=== PATIENT | male | born 1935 | race Caucasian/White ===

== ENCOUNTER → 2016-05-31 | Outpatient (CLI) | payer BC ==
[~2016-05-31] MED LIST: ALBU18002 INH; ALBUAER19 INH; ASPI81TA28 PO; ATOR-24 PO; CALC625T13 PO; HYT/2 PO; ISOS30TA3 PO; ISOS60TA25 PO; METH-589 PO; METO50TA16 PO; MULT-190 PO; MULT-506 PO; NITR0.4S UT; OMEP1POW2 PO; POLY99.02 OP; PRLSR20 PO; WARF5TAB90 PO
[2016-05-31 18:04] LABS: BLOOD UREA NITROGEN 21 mg/dl (7-18); BUN/CREATININE RATIO 17.5 (10-20); CALCIUM 8.6 mg/dl (8.5-10.1); CARBON DIOXIDE 28 mmol/L (21-32); CHLORIDE 105 mmol/L (98-107); GLUCOSE 88 mg/dl (70-99); POTASSIUM 4.1 mmol/L (3.5-5.1); SODIUM 140 mmol/L (136-145)
[2016-05-31 18:17] LABS: BASO % 0.3 %; BASO ABS # 0.02 K/uL (0-0.2); COMPLETE YES; EOS % 2.1 %; HEMATOCRIT 33.4 % (42-52); IG% 0.4 %; LYMPH % 35.8 %; LYMPH ABS # 2.52 K/uL (1.2-3.4); MEAN CORPUSCULAR HEMOGLOBIN 30.9 pg (25-34); MEAN CORPUSCULAR HGB CONC 33.2 g/dl (32-36); MEAN PLATELET VOLUME 8.9 fL (7.4-10.4); MONO % 9.8 %; NEUT % 51.6 %; PLATELET COUNT 188 K/uL (130-400); RED BLOOD COUNT 3.59 M/uL (4.7-6.1); WHITE BLOOD COUNT 7.03 K/uL (4.8-10.8)
== END | disposition home or self-care (01) ==
LOC: C.LABMFLN 13:45
PROVIDERS: ATTEND Family Medicine
DX: R07.9 Chest pain, unspecified (principal)

== ENCOUNTER → 2016-06-11 | Outpatient (CLI) | payer BC ==
[2016-06-11 17:54] LABS: TOTAL IRON BINDING CAPACITY 327 mcg/dl (250-450)
--- NOTE | 2016-06-17 08:23 | CODING QUERY MEDICAL NECESSITY ---
SUPPORTING DIAGNOSIS NEEDED Dr. Mays, A supporting diagnosis is required for the test/procedure performed on this patient in order for us to be reimbursed by the patient's insurance. Please provide a supporting diagnosis for the following test/procedure listed below next to the test name along with your signature. *If there is no additional diagnosis for this patient that would support the following test/procedure please document that below next to the test/procedure. Test(s)/Procedure(s) that require a supporting diagnosis: * ([id number]) B12 VITAMIN LEVEL DIAGNOSIS: * ([id number]) FOLATE LEVEL DIAGNOSIS: DATE OF SERVICE: 06/11/16 Provider Signature: Date: Thank you Karri Carmona [facility] Information Management Once completed, please kindly fax back to [phone] For questions please call [phone]
== END | disposition home or self-care (01) ==
LOC: C.LABMFLN 11:25
PROVIDERS: ATTEND Family Medicine
DX: D64.9 Anemia, unspecified (principal)

== ENCOUNTER → 2016-06-15 | Outpatient (CLI) | payer BC | END | disposition home or self-care (01) | LOC: C.LABSPEC 18:09 | PROVIDERS: ATTEND Family Medicine | DX: D64.9 Anemia, unspecified (principal) ==

== ENCOUNTER → 2016-06-25 | Outpatient (CLI) | payer BC ==
[~2016-06-25] MED LIST changes: +REGADENOSON 0.4 MG/5 ML SYR ONE
--- NOTE | 2016-06-28 19:13 | MYOCARDIAL PERFUSION SCAN ---
ORDERING PHYSICIAN: Quang Mays M.D. PRIMARY CARE PHYSICIAN: Quang Mays M.D. PROCEDURE 1. Myocardial perfusion study with multiple views/images. 2. Lexiscan pharmacologic stress ECG. INDICATIONS: Chest pain. ELECTROCARDIOGRAM AND VITALS: Baseline ECG showed sinus rhythm with nonspecific interventricular conduction delay and was unremarkable. During pharmacologic stress, no dysrhythmias or ST abnormalities noted. No chest pain reported. Unremarkable blood pressure response. PROCEDURAL DETAILS: For the stress portion of the study, Lexiscan 0.4 mg was intravenously administered over 10-15 seconds followed by saline flush. This was followed by 30.2 mCi of Tc-99m Cardiolite injected at 1125 a.m. on 06/25/2016. 30 minutes following this injection, imaging of the heart was performed in multiple projections. For the rest portion of the study, 10.5 mCi of Tc-99m Cardiolite was injected IV at 0945 a.m. One hour following the injection, imaging of the heart was performed in the same projections. FINDINGS: Rotating raw imaging showed no significant motion artifact. Heart appeared nondilated. There was no significant lung uptake. Myocardial perfusion was reviewed in multiple views and showed no evidence of infarct or ischemia. WALL MOTION: Normal left ventricular size with no regional wall motion abnormalities. Ejection fraction was calculated at 56%. IMPRESSION: 1. Negative pharmacologic myocardial perfusion scan for infarct or myocardial ischemia. 2. Normal left ventricular size and systolic function (EF=56%). 3. No chest pain. 4. No dysrhythmia. 5. Negative Lexiscan ECG. [facility]
== END | disposition home or self-care (01) ==
LOC: C.NUCL 09:02
PROVIDERS: ATTEND Family Medicine
DX: I25.10 Atherosclerotic heart disease of native coronary artery without angina pectoris (principal); I35.0 Nonrheumatic aortic (valve) stenosis; R07.9 Chest pain, unspecified

== ENCOUNTER → 2016-07-05 | Outpatient (CLI) | payer BC ==
[~2016-07-05] MED LIST changes: -REGADENOSON 0.4 MG/5 ML SYR ONE
== END | disposition home or self-care (01) ==
LOC: C.LABMFLN 11:22
PROVIDERS: ATTEND Family Medicine
DX: C61 Malignant neoplasm of prostate (principal)

== ENCOUNTER → 2016-07-15 | Day surgery (SDC) | payer BC ==
[2016-07-15] VITALS (8 sets, daily range): BP systolic 110–137; BP diastolic 53–78; PULSE 60–70; TEMP 36.6; O2SAT 96–98; Ht 172.7 cm; Wt 74.0 kg
[~2016-07-15] VITALS: Ht 172.7 cm; Wt 74.0 kg
[~2016-07-15] MED LIST changes: +ACETAMINOPHEN 325 MG TAB PO PRN; +FENTANYL CITRATE INJ 50 MCG/1 ML 2 ML VIAL ONE; +HEPARIN SOD (PORCINE) 1000 UNIT/ML 10 ML VIAL ONE; +MIDAZOLAM HCL 1 MG/ML 2ML VIAL ONE; +NiCARDipine HCL INJ 2.5 MG/ML 10 ML AMP ONE; +ONDANSETRON INJ 2 MG/ML 2 ML VIAL IV PRN; +SODIUM CHLORIDE 0.9% 1000ML 1,000 ML IV SCH
--- NOTE | 2016-07-15 09:45 | History & Physical Bridge Note ---
H&P Re-Evaluation Bridge Note: I have examined the patient, reviewed the History & Physical and in the interval since the performance of the History & Physical I have noted the following changes of clinical significance: Pt has been experiencing exertional chest discomfort with decreased exercise tolerance. He was unsure about AV replacement but is now considering and willing to undergo diagnostic testing. Therefore, will proceed with cath and JOSE ALBERTO. Otherwise, No changes noted.
--- NOTE | 2016-07-15 09:46 | Procedure Note ---
Pre-Mod Sedation Assessment General Date of Moderate Sedation: Jul 15, 2016. Vital Signs: Vital Signs Past 12 Hours Date Time Temp Pulse Resp B/P Pulse Ox O2 Delivery O2 Flow Rate FiO2 07/15/16 08:56 36.6 60 18 129/57 96 Room Air Review Cardiovascular: regular rate, rhythm, + systolic murmur Abdomen: non tender, soft Lungs: + crackles (chronic) Pre-Sedation Airway Assessment Hx of Sleep Apnea: No Smoking Status: Former Smoker Procedure Planning Contraindications-for Mod Sed: None Yes Notes The planned sedation has been discussed with the patient and consent obtained. I have identified the patient, determined the appropriateness of sedation and have assessed the patient immediately prior to the procedure. All medicine(s) and interventions are by my order.
[2016-07-15 10:09] LABS: BASO % 0.2 %; BASO ABS # 0.02 K/uL (0-0.2); EOS % 1.6 %; HEMATOCRIT 32.2 % (42-52); IG% 0.2 %; LYMPH % 22.9 %; MEAN CELL VOLUME 91.7 fL (80-100); MEAN CORPUSCULAR HEMOGLOBIN 31.6 pg (25-34); MEAN PLATELET VOLUME 8.1 fL (7.4-10.4); MONO % 9.2 %; NEUT % 65.9 %; PLATELET COUNT 143 K/uL (130-400); RED BLOOD COUNT 3.51 M/uL (4.7-6.1); WHITE BLOOD COUNT 8.73 K/uL (4.8-10.8)
[2016-07-15 10:10] LABS: COMPLETE YES; MEAN CORPUSCULAR HGB CONC 34.5 g/dl (32-36)
[2016-07-15 10:12] LABS: INR 1.1 (0.9-1.1); PROTHROMBIN TIME (PATIENT) 11.5 SECONDS (9.0-12.0)
[2016-07-15 10:34] LABS: BUN/CREATININE RATIO 18.1 (10-20); CALCIUM 8.7 mg/dl (8.5-10.1); CREATININE 1.1 mg/dl (0.60-1.40); POTASSIUM 3.9 mmol/L (3.5-5.1)
--- NOTE | 2016-07-15 12:08 | Procedure Note ---
Post-Mod Sedation Assessment General Date of Moderate Sedation Jul 15, 2016. Vital Signs: Vital Signs Past 12 Hours Date Time Temp Pulse Resp B/P Pulse Ox O2 Delivery O2 Flow Rate FiO2 07/15/16 11:55 70 16 126/62 98 Nasal Cannula 4 07/15/16 11:50 70 16 126/55 98 Nasal Cannula 4 07/15/16 11:45 66 16 132/62 96 Nasal Cannula 4 07/15/16 11:40 65 16 137/60 96 Nasal Cannula 4 07/15/16 11:35 63 16 129/57 96 Nasal Cannula 4 07/15/16 08:56 36.6 60 18 129/57 96 Room Air Review - Discharge Criteria Vital Signs Stable: Yes Alert/Oriented/Conversant: Yes Returned to Baseline Mental St: Yes Nausea Absent/Minimal: Yes Pain/Discomfort/Absent/Minimal: Yes Normal/Baseline Respirations: Yes Active Bleeding?: No
--- NOTE | 2016-07-15 12:09 | Cardiology Procedure Brief Nt ---
Preliminary Cardiology Note Procedure Date Jul 15, 2016. Pre-Procedure Diagnosis Aortic Stenosis Post-Procedure Diagnosis same Procedure(s) Performed JOSE ALBERTO Manager Multicultural Ellen Pattern Attendant(s) Cirilo Estimated Blood Loss none Preliminary Findings Significant Aortic stenosis. Mild MR. Recommendations Cath pending. Possible referral for AVR. Specimens none Complication(s) None Disposition test lab technician holding area
--- NOTE | 2016-07-15 12:10 | Procedure Note ---
Pre-Mod Sedation Assessment General Date of Moderate Sedation: Jul 15, 2016. Vital Signs: Vital Signs Past 12 Hours Date Time Temp Pulse Resp B/P Pulse Ox O2 Delivery O2 Flow Rate FiO2 07/15/16 11:55 70 16 126/62 98 Nasal Cannula 4 07/15/16 11:50 70 16 126/55 98 Nasal Cannula 4 07/15/16 11:45 66 16 132/62 96 Nasal Cannula 4 07/15/16 11:40 65 16 137/60 96 Nasal Cannula 4 07/15/16 11:35 63 16 129/57 96 Nasal Cannula 4 07/15/16 08:56 36.6 60 18 129/57 96 Room Air Review Cardiovascular: regular rate, rhythm, + systolic murmur Abdomen: non tender, soft Lungs: + crackles (chronic) Pre-Sedation Airway Assessment Hx of Sleep Apnea: No Smoking Status: Former Smoker Procedure Planning Contraindications-for Mod Sed: None Yes Notes The planned sedation has been discussed with the patient and consent obtained. I have identified the patient, determined the appropriateness of sedation and have assessed the patient immediately prior to the procedure. All medicine(s) and interventions are by my order.
--- NOTE | 2016-07-15 13:01 | TEE ---
*NOTICE TO RECEIVING [employer] This information is strictly Confidential and protected under [place] law. [place] law prohibits you from making any further disclosure of this information unless further disclosure is expressly permitted by the written consent of the person to whom it pertains or is authorized by law. A general authorization for the release of medical or other information is not sufficient for this purpose. Hospital accepts no responsibility if the information is made available to any other person, INCLUDING THE PATIENT. Interpretation Summary * Name: WANG TORRES Study Date: 07/15/2016 11:57 AM BP: 129/57 mmHg * Patient Location: C.CATH HR: 66 * : 1935 (M/d/yyyy) Gender: Male Height: 68 in * Age: 80 yrs Ethnicity: [place] Weight: 163 lb * Ordering Physician: Ryder Hughes * Referring Physician: Shoshana Marcos . PA-C * Performed By: Gabby Kerr RCS * * Reason For Study: AORTIC STENOSIS / MITRAL REGURGITATION * BSA: 1.9 m2 * -- Conclusions -- * JOSE ALBERTO: * 1. Normal left ventricular size with low-normal systolic function. Estimated EF 55%. No regional wall motion abnormalities. Mild concentric left ventricular hypertrophy. Type 1 diastolic dysfunction. * 2. Mild biatrial dilation. * 3. Severe aortic stenosis. * 4. Mild mitral regurgitation. * 5. Normal estimated right ventricular systolic pressure; estimated RVSP 25 mmHg, assuming a right atrial pressure of 3. * 6. Patient tolerated procedure well without known complication. * 7. No prior study available for comparison. Procedure Details * PROBE #3 WAS USED. TIME OUT: 1135 PROBE IN: 1140 PROBE OUT: 1200 * The study was performed in Cardiac Catheterization Lab. * Time out was conducted by the physician, nurse, and dairy lab technician with positive identification of patient and procedure. * Informed consent for Transesophageal Echocardiogram was obtained prior to the procedure. * An intravenous line was placed. A topical anesthetic agent was used for oropharangeal anesthesia. A bite block was inserted. * Fentanyl 25 mcg was administered for procedural sedation. * Midazolam 2 mg administered for sedation. * The posterior oropharynx was anesthetized using a topical anesthetic spray. A bite guard was inserted. * A multifrequency, multiplane transesopheageal echocardiographic endoscope was inserted and manipulated in the standard fashion to achieve multiplane views. * The transesophageal probe was passed without difficulty. * The usual views were obtained; basal, mid-esophageal, transgastric and aortic views. * The patient tolerated the procedure well without evidence of orophangeal or esophageal trauma. * A 2D transesophageal echocardiogram with spectral and color flow Doppler was performed. Left Ventricle * Normal left ventricular size with low-normal systolic function. Estimated EF 55%. No regional wall motion abnormalities. Mild concentric left ventricular hypertrophy. Type 1 diastolic dysfunction. Right Ventricle * The right ventricle is normal in size and function. Atria * The left atrium is mildly dilated. * No thrombus is detected in the left atrial appendage. * The right atrium is mildly dilated. * No visualized PFO or ASD. Mitral Valve * The mitral valve is normal in structure and function. * There is no mitral valve stenosis. * There is mild mitral regurgitation. Tricuspid Valve * The tricuspid valve is not well visualized, but is grossly normal. * There is no tricuspid stenosis. * There is trace tricuspid regurgitation. Aortic Valve * Severe aortic stenosis. * ALBERT 0.66 cm2; dimensionless index 0.2; mean gradient 37 mmHg. Moderate to severe based on velocity and mean gradient but other criteria favor severe aortic stenosis. * There is no significant aortic regurgitation. Pulmonic Valve * The pulmonic valve is not well visualized. * There is no significant pulmonary regurgitation. Great Vessels * The aortic root is normal size. * Severe atherosclerosis within visualized portions of thoracic descending aorta, including atheroma of approximately 0.5 cm. * Ascending aorta of normal dimension * Normal pulmonary venous flow pattern. Pericardium * There is no pericardial effusion. MMode 2D Measurements and Calculations LVIDd 4.8 cm LVIDs 3.4 cm FS 30.4 % EDV(Teich) 108.4 ml ESV(Teich) 45.8 ml EF(Teich) 57.7 % EDV(cubed) 111.7 ml ESV(cubed) 37.6 ml EF(cubed) 66.3 % SV(Teich) 62.6 ml SI(Teich) 33.4 ml/m\S\2 SV(cubed) 74.1 ml SI(cubed) 39.6 ml/m\S\2 Ao root diam 2.9 cm Ao root area 6.7 cm\S\2 asc Aorta Diam 3.0 cm LVOT diam 2.0 cm LVOT area 3.2 cm\S\2 Doppler Measurements and Calculations MV E max stacy 82.8 cm/sec MV A max stacy 94.1 cm/sec MV E/A 0.88 MV dec time 0.16 sec Ao V2 max 387.2 cm/sec Ao max PG 60.0 mmHg Ao max PG (full) 57.5 mmHg Ao V2 mean 290.4 cm/sec Ao mean PG 36.9 mmHg Ao mean PG (full) 35.4 mmHg Ao V2 VTI 106.2 cm ALBERT(I,A) 0.65 cm\S\2 ALBERT(I,D) 0.65 cm\S\2 ALBERT(V,A) 0.65 cm\S\2 ALBERT(V,D) 0.65 cm\S\2 LV V1 max PG 2.5 mmHg LV V1 mean PG 1.5 mmHg LV V1 max 79.3 cm/sec LV V1 mean 56.5 cm/sec LV V1 VTI 22.0 cm MR max stacy 466.2 cm/sec MR max PG 86.9 mmHg SV(Ao) 715.2 ml SI(Ao) 381.7 ml/m\S\2 SV(LVOT) 69.2 ml SI(LVOT) 36.9 ml/m\S\2 TR max stacy 231.9 cm/sec
--- NOTE | 2016-07-15 14:25 | Procedure Note ---
Post-Mod Sedation Assessment General Date of Moderate Sedation Jul 15, 2016. Vital Signs: Vital Signs Past 12 Hours Date Time Temp Pulse Resp B/P Pulse Ox O2 Delivery O2 Flow Rate FiO2 07/15/16 14:00 68 16 110/58 96 Room Air 07/15/16 13:55 64 16 125/51 96 Room Air 07/15/16 13:50 64 16 112/65 96 Room Air 07/15/16 13:45 64 16 119/67 96 Room Air 07/15/16 12:45 66 16 107/55 96 Room Air 07/15/16 12:30 64 16 113/51 96 Room Air 07/15/16 12:15 62 16 112/52 96 Room Air 07/15/16 12:00 70 16 110/53 98 Nasal Cannula 4 07/15/16 12:00 64 16 104/56 96 Room Air 07/15/16 11:55 70 16 126/62 98 Nasal Cannula 4 07/15/16 11:50 70 16 126/55 98 Nasal Cannula 4 07/15/16 11:45 66 16 132/62 96 Nasal Cannula 4 07/15/16 11:40 65 16 137/60 96 Nasal Cannula 4 07/15/16 11:35 63 16 129/57 96 Nasal Cannula 4 07/15/16 08:56 36.6 60 18 129/57 96 Room Air Review - Discharge Criteria Vital Signs Stable: Yes Alert/Oriented/Conversant: Yes Returned to Baseline Mental St: Yes Nausea Absent/Minimal: Yes Pain/Discomfort/Absent/Minimal: Yes Normal/Baseline Respirations: Yes Active Bleeding?: No
--- NOTE | 2016-07-15 14:37 | Cardiac Catheterization ---
Procedure Note Procedure Date Jul 15, 2016. Pre-Procedure Diagnosis Angina, CAD, Valvular Disease AUC Score 7 Post-Procedure Diagnosis Severe CAD Procedure(s) Performed Coronary Angiography Novelty Twister Tender Dr. Hughes Astrochemist(s) Gregg Estimated Blood Loss < 20 ml Medication(s) Fentanyl, Heparin, Nicardipine, Versed, Lidocaine 1% Summary of Findings Coronary angiography: 1. Left main coronary artery: Distal LM CA 60-70%. 2. Left anterior descending: LAD extends to the apex. Heavily calcified proximal LAD. Mid LAD 50%, just distal to D1. Remainder of LAD without significant CAD. D1 mid 100% occlusion. Very small D2. 3. Circumflex: The circumflex is a large caliber vessel proximally and extends distally as a small caliber vessel. Ostial circumflex 98%. Very small OM1, small caliber OM2, and large caliber OM3, without significant CAD. 4. Ramus intermedius: Large caliber. Ostial ramus 98% stenosis. 5. Right coronary artery: The RCA is large and dominant. Calcifications noted within the proximal to mid RCA. Proximal to mid RCA diffusely disease of approximately 60%. Distal RCA 40% followed by 30%. Distal RCA stent with 20% in stent restenosis. PDA and posterior lateral branch without significant CAD. Right to left collaterals noted. Procedural notes: 1. There were no attempt to cross the aortic valve given documented significant aortic stenosis. 2. Procedure performed via the right radial artery without known complication. Impression: 1. Severe multivessel CAD. 2. Significant aortic stenosis (symptomatic) previously documented. Plan: 1. Referral to CT surgery for evaluation of aortic valve replacement and CABG. Hemodynamics Rest Ao: 132/52 Final Ao: 127/55 LV: n/a Recommendations CABG, valve replacement Specimens None Radiation Exposure (mGy) 1146 mGy. Fluoro time 4.5 min. Contrast (mls) 70 ml Procedural Complication(s) None Disposition Medical Front Desk Coordinator Holding/Recovery ACC Data Cardiac Status Clinical evaluation leading to the procedure CAD Presntation: Stable angina Anginal Classification: CCS III Heart Failure: No Cardiogenic Shock w/in 24Hrs: No Cardiac Arrest w/in 24Hrs: No Imaging studies past 6 months: Yes (TTE and JOSE ALBERTO) Stress studies past 6 months: Yes Standard Exercise Stress Test: No Stress Echocardiogram: No Stress Testing w/SPECT MPI: Yes - Negative Cardiac CTA: No Coronary Anatomy Dominant: Right Left Main (% Stenosis): Distal (60%) LAD (% Stenosis): Mid (50%) D1 (% Stenosis): Mid (100%) D2 (% Stenosis): Normal Circumflex (% Stenosis): Ostial (98%) OM1 (% Stenosis): Normal OM2 (% Stenosis): Normal OM3 (% Stenosis): Normal RCA (% Stenosis): Proximal (60% diffuse), Mid (60%), Distal (30% point hope ira RCA. Distal RCA stent 20% in-stent stenosis.) R PDA (% Stenosis): Normal R PL1 (% Stenosis): Normal Ramus (% Stenosis): Ostial (98%) Left Ventricular Angiography EF (%): n/a Diagnostic Physician's Name: Ryder Hughes MD Status: Elective Closure Device Percutaneous Entry Location: Radial Closure Device: Radial Band Recommendations: CABG, valve replacement
--- NOTE | 2016-07-15 14:44 | Discharge Instructions ---
Discharge Instructions Visit Reason for Visit: Aortic stenosis and coronary artery disease. Here for cardiac catheterization. Discharge Discharge Diagnosis / Problem: Severe multivessel coronary artery disease and severe aortic stenosis. Discharge Goals Goal(s): Diagnostic testing Medications Restart Stopped Medication(s): Resume all of your usual medications. Activity Recommendations Activity Limitations: per Instructions/Follow-up section Anesthesia . Post Anesthesia Instructions: If you have had General Anesthesia or IV Sedation: * Do not drive today. * Resume driving when surgeon permits. * Do not make important decisions or sign legal documents today. * Call surgeon for: 1. Temperature elevations greater than 101 degrees F. 2. Uncontrollable pain. 3. Excessive bleeding. 4. Persistent nausea and vomiting. 5. Medication intolerance (nausea, vomiting or rash). * For nausea and vomiting use only clear liquids such as: tea, soda, bouillon until nausea subsides, then gradually increase diet as tolerated. * If you have any concerns or questions, call your surgeon's office. If physician is unavailable and it is an emergency, call 911 or go to the nearest emergency room. . Instructions / Follow-Up Instructions / Follow-Up Follow-up: 1. CT surgery at [facility] will be contacting you to arrange consultation for possible aortic valve replacement and coronary bypass surgery. Please take your images (provided on disc) to your appointment. ACTIVITY RECOMMENDATIONS: Excess manipulation of the wrist should be avoided for the next 24-48 hours. * No lifting over 2 pounds (approximately a 1/2 gallon of milk) with the utilized arm for 24 hours. * No strenuous activity such as bowling or tennis for 3 days. * Keep the site of the procedure covered with a bandage for 24 hours. *You may shower the day after the procedure. Do not take a tub bath or submerge the puncture site in water for the next 3 days. *Do not operate any motorized equipment for 3 days. SPECIAL CARE INSTRUCTIONS: The site may be slightly bruised and sore following your procedure. Should any of the following occur, contact the DrOrin who performed your procedure. 1. Redness/inflammation, swelling, chills, or fever, or colored drainage at procedure site within 3-7 days after your procedure. 2. Coldness, discoloration, ongoing numbness, severe pain, or swelling. Expect mild tingling of hand and tenderness at the puncture site for up to three days. If this persists beyond three days, or other symptoms develop, notify the Dr. who performed your procedure. BLEEDING: If the procedure site on your wrist begins to bleed, do not panic 1. Place 1 or 2 fingers firmly just slightly above the insertion site to stop the bleeding. You may be able to feel your pulse as you hold pressure. 2. Lift your finger after 5 minutes to see if the bleeding has stopped. 3. Once the bleeding has stopped, gently wipe the wrist area clean with a bandage. * If the bleeding from your wrist does not stop after 10 minutes, or if there is a large amount of bleeding or spurting, call 911 ([address] not drive yourself to the hospital). SKIN IRRITATION: * You may experience some redness and/or swelling in the area where radiation was administered. If any skin irritation occurs, please contact your family physician. FOLLOW UP VISIT: Keep any scheduled doctor appointments. ACTIVITY RECOMMENDATIONS: Resume activities as tolerated with no limitations unless specified. __ Nothing to eat or drink until gag reflex returns. __ No HOT or WARM liquids for _8_ hours. __ Avoid "scratchy" foods such as potato chips or pretzels for 24 hours following procedure. SPECIAL CARE: If you experience coughing up or vomiting of blood, contact 911 Diet Recommendations Recommended Home Diet: resume previous diet Procedures Procedures Performed: 1. Cardiac catheterization 2. Transesophageal echocardiogram Pending Studies Studies pending at discharge: yes List of pending studies: 1. Pulmonary function tests 2. Carotid duplex These will be arranged by Dr. Hughes's office and you will be notified of time/date of appointment. Medical Emergencies . Who to Call and When: Medical Emergencies: If at any time you feel your situation is an emergency, please call 911 immediately. Call 911 for chest pain that does not resolve within 5 minutes. . Non-Emergent Contact Non-Emergency issues call your: [facility] . . "Provider Documentation" section prepared by Ryder Smith.
== END | disposition home or self-care (01) ==
LOC: C.CATH 08:22
PROVIDERS: ATTEND Internal Medicine Cardiovascular Disease
DX: I25.119 Atherosclerotic heart disease of native coronary artery with unspecified angina pectoris (principal); I35.0 Nonrheumatic aortic (valve) stenosis; I48.91 Unspecified atrial fibrillation; E78.5 Hyperlipidemia, unspecified; I10 Essential (primary) hypertension; D64.9 Anemia, unspecified; K21.9 Gastro-esophageal reflux disease without esophagitis; C61 Malignant neoplasm of prostate; I65.29 Occlusion and stenosis of unspecified carotid artery; J44.9 Chronic obstructive pulmonary disease, unspecified; C18.9 Malignant neoplasm of colon, unspecified; E05.90 Thyrotoxicosis, unspecified without thyrotoxic crisis or storm; J84.112 Idiopathic pulmonary fibrosis; Z90.49 Acquired absence of other specified parts of digestive tract

== ENCOUNTER → 2016-10-12 | Outpatient (CLI) | payer BC ==
[~2016-10-12] MED LIST changes: -ACETAMINOPHEN 325 MG TAB PO PRN; -CALC625T13 PO; -FENTANYL CITRATE INJ 50 MCG/1 ML 2 ML VIAL ONE; +FERR324T PO; +FERR325T18 PO; -HEPARIN SOD (PORCINE) 1000 UNIT/ML 10 ML VIAL ONE; -ISOS30TA3 PO; +METO100T44 PO; -MIDAZOLAM HCL 1 MG/ML 2ML VIAL ONE; +MIRT30TA2 PO; +MULTCAP7 PO; -NiCARDipine HCL INJ 2.5 MG/ML 10 ML AMP ONE; -ONDANSETRON INJ 2 MG/ML 2 ML VIAL IV PRN; -POLY99.02 OP; +POTA10CA28 PO; -PRLSR20 PO; -SODIUM CHLORIDE 0.9% 1000ML 1,000 ML IV SCH; +TAMS0.4C38 PO; +WARF5TAB7 PO
[2016-10-12 18:02] LABS: BASO % 0.3 %; BASO ABS # 0.03 K/uL (0-0.2); COMPLETE YES; EOS % 1.9 %; HEMATOCRIT 34.6 % (42-52); IG% 1.1 %; LYMPH % 30.2 %; LYMPH ABS # 2.86 K/uL (1.2-3.4); MEAN CELL VOLUME 92.5 fL (80-100); MEAN CORPUSCULAR HEMOGLOBIN 28.9 pg (25-34); MEAN CORPUSCULAR HGB CONC 31.2 g/dl (32-36); MEAN PLATELET VOLUME 8.6 fL (7.4-10.4); MONO % 10.6 %; NEUT % 55.9 %; PLATELET COUNT 262 K/uL (130-400); RED BLOOD COUNT 3.74 M/uL (4.7-6.1); WHITE BLOOD COUNT 9.46 K/uL (4.8-10.8)
[2016-10-12 18:21] LABS: BLOOD UREA NITROGEN 21 mg/dl (7-18); BUN/CREATININE RATIO 20.8 (10-20); CARBON DIOXIDE 33 mmol/L (21-32); CHLORIDE 101 mmol/L (98-107); GLUCOSE 100 mg/dl (70-99); SODIUM 141 mmol/L (136-145)
== END | disposition home or self-care (01) ==
LOC: C.LABMFLN 13:27
PROVIDERS: ATTEND Family Medicine
DX: E05.90 Thyrotoxicosis, unspecified without thyrotoxic crisis or storm (principal); I10 Essential (primary) hypertension; I35.0 Nonrheumatic aortic (valve) stenosis; I48.91 Unspecified atrial fibrillation

== ENCOUNTER → 2016-11-15 | Outpatient (CLI) | payer BC ==
[2016-11-15 18:26] LABS: BASO % 0.4 %; BASO ABS # 0.03 K/uL (0-0.2); COMPLETE YES; EOS % 1.4 %; HEMATOCRIT 33.6 % (42-52); IG% 0.6 %; LYMPH % 32.5 %; LYMPH ABS # 2.63 K/uL (1.2-3.4); MEAN CELL VOLUME 89.8 fL (80-100); MEAN CORPUSCULAR HEMOGLOBIN 28.6 pg (25-34); MEAN CORPUSCULAR HGB CONC 31.8 g/dl (32-36); MEAN PLATELET VOLUME 8.3 fL (7.4-10.4); MONO % 8.8 %; NEUT % 56.3 %; PLATELET COUNT 247 K/uL (130-400); RED BLOOD COUNT 3.74 M/uL (4.7-6.1); WHITE BLOOD COUNT 8.09 K/uL (4.8-10.8)
[2016-11-15 18:41] LABS: TOTAL IRON BINDING CAPACITY 218 mcg/dl (250-450)
== END | disposition home or self-care (01) ==
LOC: C.LABMFLN 13:00
PROVIDERS: ATTEND Family Medicine
DX: I25.10 Atherosclerotic heart disease of native coronary artery without angina pectoris (principal); D64.9 Anemia, unspecified; E87.6 Hypokalemia

== ENCOUNTER → 2016-12-21 | Outpatient (CLI) | payer BC ==
[~2016-12-21] MED LIST changes: -FERR324T PO; -FERR325T18 PO; -METO100T44 PO; -MIRT30TA2 PO; -MULTCAP7 PO; -POTA10CA28 PO; -TAMS0.4C38 PO; -WARF5TAB7 PO
[2016-12-21 18:10] LABS: HEMATOCRIT 34.8 % (42-52); MEAN CELL VOLUME 92.8 fL (80-100); MEAN CORPUSCULAR HEMOGLOBIN 30.7 pg (25-34); MEAN PLATELET VOLUME 8.8 fL (7.4-10.4); PLATELET COUNT 252 K/uL (130-400); RED BLOOD COUNT 3.75 M/uL (4.7-6.1); WHITE BLOOD COUNT 8.89 K/uL (4.8-10.8)
[2016-12-21 18:15] LABS: BLOOD UREA NITROGEN 17 mg/dl (7-18); BUN/CREATININE RATIO 19.8 (10-20); CALCIUM 9.2 mg/dl (8.5-10.1); CARBON DIOXIDE 33 mmol/L (21-32); CHLORIDE 103 mmol/L (98-107); CREATININE 0.87 mg/dl (0.60-1.40); GLUCOSE 97 mg/dl (70-99); SODIUM 140 mmol/L (136-145)
== END | disposition home or self-care (01) ==
LOC: C.LABMFLN 13:52
PROVIDERS: ATTEND Family Medicine
DX: D64.9 Anemia, unspecified (principal); R06.02 Shortness of breath

== ENCOUNTER → 2017-01-07 | Outpatient (CLI) | payer BC ==
[~2017-01-07] MED LIST changes: +FERR324T PO; +FERR325T18 PO; +METO1TAB69 PO; +MIRT30TA2 PO; +MULTCAP7 PO; +POTA10CA28 PO; +TAMS0.4C38 PO; +WARF5TAB7 PO
[2017-01-07 13:30] LABS: ALT/SGPT 17 U/L (12-78); AST/SGOT 19 U/L (15-37); BLOOD UREA NITROGEN 17 mg/dl (7-18); CALCIUM 9.5 mg/dl (8.5-10.1); CARBON DIOXIDE 33 mmol/L (21-32); CHLORIDE 100 mmol/L (98-107); CHOLESTEROL 100 mg/dl (0-200); CREATININE 0.86 mg/dl (0.60-1.40); GLUCOSE 109 mg/dl (70-99); POTASSIUM 4.1 mmol/L (3.5-5.1); SODIUM 136 mmol/L (136-145); TRIGLYCERIDES 75 mg/dl (0-150); VERY LOW DENSITY LIPOPROT CALC 15 mg/dl
[2017-01-07 13:33] LABS: HDL CHOLESTEROL 51 mg/dl; LDL CHOLESTEROL CALCULATED 34 mg/dl
== END | disposition home or self-care (01) ==
LOC: C.LABMFLN 10:56
PROVIDERS: ATTEND Family Medicine
DX: E87.6 Hypokalemia (principal); D64.9 Anemia, unspecified; E78.5 Hyperlipidemia, unspecified; I10 Essential (primary) hypertension; I35.0 Nonrheumatic aortic (valve) stenosis; I48.91 Unspecified atrial fibrillation

== ENCOUNTER → 2017-02-02 | Outpatient (CLI) | payer BC ==
[2017-02-02 17:48] LABS: BASO % 0.4 %; BASO ABS # 0.03 K/uL (0-0.2); COMPLETE YES; EOS % 0.9 %; HEMATOCRIT 35.2 % (42-52); IG% 0.3 %; MEAN CELL VOLUME 95.4 fL (80-100); MEAN CORPUSCULAR HEMOGLOBIN 29.8 pg (25-34); MEAN CORPUSCULAR HGB CONC 31.3 g/dl (32-36); MEAN PLATELET VOLUME 8.8 fL (7.4-10.4); MONO % 10.8 %; NEUT % 60.6 %; PLATELET COUNT 190 K/uL (130-400); RED BLOOD COUNT 3.69 M/uL (4.7-6.1)
[2017-02-02 17:59] LABS: ALB/GLOB RATIO 0.6 (0.9-2); ALT/SGPT 19 U/L (12-78); AMYLASE 57 U/L (25-115); AST/SGOT 26 U/L (15-37); BLOOD UREA NITROGEN 19 mg/dl (7-18); BUN/CREATININE RATIO 21.4 (10-20); CALCIUM 9.2 mg/dl (8.5-10.1); CARBON DIOXIDE 34 mmol/L (21-32); CHLORIDE 102 mmol/L (98-107); CREATININE 0.89 mg/dl (0.60-1.40); GLUCOSE 125 mg/dl (70-99); POTASSIUM 3.9 mmol/L (3.5-5.1); SODIUM 138 mmol/L (136-145)
[2017-02-02 18:08] LABS: ALKALINE PHOSPHATASE 87 U/L (45-117); PROSTATE SPECIFIC ANTIGEN < 0.010 ng/ml (0.000-4.000); TOTAL IRON BINDING CAPACITY 296 mcg/dl (250-450)
--- NOTE | 2017-02-18 06:29 | CODING QUERY MEDICAL NECESSITY ---
CQSUPPORTING DIAGNOSIS NEEDED A supporting diagnosis is required for the test/procedure performed on this patient in order for us to be reimbursed by the patient's insurance. Please provide a supporting diagnosis for the following test/procedure listed below next to the test name along with your signature. *If there is no additional diagnosis for this patient that would support the following test/procedure please document that below next to the test/procedure. Test(s)/Procedure(s) that require a supporting diagnosis: DOS 02/02/17 VITAMIN B12 TEST FOLIC ACID TEST Provider Signature: Date: Thank you Gaviota Caballero [facility] Information Management Once completed, please kindly fax back to [phone] For questions please call [phone]
== END | disposition home or self-care (01) ==
LOC: C.LABMFLN 14:02
PROVIDERS: ATTEND Family Medicine
DX: E05.90 Thyrotoxicosis, unspecified without thyrotoxic crisis or storm (principal); E78.5 Hyperlipidemia, unspecified; R63.0 Anorexia; R63.4 Abnormal weight loss; I50.9 Heart failure, unspecified; I48.91 Unspecified atrial fibrillation; C61 Malignant neoplasm of prostate; I10 Essential (primary) hypertension

== ENCOUNTER → 2017-02-15 | Outpatient (CLI) | payer BC ==
[2017-02-15 14:22] LABS: BLOOD UREA NITROGEN 20 mg/dl (7-18); BUN/CREATININE RATIO 22.7 (10-20); CALCIUM 9.5 mg/dl (8.5-10.1); CARBON DIOXIDE 34 mmol/L (21-32); CHLORIDE 98 mmol/L (98-107); GLUCOSE 121 mg/dl (70-99); POTASSIUM 4.1 mmol/L (3.5-5.1); SODIUM 136 mmol/L (136-145)
== END | disposition home or self-care (01) ==
LOC: C.LABMFLN 10:12
PROVIDERS: ATTEND Internal Medicine Cardiovascular Disease
DX: I25.10 Atherosclerotic heart disease of native coronary artery without angina pectoris (principal); I48.91 Unspecified atrial fibrillation; R06.02 Shortness of breath; I42.9 Cardiomyopathy, unspecified; I50.22 Chronic systolic (congestive) heart failure

== ENCOUNTER → 2017-03-01 | Outpatient (CLI) | payer BC ==
[~2017-03-01] MED LIST changes: -FERR324T PO; -FERR325T18 PO; -METO1TAB69 PO; -MIRT30TA2 PO; -MULTCAP7 PO; -POTA10CA28 PO; -TAMS0.4C38 PO; -WARF5TAB7 PO
[2017-03-01 17:53] LABS: BASO % 0.4 %; BASO ABS # 0.04 K/uL (0-0.2); COMPLETE YES; EOS % 2.4 %; IG% 0.6 %; LYMPH ABS # 2.34 K/uL (1.2-3.4); MEAN CELL VOLUME 94.6 fL (80-100); MEAN CORPUSCULAR HEMOGLOBIN 30.3 pg (25-34); MEAN PLATELET VOLUME 8.8 fL (7.4-10.4); MONO % 14.6 %; PLATELET COUNT 251 K/uL (130-400); RED BLOOD COUNT 3.17 M/uL (4.7-6.1); WHITE BLOOD COUNT 10.19 K/uL (4.8-10.8)
[2017-03-01 18:06] LABS: ALT/SGPT 18 U/L (12-78); AMYLASE 55 U/L (25-115); AST/SGOT 26 U/L (15-37); BLOOD UREA NITROGEN 25 mg/dl (7-18); BUN/CREATININE RATIO 26.5 (10-20); CALCIUM 9.5 mg/dl (8.5-10.1); CARBON DIOXIDE 34 mmol/L (21-32); CHLORIDE 97 mmol/L (98-107); CREATININE 0.95 mg/dl (0.60-1.40); GLUCOSE 100 mg/dl (70-99); POTASSIUM 4.5 mmol/L (3.5-5.1); SODIUM 135 mmol/L (136-145)
[2017-03-01 18:10] LABS: ALKALINE PHOSPHATASE 96 U/L (45-117); PROSTATE SPECIFIC ANTIGEN < 0.010 ng/ml (0.000-4.000); TOTAL IRON BINDING CAPACITY 207 mcg/dl (250-450)
== END | disposition home or self-care (01) ==
LOC: C.LABMFLN 14:52
PROVIDERS: ATTEND Internal Medicine Cardiovascular Disease
DX: I42.9 Cardiomyopathy, unspecified (principal); I48.91 Unspecified atrial fibrillation; Z79.01 Long term (current) use of anticoagulants; R63.4 Abnormal weight loss; R68.81 Early satiety; K92.1 Melena; R10.13 Epigastric pain; R06.00 Dyspnea, unspecified; C61 Malignant neoplasm of prostate

== ENCOUNTER 2017-03-05 13:45 | Inpatient (IN) | payer BC, OTHER ==
[~2017-03-05] VITALS: Ht 170.2 cm; Wt 52.2 kg
[2017-03-05] MEDS ORDERED: SODIUM CHLORIDE 0.9% 500ML 500 ML IV STA (14:05)
[2017-03-05] MEDS ORDERED: FAMOTIDINE 20MG/102 ML D5W IV STA (14:11)
[2017-03-05] MEDS ORDERED: PANTOprazole INJ 40 MG in SYRINGE 0 ML IV ONE (14:15)
[2017-03-05] MEDS ORDERED: OPTIRAY 320 IV PRN (14:15)
--- NOTE | 2017-03-05 14:16 | EMERGENCY ROOM VISIT NOTE ---
History Report prepared by Mary Anneibdean: Teena Huertas Under the Supervision of: Dr. Nagi Pearson D.O. First contact with patient: 13:57 Chief Complaint: WEAKNESS Stated Complaint: NOT EATING, LUMP ON PROSTATE, WEAK, HEART SURG History of Present Illness The patient is a 81 year old male who presents to the Emergency Room with complaints of persistent weakness for the past several months. He is accompanied by his and daughter. His reports he has not had much of an appetite recently. The patient states "I go to take a bite, and says I just can't eat". He has lost a large amount of weight recently and his family states "he is withering away to nothing". His PCP, Dr. Mays in [place], referred the patient here to the ED for further evaluation this past Tuesday, 5 days [employer] , after finding "a lump on his prostate". The patient's reports they chose to come here to the ED today, Tuesday, out of convenience. The patient admits to "gas pains" in his abdomen and recent hematochezia. The patient denies any recent diarrhea or abdominal bloating. He does complain of increased shortness of breath but admits to a history of COPD. He reports he has undergone an endoscopy and colonoscopy in the past, but states it was "years ago". 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 A total of 10 systems reviewed and were otherwise negative. Past Medical & Surgical Medical Problems: (1) Atrial fibrillation with RVR (2) Bilateral pleural effusion (3) COPD (chronic obstructive pulmonary disease) (4) Prostate cancer Social History Smoking Status: Former Smoker Alcohol Use: none Drug Use: none Marital Status: Housing Status: lives with family Occupation Status: retired Current/Historical Medications Scheduled Aspirin (Aspirin Ec), 81 MG PO DAILY Atorvastatin (Lipitor), 40 MG PO HS Methimazole (Methimazole ), 5 MG PO Q2D Metoprolol Succ (Toprol Xl) (Toprol-Xl ), 100 MG PO DAILY Mirtazapine Soltab (Remeron Soltab), 30 MG PO HS Multiple Vitamins W/ Minerals (Eye Vitamins), 1 CAP PO DAILY Multivitamin (Multivitamin), 1 TAB PO DAILY Nitroglycerin (Nitrostat), 0.4 MG UT PRN Omeprazole (Bulk) (Omeprazole), 40 MG PO BID Potassium Chloride (Micro-K Ext Rel), 20 MEQ PO TID Tamsulosin Hcl (Flomax), 0.4 MG PO DAILY Warfarin Sod (Jantoven), 7.5 MG PO 2XWK Warfarin Sodium (Coumadin), 5 MG PO 5XWK Scheduled PRN Albuterol Sulfate (Proair Respiclick), 1-2 PUFF INH Q4H PRN for Cough Miscellaneous Medications Ferrous Gluconate (Ferrous Gluconate), 324 MG PO Allergies Coded Allergies: No Known Allergies (Unverified , 03/05/17) Physical Exam Vital Signs Date Time Temp Pulse Resp B/P (MAP) Pulse Ox O2 Delivery O2 Flow Rate FiO2 03/05/17 17:30 111 23 99 Nasal Cannula 2.0 03/05/17 17:00 103 27 118/76 98 Nasal Cannula 2.0 03/05/17 16:28 103 30 121/70 92 Nasal Cannula 2.0 03/05/17 15:00 114 25 128/77 96 03/05/17 14:05 127 03/05/17 14:02 144 29 119/99 93 03/05/17 13:53 36.7 128 20 118/65 95 Nasal Cannula 2.5 Physical Exam GENERAL: Patient is awake, alert, in no acute distress, patient is resting comfortably and showing no signs of anxiety EYES: The conjunctivae are clear. The pupils are round and reactive. EARS, NOSE, MOUTH AND THROAT: The nose is without any evidence of any deformity. Mucous membranes are moist tongue is midline NECK: The neck is nontender and supple. RESPIRATORY: Lung sounds are diminished throughout. Rales at both bases. No tachypnea or conversational dyspnea. CARDIOVASCULAR: Heart sounds are tachycardic and irregular. No definite murmur to auscultation. RECTAL: Brown stool, heme negative. GASTROINTESTINAL: The abdomen is mildly distended but soft. No guarding or rigidity. MUSCULOSKELETAL/EXTREMITIES: There is no evidence of gross deformity full range of motion is noted in the hips and shoulders SKIN: There is no obvious evidence of any rash. There are no petechiae, pallor or cyanosis noted. NEUROLOGIC: Patient is awake alert and oriented x3 Medical Decision & Procedures ER Provider Diagnostic Interpretation: Radiology results as stated below per my review and radiologist interpretation: SINGLE VIEW CHEST CLINICAL HISTORY: Generalized abdominal pain. FINDINGS: An AP, portable, upright chest radiograph is compared to study dated 06/08/2013 and correlated with chest CT dated 10/16/2015. The patient is status post midline sternotomy. The heart is enlarged and there is atherosclerotic calcification of the thoracic aorta. There is pulmonary vascular congestion. Emphysema and chronic interstitial thickening are similar to previous. There are layering pleural effusions with dense bibasilar airspace consolidation. No pneumothorax is seen. The skeletal structures are osteopenic. The bony thorax is grossly intact. Calcific tendinopathy is noted in the left shoulder. IMPRESSION: 1. Cardiomegaly with mild pulmonary vascular congestion. 2. There are layering pleural effusions with dense bibasilar airspace consolidation. Correlate clinically for evidence of pneumonia/aspiration pneumonitis. Radiographic follow-up to resolution is recommended. 3. Emphysema. Electronically signed by: Quang Resendez M.D. 03/05/2017 2:[address] SCAN OF THE ABDOMEN AND PELVIS WITH IV CONTRAST CLINICAL HISTORY: Upper abdominal pain. Dyspnea. COMPARISON STUDY: Abdominal CT scan dated 10/16/2015 and 09/09/2014. TECHNIQUE: Following the IV administration of 117 cc of Optiray 320, CT scan of the abdomen and pelvis is performed from the lung bases to the proximal femora. Images are reviewed in the axial, sagittal, and coronal planes. IV contrast was administered without complication. A dose lowering technique was utilized adhering to the principles of ALARA. CT DOSE: 381.88 mGy.cm FINDINGS: Lung bases: The patient is status post midline sternotomy and there is evidence of previous aortic valve surgery. The heart is markedly enlarged and there is a small pericardial effusion. The coronary arteries are densely calcified. Advanced emphysema is noted. Facet subpleural scarring are identified. There are moderate right and small left pleural effusions/collection with associated bibasilar consolidation. The pleural effusions appear to be at least partially loculated and there is underlying pleural thickening. The effusion on the right appears complex. A moderate hiatal hernia is identified. Liver: The contrast-enhanced liver is normal in size, contour, and attenuation. Focal fatty infiltration is seen adjacent to falciform ligament. There is no intrahepatic biliary ductal dilatation. The hepatic veins and portal veins are patent. Gallbladder: Unremarkable. Spleen: Normal in size and attenuation. Pancreas: Unremarkable. Adrenal glands: Unremarkable. Kidneys: The contrast enhanced kidneys demonstrate cortical atrophy and are without hydronephrosis. The kidneys enhance symmetrically. Renal cysts end indeterminant renal hypodensities measure up to 3.0 cm are similar appearance to previous. No enhancing cortical mass is clearly seen. Abdominal vasculature: There is advanced atherosclerotic calcification of the abdominal aorta. An aortobiiliac stent graft is in place. The stent graft is widely patent. No significant residual aneurysm sac is seen.. Bowel: There are postoperative changes from partial left colon resection with colocolonic anastomosis. No bowel obstruction is seen. The appendix is not identified and reported surgically absent. Peritoneum: There is no intraperitoneal free air or abdominal ascites. Lymphadenopathy: None. Pelvic viscera: The the prostate gland is mildly enlarged and heterogeneous. Brachytherapy beads are noted. Median lobe hypertrophy is identified. The bladder wall appears mildly thickened and trabeculated suggesting the sequelae of chronic outlet obstruction. Skeletal structures: The skeletal structures are osteopenic. The skeletal structures are heterogeneously osteopenic. There is moderate lumbosacral spondylosis. No lytic or blastic lesions are seen. IMPRESSION: 1. There are no acute infectious or inflammatory findings in the abdomen or pelvis. 2. Cardiomegaly and changes from midline sternotomy. This is new from 10/16/2015. 3. There are moderate right and small left pleural effusions/collections with associated bibasilar consolidation and pleural thickening. These are likely at least partially loculated, and the effusion on the right appears to be minimally complex. If cardiothoracic surgery was recent this may represent postoperative change. Clinical correlation will be essential. 4. Bibasilar consolidation likely represents atelectasis. Correlate clinically for evidence of pneumonia. 5. There are postoperative changes from left colon resection. No bowel obstruction is seen. 6. Additional findings as above. Electronically signed by: Quang Resendez M.D. 03/05/2017 5:03 PM Laboratory Results 03/05/17 14:10 Red Blood Count 3.48, Mean Corpuscular Volume 94.0, Mean Corpuscular Hemoglobin 29.6, Mean Corpuscular Hemoglobin Concent 31.5, Mean Platelet Volume 8.5, Neutrophils (%) (Auto) 66.8, Lymphocytes (%) (Auto) 20.6, Monocytes (%) (Auto) 10.2, Eosinophils (%) (Auto) 1.5, Basophils (%) (Auto) 0.3, Neutrophils # (Auto ) 6.86, Lymphocytes # (Auto) 2.12, Monocytes # (Auto) 1.05, Eosinophils # (Auto ) 0.15, Basophils # (Auto) 0.03 03/05/17 14:10 Test 03/05/17 14:10 White Blood Count 10.27 K/uL (4.8-10.8) Red Blood Count 3.48 M/uL (4.7-6.1) Hemoglobin 10.3 g/dL (14.0-18.0) Hematocrit 32.7 % (42-52) Mean Corpuscular Volume 94.0 fL (80-100) Mean Corpuscular Hemoglobin 29.6 pg (25-34) Mean Corpuscular Hemoglobin Concent 31.5 g/dl (32-36) Platelet Count 244 K/uL (130-400) Mean Platelet Volume 8.5 fL (7.4-10.4) Neutrophils (%) (Auto) 66.8 % Lymphocytes (%) (Auto) 20.6 % Monocytes (%) (Auto) 10.2 % Eosinophils (%) (Auto) 1.5 % Basophils (%) (Auto) 0.3 % Neutrophils # (Auto) 6.86 K/uL (1.4-6.5) Lymphocytes # (Auto) 2.12 K/uL (1.2-3.4) Monocytes # (Auto) 1.05 K/uL (0.11-0.59) Eosinophils # (Auto) 0.15 K/uL (0-0.5) Basophils # (Auto) 0.03 K/uL (0-0.2) RDW Standard Deviation 47.8 fL (36.4-46.3) RDW Coefficient of Variation 13.9 % (11.5-14.5) Immature Granulocyte % (Auto) 0.6 % Immature Granulocyte # (Auto) 0.06 K/uL (0.00-0.02) Absolute Reticulocyte Count 0.03 10^6/uL (0.02-0.10) Percent Reticulocyte Count 0.8 % (0.5-2.0) Prothrombin Time 37.6 SECONDS (9.0-12.0) Prothromb Time International Ratio 3.3 (0.9-1.1) Activated Partial Thromboplast Time 52.7 SECONDS (21.0-31.0) Partial Thromboplastin Ratio 2.0 Anion Gap 4.0 mmol/L (3-11) Est Creatinine Clear Calc Drug Dose 49.7 ml/min Estimated GFR () 92.9 Estimated GFR (Non- 80.2 BUN/Creatinine Ratio 21.8 (10-20) Calcium Level 9.5 mg/dl (8.5-10.1) Magnesium Level 2.0 mg/dl (1.8-2.4) Total Bilirubin 0.3 mg/dl (0.2-1) Direct Bilirubin 0.1 mg/dl (0-0.2) Aspartate Amino Transf (AST/SGOT) 19 U/L (15-37) Alanine Aminotransferase (ALT/SGPT) 18 U/L (12-78) Alkaline Phosphatase 109 U/L (45-117) Total Creatine Kinase 31 U/L (39-308) Creatine Kinase MB 0.6 ng/ml (0.5-3.6) Creatine Kinase MB Ratio 1.9 (0-3.0) Troponin I < 0.015 ng/ml (0-0.045) Total Protein 9.2 gm/dl (6.4-8.2) Albumin 2.6 gm/dl (3.4-5.0) Amylase Level 72 U/L (25-115) Lipase 302 U/L (73-393) Laboratory results per my review. Medications Administered Medications (Trade) Dose Ordered Sig/Jarett Route Start Time Stop Time Status Last Admin Dose Admin Sodium Chloride 500 ml @ 999 mls/hr Q31M STAT IV 03/05/17 14:05 03/05/17 14:35 DC 03/05/17 14:50 999 MLS/HR Famotidine (Pepcid 20mg/100 ml) 20 mg ONE STAT IV 03/05/17 14:11 03/05/17 14:12 DC 03/05/17 14:50 20 MG Pantoprazole Sodium 40 mg/ Syringe 10 ml @ 5 mls/min NOW ONCE IV 03/05/17 14:15 03/05/17 14:16 DC 03/05/17 14:51 5 MLS/MIN ECG Indication: weakness Rate (beats per minute): 130 Rhythm: atrial fibrillation Findings: other (Diffuse T-wave flattening, no PVC's) Comparison ECG Date: Atrial fibrillation is new when compared to EKG from ED Course 1401: The patient was evaluated in room A9B. A complete history and physical examination were performed. 1405: NSS 500 ml @ 999 mls/hr IV, Famotidine 20 mg IV, Pantoprazole Sodium 40 mg /Syringe 10 ml @ 5 mls/min IV. 1722: I reevaluated the patient. He is resting comfortably. I discussed my recommendation he remain in the hospital for further evaluation and management and he and his family verbalized complete understanding and agreement. 1740: I discussed the patients case with Dr. Bird, [facility] Hospitalist. The patient will be further evaluated. Medical Decision Prior records/ancillary studies reviewed and summarized above. Nursing notes reviewed. Additional history obtained from the family. The patient's history was concerning for weakness. Differential diagnosis: Etiologies such as metabolic, infection, hypo/hyperglycemia, electrolyte abnormalities, cardiac sources, intracerebral event, toxicologic, neurologic, as well as others were entertained. The patient is an 81-year-old male who presented to the emergency department with multiple complaints. The patient has been having increasing dyspnea on exertion as well as generalized weakness. He has also had decreased by mouth intake and early satiety. The patient presented to the emergency department today with family members. His primary care physician did some studies over the course of the last week or so but he was told on last Tuesday to go to the emergency department for further evaluation. The patient was found to be in rapid atrial fibrillation. He did not have a physical exam consistent with an acute surgical abdomen but because of his complaints CT abdomen and pelvis was obtained. I discussed the patient's laboratory and radiographic studies with him. He appears to have very significant pleural effusions. I would wonder if this could be the cause of his underlying weakness and shortness of breath. He was placed on oxygen previously. Because the patient's ongoing symptoms I discussed his case with the on-call [facility] hospitalist group. They've agreed to evaluate the patient in the emergency department for further management and disposition. Medication Reconcilliation Current Medication List: was personally reviewed by me Blood Pressure Screening Patient's blood pressure: Normal blood pressure Blood pressure disposition: Did not require urgent referral Consults Time Called: 1735 Consulting Physician: Dr. Bird [facility] Hospitalist Returned Call: 1740 I discussed the patients case with Dr. Bird [facility] Hospitalist. The patient will be further evaluated. Impression Primary Impression: Atrial fibrillation with RVR Additional Impressions: Dyspnea on exertion Pleural effusion Generalized weakness Early satiety Scribe Attestation The scribe's documentation has been prepared under my direction and personally reviewed by me in its entirety. I confirm that the note above accurately reflects all work, treatment, procedures, and medical decision making performed by me. Departure Information Dispostion Being Evaluated By Hospitalist Referrals Quang Mays M.D. (PCP) Patient Instructions My [facility] Health Problem Qualifiers
[2017-03-05 14:24] LABS: BASO % 0.3 %; BASO ABS # 0.03 K/uL (0-0.2); COMPLETE YES; EOS % 1.5 %; HEMATOCRIT 32.7 % (42-52); IG% 0.6 %; LYMPH % 20.6 %; LYMPH ABS # 2.12 K/uL (1.2-3.4); MEAN CORPUSCULAR HEMOGLOBIN 29.6 pg (25-34); MEAN CORPUSCULAR HGB CONC 31.5 g/dl (32-36); MEAN PLATELET VOLUME 8.5 fL (7.4-10.4); MONO % 10.2 %; NEUT % 66.8 %; PLATELET COUNT 244 K/uL (130-400); RED BLOOD COUNT 3.48 M/uL (4.7-6.1); WHITE BLOOD COUNT 10.27 K/uL (4.8-10.8)
[2017-03-05] MEDS ORDERED: MULTCAP7 PO (14:34)
[2017-03-05] MEDS ORDERED: METO100T44 PO (14:36)
[2017-03-05] MEDS ORDERED: FERR325T18 PO (14:36)
[2017-03-05] MEDS ORDERED: POTA10CA28 PO (14:36)
[2017-03-05] MEDS ORDERED: FERR324T PO (14:36)
[2017-03-05 14:37] LABS: ALT/SGPT 18 U/L (12-78); AMYLASE 72 U/L (25-115); AST/SGOT 19 U/L (15-37); BLOOD UREA NITROGEN 19 mg/dl (7-18); BUN/CREATININE RATIO 21.8 (10-20); CALCIUM 9.5 mg/dl (8.5-10.1); CARBON DIOXIDE 37 mmol/L (21-32); CHLORIDE 95 mmol/L (98-107); CREATININE 0.86 mg/dl (0.60-1.40); GLUCOSE 118 mg/dl (70-99); POTASSIUM 4.5 mmol/L (3.5-5.1); SODIUM 136 mmol/L (136-145)
[2017-03-05 14:39] LABS: INR 3.3 (0.9-1.1); PROTHROMBIN TIME (PATIENT) 37.6 SECONDS (9.0-12.0)
[2017-03-05] MEDS ORDERED: MIRT30TA2 PO (14:39)
[2017-03-05] MEDS ORDERED: WARF5TAB7 PO (14:39)
[2017-03-05 14:40] LABS: ALKALINE PHOSPHATASE 109 U/L (45-117); CKMB/CK RATIO 1.9 (0-3.0)
[2017-03-05] MEDS ORDERED: TAMS0.4C38 PO (14:40)
--- NOTE | 2017-03-05 14:47 | DIAGNOSTIC IMAGING REPORT ---
SINGLE VIEW CHEST CLINICAL HISTORY: Generalized abdominal pain. FINDINGS: An AP, portable, upright chest radiograph is compared to study dated 06/08/2013 and correlated with chest CT dated 10/16/2015. The patient is status post midline sternotomy. The heart is enlarged and there is atherosclerotic calcification of the thoracic aorta. There is pulmonary vascular congestion. Emphysema and chronic interstitial thickening are similar to previous. There are layering pleural effusions with dense bibasilar airspace consolidation. No pneumothorax is seen. The skeletal structures are osteopenic. The bony thorax is grossly intact. Calcific tendinopathy is noted in the left shoulder. IMPRESSION: 1. Cardiomegaly with mild pulmonary vascular congestion. 2. There are layering pleural effusions with dense bibasilar airspace consolidation. Correlate clinically for evidence of pneumonia/aspiration pneumonitis. Radiographic follow-up to resolution is recommended. 3. Emphysema. Electronically signed by: Quang Resendez M.D. 03/05/2017 2:46 PM Dictated Date/Time: 03/05/2017 2:45 PM
--- NOTE | 2017-03-05 17:04 | DIAGNOSTIC IMAGING REPORT ---
CT SCAN OF THE ABDOMEN AND PELVIS WITH IV CONTRAST CLINICAL HISTORY: Upper abdominal pain. Dyspnea. COMPARISON STUDY: Abdominal CT scan dated 10/16/2015 and 09/09/2014. TECHNIQUE: Following the IV administration of 117 cc of Optiray 320, CT scan of the abdomen and pelvis is performed from the lung bases to the proximal femora. Images are reviewed in the axial, sagittal, and coronal planes. IV contrast was administered without complication. A dose lowering technique was utilized adhering to the principles of ALARA. CT DOSE: 381.88 mGy.cm FINDINGS: Lung bases: The patient is status post midline sternotomy and there is evidence of previous aortic valve surgery. The heart is markedly enlarged and there is a small pericardial effusion. The coronary arteries are densely calcified. Advanced emphysema is noted. Facet subpleural scarring are identified. There are moderate right and small left pleural effusions/collection with associated bibasilar consolidation. The pleural effusions appear to be at least partially loculated and there is underlying pleural thickening. The effusion on the right appears complex. A moderate hiatal hernia is identified. Liver: The contrast-enhanced liver is normal in size, contour, and attenuation. Focal fatty infiltration is seen adjacent to falciform ligament. There is no intrahepatic biliary ductal dilatation. The hepatic veins and portal veins are patent. Gallbladder: Unremarkable. Spleen: Normal in size and attenuation. Pancreas: Unremarkable. Adrenal glands: Unremarkable. Kidneys: The contrast enhanced kidneys demonstrate cortical atrophy and are without hydronephrosis. The kidneys enhance symmetrically. Renal cysts end indeterminant renal hypodensities measure up to 3.0 cm are similar appearance to previous. No enhancing cortical mass is clearly seen. Abdominal vasculature: There is advanced atherosclerotic calcification of the abdominal aorta. An aortobiiliac stent graft is in place. The stent graft is widely patent. No significant residual aneurysm sac is seen.. Bowel: There are postoperative changes from partial left colon resection with colocolonic anastomosis. No bowel obstruction is seen. The appendix is not identified and reported surgically absent. Peritoneum: There is no intraperitoneal free air or abdominal ascites. Lymphadenopathy: None. Pelvic viscera: The the prostate gland is mildly enlarged and heterogeneous. Brachytherapy beads are noted. Median lobe hypertrophy is identified. The bladder wall appears mildly thickened and trabeculated suggesting the sequelae of chronic outlet obstruction. Skeletal structures: The skeletal structures are osteopenic. The skeletal structures are heterogeneously osteopenic. There is moderate lumbosacral spondylosis. No lytic or blastic lesions are seen. IMPRESSION: 1. There are no acute infectious or inflammatory findings in the abdomen or pelvis. 2. Cardiomegaly and changes from midline sternotomy. This is new from 10/16/2015. 3. There are moderate right and small left pleural effusions/collections with associated bibasilar consolidation and pleural thickening. These are likely at least partially loculated, and the effusion on the right appears to be minimally complex. If cardiothoracic surgery was recent this may represent postoperative change. Clinical correlation will be essential. 4. Bibasilar consolidation likely represents atelectasis. Correlate clinically for evidence of pneumonia. 5. There are postoperative changes from left colon resection. No bowel obstruction is seen. 6. Additional findings as above. Electronically signed by: Quang Resendez M.D. 03/05/2017 5:03 PM Dictated Date/Time: 03/05/2017 4:51 PM
[2017-03-05 18:15] VITALS: O2SAT 92; Ht 170.2 cm; Wt 52.2 kg
[2017-03-05] MEDS ORDERED: ALBUTEROL HFA 8 GM INHALER INH PRN (18:45)
[2017-03-05] MEDS ORDERED: NITROGLYCERIN 0.4 MG SL PER TAB CHARGE UT SCH (18:45)
[2017-03-05] MEDS ORDERED: ONDANSETRON INJ 2 MG/ML 2 ML VIAL IV PRN (18:45)
[2017-03-05] MEDS ORDERED: NITROGLYCERIN 0.4 MG SL PER TAB CHARGE SL PRN (18:45)
--- NOTE | 2017-03-05 18:57 | History and Physical ---
History & Physical Date & Time of Service: Mar 05, 2017 at 18:43 Chief Complaint: Not Eating, Lump On Prostate, Weak, Heart Surg Primary Care Physician: Quang Mays M.D. History of Present Illness Source: patient, family, spouse The patient is a 81-year-old male who presents emergency department with worsening generalized weakness, early satiety, shortness of breath and unintentional weight loss over the past several months. He saw his PCP Dr. Mays in [place] 4 days ago, and was advised to come to the emergency room for assessment, and the patient has presented with his family today. He has been seen by Dr. Hughes from cardiology recently as well, had an echocardiogram done in January which showed ejection fraction of 35-40%, and was also noted to have a possible lump on his prostate by Dr. Mays a few days ago as well. Social History Smoking Status: Former Smoker Alcohol Use: none Drug Use: none Marital Status: Housing status: lives with family Occupational Status: retired Immunizations History of Influenza Vaccine: Yes History of Tetanus Vaccine?: Yes History of Pneumococcal: Yes History of Hepatitis B Vaccine: Unknown Multi-Drug Resistant Organisms History of MDRO: No Allergies Coded Allergies: No Known Allergies (Unverified , 03/05/17) Home Medications Scheduled Aspirin (Aspirin Ec), 81 MG PO DAILY Atorvastatin (Lipitor), 40 MG PO HS Methimazole (Methimazole ), 5 MG PO Q2D Metoprolol Succ (Toprol Xl) (Toprol-Xl ), 100 MG PO DAILY Mirtazapine Soltab (Remeron Soltab), 30 MG PO HS Multiple Vitamins W/ Minerals (Eye Vitamins), 1 CAP PO DAILY Multivitamin (Multivitamin), 1 TAB PO DAILY Nitroglycerin (Nitrostat), 0.4 MG UT PRN Omeprazole (Bulk) (Omeprazole), 40 MG PO BID Potassium Chloride (Micro-K Ext Rel), 20 MEQ PO TID Tamsulosin Hcl (Flomax), 0.4 MG PO DAILY Warfarin Sod (Jantoven), 7.5 MG PO 2XWK Warfarin Sodium (Coumadin), 5 MG PO 5XWK Scheduled PRN Albuterol Sulfate (Proair Respiclick), 1-2 PUFF INH Q4H PRN for Cough Miscellaneous Medications Ferrous Gluconate (Ferrous Gluconate), 324 MG PO Review of Systems The patient denies chest pain, palpitations,cough, lower extremity swelling, vision change, hearing change, sore throat, fevers, chills, sweats, nausea, vomiting, diarrhea or constipation , abdominal pain, pelvic pain, blood in urine or stool, dysuria, urinary frequency or urgency, headache, memory loss, rash, abnormal bruising or bleeding, imbalance, focal weakness, numbness or tingling in arms or legs, generalized arthralgias or myalgias, or night sweats. The review of systems is otherwise negative other than for that already noted above, and at least 10 systems have been reviewed. Physical Exam Vital Signs Date Time Temp Pulse Resp B/P (MAP) Pulse Ox O2 Delivery O2 Flow Rate FiO2 03/05/17 18:15 92 Nasal Cannula 2.0 03/05/17 18:03 107 03/05/17 18:00 103 24 122/69 96 Nasal Cannula 2.0 03/05/17 17:30 111 23 99 Nasal Cannula 2.0 03/05/17 17:00 103 27 118/76 98 Nasal Cannula 2.0 03/05/17 16:28 103 30 121/70 92 Nasal Cannula 2.0 03/05/17 15:00 114 25 128/77 96 03/05/17 14:05 127 03/05/17 14:02 144 29 119/99 93 03/05/17 13:53 36.7 128 20 118/65 95 Nasal Cannula 2.5 The patient is awake, well-developed and adequately nourished, alert and oriented 3, normocephalic and atraumatic, looks mildly cachectic, lying in bed and in mild respiratory distress. HEENT--PERRL, EOMI, mucous membranes and oropharynx dry. Neck--supple, no JVD or bruits, thyroid normal, trachea midline, no adenopathy. Heart--normal S1 and S2, no extra beats, no murmurs, rubs or gallops. Lungs--decreased breath sounds at the bases to half way up bilaterally, mild respiratory distress with accessory muscle use. Abdomen--normal bowel sounds and soft, nontender and nondistended, no hernias or masses, no organomegaly. Extremities--no cyanosis, clubbing or edema. There are good distal pulses b/l. Dermatologic--normal skin turgor, normal color, warm and dry, no abnormal lymph nodes, no rash. Neurologic--cranial nerves II through XII grossly intact. Rheumatologic--normal range of motion, nontender, muscles and joints. Psychiatric--normal affect. Diagnostics Laboratory Results Results Past 24 Hours Test 03/05/17 14:10 Range/Units White Blood Count 10.27 4.8-10.8 K/uL Red Blood Count 3.48 4.7-6.1 M/uL Hemoglobin 10.3 14.0-18.0 g/dL Hematocrit 32.7 42-52 % Mean Corpuscular Volume 94.0 80-100 fL Mean Corpuscular Hemoglobin 29.6 25-34 pg Mean Corpuscular Hemoglobin Concent 31.5 32-36 g/dl Platelet Count 244 130-400 K/uL Mean Platelet Volume 8.5 7.4-10.4 fL Neutrophils (%) (Auto) 66.8 % Lymphocytes (%) (Auto) 20.6 % Monocytes (%) (Auto) 10.2 % Eosinophils (%) (Auto) 1.5 % Basophils (%) (Auto) 0.3 % Neutrophils # (Auto) 6.86 1.4-6.5 K/uL Lymphocytes # (Auto) 2.12 1.2-3.4 K/uL Monocytes # (Auto) 1.05 0.11-0.59 K/uL Eosinophils # (Auto) 0.15 0-0.5 K/uL Basophils # (Auto) 0.03 0-0.2 K/uL RDW Standard Deviation 47.8 36.4-46.3 fL RDW Coefficient of Variation 13.9 11.5-14.5 % Immature Granulocyte % (Auto) 0.6 % Immature Granulocyte # (Auto) 0.06 0.00-0.02 K/uL Absolute Reticulocyte Count 0.03 0.02-0.10 10^6/uL Percent Reticulocyte Count 0.8 0.5-2.0 % Prothrombin Time 37.6 9.0-12.0 SECONDS Prothromb Time International Ratio 3.3 0.9-1.1 Activated Partial Thromboplast Time 52.7 21.0-31.0 SECONDS Partial Thromboplastin Ratio 2.0 Sodium Level 136 136-145 mmol/L Potassium Level 4.5 3.5-5.1 mmol/L Chloride Level 95 98-107 mmol/L Carbon Dioxide Level 37 21-32 mmol/L Anion Gap 4.0 3-11 mmol/L Blood Urea Nitrogen 19 7-18 mg/dl Creatinine 0.86 0.60-1.40 mg/dl Est Creatinine Clear Calc Drug Dose 49.7 ml/min Estimated GFR () 92.9 Estimated GFR (Non- 80.2 BUN/Creatinine Ratio 21.8 10-20 Random Glucose 118 70-99 mg/dl Calcium Level 9.5 8.5-10.1 mg/dl Magnesium Level 2.0 1.8-2.4 mg/dl Total Bilirubin 0.3 0.2-1 mg/dl Direct Bilirubin 0.1 0-0.2 mg/dl Aspartate Amino Transf (AST/SGOT) 19 15-37 U/L Alanine Aminotransferase (ALT/SGPT) 18 12-78 U/L Alkaline Phosphatase 109 45-117 U/L Total Creatine Kinase 31 39-308 U/L Creatine Kinase MB 0.6 0.5-3.6 ng/ml Creatine Kinase MB Ratio 1.9 0-3.0 Troponin I < 0.015 0-0.045 ng/ml Total Protein 9.2 6.4-8.2 gm/dl Albumin 2.6 3.4-5.0 gm/dl Amylase Level 72 25-115 U/L Lipase 302 73-393 U/L Diagnostic Radiology Patient Name: WANG TORRES Unit Number: [id number] Dictated: 03/05/171650 Transcribed: 03/05/171650 EV Printed Date/Time: [~ rep prt dt]/[~ rep prt tm] [~ rep ct labl] - [~ rep ct ivnm] [facility] [place] [address] Dictated: 03/05/171650 Transcribed: 03/05/171650 EV Printed Date/Time: [~ rep prt dt]/[~ rep prt tm] [~ rep ct labl] - [~ rep ct ivnm] [~ rep ct add3]] CT SCAN OF THE ABDOMEN AND PELVIS WITH IV CONTRAST CLINICAL HISTORY: Upper abdominal pain. Dyspnea. COMPARISON STUDY: Abdominal CT scan dated 10/16/2015 and 09/09/2014. TECHNIQUE: Following the IV administration of 117 cc of Optiray 320, CT scan of the abdomen and pelvis is performed from the lung bases to the proximal femora. Images are reviewed in the axial, sagittal, and coronal planes. IV contrast was administered without complication. A dose lowering technique was utilized adhering to the principles of ALARA. CT DOSE: 381.88 mGy.cm FINDINGS: Lung bases: The patient is status post midline sternotomy and there is evidence of previous aortic valve surgery. The heart is markedly enlarged and there is a small pericardial effusion. The coronary arteries are densely calcified. Advanced emphysema is noted. Facet subpleural scarring are identified. There are moderate right and small left pleural effusions/collection with associated bibasilar consolidation. The pleural effusions appear to be at least partially loculated and there is underlying pleural thickening. The effusion on the right appears complex. A moderate hiatal hernia is identified. Liver: The contrast-enhanced liver is normal in size, contour, and attenuation. Focal fatty infiltration is seen adjacent to falciform ligament. There is no intrahepatic biliary ductal dilatation. The hepatic veins and portal veins are patent. Gallbladder: Unremarkable. Spleen: Normal in size and attenuation. Pancreas: Unremarkable. Adrenal glands: Unremarkable. Kidneys: The contrast enhanced kidneys demonstrate cortical atrophy and are without hydronephrosis. The kidneys enhance symmetrically. Renal cysts end indeterminant renal hypodensities measure up to 3.0 cm are similar appearance to previous. No enhancing cortical mass is clearly seen. Abdominal vasculature: There is advanced atherosclerotic calcification of the abdominal aorta. An aortobiiliac stent graft is in place. The stent graft is widely patent. No significant residual aneurysm sac is seen.. Bowel: There are postoperative changes from partial left colon resection with colocolonic anastomosis. No bowel obstruction is seen. The appendix is not identified and reported surgically absent. Peritoneum: There is no intraperitoneal free air or abdominal ascites. Lymphadenopathy: None. Pelvic viscera: The the prostate gland is mildly enlarged and heterogeneous. Brachytherapy beads are noted. Median lobe hypertrophy is identified. The bladder wall appears mildly thickened and trabeculated suggesting the sequelae of chronic outlet obstruction. Skeletal structures: The skeletal structures are osteopenic. The skeletal structures are heterogeneously osteopenic. There is moderate lumbosacral spondylosis. No lytic or blastic lesions are seen. IMPRESSION: 1. There are no acute infectious or inflammatory findings in the abdomen or pelvis. 2. Cardiomegaly and changes from midline sternotomy. This is new from 10/16/2015. 3. There are moderate right and small left pleural effusions/collections with associated bibasilar consolidation and pleural thickening. These are likely at least partially loculated, and the effusion on the right appears to be minimally complex. If cardiothoracic surgery was recent this may represent postoperative change. Clinical correlation will be essential. 4. Bibasilar consolidation likely represents atelectasis. Correlate clinically for evidence of pneumonia. 5. There are postoperative changes from left colon resection. No bowel obstruction is seen. 6. Additional findings as above. Electronically signed by: Quang Resendez M.D. 03/05/2017 5:03 PM Dictated Date/Time: 03/05/2017 4:51 PM The status of this report is Signed. Draft = Not yet reviewed or approved by Radiologist. Signed = Reviewed and approved by Radiologist. <AttendingPhy></AttendingPhy> <FamilyPhy>Quang Mays M.D.</FamilyPhy> < PrimaryPhy>Quang Mays M.D.</PrimaryPhy> <UnitNumber>[id number]</UnitNumber> < VisitNumber>[id number]</VisitNumber> <PatientName>WANG TORRES</PatientName> <DateOfBirth>1935</DateOfBirth> <Location>[facility]</Location> <ServiceDate></ServiceDate> <MNE>ESINDI</MNE> <OrderingPhy>Nagi Pearson D.O.</ OrderingPhy> <OrderingPhyMNE>f rep ord dr dang</OrderingPhyMNE> <DictatingPhyMNE> f rep dict dr dang</DictatingPhyMNE> <CCListMNE>f rep ct laurence</CCListMNE> < AdmittingPhyMNE>f pt admit dr dang</AdmittingPhyMNE> <AttendingPhyMNE>f pt attend dr dang</AttendingPhyMNE> <ConsultingPhyMNE>f pt consult dr dang</ConsultingPhyMNE> <FamilyPhyMNE>f pt fam dr dang</FamilyPhyMNE> <OtherPhyMNE>f pt other dr dang</OtherPhyMNE> < PrimaryPhyMNE>f pt prim care dr dang</PrimaryPhyMNE> <ReferringPhyMNE>f pt referring dr dang</ReferringPhyMNE> Patient Name: WANG TORRES Unit Number: [id number] Dictated: 03/05/171444 Transcribed: 03/05/171444 EV Printed Date/Time: [~ rep prt dt]/[~ rep prt tm] [~ rep ct labl] - [~ rep ct ivnm] [facility] Radiology Department [place] [id number] Dictated: 03/05/171444 Transcribed: 03/05/171444 EV Printed Date/Time: [~ rep prt dt]/[~ rep prt tm] [~ rep ct labl] - [~ rep ct ivnm] [~ rep ct add3]] SINGLE VIEW CHEST CLINICAL HISTORY: Generalized abdominal pain. FINDINGS: An AP, portable, upright chest radiograph is compared to study dated 06/08/2013 and correlated with chest CT dated 10/16/2015. The patient is status post midline sternotomy. The heart is enlarged and there is atherosclerotic calcification of the thoracic aorta. There is pulmonary vascular congestion. Emphysema and chronic interstitial thickening are similar to previous. There are layering pleural effusions with dense bibasilar airspace consolidation. No pneumothorax is seen. The skeletal structures are osteopenic. The bony thorax is grossly intact. Calcific tendinopathy is noted in the left shoulder. IMPRESSION: 1. Cardiomegaly with mild pulmonary vascular congestion. 2. There are layering pleural effusions with dense bibasilar airspace consolidation. Correlate clinically for evidence of pneumonia/aspiration pneumonitis. Radiographic follow-up to resolution is recommended. 3. Emphysema. Electronically signed by: Quang Resendez M.D. 03/05/2017 2:46 PM Dictated Date/Time: 03/05/2017 2:45 PM The status of this report is Signed. Draft = Not yet reviewed or approved by Radiologist. Signed = Reviewed and approved by Radiologist. <AttendingPhy></AttendingPhy> <FamilyPhy>Quang Mays M.D.</FamilyPhy> < PrimaryPhy>Quang Mays M.D.</PrimaryPhy> <UnitNumber>[id number]</UnitNumber> < VisitNumber>[id number]</VisitNumber> <PatientName>WANG TORRES</PatientName> <DateOfBirth>1935</DateOfBirth> <Location>[facility]</Location> <ServiceDate></ServiceDate> <MNE>ESINDI</MNE> <OrderingPhy>Nagi Pearson D.O.</ OrderingPhy> <OrderingPhyMNE>f rep ord dr dang</OrderingPhyMNE> <DictatingPhyMNE> f rep dict dr dang</DictatingPhyMNE> <CCListMNE>f rep ct laurence</CCListMNE> < AdmittingPhyMNE>f pt admit dr dang</AdmittingPhyMNE> <AttendingPhyMNE>f pt attend dr dang</AttendingPhyMNE> <ConsultingPhyMNE>f pt consult dr dang</ConsultingPhyMNE> <FamilyPhyMNE>f pt fam dr dang</FamilyPhyMNE> <OtherPhyMNE>f pt other dr dang</OtherPhyMNE> < PrimaryPhyMNE>f pt prim care dr dang</PrimaryPhyMNE> <ReferringPhyMNE>f pt referring dr dang</ReferringPhyMNE> EKG EKG shows atrial fibrillation with RVR at 130 bpm, nonspecific T-wave changes in lateral leads. Impression Assessment and Plan Atrial fibrillation with RVR/bilateral pleural effusions/ hypoalbuminemia/ systolic heart dysfunction with ejection fraction 35-40%-- The patient will be admitted to telemetry for serial cardiac enzymes, cardiac rhythm monitoring and a 2-D echocardiogram with Dopplers. Albumin 25 g with Lasix 40 mg IV 1 tonight and every morning. Nasal cannula 2 L oxygen titrate to keep pulse ox greater than or equal to 92%. Consult Dr. Hughes, who felt the patient may need to have repeat cardiac catheterization with most recent being done in July 2016. Consult pulmonology regarding large bilateral pleural effusions to see if thoracentesis is a potential option. INR is mildly supratherapeutic at 3.3. Hold warfarin in event of possible procedure. We'll not reverse at this time. Hold aspirin 81 mg by mouth daily for possible procedure. Continue Toprol-XL 100 mg by mouth daily Continue potassium chloride 20 mEq by mouth 3 times a day. Hyperlipidemia--continue Lipitor 40 mg by mouth at bedtime Hyperthyroidism--continue methimazole 5 mg by mouth every 2 days. Prostate cancer--continue tamsulosin 0.4 mg by mouth at bedtime GERD--change omeprazole 40 mg by mouth twice a day to pantoprazole 40 mg by mouth twice a day. Insomnia--continue mirtazapine 30 mg by mouth at bedtime. COPD--albuterol HFA 2 puffs every 4 hours when necessary. Iron deficiency--continue ferrous gluconate 3 and 24 mg by mouth daily Level of Care Telemetry Advanced Directives Existing Advance Directive: No Existing Living Will: No Existing Power of Computer Systems Consultant: No Resuscitation Status FULL RESUSCITATION VTE Prophylaxis VTE Risk Assessment Done? Y/N: Yes Risk Level: Moderate Given or contraindicated: Warfarin (Coumadin) Social Service Consult None Apply
[2017-03-05] MEDS ORDERED: ALBUMIN 25% 50 ML with FUROSEMIDE INJ 40 MG IV SCH ×2 (19:30)
[2017-03-05] MEDS: PANTOprazole SOD 40 MG TAB PO SCH (19:45)
[2017-03-05] MEDS: ATORVASTATIN 40 MG TAB PO SCH (19:45)
[2017-03-05] MEDS: TAMSULOSIN HCL 0.4 MG CAP PO SCH (19:45)
[2017-03-05] MEDS: MIRTAZAPINE TAB 15 MG TAB PO SCH (19:45)
[2017-03-05] MEDS: POTASSIUM CHLORIDE 20 MEQ TABCR PO SCH (19:46)
[2017-03-05 20:00] VITALS: BP 123/79; PULSE 112; TEMP 36.5; O2SAT 96
[2017-03-05 23:19] VITALS: BP 109/70; PULSE 115; TEMP 36.6; O2SAT 96
[2017-03-05] MEDS ORDERED: METOPROLOL TARTRATE 1 MG/ML VIAL ONE (23:58)
[2017-03-06] MEDS ORDERED: NURSING VERBAL MED ORDER ONE
[2017-03-06 00:13] LABS: URINE APPEARANCE CLEAR (CLEAR); URINE BILIRUBIN NEG (NEG); URINE COLOR YELLOW; URINE EPITHELIAL CELL AUTO 0-5 /lpf (0-5); URINE NITRITE NEG (NEG); URINE SPECIFIC GRAVITY 1.024 (1.000-1.030); UROBILINOGEN NEG (NEG)
[2017-03-06] MEDS ORDERED: PANTOprazole INJ 40 MG in SYRINGE 0 ML IV STA (00:20)
[2017-03-06 00:21] LABS: MANUAL MICROSCOPIC REQUIRED? NO; REVIEW REQ? NO
[2017-03-06] MEDS: ACETAMINOPHEN 325 MG TAB PO PRN ×2 (00:32→08:14)
[2017-03-06 03:03] LABS: CKMB/CK RATIO 3.2 (0-3.0)
[2017-03-06 03:17] VITALS: BP 103/67; PULSE 101; TEMP 36.7; O2SAT 97
[2017-03-06 06:27] LABS: BASO % 0.2 %; BASO ABS # 0.02 K/uL (0-0.2); COMPLETE YES; EOS % 2.1 %; HEMATOCRIT 30.2 % (42-52); IG% 0.5 %; LYMPH % 23.3 %; LYMPH ABS # 1.97 K/uL (1.2-3.4); MEAN CELL VOLUME 94.1 fL (80-100); MEAN CORPUSCULAR HEMOGLOBIN 29.9 pg (25-34); MEAN CORPUSCULAR HGB CONC 31.8 g/dl (32-36); MEAN PLATELET VOLUME 8.2 fL (7.4-10.4); MONO % 11.6 %; NEUT % 62.3 %; PLATELET COUNT 226 K/uL (130-400); RED BLOOD COUNT 3.21 M/uL (4.7-6.1); WHITE BLOOD COUNT 8.47 K/uL (4.8-10.8)
[2017-03-06 06:55] LABS: PARTIAL THROMBOPLASTIN RATIO 2.1; PROTHROMBIN TIME (PATIENT) 44.4 SECONDS (9.0-12.0)
[2017-03-06 06:57] LABS: BUN/CREATININE RATIO 17.3 (10-20); CALCIUM 9.5 mg/dl (8.5-10.1); CREATININE 0.86 mg/dl (0.60-1.40); MAGNESIUM 1.9 mg/dl (1.8-2.4); POTASSIUM 4.3 mmol/L (3.5-5.1)
[2017-03-06 07:00] LABS: INR 3.9 (0.9-1.1)
[2017-03-06 07:35] VITALS: BP 120/75; PULSE 109; TEMP 36.4; O2SAT 96
[2017-03-06] MEDS ORDERED: ALBUMIN HUMAN 25% 12.5 GM/50 ML VIAL IV ONE (08:10)
[2017-03-06] MEDS ORDERED: FUROSEMIDE 10 MG/ML 10 ML VIAL ONE (08:10)
[2017-03-06] MEDS: POTASSIUM CHLORIDE 20 MEQ TABCR PO SCH ×3 (08:15→21:13)
[2017-03-06] MEDS: MULTIVITAMIN TAB PO SCH (08:15)
[2017-03-06] MEDS: FERROUS GLUCONATE 324 MG TAB PO SCH (08:15)
[2017-03-06] MEDS: METHIMAZOLE 5 MG TAB PO SCH (08:16)
[2017-03-06] MEDS: PANTOprazole SOD 40 MG TAB PO SCH ×2 (08:16→21:15)
[2017-03-06] MEDS: ALBUMIN 25% 50 ML with FUROSEMIDE INJ 40 MG IV SCH ×2 (08:18)
[2017-03-06] MEDS ORDERED: METOPROLOL SUCC 50MG EXT REL TAB PO SCH (09:00)
[2017-03-06] MEDS ORDERED: ASPIRIN 81 MG ECTAB PO SCH (09:00)
[2017-03-06] MEDS ORDERED: CEROVITE ADV FORMULA TAB PO SCH (09:00)
[2017-03-06] MEDS ORDERED: TAMSULOSIN HCL 0.4 MG CAP PO SCH (09:00)
[2017-03-06 12:05] VITALS: BP 111/68; PULSE 112; TEMP 36.4; O2SAT 95
--- NOTE | 2017-03-06 13:34 | Cardiology Consultation ---
Cardiology Consultation Date of Consultation: Mar 06, 2017. Requesting Physician: Pelon Reason for Consultation: atrial fibrillation History of Present Illness Mr. Olvera is a pleasant 81-year-old gentleman with a complex past medical history as outlined below and includes coronary artery disease and prior severe aortic stenosis status post three-vessel CABG and bioprosthetic AVR normal 6 months ago, recent new moderate LV dysfunction with systolic heart failure and recent persistent atrial fibrillation admitted in the setting progressive weight loss with decreased appetite, persistent shortness of breath and failure to thrive. 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 Hughes. Patient states that he initially felt as if he was recovering post completion of inpatient rehab post his CABG/AVR however since that time feels that he has just continued to decline. Evaluation has included repeat echoes which showed a decline in his LVEF from 55% to 35-40% with no new regional wall motion abnormalities from October to January, CT scan of his chest which showed moderate right greater than left pleural effusions. Laboratory workup other than reduced albumin has been largely unremarkable including LFTs, thyroid studies. ProBNP level not significantly elevated. Has been tried on increased diuretics (Lasix 20 mg increased to 40 daily) without significant benefit. Also over this time patient has lost more than 30 lb which he attributes to decreased appetite and early satiety. Over the last several days his shortness of breath has worsened slightly, now shortness of breath with attempting to urinate despite supplemental oxygen. However, primary reason for presenting to ED yesterday seems to be continued concerns regarding his progressive weight loss, decreased appetite he and inability of his to care for him at home. Patient was recently seen by Dr. Mays 5 days ago and was noted to have a new prostate nodule. Has also had some reports of hematochezia, diarrhea and abdominal discomfort. Patient denies any palpitations, chest pain, presyncope. Denies any real orthopnea. Denies any significant recent lower extremity edema. In the emergency department was found to be in atrial fibrillation with RVR and on telemetry has had heart rates up to the 150s overnight. CT scan of the abdomen largely unremarkable but did note bilateral pleural effusions moderate on the right. Was given 1 dose of Lasix with albumin yesterday (750 out) and another dose of albumin today. Has been continued on his home Toprol XL 100 mg daily. Past Medical/Surgical History Coronary artery disease status post three-vessel CABG, prior stenting to RCA, aortic stenosis status post bioprosthetic AVR, AAA status post emergent endovascular repair, hypertension, COPD, mild restrictive lung disease, prostate cancer, hyperthyroidism, colon cancer status post left hemicolectomy, anemia Per Dr. Garrison's most recent not --- cardiac procedures are as follows: 1. [place]iac [place] [facility] [place] [facility]: mid LAD 50%; Small diag 100%; prox Cx 60%; Ramus 50%; LVGram without wall motion abnormality. Medical management initiated. 2. Echocardiogram 10/20/10: Normal LV size and systolic function without wall motion abnormality. EF 67%. Mild LVH. Mild LA dilation. Mild aortic stenosis; mean pressure 11 mmHg; ALBERT 1.1 cm. 3. Holter 06/07/13: Sinus rhythm. Average heart rate 65 (52-108). Frequent PVCs with 2 couplets. Rare PACs. No arrhythmias. One 2 second pause. 4. Stress echo 06/08/13: Positive at 73% MPHR, suggesting mid to distal LAD ischemia. No chest pain but significant dyspnea reported. Exercised 7 minutes on Vernon protocol. EF 60%. Normal wall motion. Mild to moderate aortic stenosis (mean gradient 14 mmHg). Mild MR. 5. Cardiac cath 06/14/13: LMCA 20-30%. Mid LAD 30%. Mid D1 occluded. Ostial circumflex 80% at bifurcation of OM1. Mid to distal RCA 95% with diffuse 30-40% proximally. Right to left collaterals. Normal pulmonary pressure, PCWP, and cardiac output. Mild to moderate (ALBERT 1.2 cm). 6. RCA PCI 06/14/13: Integrity BMS 2.75 x 18 mm post dilated with 3.25 mm noncompliant balloon. 7. CT chest 06/15/13: Peripheral and basilar parenchymal fibrosis. Moderate mediastinal adenopathy. 8. PFTs 08/20/13: Mild restrictive ventilatory impairment with a decrease in FVC and FEV1. 9. Carotid duplex 10/05/13: No significant stenosis. Moderate plaque within the left carotid bulb. 10. Echo 12/01/2014: Normal LV systolic function. Mild proximal inferior hypokinesis. EF 65%. Mild LVH. Moderate aortic stenosis with a mean gradient of 25 mm of mercury, peak velocity of 3.1 m/sec and LV velocity of 1.1 m/sec. 11. Echo 07/01/2016: Normal LV size with low-normal systolic function. EF 50-55% . Hypokinesis inferolateral wall and inferior basal segments. Type 1 diastolic dysfunction. Moderate left atrial dilation. Severe aortic stenosis. Mild to moderate MR. RVSP 35. 12. Cardiac catheterization 07/15/2016: Distal LM CA 70%. Mid LAD 50%. Heavily calcified proximal LAD. Mid D1 100%. Ostial circumflex 98%. Ostial ramus 98%. Calcifications proximal to mid RCA. Proximal to mid RCA diffuse 60%. Distal RCA 40% and 30%. Distal RCA stent with 20% in stent restenoses. Right to left collaterals. 13. JOSEA LBERTO 07/15/2016: EF 55%. Type 1 diastolic dysfunction. Mild biatrial dilation. Severe aortic stenosis. Mild MR. RVSP 25. 14. PFTs 07/28/2016: Mild obstruction and restriction. 15. CABG and AVR 09/10/2016: SHER to LAD; SVG to ramus; SVG distal circumflex. Aortic valve replacement Alvarez Magna pericardial tissue valve 23 mm. [place] [facility] 16. Echo 10/28/2016: Low normal LV systolic function. EF 55%. Akinetic inferior wall. Septal motion consistent with postoperative state. Mild left atrial dilation. Bioprosthetic aortic valve with appropriate transvalvular gradients. Mild MR. RVSP 30. 17. Echo 01/27/2017: Moderately reduced LV systolic function. EF 35-40%. Akinesis of the base to mid inferior wall, otherwise global hypokinesis. Moderate left atrial dilation. Moderately reduced RV systolic function. Appropriately functioning bioprosthetic aortic valve. Moderate MR. RVSP [address] scan chest 01/25/2017: Bilateral pleural effusions. Pulmonary vascular congestion. Bronchiectasis changes of bilateral lower lobes, right middle lobe, and lingula. Pulmonary fibrotic changes in lingula of left upper lobe. Social History Smoking Status: Former Smoker History of Alcohol Use: No Review of Systems 10 point review of systems was completed and was otherwise negative unless stated in HPI Allergies Coded Allergies: No Known Allergies (Unverified , 03/05/17) Medications Current Inpatient Medications Medications (Trade) Dose Ordered Sig/Jarett Route Start Time Stop Time Status Last Admin Dose Admin Ioversol (Optiray 320) 111 ml UD PRN IV 03/05/17 14:15 03/09/17 14:14 Acetaminophen (Tylenol Tab) 650 mg Q4H PRN PO 03/05/17 18:45 04/04/17 18:44 03/06/17 08:14 650 MG Nitroglycerin (Nitrostat Tab) 0.4 mg UD PRN SL 03/05/17 18:45 04/04/17 18:44 Atorvastatin Calcium (Lipitor Tab) 40 mg HS PO 03/05/17 21:00 04/04/17 20:59 03/05/17 19:45 40 MG Ferrous Gluconate (Ferrous Gluconate Tab) 324 mg DAILY PO 03/06/17 09:00 04/05/17 08:59 03/06/17 08:15 324 MG Methimazole (Methimazole Tab) 5 mg Q2D@0900 PO 03/06/17 09:00 04/05/17 08:59 03/06/17 08:16 5 MG Metoprolol Succinate (Toprol Xl Tab) 100 mg DAILY PO 03/06/17 09:00 04/05/17 08:59 03/06/17 08:19 100 MG Multivitamins (Multivitamin Tab) 1 tab DAILY PO 03/06/17 09:00 04/05/17 08:59 03/06/17 08:15 1 TAB Potassium Chloride (Klor-Con Tab) 20 meq TID PO 03/05/17 21:00 04/04/17 20:59 03/06/17 08:15 20 MEQ Albuterol (Ventolin Hfa Inhaler) 2 puffs Q4H PRN INH 03/05/17 18:45 04/04/17 18:44 Mirtazapine (Remeron Tab) 30 mg HS PO 03/05/17 21:00 04/04/17 20:59 03/05/17 19:45 30 MG Pantoprazole Sodium (Protonix Tab) 40 mg BID PO 03/05/17 21:00 04/04/17 20:59 03/06/17 08:16 40 MG Ondansetron HCl (Zofran Inj) 4 mg Q6H PRN IV 03/05/17 18:45 04/04/17 18:44 03/05/17 21:49 4 MG Furosemide 40 mg/ Albumin Human 54 ml @ 54 mls/hr QAM IV 03/06/17 09:00 03/09/17 08:59 Tamsulosin HCl (Flomax Cap) 0.4 mg HS PO 03/05/17 21:00 04/05/17 08:59 03/05/17 19:45 0.4 MG Physical Exam Vital Signs Past 12 Hours Date Time Temp Pulse Resp B/P (MAP) Pulse Ox O2 Delivery O2 Flow Rate FiO2 03/06/17 12:05 36.4 112 16 111/68 (82) 95 Nasal Cannula 03/06/17 08:00 Nasal Cannula 2.0 03/06/17 07:35 36.4 109 16 120/75 (90) 96 Nasal Cannula 03/06/17 04:00 Nasal Cannula 2.0 03/06/17 03:17 36.7 101 20 103/67 (79) 97 Nasal Cannula 2.0 General: Comfortable, no acute distress, thin, frail Eyes: Sclerae anicteric, extraocular movements intact HENT: Oropharynx clear mucous membranes moist Neck: Supple, no lymphadenopathy, no thyromegaly. Lungs: Decreased breath sounds at right base, no significant crackles Cardiac: Irregularly irregular, tachycardic, distant heart sounds, crisp bioprosthetic closure with 2/6 systolic ejection murmur. JVP approximately 8. No peripheral edema. Extremities well perfused. Vascular: Normal carotid upstrokes, no bruits. 2+ radial, intact DP/PT. No varicosities. Abdomen: Soft, nontender, nondistended positive bowel sounds. No hepatosplenomegaly Skin: No rashes or lesions. Neuro: Cranial nerves 2-12 grossly intact, remainder exam nonfocal Psych: Alert orient x3, normal affect and mood Data Laboratory Results: Last 24 Hours Test 03/05/17 14:10 03/06/17 00:00 03/06/17 02:21 03/06/17 05:55 White Blood Count 10.27 K/uL 8.47 K/uL Red Blood Count 3.48 M/uL 3.21 M/uL Hemoglobin 10.3 g/dL 9.6 g/dL Hematocrit 32.7 % 30.2 % Mean Corpuscular Volume 94.0 fL 94.1 fL Mean Corpuscular Hemoglobin 29.6 pg 29.9 pg Mean Corpuscular Hemoglobin Concent 31.5 g/dl 31.8 g/dl Platelet Count 244 K/uL 226 K/uL Mean Platelet Volume 8.5 fL 8.2 fL Neutrophils (%) (Auto) 66.8 % 62.3 % Lymphocytes (%) (Auto) 20.6 % 23.3 % Monocytes (%) (Auto) 10.2 % 11.6 % Eosinophils (%) (Auto) 1.5 % 2.1 % Basophils (%) (Auto) 0.3 % 0.2 % Neutrophils # (Auto) 6.86 K/uL 5.28 K/uL Lymphocytes # (Auto) 2.12 K/uL 1.97 K/uL Monocytes # (Auto) 1.05 K/uL 0.98 K/uL Eosinophils # (Auto) 0.15 K/uL 0.18 K/uL Basophils # (Auto) 0.03 K/uL 0.02 K/uL RDW Standard Deviation 47.8 fL 47.3 fL RDW Coefficient of Variation 13.9 % 13.8 % Immature Granulocyte % (Auto) 0.6 % 0.5 % Immature Granulocyte # (Auto) 0.06 K/uL 0.04 K/uL Absolute Reticulocyte Count 0.03 10^6/uL Percent Reticulocyte Count 0.8 % Prothrombin Time 37.6 SECONDS 44.4 SECONDS Prothromb Time International Ratio 3.3 3.9 Activated Partial Thromboplast Time 52.7 SECONDS 53.9 SECONDS Partial Thromboplastin Ratio 2.0 2.1 Sodium Level 136 mmol/L 138 mmol/L Potassium Level 4.5 mmol/L 4.3 mmol/L Chloride Level 95 mmol/L 95 mmol/L Carbon Dioxide Level 37 mmol/L 38 mmol/L Anion Gap 4.0 mmol/L 5.0 mmol/L Blood Urea Nitrogen 19 mg/dl 15 mg/dl Creatinine 0.86 mg/dl 0.86 mg/dl Est Creatinine Clear Calc Drug Dose 49.7 ml/min 50.2 ml/min Estimated GFR () 92.9 92.9 Estimated GFR (Non- 80.2 80.2 BUN/Creatinine Ratio 21.8 17.3 Random Glucose 118 mg/dl 97 mg/dl Calcium Level 9.5 mg/dl 9.5 mg/dl Magnesium Level 2.0 mg/dl 1.9 mg/dl Total Bilirubin 0.3 mg/dl Direct Bilirubin 0.1 mg/dl Aspartate Amino Transf (AST/SGOT) 19 U/L Alanine Aminotransferase (ALT/SGPT) 18 U/L Alkaline Phosphatase 109 U/L Total Creatine Kinase 31 U/L 28 U/L Creatine Kinase MB 0.6 ng/ml 0.9 ng/ml Creatine Kinase MB Ratio 1.9 3.2 Troponin I < 0.015 ng/ml < 0.015 ng/ml Total Protein 9.2 gm/dl Albumin 2.6 gm/dl Amylase Level 72 U/L Lipase 302 U/L Urine Color YELLOW Urine Appearance CLEAR Urine pH 5.0 Urine Specific Zamora 1.024 Urine Protein NEG Urine Glucose (UA) NEG Urine Ketones NEG Urine Occult Blood 2+ Urine Nitrite NEG Urine Bilirubin NEG Urine Urobilinogen NEG Urine Leukocyte Esterase NEG Urine WBC (Auto) 0 /hpf Urine RBC (Auto) 10-30 /hpf Urine Hyaline Casts (Auto) 1-5 /lpf Urine Epithelial Cells (Auto) 0-5 /lpf Urine Bacteria (Auto) NEG Test 03/06/17 10:26 Total Creatine Kinase 30 U/L Creatine Kinase MB 0.9 ng/ml Creatine Kinase MB Ratio 3.0 Troponin I < 0.015 ng/ml EKG: Atrial fibrillation with RVR, nonspecific ST changes Telemetry reviewed: Atrial fibrillation primarily in the 100s to 110s, briefly to 140s 150s. Brief run of nonsustained VT Assessment & Plan 1. Progressive dyspnea 2. Atrial fibrillation with RVR, persistent 3. Right greater than left pleural effusions 4. New moderate LV dysfunction 5. Coronary artery disease status post three-vessel CABG, prior RCA stenting 6. History of bioprosthetic aortic valve replacement 7. Progressive weight loss, anorexia, early satiety 8. Anemia Patient's primary reason for admission seems to be is continued issues with decreased appetite, early satiety, unplanned weight loss and failure to thrive at home. Etiology of the symptoms unclear at present. In addition has had difficulty with worsening shortness of breath now for months. Was previously noted to have new LV dysfunction but no real signs of heart failure and on exam today again appears to be well perfused without significant congestion. Notable findings thus far on workup included moderate right-sided pleural effusion and atrial fibrillation with RVR. Atrial fibrillation seems to have been persistent since his cardiac surgery back in August and question whether his new LV dysfunction is secondary to tachyarrhythmia. Pleural effusion notable on CT scan last month and feel may be contributing to patient's shortness of breath, possible hypoventilation with increasing bicarb. Recommend: -- Attempt additional diuresis 40mg IV x1 today. Can discontinue albumin -- Switch to metoprolol tartrate and increase to 100 mg BID -- Will discuss with Dr. Garrison potentially starting amiodarone, ? cardioversion for persistent atrial fibrillation. -- Coumadin being held -- Evaluation for possible thoracentesis of right pleural effusion.
[2017-03-06 15:51] VITALS: BP 104/67; PULSE 101; TEMP 36.8; O2SAT 96
--- NOTE | 2017-03-06 16:08 | Pulmonary Consultation ---
History General Date of Service: Mar 06, 2017. Stated Complaint: A-Fib W Rvr, Bilat Pleural Effusion HPI The patient is a 81 year old male who presents to [facility] with complaints of A-Fib W Rvr, Bilat Pleural Effusion. The patient's primary care provider is Quang Mays M.D.. Mr. Olvera is a 81-year-old male with past medical history of mild COPD, coronary artery disease, paroxysmal atrial fibrillation (on Coumadin), aortic stenosis status post aortic valve replacement and CABG 3 (August 2016), AAA status post leaking emergent endovascular repair at [facility], hyperlipidemia, hypertension, colon cancer status post hemicolectomy, prostate cancer status post brachytherapy, hypothyroidism and GERD Does complain of shortness of breath with little exertion. However in denies shortness of breath at rest. He denies any orthopnea or paroxysmal dyspnea or lower extremity edema. He denies any fevers or chills, cough, chest pain, hemoptysis. He does endorse increased satiety and decreased appetite.He has lost about 40 pounds since April 2016. He does have episodes of tarry black stool sometimes with bright red blood per rectum. He notes that he has history of hemorrhoids. He denies any other genitourinary or GI symptoms. He does admit to occasional lightheadedness and dizziness upon rising. He denies any syncope or falls. His initial vital signs in the ER her temperature 36.7, pulse 128, respiratory rate of 20, blood pressure 118/65 saturating 95% on 2.5 L nasal cannula. Laboratory data showed chemistry significant for a chloride 95, carbon dioxide 37, BUN of 19 creatinine 0.86. CK 31, troponin less than 0.0152, total protein 9.2 and albumin 2.6. White blood cell count of 10, hemoglobin of 10, platelet count 244. PT 37.6, INR 3.3 and PTT 52.7. Repeat coags this morning show INR 3.9, PTT 44 and PTT 53.9. Urine positive for occult blood 2+, urine red blood cells 10-30, negative for leukocyte esterase and nitrates as well as urine bacteria. He was given sodium chloride 500 mL bolus, nitroglycerin 0.4 mg when necessary , Pepcid 20 mg IV, Lasix 40 mg/albumin 1 bag pantoprazole 40 mg. Last transthoracic echo on 01/27/2017 showed a normal LV size with moderately decreased reduced systolic function. Akinesis at the base to mid inferior wall. With global hypokinesis estimated EF is about 35-40%. Some moderate left atrial dilation. Normal right ventricular size with moderately reduced systolic function. Bioprosthetic aortic valve Mild to moderate mitral regurgitation. Normal estimated right ventricular systolic pressure of about 24 [address] He [address] a [address] of the chest done at [facility] on 01/25/2017 which showed bilateral pleural effusions and pulmonary vascular congestion. Bronchiectatic changes in the bilateral lower lobes right middle lobes and lingula of the left upper lobe showed fibrotic changes in the lingula and left upper lobe as well. PFT was done on 07/28/2016 which showed mild obstructive lung defect with an FEV1 FEC ratio of 76% predicted. FEV1 prebronchodilator was 65%, 1.78 L. There is no significant bronchodilator response. There was a mild restrictive lung defect with the TLC of 60%, 4.26 L. He also had a decreased DLCO, approximately 32%. He was prescribed pro-air inhaler but rarely uses. Historian: patient Onset: last week Review of Systems Constitutional: reports: as stated in HPI Eyes: reports: as stated in HPI ENT: reports: as stated in HPI Cardiovascular: reports: as stated in HPI Respiratory: reports: as stated in HPI Gastrointestinal: reports: as stated in HPI Genitourinary - Male: reports: as stated in HPI Musculoskeletal: reports: as stated in HPI Neurologic: reports: as stated in HPI Psychiatric: reports: as stated in HPI Endocrine: as stated in HPI Hematologic / Lymphatic: as stated in HPI Allergic / Immunologic: as stated in HPI All Other Symptoms All Other Systems: Reviewed and Negative Past Medical History Past Medical History: Active Problems 1. Abnormal CXR (R93.8) 2. Anemia (D64.9) 3. Anorexia (R63.0) 4. Anticoagulant long-term use (Z79.01) 5. Aortic stenosis (I35.0) 6. Carcinoma of prostate (C61) 7. Carotid artery stenosis (I65.29) 8. Chest pain (R07.9) 9. Chronic obstructive pulmonary disease (J44.9) 10. Chronic systolic congestive heart failure (I50.22) 11. Colon cancer (C18.9) 12. Congestive heart failure (I50.9) 13. Constipation (K59.00) 14. Diastolic congestive heart failure (I50.30) 15. Edema (R60.9) 16. GERD without esophagitis (K21.9) 17. Hypertension (I10) 18. Hyperthyroidism (E05.90) 19. Hypokalemia (E87.6) 20. 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 Malignant neoplasm of prostate (C61) 22. Need for immunization against influenza (Z23) 23. Nocturia (R35.1) 24. Pulmonary fibrosis (J84.10) 25. S/P aortic valve replacement (Z95.2) 26. S/P CABG x 3 (Z95.1) 27. Screening PSA (prostate specific antigen) (Z12.5) 28. Visual impairment (H54.7) CAD in [place] artery (414.01) (I25.10) Hyperlipidemia (272.4) (E78.5) Hypertension (401.9) (I10) Aortic stenosis (424.1) (I35.0) Atrial fibrillation (427.31) (I48.91) Chest pain (786.50) (R07.9) Aortic stenosis (424.1) (I35.0) CAD in [place] artery (414.01) (I25.10) Hyperlipidemia (272.4) (E78.5) Atrial fibrillation (427.31) (I48.91) Exertional shortness of breath (786.05) (R06.02) Chronic diastolic congestive heart failure (428.32) (I50.32) Cardiomyopathy (425.4) (I42.9) Past Medical History Carcinoma of prostate (C61) History of abdominal aortic aneurysm (Z86.79) History of abnormal weight loss (Z87.898) History of sinus bradycardia (Z86.79) History of Prostate Cancer Past Surgical History: Surgical History History of Appendectomy History of Cardiac Cath Procedure History of Cataract Surgery History of Endovascular Repair Of Abdominal Aorta Aneurysm History of Neurological Surgery Carotid Endarterectomy Family History Family History No family history of premature coronary artery disease or lung disease. Social History Social History Denies tobacco after quitting in 2001. Denies alcohol or drug abuse. He is . He has 2 children. He worked at a [employer] but is retired. Hx Tobacco Use In Past Year?: No (Quit over 10 years ago) Smoking Status: Former Smoker Marital status: Housing status: lives with family Occupational Status: retired Immunizations History of Influenza Vaccine: Yes History of Tetanus Vaccine?: Yes History of Pneumococcal: Yes History of Hepatitis B Vaccine: Unknown History of MDRO History of MDRO: No Allergies Coded Allergies: No Known Allergies (Unverified , 03/05/17) Current Medications Reported Home Medications Medications Dose Route/Sig Max Daily Dose Days Date Category Dose Instructions Flomax (Tamsulosin Hcl) 0.4 Mg Cap 0.4 Mg PO DAILY 03/05/17 Reported Jantoven (Warfarin Sodium) 5 Mg Tab 7.5 Mg PO 2XWK 03/05/17 Reported TUESDAY, TUESDAY @1800 Remeron Soltab (Mirtazapine) 30 Mg Soltab 30 Mg PO HS 03/05/17 Reported Toprol-Xl (Metoprolol Succinate) 100 Mg Tabcr 100 Mg PO DAILY 03/05/17 Reported Micro-K Ext Rel (Potassium Chloride) 10 Meq Capcr 20 Meq PO TID 03/05/17 Reported Ferrous Gluconate 324 Mg Tab 324 Mg PO 03/05/17 Reported Eye Vitamins (Multiple Vitamins W/ Minerals) 1 Cap Cap 1 Cap PO DAILY 03/05/17 Reported Omeprazole (Omeprazole (Bulk)) 1 Pow Pow 40 Mg PO BID 07/15/16 Reported Coumadin (Warfarin Sodium) 5 Mg Tab 5 Mg PO 5XWK 12/27/13 Reported TUESDAY, TUESDAY,TUESDAY,TUESDAY,TUESDAY@1800 Lipitor (Atorvastatin Calcium) 40 Mg Tab 40 Mg PO HS 12/27/13 Reported Nitrostat (Nitroglycerin) 0.4 Mg Sub 0.4 Mg UT PRN 06/12/13 Reported Dissolve 1 tablet under the tongue q 5 min prn chest pain , do not exceed 3 doses in 15 min Aspirin Ec (Aspirin) 81 Mg Tab 81 Mg PO DAILY 06/12/13 Reported Multivitamin (Multivitamins) Tab 1 Tab PO DAILY 06/25/10 Reported Methimazole (Methimazole) 5 Mg Tab 5 Mg PO Q2D 06/25/10 Reported Physical Physical Exam Vital Signs: Date Time Temp Pulse Resp B/P (MAP) Pulse Ox O2 Delivery O2 Flow Rate FiO2 03/06/17 07:35 36.4 109 16 120/75 (90) 96 Nasal Cannula 03/06/17 04:00 Nasal Cannula 2.0 03/06/17 03:17 36.7 101 20 103/67 (79) 97 Nasal Cannula 2.0 03/06/17 00:05 140 109/70 03/06/17 00:00 Nasal Cannula 2.0 03/05/17 23:19 36.6 115 20 109/70 (83) 96 Nasal Cannula 2.0 03/05/17 20:00 36.5 112 22 123/79 (94) 96 Nasal Cannula 2.0 03/05/17 20:00 Nasal Cannula 2.0 03/05/17 18:15 92 Nasal Cannula 2.0 03/05/17 18:03 107 03/05/17 18:00 103 24 122/69 96 Nasal Cannula 2.0 03/05/17 17:30 111 23 99 Nasal Cannula 2.0 03/05/17 17:00 103 27 118/76 98 Nasal Cannula 2.0 03/05/17 16:28 103 30 121/70 92 Nasal Cannula 2.0 03/05/17 15:00 114 25 128/77 96 03/05/17 14:05 127 03/05/17 14:02 144 29 119/99 93 03/05/17 13:53 36.7 128 20 118/65 95 Nasal Cannula 2.5 General Appearance: WD/WN, NO APPARENT DISTRESS Head: NORMOCEPHALIC Eyes: PERRLA, NO DISCHARGE, EOMI, SCLERAE NORMAL, CONJUNCTIVAE NORMAL ENT: NORMAL MOUTH EXAM, NORMAL THROAT EXAM Neck: NORMAL RANGE OF MOTION, NO TENDERNESS, TRACHEA MIDLINE Respiratory: BREATH SOUNDS NORMAL, other (decrease breath signs bilaterally more on the the right than the left) Cardiovasular: NORMAL S1S2, NORMAL PERIPHERAL PULSES, irregular rate Abdomen: NON TENDER, NORMAL BOWEL SOUNDS, NO REBOUND Genitourinary - Male: EXTERNAL GENITALIA NORMAL Back: NORMAL INSPECTION, NO MIDLINE TENDERNESS, NO CVA TENDERNESS Upper Extremities: NO EDEMA, NO DEFORMITY, NORMAL ROM Lower Extremities: NORMAL ROM, other (trace lower extremity edema) Pulses: dorsalis pedis (R), dorsalis pedis (L) (2+) Neuro: ALERT, ORIENTED x 3, NORMAL MOTOR EXAM, NORMAL SENSATION, NORMAL SPEECH , NORMAL MEMORY Psychiatric: NORMAL AFFECT, NO SUICIDAL IDEATION, CONTRACTS FOR SAFETY Diagnostics Labs Results Past 24 Hours Test 03/05/17 14:10 03/06/17 00:00 03/06/17 02:21 03/06/17 05:55 Range/Units White Blood Count 10.27 8.47 4.8-10.8 K/uL Red Blood Count 3.48 3.21 4.7-6.1 M/uL Hemoglobin 10.3 9.6 14.0-18.0 g/dL Hematocrit 32.7 30.2 42-52 % Mean Corpuscular Volume 94.0 94.1 80-100 fL Mean Corpuscular Hemoglobin 29.6 29.9 25-34 pg Mean Corpuscular Hemoglobin Concent 31.5 31.8 32-36 g/dl Platelet Count 244 226 130-400 K/uL Mean Platelet Volume 8.5 8.2 7.4-10.4 fL Neutrophils (%) (Auto) 66.8 62.3 % Lymphocytes (%) (Auto) 20.6 23.3 % Monocytes (%) (Auto) 10.2 11.6 % Eosinophils (%) (Auto) 1.5 2.1 % Basophils (%) (Auto) 0.3 0.2 % Neutrophils # (Auto) 6.86 5.28 1.4-6.5 K/uL Lymphocytes # (Auto) 2.12 1.97 1.2-3.4 K/uL Monocytes # (Auto) 1.05 0.98 0.11-0.59 K/uL Eosinophils # (Auto) 0.15 0.18 0-0.5 K/uL Basophils # (Auto) 0.03 0.02 0-0.2 K/uL RDW Standard Deviation 47.8 47.3 36.4-46.3 fL RDW Coefficient of Variation 13.9 13.8 11.5-14.5 % Immature Granulocyte % (Auto) 0.6 0.5 % Immature Granulocyte # (Auto) 0.06 0.04 0.00-0.02 K/uL Absolute Reticulocyte Count 0.03 0.02-0.10 10^6/uL Percent Reticulocyte Count 0.8 0.5-2.0 % Prothrombin Time 37.6 44.4 9.0-12.0 SECONDS Prothromb Time International Ratio 3.3 3.9 0.9-1.1 Activated Partial Thromboplast Time 52.7 53.9 21.0-31.0 SECONDS Partial Thromboplastin Ratio 2.0 2.1 Sodium Level 136 138 136-145 mmol/L Potassium Level 4.5 4.3 3.5-5.1 mmol/L Chloride Level 95 95 98-107 mmol/L Carbon Dioxide Level 37 38 21-32 mmol/L Anion Gap 4.0 5.0 3-11 mmol/L Blood Urea Nitrogen 19 15 7-18 mg/dl Creatinine 0.86 0.86 0.60-1.40 mg/dl Est Creatinine Clear Calc Drug Dose 49.7 50.2 ml/min Estimated GFR () 92.9 92.9 Estimated GFR (Non- 80.2 80.2 BUN/Creatinine Ratio 21.8 17.3 10-20 Random Glucose 118 97 70-99 mg/dl Calcium Level 9.5 9.5 8.5-10.1 mg/dl Magnesium Level 2.0 1.9 1.8-2.4 mg/dl Total Bilirubin 0.3 0.2-1 mg/dl Direct Bilirubin 0.1 0-0.2 mg/dl Aspartate Amino Transf (AST/SGOT) 19 15-37 U/L Alanine Aminotransferase (ALT/SGPT) 18 12-78 U/L Alkaline Phosphatase 109 45-117 U/L Total Creatine Kinase 31 28 39-308 U/L Creatine Kinase MB 0.6 0.9 0.5-3.6 ng/ml Creatine Kinase MB Ratio 1.9 3.2 0-3.0 Troponin I < 0.015 < 0.015 0-0.045 ng/ml Total Protein 9.2 6.4-8.2 gm/dl Albumin 2.6 3.4-5.0 gm/dl Amylase Level 72 25-115 U/L Lipase 302 73-393 U/L Urine Color YELLOW Urine Appearance CLEAR CLEAR Urine pH 5.0 4.5-7.5 Urine Specific Gans 1.024 1.000-1.030 Urine Protein NEG NEG Urine Glucose (UA) NEG NEG Urine Ketones NEG NEG Urine Occult Blood 2+ NEG Urine Nitrite NEG NEG Urine Bilirubin NEG NEG Urine Urobilinogen NEG NEG Urine Leukocyte Esterase NEG NEG Urine WBC (Auto) 0 0-5 /hpf Urine RBC (Auto) 10-30 0-4 /hpf Urine Hyaline Casts (Auto) 1-5 0-5 /lpf Urine Epithelial Cells (Auto) 0-5 0-5 /lpf Urine Bacteria (Auto) NEG NEG Diagnostic Radiology SINGLE VIEW CHEST 03/05/2017 CLINICAL HISTORY: Generalized abdominal pain. FINDINGS: An AP, portable, upright chest radiograph is compared to study dated 06/08/2013 and correlated with chest CT dated 10/16/2015. The patient is status post midline sternotomy. The heart is enlarged and there is atherosclerotic calcification of the thoracic aorta. There is pulmonary vascular congestion. Emphysema and chronic interstitial thickening are similar to previous. There are layering pleural effusions with dense bibasilar airspace consolidation. No pneumothorax is seen. The skeletal structures are osteopenic. The bony thorax is grossly intact. Calcific tendinopathy is noted in the left shoulder. IMPRESSION: 1. Cardiomegaly with mild pulmonary vascular congestion. 2. There are layering pleural effusions with dense bibasilar airspace consolidation. Correlate clinically for evidence of pneumonia/aspiration pneumonitis. Radiographic follow-up to resolution is recommended. 3. Emphysema. CT SCAN OF THE ABDOMEN AND PELVIS WITH IV CONTRAST 03/05/2017 CLINICAL HISTORY: Upper abdominal pain. Dyspnea. COMPARISON STUDY: Abdominal CT scan dated 10/16/2015 and 09/09/2014. TECHNIQUE: Following the IV administration of 117 cc of Optiray 320, CT scan of the abdomen and pelvis is performed from the lung bases to the proximal femora. Images are reviewed in the axial, sagittal, and coronal planes. IV contrast was administered without complication. A dose lowering technique was utilized adhering to the principles of ALARA. CT DOSE: 381.88 mGy.cm FINDINGS: Lung bases: The patient is status post midline sternotomy and there is evidence of previous aortic valve surgery. The heart is markedly enlarged and there is a small pericardial effusion. The coronary arteries are densely calcified. Advanced emphysema is noted. Facet subpleural scarring are identified. There are moderate right and small left pleural effusions/collection with associated bibasilar consolidation. The pleural effusions appear to be at least partially loculated and there is underlying pleural thickening. The effusion on the right appears complex. A moderate hiatal hernia is identified. Liver: The contrast-enhanced liver is normal in size, contour, and attenuation. Focal fatty infiltration is seen adjacent to falciform ligament. There is no intrahepatic biliary ductal dilatation. The hepatic veins and portal veins are patent. Gallbladder: Unremarkable. Spleen: Normal in size and attenuation. Pancreas: Unremarkable. Adrenal glands: Unremarkable. Kidneys: The contrast enhanced kidneys demonstrate cortical atrophy and are without hydronephrosis. The kidneys enhance symmetrically. Renal cysts end indeterminant renal hypodensities measure up to 3.0 cm are similar appearance to previous. No enhancing cortical mass is clearly seen. Abdominal vasculature: There is advanced atherosclerotic calcification of the abdominal aorta. An aortobiiliac stent graft is in place. The stent graft is widely patent. No significant residual aneurysm sac is seen.. Bowel: There are postoperative changes from partial left colon resection with colocolonic anastomosis. No bowel obstruction is seen. The appendix is not identified and reported surgically absent. Peritoneum: There is no intraperitoneal free air or abdominal ascites. Lymphadenopathy: None. Pelvic viscera: The the prostate gland is mildly enlarged and heterogeneous. Brachytherapy beads are noted. Median lobe hypertrophy is identified. The bladder wall appears mildly thickened and trabeculated suggesting the sequelae of chronic outlet obstruction. Skeletal structures: The skeletal structures are osteopenic. The skeletal structures are heterogeneously osteopenic. There is moderate lumbosacral spondylosis. No lytic or blastic lesions are seen. IMPRESSION: 1. There are no acute infectious or inflammatory findings in the abdomen or pelvis. 2. Cardiomegaly and changes from midline sternotomy. This is new from 10/16/2015. 3. There are moderate right and small left pleural effusions/collections with associated bibasilar consolidation and pleural thickening. These are likely at least partially loculated, and the effusion on the right appears to be minimally complex. If cardiothoracic surgery was recent this may represent postoperative change. Clinical correlation will be essential. 4. Bibasilar consolidation likely represents atelectasis. Correlate clinically for evidence of pneumonia. 5. There are postoperative changes from left colon resection. No bowel obstruction is seen. 6. Additional findings as above. CT SCAN OF THE CHEST WITH IV CONTRAST 10/16/2015 CLINICAL HISTORY: Colon cancer. COMPARISON STUDY: Chest CT scans dated 09/09/2014 and 06/15/2013. TECHNIQUE: Following the IV administration of 93 cc of Optiray 320, CT scan of the thorax was performed from the thoracic inlet to the upper abdomen. Images are reviewed in the axial, sagittal, and coronal planes. IV contrast was administered without complication. CT DOSE: Reported separately under the concurrently performed CT scan of the abdomen and pelvis. FINDINGS: Thyroid: Imaged portions of the thyroid gland are normal in size and attenuation. Thoracic aorta: There is atherosclerotic calcification of the thoracic aorta, which is normal in caliber and demonstrates standard 3-vessel arch anatomy. No aneurysm or dissection is seen. Pulmonary vasculature: The pulmonary trunk is normal in caliber. There are no filling defects identified in the central pulmonary vessels to indicate pulmonary embolus. Note that this examination was not protocoled for evaluation of the pulmonary arteries. Heart: The heart is enlarged and without pericardial effusion. The coronary arteries are densely calcified. Lungs and pleural spaces: There is no airspace consolidation typical for pneumonia or pleural effusion. There are emphysematous changes. Findings interstitial lung disease are similar to previous, with significant subpleural reticulation and intralobular septal thickening. Foci of honeycombing are seen in the upper lobes bilaterally. There is no significant traction bronchiectasis. The trachea and central airways are clear. Mediastinum: There are mildly enlarged mediastinal lymph nodes. Some of these contain coarse calcifications. An AP window node on image #106 measures 1.2 cm in short axis. A high right paratracheal node on image #55 measures 1.3 cm in short axis. Staci: There is hilar lymphadenopathy. Enlarged nodes on the right measure up to 1.2 cm short axis, and enlarged nodes on the left measure up to 1.3 cm in short axis. Axillae: There is no axillary lymphadenopathy. Upper abdomen: There is a moderate hiatal hernia. Hepatic steatosis is noted. The partially imaged kidneys demonstrate cortical atrophy. 2 cysts in the upper pole the right kidney measured 3.0 cm. Skeletal structures: The skeletal structures are heterogeneously osteopenic. No lytic or blastic bony lesions are seen. Degenerative change and hyperkyphosis are seen in the thoracic spine. IMPRESSION: 1. There is no evidence of intrathoracic metastatic disease. 2. Findings of emphysema and chronic interstitial lung disease are similar to previous. 3. Mediastinal and hilar lymphadenopathy are again noted. This is nonspecific and may be related to chronic lung disease. 4. Cardiomegaly. 5. Hepatic steatosis. 6. Moderate hiatal hernia. 7. Additional changes as documented above. EKG EKG from 03/05/2017 Atrial fibrillation with rapid ventricular response at 130 beats per minutes Nonspecific T-wave abnormality Impression Assessment and Plan Mild COPD with interstitial lung disease Systolic CHF Dyspnea Bilateral pleural effusion Anemia Atrial fibrillation Supratherapeutic INR Hypoalbuminemia Patient appears to have had increased dyspnea on exertion since recent AVR and CABG earlier this year. Upon arrival to the ER he was admitted to be in A. fib with RVR however he is currently rate controlled. His dyspnea is most likely a combination of systolic heart failure, obstructive lung disease and restrictive lung disease. Does have an element of hypoalbuminemia which also may be contributing. CT scan shows findings of mild emphysema with bronchiectatic changes, with some interseptal thickening suggestive of fibrosis night presents with increased bilateral pleural effusions greater on the right than the left. He does have elevated CO2 in the setting of diuretic therapy. Likely metabolic alkalosis. Patient does have a history of melena and bright red blood per rectum. Has history of colon cancer status post resection. With recent weight loss and decreased satiety this should be further evaluated . Also noted to have a supratherapeutic INR. Per chart review he was offered a right heart catheterization to evaluate for elevated pulmonary pressures and pulmonary hypertension however declined. At the current time continue with supplemental oxygenation to maintain an SaO2 above 92%. Continue albuterol when necessary At this time continue to hold Coumadin as his INR is supratherapeutic. Will proceed with thoracentesis when INR is within in a therapeutic range. Do not recommend reversing coumadin with FFP or vitamin K, unless it does not decrease, Follow-up cardiology consult for systolic heart failure. He may benefit from diuresis. Recommend GI consult for anemia. Continue with all medical management per primary team. I appreciate the consult.
[2017-03-06 19:57] VITALS: BP 102/59; PULSE 112; TEMP 36.6; O2SAT 93
[2017-03-06 20:00] VITALS: O2SAT 93
[2017-03-06] MEDS: TAMSULOSIN HCL 0.4 MG CAP PO SCH (21:14)
[2017-03-06] MEDS: ATORVASTATIN 40 MG TAB PO SCH (21:15)
[2017-03-06] MEDS: MIRTAZAPINE TAB 15 MG TAB PO SCH (21:16)
[2017-03-06] MEDS ORDERED: METOPROLOL TARTRATE 100 MG TAB PO ONE (22:43)
[2017-03-07] VITALS (8 sets, daily range): BP systolic 95–121; BP diastolic 61–71; PULSE 86–118; TEMP 36.4–36.7; O2SAT 92–98
[2017-03-07] MEDS: ACETAMINOPHEN 325 MG TAB PO PRN (02:11)
[2017-03-07] MEDS ORDERED: ALUMINUM/MAGNESIUM SUSP 30 ML UDC ONE (02:13)
[2017-03-07] MEDS ORDERED: NURSING VERBAL MED ORDER ONE (02:15)
[2017-03-07] MEDS ORDERED: ALUMINUM/MAGNESIUM/SIMETH (MAALOX MAX) 30 ML UDC ONE (02:15)
[2017-03-07] MEDS ORDERED: ALUMINUM/MAGNESIUM/SIMETH (MAALOX MAX) 30 ML UDC PO PRN (03:00)
[2017-03-07 07:09] LABS: BASO % 0.4 %; BASO ABS # 0.03 K/uL (0-0.2); COMPLETE YES; EOS % 1.8 %; HEMATOCRIT 30.2 % (42-52); IG% 0.5 %; LYMPH % 21.8 %; MEAN CELL VOLUME 93.8 fL (80-100); MEAN CORPUSCULAR HEMOGLOBIN 29.8 pg (25-34); MEAN CORPUSCULAR HGB CONC 31.8 g/dl (32-36); MEAN PLATELET VOLUME 8.4 fL (7.4-10.4); MONO % 10.3 %; NEUT % 65.2 %; PLATELET COUNT 233 K/uL (130-400); RED BLOOD COUNT 3.22 M/uL (4.7-6.1); WHITE BLOOD COUNT 8.24 K/uL (4.8-10.8)
[2017-03-07 07:24] LABS: INR 2.4 (0.9-1.1); PARTIAL THROMBOPLASTIN RATIO 1.8; PROTHROMBIN TIME (PATIENT) 26.2 SECONDS (9.0-12.0)
[2017-03-07 07:35] LABS: BUN/CREATININE RATIO 23.3 (10-20); CALCIUM 9.5 mg/dl (8.5-10.1); CREATININE 0.89 mg/dl (0.60-1.40); POTASSIUM 4.8 mmol/L (3.5-5.1)
[2017-03-07] MEDS: ALBUMIN 25% 50 ML with FUROSEMIDE INJ 40 MG IV SCH ×2 (08:35)
[2017-03-07] MEDS: MULTIVITAMIN TAB PO SCH (08:36)
[2017-03-07] MEDS: FERROUS GLUCONATE 324 MG TAB PO SCH (08:36)
[2017-03-07] MEDS: PANTOprazole SOD 40 MG TAB PO SCH ×2 (08:36→21:37)
[2017-03-07] MEDS: POTASSIUM CHLORIDE 20 MEQ TABCR PO SCH ×3 (08:36→21:36)
[2017-03-07] MEDS: METOPROLOL TARTRATE 100 MG TAB PO SCH ×2 (08:36→21:37)
--- NOTE | 2017-03-07 09:39 | CARDIOLOGY PROGRESS NOTE ---
DATE: 03/07/2017 TIME: 09:03 a.m. SUBJECTIVE: Mr. Olvera continues to feel short of breath. He continues to lose weight at home and has lost over 30 pounds in the past several months. He has not had much of an appetite. He denies orthopnea, stating that he actually breathed much better lying down. He has not had any edema, palpitations, angina or syncope. He does have lightheadedness when standing up. His heart rate was elevated when he was admitted. His metoprolol has been changed to metoprolol tartrate 100 mg twice daily and his heart rate has since improved. He has received intermittent doses of IV Lasix with albumin. He did have hematochezia, but has not had an episode for over a week. OBJECTIVE: VITAL SIGNS: Temperature 36.5 degrees, heart rate 88 beats per minute, respiratory rate 18, blood pressure 103/71 mmHg, and oxygen saturation 98% on 2 liters per nasal cannula. I's and O's negative 685 mL. Weight 53.5 kg. GENERAL: No acute distress. He is alert. NECK: No JVD. Mild hepatojugular reflux. CARDIAC EXAM: No ventricular heave. Irregularly irregular, but rate controlled. Normal S1 and S2. 1/6 early peaking systolic ejection murmur best heard at the right upper sternal border. No rubs or gallops. LUNGS: Decreased breath sounds at the right base. Faint crackles at the left base. ABDOMEN: Soft, nontender, and nondistended. Normoactive bowel sounds. EXTREMITIES: No cyanosis or edema. 1+ radial pulses bilaterally. 1+ dorsalis pedis pulses bilaterally. PSYCHIATRIC: Affect appears appropriate. MEDICATIONS: Include atorvastatin 40 mg at bedtime, furosemide 40 mg IV with albumin once this morning, Lasix 40 mg p.o. q.a.m., methimazole 5 mg every 2 days, metoprolol tartrate 100 mg p.o. b.i.d., Protonix 40 mg p.o. b.i.d., and potassium chloride 20 mEq p.o. t.i.d. TELEMETRY: Personally reviewed. Atrial fibrillation. Initially had rapid ventricular response, but after increasing metoprolol, his heart rate trend has improved. ECG: Personally reviewed. Atrial fibrillation. Most recent ECG performed today at 06:24 a.m. demonstrated atrial fibrillation at 89 beats per minute. Abdominal/pelvis CT on 03/05/2017: Report was reviewed. No acute infectious or inflammatory findings in the abdomen and pelvis per radiology. Moderate right and small left pleural effusions with associated bibasilar consolidation and pleural thickening. Likely at least partially loculated and effusion on the right appears to be minimally complex. Bibasilar consolidation likely represents atelectasis per radiology. LABORATORY DATA: White blood cell count 8.24, hemoglobin 9.6, and platelets 233. Sodium 136, potassium 4.8, BUN 21, and creatinine 0.89. Troponin undetectable x3. Albumin 2.6. AST 19 and ALT 18. INR 2.4. ASSESSMENT AND PLAN: 1. Atrial fibrillation with rapid ventricular response: Agree with increased beta vince dose. Would change metoprolol tartrate to metoprolol succinate, however, upon discharge given his reduced LV systolic function. Amiodarone is a consideration; however, if anticoagulation is going to be held due to upcoming thoracentesis, will likely hold off for now until he is adequately anticoagulated without interruption. If his heart rate becomes more elevated, could consider digoxin. Anticoagulation for stroke risk reduction if no contraindications following thoracentesis. 2. Chronic systolic congestive heart failure: His subjective findings have been quite dramatic in the outpatient setting in regards to shortness of breath, but despite this has not had any orthopnea and has had significant weight gain unintentionally without obvious evidence of significant hypervolemia on exam. It is not likely that there is a significant hypervolemic component causing his shortness of breath. Also, his BNP has not been significantly elevated. We have discussed right heart catheterization in an attempt to better understand his filling pressures; however, he has declined and continues to do so. Can continue diuresis. He does not have any further intravenous Lasix ordered. If appropriate, can intermittently dose intravenous diuretic, but monitor renal function closely for signs of azotemia. Daily weights and strict I's and O's. 3. Cardiomyopathy: He has biventricular systolic dysfunction and has declined cardiac catheterization. Recommend metoprolol succinate upon discharge. He did not tolerate lisinopril due to symptomatic hypotension. 4. Coronary artery disease, status post right coronary artery percutaneous coronary intervention and coronary artery bypass grafting x3: No angina. Resume aspirin 81 mg daily given prior PCI. Continue high intensity statin therapy and beta vince therapy as noted above. 5. Bioprosthetic aortic valve: Normal function on most recent echo. 6. Hematochezia: No hematochezia for greater than 1 week. Evaluation recommended especially given his history of colon cancer and unintentional weight loss. 7. Shortness of breath: He does not appear to be significantly hypervolemic on exam, but despite this shortness of breath. Okay with diuresing as above with close attention to labs. Pulmonology has also been consulted and is considering thoracentesis, which may subjectively improve his symptoms. He also has underlying pulmonary fibrosis. 8. Disposition: Cardiology will continue to follow. A call has been placed to Dr. Sams to discuss patient care.
[2017-03-07] MEDS: FUROSEMIDE 40 MG TAB PO SCH (12:57)
--- NOTE | 2017-03-07 14:35 | Hospitalist Progress Note ---
Hospitalist Progress Note Date of Service Mar 07, 2017. (Michelle Merida PA-C) Subjective Pt evaluation today including: conversation w/ patient, physical exam, chart review, lab review, review of studies, review of inpatient medication list Patient seen and evaluated. No acute events overnight. Continues to have SOB but a little less bothersome today. Continues to complain of generalized fatigue and decreased appetite. Has remained in A Flutter on monitor and relatively rate controlled. Constitutional: + weakness (generalized), + problem reported (anorexia), No fever, No chills Respiratory: + shortness of breath Cardiovascular: No chest pain Abdomen: + GI bleeding (intermittent hematochezia - last episodes approx 1 week ago), No pain, No nausea, No vomiting, No diarrhea, No constipation Male : No dysuria Heme: No abnormal bleeding/bruising (Michelle Merida, JTC) Medications Current Inpatient Medications Medications (Trade) Dose Ordered Sig/Jarett Route Start Time Stop Time Status Last Admin Dose Admin Ioversol (Optiray 320) 111 ml UD PRN IV 03/05/17 14:15 03/09/17 14:14 Acetaminophen (Tylenol Tab) 650 mg Q4H PRN PO 03/05/17 18:45 04/04/17 18:44 03/07/17 02:11 650 MG Nitroglycerin (Nitrostat Tab) 0.4 mg UD PRN SL 03/05/17 18:45 04/04/17 18:44 Atorvastatin Calcium (Lipitor Tab) 40 mg HS PO 03/05/17 21:00 04/04/17 20:59 03/06/17 21:15 40 MG Ferrous Gluconate (Ferrous Gluconate Tab) 324 mg DAILY PO 03/06/17 09:00 04/05/17 08:59 03/07/17 08:36 324 MG Methimazole (Methimazole Tab) 5 mg Q2D@0900 PO 03/06/17 09:00 04/05/17 08:59 03/06/17 08:16 5 MG Metoprolol Succinate (Toprol Xl Tab) 100 mg DAILY PO 03/06/17 09:00 04/05/17 08:59 Future Hold 03/06/17 08:19 100 MG Multivitamins (Multivitamin Tab) 1 tab DAILY PO 03/06/17 09:00 04/05/17 08:59 03/07/17 08:36 1 TAB Potassium Chloride (Klor-Con Tab) 20 meq TID PO 03/05/17 21:00 04/04/17 20:59 03/07/17 14:07 20 MEQ Albuterol (Ventolin Hfa Inhaler) 2 puffs Q4H PRN INH 03/05/17 18:45 04/04/17 18:44 Mirtazapine (Remeron Tab) 30 mg HS PO 03/05/17 21:00 04/04/17 20:59 03/06/17 21:16 30 MG Pantoprazole Sodium (Protonix Tab) 40 mg BID PO 03/05/17 21:00 04/04/17 20:59 03/07/17 08:36 40 MG Ondansetron HCl (Zofran Inj) 4 mg Q6H PRN IV 03/05/17 18:45 04/04/17 18:44 03/05/17 21:49 4 MG Tamsulosin HCl (Flomax Cap) 0.4 mg HS PO 03/05/17 21:00 04/05/17 08:59 03/06/17 21:14 0.4 MG Metoprolol Tartrate (Lopressor Tab) 100 mg BID PO 03/07/17 09:00 04/06/17 08:59 03/07/17 08:36 100 MG Al Hydrox/Mg Hydrox/Simethicone (Maalox Max Susp) 15 ml Q4H PRN PO 03/07/17 03:00 04/06/17 02:59 Furosemide (Lasix Tab) 40 mg QAM PO 03/07/17 09:00 04/06/17 08:59 Enteral Nutritional Formula (Boost) 1 can BID PO 03/07/17 21:00 04/06/17 20:59 UNV (Michelle Merida, KENTRELL) Objective Vital Signs Date Time Temp Pulse Resp B/P (MAP) Pulse Ox O2 Delivery O2 Flow Rate FiO2 03/07/17 12:00 Nasal Cannula 2.0 Humidified Oxygen 03/07/17 11:16 36.5 97 18 95/62 (73) 92 2.0 03/07/17 10:10 114 93 03/07/17 08:00 Nasal Cannula 2.0 Humidified Oxygen 03/07/17 07:40 36.5 88 18 103/71 (82) 98 2.0 03/07/17 04:13 36.4 110 20 95/64 (74) 94 Nasal Cannula 2.0 03/07/17 04:00 Nasal Cannula 2.0 Humidified Oxygen 03/07/17 00:24 36.7 118 19 121/71 (88) 93 Nasal Cannula 2.0 03/07/17 00:00 Nasal Cannula 2.0 Humidified Oxygen 03/06/17 20:00 93 Nasal Cannula 2.0 Humidified Oxygen 03/06/17 19:57 36.6 112 18 102/59 (73) 93 Nasal Cannula 2.0 03/06/17 16:00 Nasal Cannula 2.0 03/06/17 15:51 36.8 101 18 104/67 (79) 96 Nasal Cannula 2.0 (Michelle Merida, PA-C) Physical Exam General Appearance: no apparent distress, + thin Eyes: sclerae normal ENT: hearing grossly normal Neck: supple, no JVD, trachea midline Respiratory/Chest: lungs clear, normal breath sounds, no respiratory distress, no accessory muscle use Cardiovascular: regular rate, rhythm, no gallop, no murmur Abdomen: normal bowel sounds, non tender, soft Extremities: no pedal edema, no calf tenderness Neurologic/Psychiatric: alert, oriented x 3 Skin: normal color, warm/dry (Michelle Merida, PA-C) Laboratory Results Last 24 Hours Test 03/07/17 06:46 White Blood Count 8.24 K/uL Red Blood Count 3.22 M/uL Hemoglobin 9.6 g/dL Hematocrit 30.2 % Mean Corpuscular Volume 93.8 fL Mean Corpuscular Hemoglobin 29.8 pg Mean Corpuscular Hemoglobin Concent 31.8 g/dl Platelet Count 233 K/uL Mean Platelet Volume 8.4 fL Neutrophils (%) (Auto) 65.2 % Lymphocytes (%) (Auto) 21.8 % Monocytes (%) (Auto) 10.3 % Eosinophils (%) (Auto) 1.8 % Basophils (%) (Auto) 0.4 % Neutrophils # (Auto) 5.37 K/uL Lymphocytes # (Auto) 1.80 K/uL Monocytes # (Auto) 0.85 K/uL Eosinophils # (Auto) 0.15 K/uL Basophils # (Auto) 0.03 K/uL RDW Standard Deviation 48.0 fL RDW Coefficient of Variation 13.8 % Immature Granulocyte % (Auto) 0.5 % Immature Granulocyte # (Auto) 0.04 K/uL Prothrombin Time 26.2 SECONDS Prothromb Time International Ratio 2.4 Activated Partial Thromboplast Time 46.9 SECONDS Partial Thromboplastin Ratio 1.8 Sodium Level 136 mmol/L Potassium Level 4.8 mmol/L Chloride Level 94 mmol/L Carbon Dioxide Level 38 mmol/L Anion Gap 4.0 mmol/L Blood Urea Nitrogen 21 mg/dl Creatinine 0.89 mg/dl Est Creatinine Clear Calc Drug Dose 47.6 ml/min Estimated GFR () 91.6 Estimated GFR (Non- 79.1 BUN/Creatinine Ratio 23.3 Random Glucose 112 mg/dl Calcium Level 9.5 mg/dl Magnesium Level 2.0 mg/dl (Michelle Merida, PA-C) Assessment and Plan Generalized Weakness/Failure to Thrive: - May be deconditioning for extensive cardiac procedures this year vs Malignancy - Boost BID - will discuss adding Marinol for appetite stimulation Atrial Fibrillation with RVR: - Hold Toprol XL and cover with metoprolol tartrate 100 mg BID - plan to convert to XL on D/C - Warfarin on hold due to supratherapeutic INR - will hold today with anticipated thoracentesis Pleural Effusion: - Pulmonary following - possible thoracentesis COPD: - Ventolin 1 puffs Q4H PRN MARQUISE: - Stool heme - pending - H/O hematochezia and previous colon ca - no concerning findings of imaging suggesting cA -- Consider possible outpatient GI consultation - will await clinical course - Ferrous gluconate 324 mg daily CAD/Cardiomyopathy/S/P AVR and CABG x 3 (August 2016): - Patient does not appear hypervolemic - will continue Lasix 40 mg daily at this time - monitor volume status and kidney function - Echo - EF 35-40% - Hold ASA until thoracentesis and then will resume - Lipitor 40 mg daily - Cardiology following - recommendations appreciated Hyperthyroidism: - Methimazole 5 mg Q2D DVT Prophylaxis: Warfarin Disposition: rehab vs HHS - possible D/C 2-3 days Discharge planning: uncertain (rehab vs HHS) (Michelle Merida, PA-C) i personally examined pt and verified all ortez points w Johnna Mancera PAC feeling weak. saw at the time the pulmonary was discussing thoracentesis vitals noted nad breahting unlabored appearing thin failure to thrive / protein-calorie malnutrition -?related to lung pathology vs post-CT surgery/deconditioning -continue to work up for other causes, but add nutritional support//disucssed risks/benefits will give trial of marinol -have to be mindful for malignancy but without overt malignancy on CXR and CT abd/pelvis more likely this will not be cause anemia/hematochezia - no overt active bleeding. right now no urgent need for intervention. continue to follow otherwise as above (Alvaro Sams D.O.)
--- NOTE | 2017-03-07 16:06 | Pulmonology Progress Note ---
Pulmonary Progress Note Date of Service Mar 07, 2017. Attending Dr. Ferrera Subjective Patient is feeling slightly improved today but states that his breathing continues to be labored. He is SOB with minimal exertion. He does have bilateral pleural effusions on CT of the abdomen which was viewed today. He does also state that his appetite has been poor. Labs reviewed. INR today 2.4 WBC 8.24 Hgb 9.6 Creatinine 0.89. VS Reviewed: HR 88-114 RR 18 SaO2 92-98% on 2 L nasal cannula Meds reviewed: Furoxemid 40 mg QAM Ventolin 2 puffs Q4h PRN Lipitor 40 mg daily Metoprolol 100 mg BID Objective General: Patient is awake, alert, cooperative, and in no acute distress. Thin. Head: Normocephalic, Atraumatic. ENT: PERRLA, No discharge, EOMI, Sclera normal Neck: Normal ROM. Trachea midline. No stridor Respiratory: Decreased BS b/l bases. No respiratory distress. No accessory muscle use. Cardiovascular: AFib Abdomen: Nontender to palpation. Normal bowel sounds hear throughout. No guarding. Abdomen is soft and nontender Back: Severe kyphosis. Extremities: No edema, cyanosis. Normal ROM Neuro: Alert, Oriented x 3. CN II-XII grossly intact. Sensation and motor function grossly intact. Psych: Mood and affect are normal. Assessment & Plan Patient with bilateral pleural effusions R>L Mild COPD with interstitial lung disease Systolic CHF Anemia Paroxysmal Afib Will continue O2 supplementation PRN to maintain SaO2 >92% Continue albuterol PRN INR improved today. Cardio following. Plan for right-sided thoracentesis this afternoon. Patient case were reviewed. Thoracentesis was performed and pH is notably 7.28. Other labs were unable to be right at this time. Patient was started on antibiotics as there is a high risk for possible empyema versus parapneumonic effusion microbiology is currently pending. The etiology of this patient's exudative effusion is unknown at this time. Data Medications: Current Inpatient Medications Medications (Trade) Dose Ordered Sig/Jarett Route Start Time Stop Time Status Last Admin Dose Admin Ioversol (Optiray 320) 111 ml UD PRN IV 03/05/17 14:15 03/09/17 14:14 Acetaminophen (Tylenol Tab) 650 mg Q4H PRN PO 03/05/17 18:45 04/04/17 18:44 03/07/17 02:11 650 MG Nitroglycerin (Nitrostat Tab) 0.4 mg UD PRN SL 03/05/17 18:45 04/04/17 18:44 Atorvastatin Calcium (Lipitor Tab) 40 mg HS PO 03/05/17 21:00 04/04/17 20:59 03/06/17 21:15 40 MG Ferrous Gluconate (Ferrous Gluconate Tab) 324 mg DAILY PO 03/06/17 09:00 04/05/17 08:59 03/07/17 08:36 324 MG Methimazole (Methimazole Tab) 5 mg Q2D@0900 PO 03/06/17 09:00 04/05/17 08:59 03/06/17 08:16 5 MG Metoprolol Succinate (Toprol Xl Tab) 100 mg DAILY PO 03/06/17 09:00 04/05/17 08:59 Future Hold 03/06/17 08:19 100 MG Multivitamins (Multivitamin Tab) 1 tab DAILY PO 03/06/17 09:00 04/05/17 08:59 03/07/17 08:36 1 TAB Potassium Chloride (Klor-Con Tab) 20 meq TID PO 03/05/17 21:00 04/04/17 20:59 03/07/17 14:07 20 MEQ Albuterol (Ventolin Hfa Inhaler) 2 puffs Q4H PRN INH 03/05/17 18:45 04/04/17 18:44 Mirtazapine (Remeron Tab) 30 mg HS PO 03/05/17 21:00 04/04/17 20:59 03/06/17 21:16 30 MG Pantoprazole Sodium (Protonix Tab) 40 mg BID PO 03/05/17 21:00 04/04/17 20:59 03/07/17 08:36 40 MG Ondansetron HCl (Zofran Inj) 4 mg Q6H PRN IV 03/05/17 18:45 04/04/17 18:44 03/05/17 21:49 4 MG Tamsulosin HCl (Flomax Cap) 0.4 mg HS PO 03/05/17 21:00 04/05/17 08:59 03/06/17 21:14 0.4 MG Metoprolol Tartrate (Lopressor Tab) 100 mg BID PO 03/07/17 09:00 04/06/17 08:59 03/07/17 08:36 100 MG Al Hydrox/Mg Hydrox/Simethicone (Maalox Max Susp) 15 ml Q4H PRN PO 03/07/17 03:00 04/06/17 02:59 Furosemide (Lasix Tab) 40 mg QAM PO 03/07/17 09:00 04/06/17 08:59 Enteral Nutritional Formula (Boost) 1 can BID PO 03/07/17 21:00 04/06/17 20:59 I & O: 24-Hour Column 03/08/17 08:00 Intake Total 520 ml Output Total 975 ml Balance -455 ml Vital Signs: Date Time Temp Pulse Resp B/P (MAP) Pulse Ox O2 Delivery O2 Flow Rate FiO2 03/07/17 15:42 36.6 104 18 104/61 (75) 93 Nasal Cannula 2.0 03/07/17 12:00 Nasal Cannula 2.0 Humidified Oxygen 03/07/17 11:16 36.5 97 18 95/62 (73) 92 2.0 03/07/17 10:10 114 93 03/07/17 08:00 Nasal Cannula 2.0 Humidified Oxygen 03/07/17 07:40 36.5 88 18 103/71 (82) 98 2.0 03/07/17 04:13 36.4 110 20 95/64 (74) 94 Nasal Cannula 2.0 03/07/17 04:00 Nasal Cannula 2.0 Humidified Oxygen 03/07/17 00:24 36.7 118 19 121/71 (88) 93 Nasal Cannula 2.0 03/07/17 00:00 Nasal Cannula 2.0 Humidified Oxygen 03/06/17 20:00 93 Nasal Cannula 2.0 Humidified Oxygen 03/06/17 19:57 36.6 112 18 102/59 (73) 93 Nasal Cannula 2.0 Laboratory Results: Last 24 Hours Test 03/07/17 06:46 White Blood Count 8.24 K/uL Red Blood Count 3.22 M/uL Hemoglobin 9.6 g/dL Hematocrit 30.2 % Mean Corpuscular Volume 93.8 fL Mean Corpuscular Hemoglobin 29.8 pg Mean Corpuscular Hemoglobin Concent 31.8 g/dl Platelet Count 233 K/uL Mean Platelet Volume 8.4 fL Neutrophils (%) (Auto) 65.2 % Lymphocytes (%) (Auto) 21.8 % Monocytes (%) (Auto) 10.3 % Eosinophils (%) (Auto) 1.8 % Basophils (%) (Auto) 0.4 % Neutrophils # (Auto) 5.37 K/uL Lymphocytes # (Auto) 1.80 K/uL Monocytes # (Auto) 0.85 K/uL Eosinophils # (Auto) 0.15 K/uL Basophils # (Auto) 0.03 K/uL RDW Standard Deviation 48.0 fL RDW Coefficient of Variation 13.8 % Immature Granulocyte % (Auto) 0.5 % Immature Granulocyte # (Auto) 0.04 K/uL Prothrombin Time 26.2 SECONDS Prothromb Time International Ratio 2.4 Activated Partial Thromboplast Time 46.9 SECONDS Partial Thromboplastin Ratio 1.8 Sodium Level 136 mmol/L Potassium Level 4.8 mmol/L Chloride Level 94 mmol/L Carbon Dioxide Level 38 mmol/L Anion Gap 4.0 mmol/L Blood Urea Nitrogen 21 mg/dl Creatinine 0.89 mg/dl Est Creatinine Clear Calc Drug Dose 47.6 ml/min Estimated GFR () 91.6 Estimated GFR (Non- 79.1 BUN/Creatinine Ratio 23.3 Random Glucose 112 mg/dl Calcium Level 9.5 mg/dl Magnesium Level 2.0 mg/dl
--- NOTE | 2017-03-07 17:32 | Procedure Note ---
Procedure Note Date of Service Mar 07, 2017. Procedure Note Procedures: Right sided Thoracentesis Consent: Obtained via the patient and placed into the chart Pre-Procedural Dx: Right-sided pleural effusion Post-Procedural Dx: Right-sided pleural effusion Analgesia: 8cc of 1% Liquid Lidocaine Procedure: The patient was placed in an upright position and thoracic US was used to select a spot for the procedure. A spot along the posterior axillary line was marked in the 7th intercostal space. The patient was then draped and prepped in a sterile fashion. A modified Seldinger technique was then used for catheter placement. Flowing this approximately 350 cc of dark brown pleural fluid was removed. The patient was then cleaned and placed at a 60 degree angle in the bed were the US was used to evaluate for possible pneumothorax. The US showed good lung sliding and starry night sign. EBL: 0 cc Complications: None Assisted by Dr. Ferrera
[2017-03-07] MEDS ORDERED: VANCOMYCIN CONSULT ACTIVE PRN (17:45)
[2017-03-07] MEDS ORDERED: PIPERACILL/TAZOBAC IV 3.375 GM in DEXTROSE 5% 100ML IV ONE (18:00)
[2017-03-07] MEDS ORDERED: PIPERACILL/TAZOBAC CONSULT ACTIVE PRN (18:00)
[2017-03-07] MEDS ORDERED: VANCOMYCIN INJ 1,250 MG in SODIUM CHLORIDE 0.9% 250ML 250 ML IV ONE (18:00)
[2017-03-07] MEDS ORDERED: PIPERACILL/TAZOBAC IV 3.375 GM in DEXTROSE 5% 100ML 100 ML IV SCH (18:00)
[2017-03-07 18:06] LABS: PLEURAL FLUID APPEARANCE CLOUDY; PLEURAL FLUID COLOR BROWN; PLEURAL FLUID MONONUC RELAT 21.2 %; PLEURAL FLUID POLYNUC 78.8 %; PLEURAL FLUID SOURCE RIGHT LUNG; PLEURAL FLUID WBC (A) 283 /uL
--- NOTE | 2017-03-07 18:41 | DIAGNOSTIC IMAGING REPORT ---
CT OF THE CHEST WITHOUT IV CONTRAST CLINICAL HISTORY: Bilateral pleural effusions. Empyema. COMPARISON STUDY: Chest CT October 16, 2015 and chest radiograph March 05, 2017. CT DOSE: 185.28 mGycm TECHNIQUE: Axial images of the chest were obtained without IV contrast. Images were reviewed in the axial, sagittal, and coronal planes. IV contrast was not administered for this examination. A dose lowering technique was utilized adhering to the principles of ALARA. FINDINGS: Small to moderate right and small left pleural effusions are noted. The right pleural effusion has decreased in size since exam of March 05, 2017. Pleural fluid measures greater than water attenuation. Pleural thickening, greater on the right, is again noted. There is trace right pleural gas located within the pleural fluid. There is no significant pneumothorax. Peripheral and basilar predominant reticulation with suspected honeycombing is consistent with interstitial lung disease and suggests primary fibrosis. There is also emphysema. Right lower lobe airspace opacity favors atelectasis although consolidation could appear similar. Central airways are patent. Esophageal dilatation is noted. No suspicious osseous lesions are present. There is a small to moderate hiatal hernia. Upper abdomen is unremarkable. Mild mediastinal and bilateral hilar lymphadenopathy is noted. This is been shown on prior exams. A right paratracheal lymph node has slightly increased in size since exam of October 16, 2015. This lymphadenopathy is nonspecific. IMPRESSION: 1. Small to moderate right pleural effusion which has decreased in size since exam of March 05, 2017 status post interval thoracentesis. A single locule of gas within the pleural fluid without significant pneumothorax. Pleural thickening could be due to an empyema or represent a chronic pleural effusion. This could be correlated with thoracentesis results. 2. No significant change in a small left pleural effusion. 3. Right lower lobe airspace opacity which favors atelectasis although pneumonia would be difficult to exclude. 4. Mild mediastinal and bilateral hilar lymphadenopathy which remains nonspecific and has been shown on multiple prior studies. 5. No significant change in interstitial lung disease consistent with pulmonary fibrosis. Electronically signed by: Albin Soler M.D. 03/07/2017 6:40 PM Dictated Date/Time: 03/07/2017 6:28 PM
--- NOTE | 2017-03-07 19:11 | Pharmacy Progress Note ---
Pharmacy Abx Initial Consult Date of Service Mar 07, 2017. Pharmacy Dosing Scope Date of Consult: 03/07/17 Consultation requested by: Dr. Ferrera Pharmacy is consulted to initiate vancomycin and Zosyn IV dosing therapy, order appropriate labs and adjust drug dose/frequency. Subjective The patient is a 81 year old male admitted on Mar 05, 2017 at 17:56. Objective Height (Feet): 5 Height (Inches): 7.00 Weight (Kilograms): 53.500 Vital Signs (Past 12Hrs) Vital Signs Past 12 Hours Date Time Temp Pulse Resp B/P (MAP) Pulse Ox O2 Delivery O2 Flow Rate FiO2 03/07/17 15:42 36.6 104 18 104/61 (75) 93 Nasal Cannula 2.0 03/07/17 12:00 Nasal Cannula 2.0 Humidified Oxygen 03/07/17 11:16 36.5 97 18 95/62 (73) 92 2.0 03/07/17 10:10 114 93 03/07/17 08:00 Nasal Cannula 2.0 Humidified Oxygen 03/07/17 07:40 36.5 88 18 103/71 (82) 98 2.0 Lab Results (24Hrs) Laboratory Tests (24 Hours) Test 03/07/17 06:46 White Blood Count 8.24 K/uL (4.8-10.8) Red Blood Count 3.22 M/uL (4.7-6.1) L Hemoglobin 9.6 g/dL (14.0-18.0) L Hematocrit 30.2 % (42-52) L Mean Corpuscular Volume 93.8 fL (80-100) Mean Corpuscular Hemoglobin 29.8 pg (25-34) Mean Corpuscular Hemoglobin Concent 31.8 g/dl (32-36) L Platelet Count 233 K/uL (130-400) Mean Platelet Volume 8.4 fL (7.4-10.4) Neutrophils (%) (Auto) 65.2 % Lymphocytes (%) (Auto) 21.8 % Monocytes (%) (Auto) 10.3 % Eosinophils (%) (Auto) 1.8 % Basophils (%) (Auto) 0.4 % Neutrophils # (Auto) 5.37 K/uL (1.4-6.5) Lymphocytes # (Auto) 1.80 K/uL (1.2-3.4) Monocytes # (Auto) 0.85 K/uL (0.11-0.59) H Eosinophils # (Auto) 0.15 K/uL (0-0.5) Basophils # (Auto) 0.03 K/uL (0-0.2) Micro Results Date/Time Source Procedure Growth Status 03/07/17 17:30 Pleural Fluid (Thoracentesis) Right Acid Fast Stain Pending Received 03/07/17 17:30 Pleural Fluid (Thoracentesis) Right Mycobacterial Culture Pending Received 03/07/17 17:30 Pleural Fluid (Thoracentesis) Right Gram Stain Pending Received 03/07/17 17:30 Pleural Fluid (Thoracentesis) Right Bacterial Culture Pending Received Assessment & Plan Assessment 81 year old male admitted for A fib w/ RVR and b/l pleural effusions, now to be started on vancomycin and Zosyn s/p thoracentesis today. Pertinent PMH includes colon cancer, prostate cancer and COPD. Plan Vancomycin/Zosyn for treatment of pulmonary infection Vancomycin IV * Loading dose: 1250 mg (23.3 mg/kg) * Maintenance dose: 750 mg IV (14 mg/kg) every 18 hours * Goal trough level for pulm source : 15 to 20 mcg/mL * Trough level ordered for 03/09/17 prior to the 3rd dose NOTE: This will be prior to steady state but this patient population (elderly, low body weight), tends to clear vancomycin quickly so need to assess early on Piperacillin/tazobactam * 3.375 g bolus administered over 30 minutes, then 3.375 g IV extended infusion every 8 hours for CrCl greater than 20 mL/min OR every 12 hours for CrCl 20 mL/ min or less and dialysis. Pharmacy will continue to follow and will adjust dose/frequency as necessary. Thank you.
[2017-03-07] MEDS: BOOST VANILLA PO SCH ×2 (21:00)
[2017-03-07] MEDS ORDERED: BOOST VANILLA PO SCH ×2 (21:00)
[2017-03-07] MEDS: TAMSULOSIN HCL 0.4 MG CAP PO SCH (21:35)
[2017-03-07] MEDS: ATORVASTATIN 40 MG TAB PO SCH (21:36)
[2017-03-07] MEDS: MIRTAZAPINE TAB 15 MG TAB PO SCH (21:38)
[2017-03-07] MEDS: DRONABINOL 2.5 MG CAP PO SCH (21:43)
[2017-03-07] MEDS: PIPERACILL/TAZOBAC IV 3.375 GM in DEXTROSE 5% 100ML IV SCH (23:27)
[2017-03-08] VITALS (9 sets, daily range): BP systolic 91–110; BP diastolic 53–71; PULSE 81–109; TEMP 36.4–36.8; O2SAT 93–99
[2017-03-08] MEDS: ACETAMINOPHEN 325 MG TAB PO PRN (01:13)
[2017-03-08 06:50] LABS: INR 1.6 (0.9-1.1); PROTHROMBIN TIME (PATIENT) 17.9 SECONDS (9.0-12.0)
[2017-03-08 07:11] LABS: BUN/CREATININE RATIO 21.1 (10-20); CALCIUM 9.1 mg/dl (8.5-10.1); CREATININE 0.98 mg/dl (0.60-1.40); POTASSIUM 4.4 mmol/L (3.5-5.1)
[2017-03-08] MEDS: FUROSEMIDE 40 MG TAB PO SCH (08:15)
[2017-03-08] MEDS: METHIMAZOLE 5 MG TAB PO SCH (08:15)
[2017-03-08] MEDS: PANTOprazole SOD 40 MG TAB PO SCH ×2 (08:15→21:06)
[2017-03-08] MEDS: ASPIRIN 81 MG ECTAB PO SCH (08:15)
[2017-03-08] MEDS: FERROUS GLUCONATE 324 MG TAB PO SCH (08:16)
[2017-03-08] MEDS: POTASSIUM CHLORIDE 20 MEQ TABCR PO SCH ×3 (08:16→21:06)
[2017-03-08] MEDS: METOPROLOL TARTRATE 100 MG TAB PO SCH ×2 (08:16→21:06)
[2017-03-08] MEDS: MULTIVITAMIN TAB PO SCH (08:17)
[2017-03-08] MEDS: BOOST VANILLA PO SCH ×4 (08:24→21:06)
[2017-03-08] MEDS: PIPERACILL/TAZOBAC IV 3.375 GM in DEXTROSE 5% 100ML IV SCH ×3 (08:24→23:41)
[2017-03-08] MEDS: DRONABINOL 2.5 MG CAP PO SCH ×2 (08:24→21:07)
[2017-03-08] MEDS ORDERED: NURSING VERBAL MED ORDER ONE (10:30)
[2017-03-08] MEDS: VANCOMYCIN INJ 750 MG in SODIUM CHLORIDE 0.9% 250ML 250 ML IV SCH (12:09)
--- NOTE | 2017-03-08 14:23 | Hospitalist Progress Note ---
Hospitalist Progress Note Date of Service Mar 08, 2017. (Michelle Merida PA-C) Subjective Pt evaluation today including: conversation w/ patient, physical exam, chart review, lab review, review of studies, review of inpatient medication list Pain: None PO Intake: Poor Voiding: no voiding problems Patient seen and evaluated. No acute events overnight. Remains in rate controlled A Fib. Reporting some pain at thoracentesis site but minimal. Reporting some improvement in respiratory effort. Continues to be fatigued and poor appetite. Started on Marinol yesterday and will continue to titrate. Constitutional: No fever, No chills Respiratory: + shortness of breath (improved) Cardiovascular: No chest pain, No palpitations Abdomen: + nausea (when forcing himself to eat), No pain, No vomiting, No diarrhea, No constipation Musculoskeletal: No swelling, No calf pain Male : No dysuria Heme: No abnormal bleeding/bruising (Michelle Merida PA-C) Medications Current Inpatient Medications Medications (Trade) Dose Ordered Sig/Jarett Route Start Time Stop Time Status Last Admin Dose Admin Ioversol (Optiray 320) 111 ml UD PRN IV 03/05/17 14:15 03/09/17 14:14 Acetaminophen (Tylenol Tab) 650 mg Q4H PRN PO 03/05/17 18:45 04/04/17 18:44 03/08/17 01:13 650 MG Nitroglycerin (Nitrostat Tab) 0.4 mg UD PRN SL 03/05/17 18:45 04/04/17 18:44 Atorvastatin Calcium (Lipitor Tab) 40 mg HS PO 03/05/17 21:00 04/04/17 20:59 03/07/17 21:36 40 MG Ferrous Gluconate (Ferrous Gluconate Tab) 324 mg DAILY PO 03/06/17 09:00 04/05/17 08:59 03/08/17 08:16 324 MG Methimazole (Methimazole Tab) 5 mg Q2D@0900 PO 03/06/17 09:00 04/05/17 08:59 03/08/17 08:15 5 MG Multivitamins (Multivitamin Tab) 1 tab DAILY PO 03/06/17 09:00 04/05/17 08:59 03/08/17 08:17 1 TAB Potassium Chloride (Klor-Con Tab) 20 meq TID PO 03/05/17 21:00 04/04/17 20:59 03/08/17 13:02 20 MEQ Albuterol (Ventolin Hfa Inhaler) 2 puffs Q4H PRN INH 03/05/17 18:45 04/04/17 18:44 Mirtazapine (Remeron Tab) 30 mg HS PO 03/05/17 21:00 04/04/17 20:59 03/07/17 21:38 30 MG Pantoprazole Sodium (Protonix Tab) 40 mg BID PO 03/05/17 21:00 04/04/17 20:59 03/08/17 08:15 40 MG Ondansetron HCl (Zofran Inj) 4 mg Q6H PRN IV 03/05/17 18:45 04/04/17 18:44 03/05/17 21:49 4 MG Tamsulosin HCl (Flomax Cap) 0.4 mg HS PO 03/05/17 21:00 04/05/17 08:59 03/07/17 21:35 0.4 MG Metoprolol Tartrate (Lopressor Tab) 100 mg BID PO 03/07/17 09:00 04/06/17 08:59 03/08/17 08:16 100 MG Al Hydrox/Mg Hydrox/Simethicone (Maalox Max Susp) 15 ml Q4H PRN PO 03/07/17 03:00 04/06/17 02:59 Furosemide (Lasix Tab) 40 mg QAM PO 03/07/17 09:00 04/06/17 08:59 03/08/17 08:15 40 MG Vancomycin HCl 750 mg/Sodium Chloride 265 ml @ 125 mls/hr Q18H IV 03/08/17 12:00 03/14/17 23:59 03/08/17 12:09 125 MLS/HR Vancomycin HCl (Consult) 1 ea UD PRN N/A 03/07/17 17:45 04/06/17 17:44 Dronabinol (Marinol Cap) 2.5 mg BID PO 03/07/17 21:00 04/06/17 20:59 03/08/17 08:24 2.5 MG Aspirin (Ecotrin Tab) 81 mg QAM PO 03/08/17 09:00 04/07/17 08:59 03/08/17 08:15 81 MG Piperacillin Sod/ Tazobactam Sod (Consult) 1 ea UD PRN N/A 03/07/17 18:00 04/06/17 17:59 Piperacillin Sod/ Tazobactam Sod 3.375 gm/Dextrose 115 ml @ 28.75 mls/ hr Q8H IV 03/08/17 00:00 03/15/17 00:00 03/08/17 08:24 28.75 MLS/HR Enteral Nutritional Formula (Boost) 1 can BID PO 03/08/17 21:00 04/07/17 20:59 (Michelle Merida, MADHU-C) Objective Vital Signs Date Time Temp Pulse Resp B/P (MAP) Pulse Ox O2 Delivery O2 Flow Rate FiO2 03/08/17 12:10 36.6 92 18 103/67 (79) 99 Nasal Cannula 2.0 03/08/17 12:00 Nasal Cannula 3.0 03/08/17 08:08 36.4 105 22 101/66 (78) 99 Nasal Cannula 2.0 03/08/17 08:00 Nasal Cannula 3.0 03/08/17 04:00 Nasal Cannula 03/08/17 03:46 36.8 97 22 99/61 (74) 99 Nasal Cannula 2.0 03/07/17 23:59 Nasal Cannula 03/07/17 23:35 36.6 86 19 106/69 (81) 97 Nasal Cannula 2.0 03/07/17 20:10 36.7 109 18 104/67 (79) 98 Nasal Cannula 2.0 03/07/17 15:42 36.6 104 18 104/61 (75) 93 Nasal Cannula 2.0 (Michelle Merida, PA-C) Physical Exam General Appearance: no apparent distress, + thin Eyes: sclerae normal ENT: hearing grossly normal Neck: supple, no JVD, trachea midline Respiratory/Chest: lungs clear, no respiratory distress, no accessory muscle use, + decreased breath sounds (diminished) Cardiovascular: no gallop, no murmur, + irregularly irregular Abdomen: normal bowel sounds, non tender, soft Extremities: no pedal edema, no calf tenderness Neurologic/Psychiatric: alert, oriented x 3 Skin: normal color, warm/dry (Michelle Merida, PA-C) Laboratory Results Last 24 Hours Test 03/07/17 17:29 03/07/17 17:30 03/08/17 06:19 Pleural Fluid Source RIGHT LUNG Pleural Fluid Color BROWN Pleural Fluid Appearance CLOUDY Pleural Fluid WBC 283 /uL Pleural Fluid RBC 8000 /uL Pleural Fluid pH 7.28 Pleural Fluid Polynuclear WBCs % 78.8 % Pleural Fluid Mononuclear WBCs % 21.2 % Prothrombin Time 17.9 SECONDS Prothromb Time International Ratio 1.6 Sodium Level 138 mmol/L Potassium Level 4.4 mmol/L Chloride Level 96 mmol/L Carbon Dioxide Level 37 mmol/L Anion Gap 5.0 mmol/L Blood Urea Nitrogen 21 mg/dl Creatinine 0.98 mg/dl Est Creatinine Clear Calc Drug Dose 42.5 ml/min Estimated GFR () 82.3 Estimated GFR (Non- 71.0 BUN/Creatinine Ratio 21.1 Random Glucose 109 mg/dl Calcium Level 9.1 mg/dl (Michelle Merida, MADHU-C) Assessment and Plan Generalized Weakness/Failure to Thrive: - May be deconditioning from extensive cardiac procedures this year vs Malignancy - may be from empyema? - Boost BID - will discuss adding Marinol for appetite stimulation - Increase Marinol to 5 mg BID and can continue titrating upwards to 10 mg BID Atrial Fibrillation with RVR: - Hold Toprol XL and cover with metoprolol tartrate 100 mg BID - plan to convert to XL on D/C - Continue to hold warfarin in anticipation of additional intervention needed Pleural Effusion: - Possible empyema - continue Zosyn and Vancomycin - Pulmonary following - performed thoracentesis for 350 cc on 03/07 COPD: - Ventolin 1 puffs Q4H PRN MARQUISE: - Stool heme - pending - H/O hematochezia and previous colon CA - no concerning findings on imaging suggesting CA -- Consider possible outpatient GI consultation - will await clinical course - Ferrous gluconate 324 mg daily CAD/Cardiomyopathy/S/P AVR and CABG x 3 (August 2016): - Patient does not appear hypervolemic - will continue Lasix 40 mg daily at this time - monitor volume status and kidney function - Echo - EF 35-40% - Hold ASA until thoracentesis and then will resume - Lipitor 40 mg daily - Cardiology following - recommendations appreciated Hyperthyroidism: - Methimazole 5 mg Q2D DVT Prophylaxis: Warfarin Disposition: rehab vs HHS - possible D/C 2-3 days with continued IV Abx awaiting thoracentesis results Continued [facility] stay due to: multiple IV medications needed Discharge planning: home with home health (Michelle Merida, PA-C) i personally examined pt and verified all ortez points w A [facility] still no appetite. feeling about the same. getting around in the room OK no sedation/confusion/grogginess vitlas noted nad breathing unlabored no pallor or icterus failure to thrive -likely multifactorial w lung pathology and general postop deconditioning as causative factors protein/calorie malnutrition and poor appetite -tolerating marinol but still no appetite -increase dosing afib -once clear +/- on decortication, then resume coumadin otherwise as above (Alvaro Sams, D.O.)
--- NOTE | 2017-03-08 15:14 | Pulmonology Progress Note ---
Pulmonary Progress Note Date of Service Mar 08, 2017. Attending Dr. Ferrera Subjective I had a conversation with the patient this morning. Patient is feeling slightly better today. Feels that his breathing very slightly improved following thoracentesis yesterday. He continues to have SOB thought especially with exertion. His appetite continue to be poor. This patient was discussed with Dr. Patel as well. Labs reviewed: Creatinine 0.98 BUN 21 Chloride 96 Bicarb 37 WBC 8.24 RBC 3.22 Hgb 9.6 Studies reviewed: Right pleural fluid culture pending. AFB pending. Pleural fluid analysis: pH 7.28 WBC 283 RBC 8000 Protein, LDH not completed due to hemolysis of sample Pleural cholesterol pending Meds reviewed: Vancomycin, Zosyn Marinol started to help appetite Lopressor 100 mg BID Lasix 40 mg daily Ventolin PRN- not utilized Chest CT showed small to moderate right pleural effusion which is mildly decreased in size s/p thoracentesis. Note a small locule of gas, but no pneumothorax. RLL opacity noted as well. These images were viewed by me and reviewed with Dr. Ferrera. Objective Chest CT: IMPRESSION: 1. Small to moderate right pleural effusion which has decreased in size since exam of March 05, 2017 status post interval thoracentesis. A single locule of gas within the pleural fluid without significant pneumothorax. Pleural thickening could be due to an empyema or represent a chronic pleural effusion. This could be correlated with thoracentesis results. 2. No significant change in a small left pleural effusion. 3. Right lower lobe airspace opacity which favors atelectasis although pneumonia would be difficult to exclude. 4. Mild mediastinal and bilateral hilar lymphadenopathy which remains nonspecific and has been shown on multiple prior studies. 5. No significant change in interstitial lung disease consistent with pulmonary fibrosis. PE: General: Patient is awake, alert, cooperative, and in no acute distress. Thin. Head: Normocephalic, Atraumatic. ENT: PERRLA, No discharge, EOMI, Sclera normal Neck: Normal ROM. Trachea midline. No stridor Respiratory: Decreased BS b/l bases. No respiratory distress. No accessory muscle use. Cardiovascular: AFib Abdomen: Nontender to palpation. Normal bowel sounds hear throughout. No guarding. Abdomen is soft and nontender Back: Severe kyphosis. Extremities: No edema, cyanosis. Normal ROM Neuro: Alert, Oriented x 3. CN II-XII grossly intact. Sensation and motor function grossly intact. Psych: Mood and affect are normal. Assessment & Plan Patient with bilateral pleural effusions R>L Mild COPD with interstitial lung disease Systolic CHF Anemia Paroxysmal Afib Will continue O2 supplementation PRN to maintain SaO2 >92% Continue albuterol PRN Cardio following. Continue Vancomycin and Zosyn pending further improvement. Likely will repeat CXR tomorrow. Also consulted Thoracic surgery for possible decortication of the loculated right pleural effusion Patient is seen evaluated and plan agreed upon. Data Medications: Current Inpatient Medications Medications (Trade) Dose Ordered Sig/Jarett Route Start Time Stop Time Status Last Admin Dose Admin Ioversol (Optiray 320) 111 ml UD PRN IV 03/05/17 14:15 03/09/17 14:14 Acetaminophen (Tylenol Tab) 650 mg Q4H PRN PO 03/05/17 18:45 04/04/17 18:44 03/08/17 01:13 650 MG Nitroglycerin (Nitrostat Tab) 0.4 mg UD PRN SL 03/05/17 18:45 04/04/17 18:44 Atorvastatin Calcium (Lipitor Tab) 40 mg HS PO 03/05/17 21:00 04/04/17 20:59 03/07/17 21:36 40 MG Ferrous Gluconate (Ferrous Gluconate Tab) 324 mg DAILY PO 03/06/17 09:00 04/05/17 08:59 03/08/17 08:16 324 MG Methimazole (Methimazole Tab) 5 mg Q2D@0900 PO 03/06/17 09:00 04/05/17 08:59 03/08/17 08:15 5 MG Metoprolol Succinate (Toprol Xl Tab) 100 mg DAILY PO 03/06/17 09:00 04/05/17 08:59 Future Hold 03/06/17 08:19 100 MG Multivitamins (Multivitamin Tab) 1 tab DAILY PO 03/06/17 09:00 04/05/17 08:59 03/08/17 08:17 1 TAB Potassium Chloride (Klor-Con Tab) 20 meq TID PO 03/05/17 21:00 04/04/17 20:59 03/08/17 08:16 20 MEQ Albuterol (Ventolin Hfa Inhaler) 2 puffs Q4H PRN INH 03/05/17 18:45 04/04/17 18:44 Mirtazapine (Remeron Tab) 30 mg HS PO 03/05/17 21:00 04/04/17 20:59 03/07/17 21:38 30 MG Pantoprazole Sodium (Protonix Tab) 40 mg BID PO 03/05/17 21:00 04/04/17 20:59 03/08/17 08:15 40 MG Ondansetron HCl (Zofran Inj) 4 mg Q6H PRN IV 03/05/17 18:45 04/04/17 18:44 03/05/17 21:49 4 MG Tamsulosin HCl (Flomax Cap) 0.4 mg HS PO 03/05/17 21:00 04/05/17 08:59 03/07/17 21:35 0.4 MG Metoprolol Tartrate (Lopressor Tab) 100 mg BID PO 03/07/17 09:00 04/06/17 08:59 03/08/17 08:16 100 MG Al Hydrox/Mg Hydrox/Simethicone (Maalox Max Susp) 15 ml Q4H PRN PO 03/07/17 03:00 04/06/17 02:59 Furosemide (Lasix Tab) 40 mg QAM PO 03/07/17 09:00 04/06/17 08:59 03/08/17 08:15 40 MG Vancomycin HCl 750 mg/Sodium Chloride 265 ml @ 125 mls/hr Q18H IV 03/08/17 12:00 03/14/17 23:59 Vancomycin HCl (Consult) 1 ea UD PRN N/A 03/07/17 17:45 04/06/17 17:44 Dronabinol (Marinol Cap) 2.5 mg BID PO 03/07/17 21:00 04/06/17 20:59 03/08/17 08:24 2.5 MG Aspirin (Ecotrin Tab) 81 mg QAM PO 03/08/17 09:00 04/07/17 08:59 03/08/17 08:15 81 MG Piperacillin Sod/ Tazobactam Sod (Consult) 1 ea UD PRN N/A 03/07/17 18:00 04/06/17 17:59 Piperacillin Sod/ Tazobactam Sod 3.375 gm/Dextrose 115 ml @ 28.75 mls/ hr Q8H IV 03/08/17 00:00 03/15/17 00:00 03/08/17 08:24 28.75 MLS/HR Enteral Nutritional Formula (Boost) 1 can BID PO 03/08/17 21:00 04/07/17 20:59 Vital Signs: Date Time Temp Pulse Resp B/P (MAP) Pulse Ox O2 Delivery O2 Flow Rate FiO2 03/08/17 08:08 36.4 105 22 101/66 (78) 99 Nasal Cannula 2.0 03/08/17 08:00 Nasal Cannula 3.0 03/08/17 04:00 Nasal Cannula 03/08/17 03:46 36.8 97 22 99/61 (74) 99 Nasal Cannula 2.0 03/07/17 23:59 Nasal Cannula 03/07/17 23:35 36.6 86 19 106/69 (81) 97 Nasal Cannula 2.0 03/07/17 20:10 36.7 109 18 104/67 (79) 98 Nasal Cannula 2.0 03/07/17 15:42 36.6 104 18 104/61 (75) 93 Nasal Cannula 2.0 03/07/17 12:00 Nasal Cannula 2.0 Humidified Oxygen 03/07/17 11:16 36.5 97 18 95/62 (73) 92 2.0 Laboratory Results: Last 24 Hours Test 03/07/17 17:29 03/07/17 17:30 03/08/17 06:19 Pleural Fluid Source RIGHT LUNG Pleural Fluid Color BROWN Pleural Fluid Appearance CLOUDY Pleural Fluid WBC 283 /uL Pleural Fluid RBC 8000 /uL Pleural Fluid pH 7.28 Pleural Fluid Polynuclear WBCs % 78.8 % Pleural Fluid Mononuclear WBCs % 21.2 % Prothrombin Time 17.9 SECONDS Prothromb Time International Ratio 1.6 Sodium Level 138 mmol/L Potassium Level 4.4 mmol/L Chloride Level 96 mmol/L Carbon Dioxide Level 37 mmol/L Anion Gap 5.0 mmol/L Blood Urea Nitrogen 21 mg/dl Creatinine 0.98 mg/dl Est Creatinine Clear Calc Drug Dose 42.5 ml/min Estimated GFR () 82.3 Estimated GFR (Non- 71.0 BUN/Creatinine Ratio 21.1 Random Glucose 109 mg/dl Calcium Level 9.1 mg/dl
[2017-03-08] MEDS: ATORVASTATIN 40 MG TAB PO SCH (21:05)
[2017-03-08] MEDS: MIRTAZAPINE TAB 15 MG TAB PO SCH (21:06)
[2017-03-08] MEDS: TAMSULOSIN HCL 0.4 MG CAP PO SCH (21:06)
[2017-03-09] MEDS: ACETAMINOPHEN 325 MG TAB PO PRN (02:25)
[2017-03-09] MEDS ORDERED: VANCOMYCIN TROUGH ONE (05:30)
[2017-03-09] MEDS: VANCOMYCIN INJ 750 MG in SODIUM CHLORIDE 0.9% 250ML 250 ML IV SCH (05:53)
[2017-03-09 06:46] LABS: INR 1.3 (0.9-1.1); PROTHROMBIN TIME (PATIENT) 13.8 SECONDS (9.0-12.0)
--- NOTE | 2017-03-09 07:41 | SURGICAL CONSULTATION ---
DATE OF CONSULTATION: 03/08/2017 REASON FOR CONSULTATION: Complicated right pleural effusion. HISTORY OF PRESENT ILLNESS: Mr. Olvera is a very nice 81-year-old who presented with atrial fibrillation and has bilateral pleural effusions. The patient underwent a coronary artery bypass grafting and aortic valve replacement with a bioprosthetic valve back in August 2016. He states his breathing has "not been the same." He underwent a thoracentesis. He was found to have a moderate hiatal hernia and he has got also mediastinal and hilar lymphadenopathy, really which has not changed. He has obvious chronic lung disease with interstitial changes. On 03/07/2017, he underwent thoracentesis by the pulmonary service. The pH fluid is 7.28. His x-ray did not look much different and he really states that he had minimal improvement of his dyspneic symptoms after drainage of [address] Ferrera asked if I would evaluate this patient for a decortication. It is unclear to us exactly as to the etiology. PAST MEDICAL HISTORY: 1. Coronary artery disease. 2. Aortic stenosis in the past. 3. Moderate LV dysfunction. 4. Atrial fibrillation. 5. Bilateral pleural effusions. 6. Abdominal aortic aneurysm repair in the past. 7. Hypertension. 8. Chronic obstructive pulmonary disease. 9. History of prostate cancer. 10. History of colon cancer. 11. Hyperthyroidism. 12. Anemia. PAST SURGICAL HISTORY: 1. Coronary artery bypass grafting via mediastinotomy with bioprosthetic aortic valve replacement. 2. Urgent endovascular aortic aneurysm repair. 3. Appendectomy. 4. Tonsillectomy. 5. Exploratory laparotomy with small bowel resection for perforation from foreign body (chicken bone). 6. Colon resection for colon cancer. 7. Implantation of radioactive seeds for brachytherapy. 8. History of carotid artery stenosis. 9. Carotid endarterectomy. 10. Gastroesophageal reflux disease. 11. Hiatal hernia. MEDICATIONS: 1. Flomax. 2. Warfarin. 3. Remeron. 4. Toprol. 5. Ferrous gluconate. 6. Omeprazole. 7. Nitrostat sublingually p.r.n. 8. Coumadin. 9. Lipitor. 10. Methimazole. ALLERGIES: No known drug allergies. SOCIAL HISTORY: The patient quit cigarette smoking in 2001. , has 2 children. Worked at [employer] for many years. He lives with his . REVIEW OF SYSTEMS: The patient has not felt well since his surgery. He does have marked dyspnea on exertion which he states has worsened since his surgery. He has no lower extremity edema. He has had no fever or productive cough. He denies hemoptysis. He has not been eating well, has lost 40 pounds in the last year. He occasionally will have tarry stools and bright red blood with a history of hemorrhoids. He is on Flomax, but states that his GI's symptoms have been "stable." He has had no visual or auditory symptoms. He has had no wound breakdown. He has had no neurologic changes such as amaurosis fugax or transient ischemic attack. Apparently he does have some symptoms of gastroesophageal reflux disease and he has a hiatal hernia. PHYSICAL EXAMINATION: GENERAL: This is a very thin male who stands 5 feet 7 inches tall and weighs 116 pounds. He is awake and alert. HEENT: His extraocular movements are intact. Some mild temporal wasting. He is edentulous. His oral mucosa is dry, but he has no oral mucosal lesions. NECK: Very thin. I detect no supraclavicular or cervical lymphadenopathy. I detect no carotid bruits. He has a well-healed anterior cervical neck incision. LUNGS: He has decreased breath sounds but no overt wheezing or rales. HEART: He has a regular rate and rhythm of his heart. He has a well-healed sternotomy incision with no click. ABDOMEN: Flat, soft, nontender. No evidence of ascites. He has good femoral pulses. He does have palpable dorsalis pedis pulses. He has no joint effusions. NEUROLOGIC: He is moving everything. He has no focal deficits. Cranial nerves II-XII are intact. ASSESSMENT: Complicated right pleural effusion, larger than left. PLAN: I had a long talk with Dr. Ferrera as well as the patient. I am going to proceed with a right thoracoscopy with drainage of this with a possible decortication. We will have to make sure that his PT normalizes somewhat. We will also biopsy some of the lymph nodes while we are in there. I plan to do this on 03/10/2017.
[2017-03-09 08:00] VITALS: O2SAT 96
[2017-03-09] MEDS: PIPERACILL/TAZOBAC IV 3.375 GM in DEXTROSE 5% 100ML IV SCH ×2 (08:07→16:35)
[2017-03-09] MEDS: BOOST VANILLA PO SCH ×4 (08:07→21:29)
[2017-03-09] MEDS: PANTOprazole SOD 40 MG TAB PO SCH ×2 (08:08→21:30)
[2017-03-09] MEDS: POTASSIUM CHLORIDE 20 MEQ TABCR PO SCH ×3 (08:09→21:31)
[2017-03-09] MEDS: FERROUS GLUCONATE 324 MG TAB PO SCH (08:09)
[2017-03-09] MEDS: MULTIVITAMIN TAB PO SCH (08:09)
[2017-03-09] MEDS: METOPROLOL TARTRATE 100 MG TAB PO SCH ×2 (08:10→21:29)
[2017-03-09] MEDS: ASPIRIN 81 MG ECTAB PO SCH (08:11)
[2017-03-09] MEDS: FUROSEMIDE 40 MG TAB PO SCH (08:14)
[2017-03-09 08:25] VITALS: BP 124/68; PULSE 95
[2017-03-09 08:32] VITALS: BP 124/68; PULSE 95; TEMP 36.4; O2SAT 93
--- NOTE | 2017-03-09 08:54 | CARDIOLOGY PROGRESS NOTE ---
DATE: 03/09/2017 DATE: 03/09/2017 TIME: 8:22 a.m. SUBJECTIVE: Mr. Olvera says he feels slightly better than he did upon presentation following thoracentesis but still has shortness of breath especially with any exertion. He denies orthopnea and states that his breathing feels better lying down. He denies chest pain, syncope, near syncope, palpitations, or edema. OBJECTIVE: VITAL SIGNS: Temperature 36.8 degrees, heart rate 84 beats per minute, respiration rate 20, blood pressure 91/55 when last charted however current blood pressure is normal with systolic blood pressure near 120 mmHg. Oxygen saturation 96% on 2 liters per nasal cannula. I's and O's positive 116 mL yesterday, weight is 52.6 kg. GENERAL: No acute distress. He is alert. NECK: No appreciable JVD. CARDIAC EXAMINATION: No ventricular heave, irregularly irregular, normal S1, S2. No audible murmurs, rubs or gallops. LUNGS: Decreased breath sounds at the bases with faint crackles, otherwise clear. ABDOMEN: Soft, nontender, nondistended. Normoactive bowel sounds. EXTREMITIES: No cyanosis or edema. PSYCHIATRIC: Affect appears appropriate. MEDICATIONS: Include aspirin 81 mg daily, Lipitor 40 mg at bedtime, furosemide 40 mg p.o. q.a.m., methimazole 5 mg every other day, metoprolol tartrate 100 mg p.o. b.i.d., Remeron 30 mg at bedtime, Protonix 40 mg p.o. b.i.d., Zosyn IV, vancomycin IV, potassium chloride 20 mEq p.o. t.i.d., Flomax 0.[address] scan of the chest performed on 03/07/2017 reported a small to moderate right pleural effusion, decreased in size from 03/05/2017. Single locule of gas within the pleural fluid without significant pneumothorax, status post thoracentesis. Pleural thickening could be due to empyema or represent a chronic pleural effusion. Right lower lobe airspace opacity favors atelectasis, although pneumonia difficult to exclude. Mild mediastinal bilateral hilar lymphadenopathy. LABORATORY DATA: From 03/08/2017 reviewed. Sodium 138, potassium 4.4, BUN 21, creatinine 0.98. INR from 03/09/2017 1.3. Pleural fluid from 03/07/2017 was reported as a brown color with a pH of 7.28. White blood cell count 283, RBC 8,000. Other indices appear to be canceled. Culture negative to date. Pathology pending. Chart reviewed. ASSESSMENT AND PLAN: 1. Atrial fibrillation: Heart rate better controlled on current regimen. If requires further rate control and blood pressure is an issue could always add digoxin. Continue current regimen for now. Anticoagulation is on hold for upcoming procedure planned for tomorrow. 2. Chronic systolic congestive heart failure: He does not appear hypervolemic and this does not suggests heart failure exacerbation as the cause of his symptoms. He has no orthopnea and his BNP has not been significantly elevated as well as exam findings not suggestive of hypervolemia. Continue home dose of Lasix. Monitor I's and O's and daily weights. 3. Cardiomyopathy: He has biventricular systolic dysfunction but has declined cardiac catheterization. Recommend changing metoprolol tartrate to metoprolol succinate upon discharge. He did not tolerate lisinopril due to symptomatic hypotension. 4. Coronary artery disease status post right coronary artery percutaneous coronary intervention and also coronary artery bypass graft x3: No angina. Continue aspirin 81 mg daily due to prior PCI. Continue high intensity statin therapy and beta vince. 5. Bioprosthetic aortic valve: No recent issues. 6. Shortness of breath: He is under the care of pulmonology and has pleural effusion with thoracic surgery planning procedure tomorrow. He is on broad spectrum antibiotics for concern of empyema. Symptoms have not significantly improved but perhaps slightly as per patient. 7. Disposition: Cardiology will continue to follow.
[2017-03-09] MEDS: DRONABINOL 2.5 MG CAP PO SCH ×2 (08:59→21:28)
--- NOTE | 2017-03-09 11:06 | Pulmonology Progress Note ---
Pulmonary Progress Note Date of Service Mar 09, 2017. Attending Dr. Ferrera Subjective Patient is feeling "OK" this morning but continues to have shortness of breath. He was seen by Dr. Patel, and the plan is for pleuroscopy tomorrow to drain loculated pleural effusion with possible decortication. He offers no other complaints. He states that his appetite has improved very slightly. Labs reviewed: Vancomycin trough 13.9 this AM INR 1.3 Meds reviewed: Vancomycin, Zosyn, Marinol, Aspirin, Furosemide [address]: IMPRESSION: 1. Small to moderate right pleural effusion which has decreased in size since exam of March 05, 2017 status post interval thoracentesis. A single locule of gas within the pleural fluid without significant pneumothorax. Pleural thickening could be due to an empyema or represent a chronic pleural effusion. This could be correlated with thoracentesis results. 2. No significant change in a small left pleural effusion. 3. Right lower lobe airspace opacity which favors atelectasis although pneumonia would be difficult to exclude. 4. Mild mediastinal and bilateral hilar lymphadenopathy which remains nonspecific and has been shown on multiple prior studies. 5. No significant change in interstitial lung disease consistent with pulmonary fibrosis. PE: General: Patient is awake, alert, cooperative, and in no acute distress. Thin. Head: Normocephalic, Atraumatic. ENT: PERRLA, No discharge, EOMI, Sclera normal Neck: Normal ROM. Trachea midline. No stridor Respiratory: Decreased BS right base. No adventitious sounds noted. No respiratory distress. No accessory muscle use. Cardiovascular: AFib. Systolic murmur Abdomen: Normal bowel sounds hear throughout. Extremities: No edema, cyanosis. Normal ROM Neuro: Alert, Oriented x 3. CN II-XII grossly intact. Sensation and motor function grossly intact. Psych: Mood and affect are normal. Assessment & Plan Patient with bilateral pleural effusions R>L Mild COPD with interstitial lung disease Systolic CHF Anemia Paroxysmal Afib Will continue O2 supplementation PRN to maintain SaO2 >92% Continue albuterol PRN Continue Vancomycin and Zosyn pending further improvement. CT surgery following for pleural effusion. Pulmonary will sign off. Call with questions. Thank you Patient has been interviewed and examined and I agree with the above case. I have also spoken to the primary team. Currently agree with moving forward with decortication as this patient most likely has either parapneumonic or empyema at this time. As this patient does not need to services monitoring his pleural disease I do also agree that we sign off. Data Medications: Current Inpatient Medications Medications (Trade) Dose Ordered Sig/Jarett Route Start Time Stop Time Status Last Admin Dose Admin Ioversol (Optiray 320) 111 ml UD PRN IV 03/05/17 14:15 03/09/17 14:14 Acetaminophen (Tylenol Tab) 650 mg Q4H PRN PO 03/05/17 18:45 04/04/17 18:44 03/09/17 02:25 650 MG Nitroglycerin (Nitrostat Tab) 0.4 mg UD PRN SL 03/05/17 18:45 04/04/17 18:44 Atorvastatin Calcium (Lipitor Tab) 40 mg HS PO 03/05/17 21:00 04/04/17 20:59 03/08/17 21:05 40 MG Ferrous Gluconate (Ferrous Gluconate Tab) 324 mg DAILY PO 03/06/17 09:00 04/05/17 08:59 03/09/17 08:09 324 MG Methimazole (Methimazole Tab) 5 mg Q2D@0900 PO 03/06/17 09:00 04/05/17 08:59 03/08/17 08:15 5 MG Multivitamins (Multivitamin Tab) 1 tab DAILY PO 03/06/17 09:00 04/05/17 08:59 03/09/17 08:09 1 TAB Potassium Chloride (Klor-Con Tab) 20 meq TID PO 03/05/17 21:00 04/04/17 20:59 03/09/17 08:09 20 MEQ Albuterol (Ventolin Hfa Inhaler) 2 puffs Q4H PRN INH 03/05/17 18:45 04/04/17 18:44 Mirtazapine (Remeron Tab) 30 mg HS PO 03/05/17 21:00 04/04/17 20:59 03/08/17 21:06 30 MG Pantoprazole Sodium (Protonix Tab) 40 mg BID PO 03/05/17 21:00 04/04/17 20:59 03/09/17 08:08 40 MG Ondansetron HCl (Zofran Inj) 4 mg Q6H PRN IV 03/05/17 18:45 04/04/17 18:44 03/05/17 21:49 4 MG Tamsulosin HCl (Flomax Cap) 0.4 mg HS PO 03/05/17 21:00 04/05/17 08:59 03/08/17 21:06 0.4 MG Metoprolol Tartrate (Lopressor Tab) 100 mg BID PO 03/07/17 09:00 04/06/17 08:59 03/09/17 08:10 100 MG Al Hydrox/Mg Hydrox/Simethicone (Maalox Max Susp) 15 ml Q4H PRN PO 03/07/17 03:00 04/06/17 02:59 Furosemide (Lasix Tab) 40 mg QAM PO 03/07/17 09:00 04/06/17 08:59 03/09/17 08:14 40 MG Vancomycin HCl 750 mg/Sodium Chloride 265 ml @ 125 mls/hr Q18H IV 03/08/17 12:00 03/14/17 23:59 03/09/17 05:53 125 MLS/HR Vancomycin HCl (Consult) 1 ea UD PRN N/A 03/07/17 17:45 04/06/17 17:44 Aspirin (Ecotrin Tab) 81 mg QAM PO 03/08/17 09:00 04/07/17 08:59 03/09/17 08:11 81 MG Piperacillin Sod/ Tazobactam Sod (Consult) 1 ea UD PRN N/A 03/07/17 18:00 04/06/17 17:59 Piperacillin Sod/ Tazobactam Sod 3.375 gm/Dextrose 115 ml @ 28.75 mls/ hr Q8H IV 03/08/17 00:00 03/15/17 00:00 03/09/17 08:07 28.75 MLS/HR Enteral Nutritional Formula (Boost) 1 can BID PO 03/08/17 21:00 04/07/17 20:59 03/09/17 08:07 1 CAN Dronabinol (Marinol Cap) 5 mg BID PO 03/08/17 21:00 04/06/17 20:59 03/09/17 08:59 5 MG Vital Signs: Date Time Temp Pulse Resp B/P (MAP) Pulse Ox O2 Delivery O2 Flow Rate FiO2 03/09/17 08:32 36.4 95 34 124/68 (86) 93 Nasal Cannula 2.0 03/09/17 08:25 95 124/68 (86) 03/09/17 08:00 96 Nasal Cannula 2.0 03/08/17 23:45 96 Nasal Cannula 2.0 03/08/17 23:42 36.8 84 20 91/55 (67) 96 2.0 03/08/17 16:30 Nasal Cannula 2.0 03/08/17 16:30 36.6 88 18 110/71 (84) 94 Nasal Cannula 2.0 03/08/17 15:14 36.8 81 16 92/53 (66) 98 Nasal Cannula 2.0 03/08/17 15:11 36.8 109 22 93 3.0 03/08/17 12:10 36.6 92 18 103/67 (79) 99 Nasal Cannula 2.0 03/08/17 12:00 Nasal Cannula 3.0 Laboratory Results: Last 24 Hours Test 03/09/17 06:14 Prothrombin Time 13.8 SECONDS Prothromb Time International Ratio 1.3 Vancomycin Level Trough 13.9 mcg/ml
--- NOTE | 2017-03-09 12:10 | Clinical Documentation Query ---
CLINICAL DOCUMENTATION QUERY Dr. WYNNE, In your clinical opinion is this patient being managed for: ( x ) severe protein-calorie malnutrition ( ) Not Agree ( ) Other explanation of clinical findings (Please Explain) ( ) Unable to determine (Please Define) ( ) Need to Discuss The medical record reflects the following clinical findings, treatment, and risk factors. Clinical Indicators: 81 yo male presenting with weakness, decreased wt loss and increasing dyspnea. Box Person note indicates pt with 20 kg (27%)wt loss since June 2016. Pt reported poor appetite. Treatment: marinol, boost BID, dietary consult Risk Factors: extensive cardiac procedures earlier in year, age Severe Malnutrition Criteria: (2 criteria needed) Energy intake: <75% of estimated energy requirement for > 1 month Wt loss: >5% in 1 month, > 7.5% in 3 months, >10% in 6 months, >20% in 1 year Body fat: severe loss of SQ fat from the orbits, triceps or fat overlying the ribs Muscle mass: severe muscle wasting at the temples, clavicles, shoulders, interosseous spaces, scapula, thigh, calf Fluid accumulation: severe localized or generalized edema of the extremities, vulva, scrotum-wt loss may be masked by edema Please clarify and document your clinical opinion in the progress notes and discharge summary. Terms such as "probable", "suspected", "likely", "questionable", "possible", or "still to be ruled out" are acceptable. IF IN AGREEMENT, YOU MUST DOCUMENT ABOVE DIAGNOSTIC STATEMENT IN DAILY PROGRESS NOTES AND DISCHARGE SUMMARY. This document is not part of the patient's record. Thank You, Lela Oden, RN [phone]
--- NOTE | 2017-03-09 12:27 | Pharmacy Progress Note ---
Pharmacy Abx Dose Progress Nt Date of Service Mar 09, 2017. Pharmacy Dosing Scope The patient is currently receiving the following antimicrobial agents per Pharmacy consult: * Vancomycin 750 mg IV every 18 hours * Zosyn 3.375gm iv q 8 hours Objective Height (Feet): 5 Height (Inches): 7.00 Weight (Kilograms): 52.600 Vital Signs (Past 12Hrs) Vital Signs Past 12 Hours Date Time Temp Pulse Resp B/P (MAP) Pulse Ox O2 Delivery O2 Flow Rate FiO2 03/09/17 08:32 36.4 95 34 124/68 (86) 93 Nasal Cannula 2.0 03/09/17 08:25 95 124/68 (86) 03/09/17 08:00 96 Nasal Cannula 2.0 Lab Results (24Hrs) Item Value Date Time Vancomycin Level Trough 13.9 mcg/ml 03/09/17 0614 Micro Results Date/Time Source Procedure Growth Status 03/07/17 00:00 Nasal MRSA DNA Surveillance Screen - Final Specimen Negative for MRSA by DNA Probe Complete 03/07/17 17:30 Pleural Fluid (Thoracentesis) Right Acid Fast Stain - Final Resulted 03/07/17 17:30 Pleural Fluid (Thoracentesis) Right Mycobacterial Culture Pending Resulted 03/07/17 17:30 Pleural Fluid (Thoracentesis) Right Gram Stain - Final Resulted 03/07/17 17:30 Pleural Fluid (Thoracentesis) Right Bacterial Culture - Preliminary NO GROWTH TO DATE. Resulted Risk Factors for Resistance * No risk factors recognized at this time. Assessment & Plan Assessment 81 year old male admitted for A fib w/ RVR and b/l pleural effusions, receiving vancomycin and Zosyn. Day #3 of antimicrobial therapy Nasal swab from 03/07 negative for MRSA. Spoke with Dr. Ferrera and he wishes to continue vanc due to pt's clinical status and until cultures are final. Plan Vancomycin IV * Trough level of 13.9 mcg/mL is considered near therapeutic as steady state has not yet been reached. * Level was documented to be drawn after the dose was hung. I believe the vanco dose was scanned but not hung until after the lab draw. Nursing staff was unavailable to confirm. * A second level is ordered for 03/10/17 @1730 when the vanc will be at steady state. * Continue dose of 750 mg IV every 18 hours * Goal trough level for pulmonary indication: 15 to 20 mcg/mL Piperacillin/tazobactam * Continue 3.375 g IV extended infusion every 8 hours Pharmacy will continue to follow and will adjust dose/frequency as necessary. Thank you.
--- NOTE | 2017-03-09 13:33 | SURGERY PROGRESS NOTE ---
DATE: 03/09/2017 Mr. Olvera was seen again today on 03/09/2017. He appears fairly comfortable. His INR is down to 1.3. I again went over his thoracoscopic surgery for tomorrow. I showed him where we are going to put in the ports and why we were doing this. He is weak and he has lost weight. However, I believe that this will help with his breathing. I also explained that while I am not too concerned about lung injuries or bleeding, I am concerned with how well he tolerates the surgery in general. He understands. We will set him up for surgery tomorrow on 03/09/2017.
--- NOTE | 2017-03-09 13:44 | Hospitalist Progress Note ---
Hospitalist Progress Note Date of Service Mar 09, 2017. (Michelle Merida PA-C) Subjective Pt evaluation today including: conversation w/ patient, physical exam, chart review, lab review, review of studies, review of inpatient medication list Pain: None PO Intake: Poor Voiding: no voiding problems Patient seen and evaluated. No acute events overnight. Reports feeling a little bit better but still generally weak. Plan for VATS tomorrow. Per nursing staff, patient consumed one whole Boost and cereal this morning. Will continue to increase Marinol. Constitutional: No fever, No chills Respiratory: No dyspnea on exertion, No dyspnea at rest Cardiovascular: No chest pain, No palpitations Abdomen: No pain, No nausea, No vomiting Male : No dysuria (Michelle Merida PA-C) Medications Current Inpatient Medications Medications (Trade) Dose Ordered Sig/Jarett Route Start Time Stop Time Status Last Admin Dose Admin Ioversol (Optiray 320) 111 ml UD PRN IV 03/05/17 14:15 03/09/17 14:14 Acetaminophen (Tylenol Tab) 650 mg Q4H PRN PO 03/05/17 18:45 04/04/17 18:44 03/09/17 02:25 650 MG Nitroglycerin (Nitrostat Tab) 0.4 mg UD PRN SL 03/05/17 18:45 04/04/17 18:44 Atorvastatin Calcium (Lipitor Tab) 40 mg HS PO 03/05/17 21:00 04/04/17 20:59 03/08/17 21:05 40 MG Ferrous Gluconate (Ferrous Gluconate Tab) 324 mg DAILY PO 03/06/17 09:00 04/05/17 08:59 03/09/17 08:09 324 MG Methimazole (Methimazole Tab) 5 mg Q2D@0900 PO 03/06/17 09:00 04/05/17 08:59 03/08/17 08:15 5 MG Multivitamins (Multivitamin Tab) 1 tab DAILY PO 03/06/17 09:00 04/05/17 08:59 03/09/17 08:09 1 TAB Potassium Chloride (Klor-Con Tab) 20 meq TID PO 03/05/17 21:00 04/04/17 20:59 03/09/17 08:09 20 MEQ Albuterol (Ventolin Hfa Inhaler) 2 puffs Q4H PRN INH 03/05/17 18:45 04/04/17 18:44 Mirtazapine (Remeron Tab) 30 mg HS PO 03/05/17 21:00 04/04/17 20:59 03/08/17 21:06 30 MG Pantoprazole Sodium (Protonix Tab) 40 mg BID PO 03/05/17 21:00 04/04/17 20:59 03/09/17 08:08 40 MG Ondansetron HCl (Zofran Inj) 4 mg Q6H PRN IV 03/05/17 18:45 04/04/17 18:44 03/05/17 21:49 4 MG Tamsulosin HCl (Flomax Cap) 0.4 mg HS PO 03/05/17 21:00 04/05/17 08:59 03/08/17 21:06 0.4 MG Metoprolol Tartrate (Lopressor Tab) 100 mg BID PO 03/07/17 09:00 04/06/17 08:59 03/09/17 08:10 100 MG Al Hydrox/Mg Hydrox/Simethicone (Maalox Max Susp) 15 ml Q4H PRN PO 03/07/17 03:00 04/06/17 02:59 Furosemide (Lasix Tab) 40 mg QAM PO 03/07/17 09:00 04/06/17 08:59 03/09/17 08:14 40 MG Vancomycin HCl 750 mg/Sodium Chloride 265 ml @ 125 mls/hr Q18H IV 03/08/17 12:00 03/14/17 23:59 03/09/17 05:53 125 MLS/HR Vancomycin HCl (Consult) 1 ea UD PRN N/A 03/07/17 17:45 04/06/17 17:44 Aspirin (Ecotrin Tab) 81 mg QAM PO 03/08/17 09:00 04/07/17 08:59 03/09/17 08:11 81 MG Piperacillin Sod/ Tazobactam Sod (Consult) 1 ea UD PRN N/A 03/07/17 18:00 04/06/17 17:59 Piperacillin Sod/ Tazobactam Sod 3.375 gm/Dextrose 115 ml @ 28.75 mls/ hr Q8H IV 03/08/17 00:00 03/15/17 00:00 03/09/17 08:07 28.75 MLS/HR Enteral Nutritional Formula (Boost) 1 can BID PO 03/08/17 21:00 04/07/17 20:59 03/09/17 08:07 1 CAN Dronabinol (Marinol Cap) 5 mg BID PO 03/08/17 21:00 04/06/17 20:59 03/09/17 08:59 5 MG (Michelle Merida PA-C) Objective Vital Signs Date Time Temp Pulse Resp B/P (MAP) Pulse Ox O2 Delivery O2 Flow Rate FiO2 03/09/17 08:32 36.4 95 34 124/68 (86) 93 Nasal Cannula 2.0 03/09/17 08:25 95 124/68 (86) 03/09/17 08:00 96 Nasal Cannula 2.0 03/08/17 23:45 96 Nasal Cannula 2.0 03/08/17 23:42 36.8 84 20 91/55 (67) 96 2.0 03/08/17 16:30 Nasal Cannula 2.0 03/08/17 16:30 36.6 88 18 110/71 (84) 94 Nasal Cannula 2.0 03/08/17 15:14 36.8 81 16 92/53 (66) 98 Nasal Cannula 2.0 03/08/17 15:11 36.8 109 22 93 3.0 (Michelle Merida PA-C) Physical Exam General Appearance: no apparent distress, + thin Eyes: sclerae normal ENT: hearing grossly normal Neck: supple, no JVD, trachea midline Respiratory/Chest: lungs clear, normal breath sounds, no respiratory distress, no accessory muscle use Cardiovascular: no gallop, no murmur, + irregularly irregular Abdomen: normal bowel sounds, non tender, soft Extremities: no pedal edema, no calf tenderness Neurologic/Psychiatric: alert, oriented x 3 Skin: normal color, warm/dry (Michelle Merida PA-C) Laboratory Results Last 24 Hours Test 03/09/17 06:14 Prothrombin Time 13.8 SECONDS Prothromb Time International Ratio 1.3 Vancomycin Level Trough 13.9 mcg/ml (Michelle Merida PA-C) Assessment and Plan Generalized Weakness/Failure to Thrive: - May be deconditioning from extensive cardiac procedures this year vs Malignancy - may be from empyema? - Boost BID and liberalized diet - Increase Marinol to 10 mg BID - no BOAT TESTER side effects Atrial Fibrillation with RVR: - Hold Toprol XL and cover with metoprolol tartrate 100 mg BID - plan to convert to XL on D/C - Continue to hold warfarin for VATS procedure on 03/10 Pleural Effusion: - Possible empyema - continue Zosyn and Vancomycin - Pulmonary signed off - performed thoracentesis for 350 cc on 03/07 - CT Surg following - plan for VATS on 03/10 COPD: - Ventolin 1 puffs Q4H PRN MARQUISE: - Stool heme - pending - H/O hematochezia and previous colon CA - no concerning findings on imaging suggesting CA -- Consider possible outpatient GI consultation - will await clinical course - Ferrous gluconate 324 mg daily CAD/Cardiomyopathy/S/P AVR and CABG x 3 (August 2016): - Patient does not appear hypervolemic - will continue Lasix 40 mg daily at this time - monitor volume status and kidney function - Echo - EF 35-40% - Hold ASA until after VATS - Lipitor 40 mg daily - Cardiology following - recommendations appreciated Hyperthyroidism: - Methimazole 5 mg Q2D DVT Prophylaxis: SCDs - resume Warfarin with guidance from CT Surg after VATS Disposition: Likely will need SNF - anticipate admission through weekend - Await VATS findings - continues to need IV Abx for possibly empyema - Plan to convert metoprolol tartrate back to XL dosing Continued [facility] stay due to: multiple IV medications needed Discharge planning: snf facility (Michelle Merida, PA-C) i personally examined pt and verified all ortez points w Johnna STEVEN feeling like maybe he's doing a little better eating d/w thoracic surgery - for VATS tomorrow, appearing to need evaluation and likely decortication. discussed - he's OK w this vitals noted nad breathing unlabored no pallor or icterus failure to thrive - likely multifactorial between lung pathology and post-op deconditioning/malnutrition -treat all factors inflammatory lung pathology - for VATS tomorrow deconditioning/malnutrition - tolerating marinol well, seems to be maybe increasing appetite some - no ADRs noted - continue to titrate dosing afib - coumadin on hold, resume post op once safe w thoracic surgery DVT proph - as above - resume anticoagulation post op once safe (Alvaro Sams D.O.)
[2017-03-09 15:39] VITALS: BP 105/68; TEMP 36.4; O2SAT 95
--- NOTE | 2017-03-09 18:42 | Anesthesiology Progress Note ---
Pre-OP Anesthesia Assessment Date of Note Mar 09, 2017. Review patient information reviewed, chart reviewed, labs reviewed, acceptable for surgery Notes This patient is an ASA IV with multiple co-morbidities, the worst of which are COPD requiring 24 hour oxygen supplementation, pulmonary fibrosis and loculated bilateral effusions for which this surgery has been scheduled. His smoking history is two packs a day for fifty years. He quit fifteen years ago. He has a history of atrial fibrillation, coronary artery disease and hypertension. In August of this year he underwent a CABG X 3 and an AVR replacement for severe aortic stenosis. In 02/06his echo showed an EF of 35-45%, inferior akinesis and global hypokinesis. Other significant surgeries include a carotid endarterectomy and a PEVAR for a AAA. On examination he is a thin elderly man, mildly to moderately short of breath,who was able to carry on a conversation. His heart was irregularly, irregular with a moderate rate. His breath sounds were markedly diminished bilaterally, especially in the lower lung weir.He had full dentures and is a mallampatti 2. I think his status is as good as it is going to be until he has his surgery.
[2017-03-09] MEDS ORDERED: NURSING VERBAL MED ORDER ONE (19:15)
[2017-03-09] MEDS ORDERED: DRONABINOL 5 MG CAP PO SCH (21:00)
[2017-03-09] MEDS: ATORVASTATIN 40 MG TAB PO SCH (21:30)
[2017-03-09] MEDS: TAMSULOSIN HCL 0.4 MG CAP PO SCH (21:30)
[2017-03-09] MEDS: MIRTAZAPINE TAB 15 MG TAB PO SCH (21:31)
[2017-03-10] VITALS (25 sets, daily range): BP systolic 22–108; BP diastolic 17–68; PULSE 79–98; TEMP 36.7–36.9; O2SAT 92–100
[2017-03-10] MEDS: ACETAMINOPHEN 325 MG TAB PO PRN (00:06)
[2017-03-10] MEDS: PIPERACILL/TAZOBAC IV 3.375 GM in DEXTROSE 5% 100ML IV SCH ×4 (00:14→23:34)
[2017-03-10] MEDS: VANCOMYCIN INJ 750 MG in SODIUM CHLORIDE 0.9% 250ML 250 ML IV SCH ×2 (00:14→19:29)
[2017-03-10 06:24] LABS: HEMATOCRIT 28.5 % (42-52); MEAN CELL VOLUME 94.4 fL (80-100); MEAN CORPUSCULAR HEMOGLOBIN 29.8 pg (25-34); MEAN CORPUSCULAR HGB CONC 31.6 g/dl (32-36); MEAN PLATELET VOLUME 8.1 fL (7.4-10.4); PLATELET COUNT 190 K/uL (130-400); RED BLOOD COUNT 3.02 M/uL (4.7-6.1); WHITE BLOOD COUNT 9.64 K/uL (4.8-10.8)
[2017-03-10 06:32] LABS: INR 1.2 (0.9-1.1); PROTHROMBIN TIME (PATIENT) 12.6 SECONDS (9.0-12.0)
[2017-03-10 06:53] LABS: BUN/CREATININE RATIO 19.8 (10-20); CALCIUM 8.8 mg/dl (8.5-10.1); CREATININE 0.78 mg/dl (0.60-1.40); POTASSIUM 4.2 mmol/L (3.5-5.1)
[2017-03-10] MEDS: FERROUS GLUCONATE 324 MG TAB PO SCH (07:07)
[2017-03-10] MEDS: DRONABINOL 2.5 MG CAP PO SCH ×2 (07:07→22:09)
[2017-03-10] MEDS: POTASSIUM CHLORIDE 20 MEQ TABCR PO SCH ×3 (07:07→23:23)
[2017-03-10] MEDS: ASPIRIN 81 MG ECTAB PO SCH (07:07)
[2017-03-10] MEDS: BOOST VANILLA PO SCH ×4 (07:07→21:00)
[2017-03-10] MEDS: METHIMAZOLE 5 MG TAB PO SCH (07:08)
[2017-03-10] MEDS: PANTOprazole SOD 40 MG TAB PO SCH ×2 (07:08→23:23)
[2017-03-10] MEDS: MULTIVITAMIN TAB PO SCH (07:08)
[2017-03-10] MEDS: METOPROLOL TARTRATE 100 MG TAB PO SCH ×2 (08:26→21:00)
--- NOTE | 2017-03-10 10:06 | SURGERY PROGRESS NOTE ---
DATE: 03/10/2017 DATE: 03/10/2017 Mr. Olvera was seen today. I had a long discussion with the patient's Sana and discussed again where we are going to proceed with this surgery. I have concerns him of course because of his weight loss and other issues, but I think at this point we will proceed with a decortication today. I discussed this in detail with the patient and his and Dr. Ferrera.
[2017-03-10] MEDS ORDERED: FENTANYL CITRATE INJ 50 MCG/1 ML 2 ML VIAL IV PRN ×2 (10:45→18:00)
[2017-03-10] MEDS ORDERED: ATROPINE SULFATE 0.1 MG/ML 5ML SYR IV PRN ×2 (10:45→18:00)
[2017-03-10] MEDS ORDERED: ONDANSETRON INJ 2 MG/ML 2 ML VIAL IV PRN ×3 (10:45→18:00)
[2017-03-10] MEDS ORDERED: EpHEDrine SULFATE INJ 50 MG/ML AMP IV PRN ×2 (10:45→18:00)
[2017-03-10] MEDS ORDERED: FENTANYL CITRATE INJ 50 MCG/1 ML 2 ML VIAL ONE ×2 (10:47→10:48)
[2017-03-10] MEDS ORDERED: LIDOCAINE HCL 2% 2 ML VIAL (20MG/ML) ONE ×2 (10:47→15:43)
[2017-03-10] MEDS ORDERED: SODIUM CHLORIDE 0.9% PF 50 ML VIAL ONE (11:21)
[2017-03-10] MEDS ORDERED: BUPIVACAINE LIPOSOME 1/3% 266 MG/20 ML VIAL INFIL ONE (11:22)
[2017-03-10] MEDS ORDERED: ALBUMIN HUMAN 5% 12.5 GM/250 ML VIAL IV ONE (13:11)
[2017-03-10 13:28] LABS: ISTAT ARTERIAL BLOOD GAS HCO3 36 meq/L (19-24); ISTAT ARTERIAL BLOOD GAS PCO2 49 mmHg (35-46); ISTAT ARTERIAL BLOOD GAS PO2 73 mmHg (80-95); ISTAT ARTERIAL BLOOD GAS pH 7.47 (7.35-7.45); ISTAT CARBON DIOXIDE 37 mEq/l (24-31)
[2017-03-10 13:28] LABS: ISTAT CREATININE 0.7 mg/dl (0.6-1.3); ISTAT HEMOGLOBIN 9.2 g/dl (14.0-18.0); ISTAT IONIZED CALCIUM 1.17 mmol/l (1.12-1.32)
[2017-03-10] MEDS ORDERED: KETOROLAC TROMETHAMINE 15 MG/ML VIAL IV PRN (14:45)
--- NOTE | 2017-03-10 15:39 | Anesthesiology Progress Note ---
Anesthesia Post Op Note Date & Time Mar 10, 2017 at 15:38 Vital Signs Pain Intensity: 0.0 Vital Signs Past 12 Hours Date Time Temp Pulse Resp B/P (MAP) Pulse Ox O2 Delivery O2 Flow Rate FiO2 03/10/17 11:46 88 14 97 Nasal Cannula 2.0 03/10/17 11:00 97 Nasal Cannula 03/10/17 08:00 97 Nasal Cannula 2.0 03/10/17 07:45 19 03/10/17 07:40 36.7 98 44 103/63 (76) 97 Nasal Cannula 03/10/17 07:23 36.7 92 18 108/67 (81) 92 Nasal Cannula 2.0 Notes Mental Status: alert / awake / arousable, participated in evaluation Pt Amnestic to Procedure: Yes Nausea / Vomiting: adequately controlled Pain: adequately controlled Airway Patency, RR, SpO2: stable & adequate BP & HR: stable & adequate Hydration State: stable & adequate Anesthetic Complications: no major complications apparent Pt was transported to ICU with monitors and O2. Report was given to set builder. Pt was stable on transport. Care was transferred to the ICU team.
[2017-03-10] MEDS ORDERED: GLYCOPYRROLATE INJ 0.2 MG/ML VIAL ONE (15:43)
[2017-03-10] MEDS ORDERED: PROPOFOL IV EMULSION 10 MG/ML 20 ML VIAL IV ONE (15:43)
[2017-03-10] MEDS ORDERED: EpHEDrine SULFATE 50MG/5ML SYR ONE (15:43)
[2017-03-10] MEDS ORDERED: PHENYLEPHRINE 100MCG/ML 5ML SYR ONE (15:43)
[2017-03-10] MEDS ORDERED: NEOSTIGMINE METHYLSULFATE 5 MG/5 ML SYR ONE (15:43)
[2017-03-10] MEDS ORDERED: ROCURONIUM BROMIDE 10 MG/ML 5 ML VIAL IV ONE (15:43)
[2017-03-10] MEDS ORDERED: VASOPRESSIN 20 UNIT/ML VIAL ONE (15:43)
--- NOTE | 2017-03-10 15:56 | DIAGNOSTIC IMAGING REPORT ---
CHEST ONE VIEW PORTABLE HISTORY: pleural effusion COMPARISON: Chest 03/05/2017. FINDINGS: Complete evacuation of the right pleural effusion. There are 2 right-sided chest tubes identified which terminate in the right lung apex and upper lung zone. There is a small right-sided pneumothorax with a maximal pleural gap of 1 cm at the base. Trace left pleural effusion persists. Bilateral mid to lower lung zone airspace opacities and interstitial thickening is again noted. The heart remains enlarged. Postoperative changes and a cardiac valve prosthesis. Abdominal aortic stent is noted. IMPRESSION: 1. Status post evacuation of a right pleural effusion. There are 2 right-sided chest tubes identified and a small right-sided pneumothorax. 2. Bilateral mid to lower lung zone airspace opacities persist. 3. Trace left pleural effusion, unchanged. Electronically signed by: Chuck Mitchell M.D. 03/10/2017 3:55 PM Dictated Date/Time: 03/10/2017 3:53 PM
[2017-03-10] MEDS: SODIUM CHLORIDE 0.9% 1000ML 1,000 ML IV SCH ×2 (16:35→16:41)
[2017-03-10] MEDS: ACETAMINOPHEN IV 1,000 MG in EMPTY BAG 0 ML IV SCH ×2 (16:46→23:24)
--- NOTE | 2017-03-10 16:54 | Critical Care Consultation ---
Critical Care Consultation Date of Consultation: Mar 10, 2017. Attending Physician: Chio Dutta MD Reason for Consultation: Respiratory insufficiency, status post VATS/pleurectomy. History of Present Illness I personally examined this patient, reviewed his clinical aborta I, Dr. Champion x- ray and formally treated for the plan of care. In summary the patient is a pleasant 81-year-old gentleman with complex medical history . Patient presented to [facility] on 03/05/2017 complaining of weakness and shortness of breath. He stated that since his 3 vessel CABG and by prostatic aortic valve replacement 6 months ago he lost around 40 pounds of weight, complaining of shortness of breath and failure to thrive. Thoracic surgical consultation was obtained after CT scan revealed bilateral pleural effusions. Patient was taken to operating room for VATS procedure and partial decortication. Estimated blood loss 150 mL. Patient was transfused with 1 unit of packed RBCs in the setting of hypotension requiring John- Synephrine administration. Preoperatively patient required 2 L of oxygen per nasal cannula. Patient was extubated the postoperatively to 2 L of nasal cannula. Patient was transferred critically ill to the surgical intensive care unit because of the plaques at the of his medical problems and high risk for further respiratory compromise. Past Medical/Surgical History 1. Coronary artery disease. 2. Aortic stenosis in the past. 3. Moderate LV dysfunction. 4. Atrial fibrillation. 5. Bilateral pleural effusions. 6. Abdominal aortic aneurysm repair in the past. 7. Hypertension. 8. Chronic obstructive pulmonary disease. 9. History of prostate cancer. 10. History of colon cancer. 11. Hyperthyroidism. 12. Anemia. 1. Coronary artery bypass grafting via mediastinotomy with bioprosthetic aortic valve replacement. 2. Urgent endovascular aortic aneurysm repair. 3. Appendectomy. 4. Tonsillectomy. 5. Exploratory laparotomy with small bowel resection for perforation from foreign body (chicken bone). 6. Colon resection for colon cancer. 7. Implantation of radioactive seeds for brachytherapy. 8. History of carotid artery stenosis. 9. Carotid endarterectomy. 10. Gastroesophageal reflux disease. 11. Hiatal hernia. Social History Smoking Status: Former Smoker Alcohol Use: none Drug Use: none Marital Status: Housing Status: lives with family Occupation Status: retired Allergies Coded Allergies: No Known Allergies (Unverified , 03/05/17) Home Medications Scheduled Aspirin (Aspirin Ec), 81 MG PO DAILY Atorvastatin (Lipitor), 40 MG PO HS Methimazole (Methimazole ), 5 MG PO Q2D Metoprolol Succ (Toprol Xl) (Toprol-Xl ), 100 MG PO DAILY Mirtazapine Soltab (Remeron Soltab), 30 MG PO HS Multiple Vitamins W/ Minerals (Eye Vitamins), 1 CAP PO DAILY Multivitamin (Multivitamin), 1 TAB PO DAILY Nitroglycerin (Nitrostat), 0.4 MG UT PRN Omeprazole (Bulk) (Omeprazole), 40 MG PO BID Potassium Chloride (Micro-K Ext Rel), 20 MEQ PO TID Tamsulosin Hcl (Flomax), 0.4 MG PO DAILY Warfarin Sod (Jantoven), 7.5 MG PO 2XWK Warfarin Sodium (Coumadin), 5 MG PO 5XWK Scheduled PRN Albuterol Sulfate (Proair Respiclick), 1-2 PUFF INH Q4H PRN for Cough Miscellaneous Medications Ferrous Gluconate (Ferrous Gluconate), 324 MG PO Current Inpatient Medications Current Inpatient Medications Medications (Trade) Dose Ordered Sig/Jarett Route Start Time Stop Time Status Last Admin Dose Admin Acetaminophen (Tylenol Tab) 650 mg Q4H PRN PO 03/05/17 18:45 04/04/17 18:44 Future Hold 03/10/17 00:06 650 MG Nitroglycerin (Nitrostat Tab) 0.4 mg UD PRN SL 03/05/17 18:45 04/04/17 18:44 Atorvastatin Calcium (Lipitor Tab) 40 mg HS PO 03/05/17 21:00 04/04/17 20:59 03/09/17 21:30 40 MG Ferrous Gluconate (Ferrous Gluconate Tab) 324 mg DAILY PO 03/06/17 09:00 04/05/17 08:59 03/09/17 08:09 324 MG Methimazole (Methimazole Tab) 5 mg Q2D@0900 PO 03/06/17 09:00 04/05/17 08:59 03/08/17 08:15 5 MG Multivitamins (Multivitamin Tab) 1 tab DAILY PO 03/06/17 09:00 04/05/17 08:59 03/09/17 08:09 1 TAB Potassium Chloride (Klor-Con Tab) 20 meq TID PO 03/05/17 21:00 04/04/17 20:59 03/09/17 21:31 20 MEQ Albuterol (Ventolin Hfa Inhaler) 2 puffs Q4H PRN INH 03/05/17 18:45 04/04/17 18:44 Mirtazapine (Remeron Tab) 30 mg HS PO 03/05/17 21:00 04/04/17 20:59 03/09/17 21:31 30 MG Pantoprazole Sodium (Protonix Tab) 40 mg BID PO 03/05/17 21:00 04/04/17 20:59 03/09/17 21:30 40 MG Ondansetron HCl (Zofran Inj) 4 mg Q6H PRN IV 03/05/17 18:45 04/04/17 18:44 03/05/17 21:49 4 MG Tamsulosin HCl (Flomax Cap) 0.4 mg HS PO 03/05/17 21:00 04/05/17 08:59 03/09/17 21:30 0.4 MG Metoprolol Tartrate (Lopressor Tab) 100 mg BID PO 03/07/17 09:00 04/06/17 08:59 03/10/17 08:26 100 MG Al Hydrox/Mg Hydrox/Simethicone (Maalox Max Susp) 15 ml Q4H PRN PO 03/07/17 03:00 04/06/17 02:59 Furosemide (Lasix Tab) 40 mg QAM PO 03/07/17 09:00 04/06/17 08:59 Future hold 03/09/17 08:14 40 MG Vancomycin HCl 750 mg/Sodium Chloride 265 ml @ 125 mls/hr Q18H IV 03/08/17 12:00 03/14/17 23:59 03/10/17 00:14 125 MLS/HR Vancomycin HCl (Consult) 1 ea UD PRN N/A 03/07/17 17:45 04/06/17 17:44 Aspirin (Ecotrin Tab) 81 mg QAM PO 03/08/17 09:00 04/07/17 08:59 03/09/17 08:11 81 MG Piperacillin Sod/ Tazobactam Sod (Consult) 1 ea UD PRN N/A 03/07/17 18:00 04/06/17 17:59 Piperacillin Sod/ Tazobactam Sod 3.375 gm/Dextrose 115 ml @ 28.75 mls/ hr Q8H IV 03/08/17 00:00 03/15/17 00:00 03/10/17 16:39 28.75 MLS/HR Enteral Nutritional Formula (Boost) 1 can BID PO 03/08/17 21:00 04/07/17 20:59 03/09/17 21:29 1 CAN Dronabinol (Marinol Cap) 10 mg BID PO 03/09/17 21:00 04/08/17 20:59 03/09/17 21:28 10 MG Acetaminophen 1000 mg/Empty Bag 100 ml @ 400 mls/hr Q8H IV 03/10/17 16:00 04/09/17 15:59 03/10/17 16:46 400 MLS/HR Oxycodone HCl (Roxicodone Immediate Rel Tab) 5 mg Q6H PRN PO 03/10/17 14:45 03/24/17 14:44 Enoxaparin Sodium (Lovenox Inj) 40 mg DAILY SQ 03/11/17 09:00 04/10/17 08:59 Ondansetron HCl (Zofran Inj) 4 mg Q4H PRN IV 03/10/17 14:45 04/09/17 14:44 Docusate Sodium (coLACE CAP) 100 mg BID PO 03/10/17 21:00 04/09/17 20:59 Metoclopramide HCl (Reglan Inj) 10 mg Q8 IV. 03/10/17 22:00 03/11/17 21:59 Morphine Sulfate (MoRPHine SULFATE INJ) Q1H PRN IV 03/10/17 14:45 03/24/17 14:44 Sodium Chloride 1,000 ml @ 75 mls/hr [id number] IV 03/10/17 03:15 04/09/17 03:14 03/10/17 16:41 75 MLS/HR Ketorolac Tromethamine (Toradol Inj) 15 mg Q6H PRN IV 03/10/17 14:45 03/15/17 14:44 Review of Systems Patient complains of soreness on the right side of his chest were he has 2 chest tubes and Pleurx catheter. Chest pain associated with cough and movements. Poor appetite. Mild shortness of breath. Otherwise, he denies any chest tightness, nausea, vomiting, diarrhea, constipation. Physical Exam Date Time Temp Pulse Resp B/P (MAP) Pulse Ox O2 Delivery O2 Flow Rate FiO2 03/10/17 11:46 88 14 97 Nasal Cannula 2.0 03/10/17 11:00 97 Nasal Cannula 03/10/17 08:00 97 Nasal Cannula 2.0 03/10/17 07:45 19 03/10/17 07:40 36.7 98 44 103/63 (76) 97 Nasal Cannula 03/10/17 07:23 36.7 92 18 108/67 (81) 92 Nasal Cannula 2.0 03/10/17 00:13 36.8 90 18 102/68 (79) 92 2.0 03/10/17 00:00 Nasal Cannula 2.0 03/09/17 20:00 Nasal Cannula 2.0 GENERAL: Incisional chest wall tenderness otherwise, patient does not appear to be in distress. NECK: No JVD, no carotid bruit, no lymphadenopathy. CARDIAC: Irregularly irregular. Normal S1 and S2. No audible murmurs, rubs or gallops. LUNGS: Slightly decreased breath sounds at the bases, few crackles at the bases. No wheezing. There are 2 chest tubes with totally 100 mL of serosanguineous fluid, Pleurx catheter. ABDOMEN: Soft, nontender, nondistended. EXTREMITIES: No cyanosis or edema. Left radial arterial line in place. No calf tenderness PSYCHIATRIC: Appropriate affect. Laboratory Results Last 24 Hours Test 03/10/17 06:10 03/10/17 12:59 03/10/17 13:04 White Blood Count 9.64 K/uL Red Blood Count 3.02 M/uL Hemoglobin 9.0 g/dL Hematocrit 28.5 % Mean Corpuscular Volume 94.4 fL Mean Corpuscular Hemoglobin 29.8 pg Mean Corpuscular Hemoglobin Concent 31.6 g/dl RDW Standard Deviation 48.5 fL RDW Coefficient of Variation 14.1 % Platelet Count 190 K/uL Mean Platelet Volume 8.1 fL Prothrombin Time 12.6 SECONDS Prothromb Time International Ratio 1.2 Sodium Level 136 mmol/L Potassium Level 4.2 mmol/L Chloride Level 97 mmol/L Carbon Dioxide Level 38 mmol/L Anion Gap 1.0 mmol/L 14.0 mmol/L Blood Urea Nitrogen 15 mg/dl Creatinine 0.78 mg/dl Est Creatinine Clear Calc Drug Dose 53.4 ml/min Estimated GFR () 96.7 Estimated GFR (Non- 83.5 BUN/Creatinine Ratio 19.8 Random Glucose 111 mg/dl Calcium Level 8.8 mg/dl Bedside Blood Gas pH (LAB) 7.47 Bedside Blood Gas pCO2 (LAB) 49 mmHg Bedside Blood Gas pO2 (LAB) 73 mmHg Bedside Blood Gas HCO3 (LAB) 36 meq/L Bedside Blood Gas Total CO2 37 mEq/l Bedside Blood Gas Base Excess (LAB) 12.0 meq/L Bedside Blood Gas O2 Saturation 95.0 % Bedside Hemoglobin 9.2 g/dl Bedside Hematocrit 27 % Bedside Sodium 136 mEq/L Bedside Potassium 4.0 mEq/L Bedside Chloride 96 mEq/L Bedside Total CO2 31 mEq/l Bedside Blood Urea Nitrogen 13 mg/dl Bedside Creatinine 0.7 mg/dl Bedside Glucose (other) 127 mg/dl Bedside Ionized Calcium (Mimi) 1.17 mmol/l Assessment & Plan 1. Bilateral pleural effusions, right larger than left, status post right VATS and lung partial decortication. Chest tubes 2 in situ, 300 mL of serosanguineous fluid, no ear leak with cough. We'll watch for any signs of pneumothorax. 2. Postoperative pain, we'll continue with Tylenol, morphine on as needed basis. 3. Respiratory insufficiency. Oxygen requirement is 2 L. 4. History of pulmonary fibrosis. 5. Coronary artery disease, status post recent CABG 3 vessels, status post bioprosthetic aortic valve replacement. 6. Marginal hypotension. Patient has history of congestive heart failure and cardiomyopathy. No obvious signs of fluid overload. We will treat patient with repeated boluses of 250 mL of normal saline. 7. Atrial fibrillation, controlled heart rate. We will restart metoprolol in the nearest future after improvement of hypotension. We'll hold lisinopril for now. Coumadin is on hold postoperatively. 8. Neurologically, patient is intact. 9. Renal function is adequate. We'll monitor urinary output, replace electrolytes accordingly. 10. ID: No obvious infection, perioperative antibiotics. 11. SCDs for DVT prophylaxis. I spent totally 32 minutes of critical care time.
[2017-03-10] MEDS ORDERED: VANCOMYCIN TROUGH ONE (17:30)
--- NOTE | 2017-03-10 17:56 | Progress Note ---
Subjective Date of Service: Mar 10, 2017. Subjective Pt evaluation today including: conversation w/ patient, physical exam, chart review, lab review, review of inpatient medication list Problem List Medical Problems: (1) Dyspnea on exertion Status: Acute (2) Early satiety Status: Acute (3) Generalized weakness Status: Acute (4) Pleural effusion Status: Acute Review of Systems Constitutional: + fatigue, No see HPI, No fever, No chills, No sweats, No weight loss, No weakness, No problem reported Eyes: No see HPI, No worsening of vision, No eye pain, No redness, No discharge , No diplopia, No problem reported ENT: No see HPI, No hearing loss, No unusual epistaxis, No nasal symptoms, No sore throat, No tinnitus, No dental problems, No trouble swallowing, No problem reported Respiratory: No see HPI, No cough, No sputum, No wheezing, No shortness of breath, No dyspnea on exertion, No dyspnea at rest, No hemoptysis, No problem reported Cardiac: No see HPI, No chest pain, No orthopnea, No PND, No edema, No claudication, No palpitations, No problem reported Abdomen: No see HPI, No pain, No nausea, No vomiting, No diarrhea, No constipation, No GI bleeding, No problem reported Musculoskeletal: No see HPI, No joint pain, No muscle pain, No swelling, No calf pain, No problem reported Neurologic: No see HPI, No memory loss, No paralysis, No weakness, No numbness/ tingling, No vertigo, No balance problems, No problem reported Psychiatric: No see HPI, No depression symptoms, No anhedonism, No anxiety, No insomnia, No substance abuse, No problem reported Heme: No see HPI, No abnormal bleeding/bruising, No clotting problems, No swollen lymph nodes, No night sweats, No problem reported Endo: No see HPI, No fatigue, No excessive thirst, No excessive urination, No problem reported Skin: No see HPI, No rash, No itch, No new/changing skin lesions, No color change, No bleeding, No problem reported Objective Vital Signs Date Time Temp Pulse Resp B/P (MAP) Pulse Ox O2 Delivery O2 Flow Rate FiO2 03/10/17 11:46 88 14 97 Nasal Cannula 2.0 03/10/17 11:00 97 Nasal Cannula 03/10/17 08:00 97 Nasal Cannula 2.0 03/10/17 07:45 19 03/10/17 07:40 36.7 98 44 103/63 (76) 97 Nasal Cannula 03/10/17 07:23 36.7 92 18 108/67 (81) 92 Nasal Cannula 2.0 03/10/17 00:13 36.8 90 18 102/68 (79) 92 2.0 03/10/17 00:00 Nasal Cannula 2.0 03/09/17 20:00 Nasal Cannula 2.0 Physical Exam General Appearance: + mild distress Eyes: normal inspection, EOMI ENT: normal ENT inspection, hearing grossly normal Neck: supple Respiratory/Chest: chest non-tender, lungs clear, normal breath sounds, no respiratory distress Cardiovascular: regular rate, rhythm, no edema, no gallop, no JVD, no murmur Abdomen: non tender, soft, no organomegaly, no pulsatile mass Extremities: normal range of motion, non-tender, normal inspection, no pedal edema Neurologic/Psychiatric: cps team lead II-XII nml as tested, no motor/sensory deficits, alert, normal mood/affect, oriented x 3 Skin: normal color, warm/dry, no rash Laboratory Results Last 24 Hours Test 03/10/17 06:10 03/10/17 12:59 03/10/17 13:04 03/10/17 17:16 White Blood Count 9.64 K/uL Red Blood Count 3.02 M/uL Hemoglobin 9.0 g/dL Hematocrit 28.5 % Mean Corpuscular Volume 94.4 fL Mean Corpuscular Hemoglobin 29.8 pg Mean Corpuscular Hemoglobin Concent 31.6 g/dl RDW Standard Deviation 48.5 fL RDW Coefficient of Variation 14.1 % Platelet Count 190 K/uL Mean Platelet Volume 8.1 fL Prothrombin Time 12.6 SECONDS Prothromb Time International Ratio 1.2 Sodium Level 136 mmol/L Potassium Level 4.2 mmol/L Chloride Level 97 mmol/L Carbon Dioxide Level 38 mmol/L Anion Gap 1.0 mmol/L 14.0 mmol/L Blood Urea Nitrogen 15 mg/dl Creatinine 0.78 mg/dl Est Creatinine Clear Calc Drug Dose 53.4 ml/min Estimated GFR () 96.7 Estimated GFR (Non- 83.5 BUN/Creatinine Ratio 19.8 Random Glucose 111 mg/dl Calcium Level 8.8 mg/dl Bedside Blood Gas pH (LAB) 7.47 Bedside Blood Gas pCO2 (LAB) 49 mmHg Bedside Blood Gas pO2 (LAB) 73 mmHg Bedside Blood Gas HCO3 (LAB) 36 meq/L Bedside Blood Gas Total CO2 37 mEq/l Bedside Blood Gas Base Excess (LAB) 12.0 meq/L Bedside Blood Gas O2 Saturation 95.0 % Bedside Hemoglobin 9.2 g/dl Bedside Hematocrit 27 % Bedside Sodium 136 mEq/L Bedside Potassium 4.0 mEq/L Bedside Chloride 96 mEq/L Bedside Total CO2 31 mEq/l Bedside Blood Urea Nitrogen 13 mg/dl Bedside Creatinine 0.7 mg/dl Bedside Glucose (other) 127 mg/dl Bedside Ionized Calcium (Mimi) 1.17 mmol/l Assessment and Plan Shortness of breath with bilateral pleural effusion concerning for empyema Pulmonary consolidation on CT scan most likely atelectasis but cannot rule out pneumonia Generalized weakness and failure to thrive Atrial fibrillation with RVR COPD without exacerbation CAD status post CABG in June 2016 Cardiomyopathy with ejection fraction 30-40% on echo Hyperthyroidism on methimazole Plan Cardiothoracic surgery consult appreciated VATS today Continue supportive care Continue holding Coumadin and aspirin until allowed by cardiothoracic surgeon Nutritional support Continue Vanco and Zosyn At Lactinex for clostridia difficile prophylaxis Continue bronchodilators, Lipitor, methimazole, and home meds Continued [facility] stay due to: multiple IV medications needed Discharge planning: custodial facility
[2017-03-10] MEDS ORDERED: SODIUM CHLORIDE 0.9% 250ML 250 ML IV STA (19:24)
--- NOTE | 2017-03-10 19:33 | CARDIOLOGY PROGRESS NOTE ---
DATE: 03/10/2017 TIME: 19:02 p.m. SUBJECTIVE: Mr. Olvera is currently in room #105 following his VATS procedure with decortication and partial pleurectomy. He states that he is sore in the surgical area. Shortness of breath is not improved, but rather remains stable. Denies palpitations. No reported syncope. No edema. His grandson is present at the bedside. OBJECTIVE: VITAL SIGNS: Most recent temperature is 36.7 degrees, heart rate 91 beats per minute, respiration rate 14, blood pressure 83/54 mmHg, oxygen saturation 99% on 2 liters per nasal cannula. I's and O's negative 404 mL. GENERAL: No acute distress. NECK: Jugular venous distention to just barely above the clavicle with his head elevated at nearly 30 degrees. CARDIAC: Irregularly irregular. Normal S1 and S2. No audible murmurs, rubs or gallops. LUNGS: Decreased breath sounds with faint crackles at the bases. ABDOMEN: Soft, nontender, nondistended. EXTREMITIES: No cyanosis or edema. Left radial arterial line in place. PSYCHIATRIC: Affect appears appropriate. MEDICATIONS: Include: 1. Lipitor 40 mg at bedtime. 2. Lovenox 40 mg subQ daily. 3. Aspirin has been discontinued. 4. Atorvastatin 40 mg at bedtime. 5. Metoprolol 100 mg p.o. b.i.d. 6. Remeron 30 mg at bedtime. 7. Methimazole 5 mg every other day. 8. Protonix 40 mg b.i.d. 9. Zosyn IV. 10. Potassium chloride 20 mEq p.o. t.i.d. 11. Normal saline 75 mL per hour. 12. Vancomycin IV. LABORATORY DATA: White blood cell count 9.64, hemoglobin 9, platelets 190. Sodium 136, potassium 4.2, BUN 15, creatinine 0.78. INR 1.2. IMAGING DATA: Telemetry personally reviewed. Atrial fibrillation. Chart reviewed. Chest x-ray report reviewed. Chest x-ray performed 03/10/2017 reported by radiology as status post evacuation right pleural effusion. Two right-sided chest tubes and a small right-sided pneumothorax, bilateral mid to lower lung zone airspace opacities persist. Trace left pleural effusion, unchanged. ASSESSMENT AND PLAN: 1. Hypotension: While in the room, his systolic blood pressure did improve to lower 90s. If his blood pressure becomes more hypotensive, would recommend intravenous fluids in the form of normal saline. Monitor for heart failure; however, he appears to be potentially hypovolemic currently, although he is receiving normal saline. If he requires bolus, would do so in lower amounts as needed. 2. Atrial fibrillation: Heart rate is reasonably controlled. Can continue beta vnice as blood pressure allows. Anticoagulation currently on hold due to the procedure earlier today. Would resume anticoagulation when safe from a surgical standpoint. 3. Coronary artery disease status post coronary artery bypass graft and percutaneous coronary intervention: Would recommend that aspirin not be held. Would resume aspirin as soon as agreeable from a surgical standpoint. Discontinuation of aspirin would place him at higher risk of instent thrombosis and acute myocardial infarction. Currently, no angina. Recommend high intensity statin therapy and beta vince. 4. Cardiomyopathy: Biventricular systolic dysfunction, but has declined further ischemic evaluation. Metoprolol succinate upon discharge in place of metoprolol tartrate at equivalent dosing. He did not tolerate lisinopril due to symptomatic hypotension. 5. Chronic systolic congestive heart failure: He is not hypervolemic. Continue to give IV fluids currently and may need intermittent bolusing of fluids if he becomes more hypotensive. 6. Bioprosthetic aortic valve: No recent issue. 7. Shortness of breath: Hopefully, he notices some improvement following today's procedure. As per primary service. 8. Disposition: The patient's care has been discussed with the critical care attending physician, Dr. Blake in regards to patient's blood pressure is potential need for more IV fluids, depending on his blood pressure. Cardiology will sign off at this time. Please call for any other questions or concerns. I will be away from the hospital for the next 3 days and therefore a further cardiology consultation is requested, please do not hesitate to call the on-call chainstitch elastic attacher from [facility].
[2017-03-10] MEDS: DOCUSATE SODIUM 100 MG CAP PO SCH (22:10)
[2017-03-10] MEDS: ATORVASTATIN 40 MG TAB PO SCH (23:22)
[2017-03-10] MEDS: TAMSULOSIN HCL 0.4 MG CAP PO SCH (23:22)
[2017-03-10] MEDS: MIRTAZAPINE TAB 15 MG TAB PO SCH (23:22)
[2017-03-10] MEDS: METOCLOPRAMIDE HCL INJ 5 MG/ML 2 ML VIAL IV. SCH (23:23)
[2017-03-11] VITALS (19 sets, daily range): BP systolic 85–133; BP diastolic 41–75; PULSE 85–130; TEMP 36.3–36.8; O2SAT 95–100
[2017-03-11] MEDS: OXYCODONE HCL IR 5 MG TAB (IMMEDIATE RELEASE) PO PRN (01:20)
[2017-03-11 05:49] LABS: BASO % 0.1 %; BASO ABS # 0.01 K/uL (0-0.2); EOS % 0.1 %; HEMATOCRIT 24.1 % (42-52); IG% 0.4 %; LYMPH % 12.7 %; LYMPH ABS # 1.73 K/uL (1.2-3.4); MEAN CELL VOLUME 92.3 fL (80-100); MEAN CORPUSCULAR HEMOGLOBIN 30.3 pg (25-34); MEAN CORPUSCULAR HGB CONC 32.8 g/dl (32-36); MEAN PLATELET VOLUME 8.3 fL (7.4-10.4); MONO % 10.2 %; NEUT % 76.5 %; PLATELET COUNT 146 K/uL (130-400); RED BLOOD COUNT 2.61 M/uL (4.7-6.1); WHITE BLOOD COUNT 13.57 K/uL (4.8-10.8)
[2017-03-11 05:57] LABS: INR 1.1 (0.9-1.1); PROTHROMBIN TIME (PATIENT) 11.8 SECONDS (9.0-12.0)
[2017-03-11] MEDS: METOCLOPRAMIDE HCL INJ 5 MG/ML 2 ML VIAL IV. SCH ×2 (06:08→13:18)
[2017-03-11] MEDS: SODIUM CHLORIDE 0.9% 1000ML 1,000 ML IV SCH ×2 (06:08→19:47)
[2017-03-11 06:25] LABS: COMPLETE YES
[2017-03-11 06:27] LABS: BUN/CREATININE RATIO 21.7 (10-20); CALCIUM 8.3 mg/dl (8.5-10.1); CREATININE 0.63 mg/dl (0.60-1.40); MAGNESIUM 1.9 mg/dl (1.8-2.4); POTASSIUM 4.3 mmol/L (3.5-5.1)
[2017-03-11 06:28] LABS: ALB/GLOB RATIO 0.5 (0.9-2); PHOSPHORUS 2.8 mg/dl (2.5-4.9)
[2017-03-11] MEDS: MoRPHine SULFATE 2 MG/ML CARP IV PRN ×5 (06:29→20:38)
--- NOTE | 2017-03-11 07:26 | DIAGNOSTIC IMAGING REPORT ---
CHEST ONE VIEW PORTABLE HISTORY: 81 years-old Male effusion atrial fibrillation with bilateral pleural effusions. COMPARISON: Chest radiograph 03/10/2017, chest CT 03/07/2017 TECHNIQUE: Portable upright AP view of the chest FINDINGS: Cardiac silhouette is moderately enlarged. Median sternotomy and aortic valve replacement. There is atherosclerosis of the aorta. Moderate biapical pleural-parenchymal scarring with background emphysema. Course and interstitial opacities throughout all lung zones favoring a perihilar and lateral distribution are unchanged. There are small bilateral pleural effusions, slightly increased in size on the right. There are 2 chest tubes within the right hemithorax projecting over the right lung apex and right lung base. Previously noted right pneumothorax is not clearly seen on today's study. Bones are grossly intact. Right greater than left lower lung zone alveolar opacities persist. IMPRESSION: 1. Unchanged position of two right-sided chest tubes. Previously noted small right pneumothorax is not clearly seen. 2. Small bilateral pleural effusions, likely increased in size on the right. 3. Cardiomegaly with emphysema, chronic interstitial coarsening and unchanged right greater than left lower lung zone alveolar opacities. The above report was generated using voice recognition software. It may contain grammatical, syntax or spelling errors. Electronically signed by: Nelson Harris M.D. 03/11/2017 7:24 AM Dictated Date/Time: 03/11/2017 7:20 AM
[2017-03-11] MEDS: ACETAMINOPHEN IV 1,000 MG in EMPTY BAG 0 ML IV SCH ×3 (07:43→23:17)
[2017-03-11] MEDS: DOCUSATE SODIUM 100 MG CAP PO SCH ×2 (07:46→20:22)
[2017-03-11] MEDS: PANTOprazole SOD 40 MG TAB PO SCH ×2 (07:46→20:22)
[2017-03-11] MEDS: ENOXAPARIN 40 MG/0.4 ML SYR SQ SCH (07:46)
[2017-03-11] MEDS: POTASSIUM CHLORIDE 20 MEQ TABCR PO SCH ×3 (07:46→20:23)
[2017-03-11] MEDS: BOOST VANILLA PO SCH ×4 (07:47→20:23)
[2017-03-11] MEDS ORDERED: VANCOMYCIN INJ 1,000 MG in SODIUM CHLORIDE 0.9% 250ML 250 ML IV ONE (08:00)
--- NOTE | 2017-03-11 08:00 | SURGERY PROGRESS NOTE ---
DATE: 03/11/2017 DATE: 03/11/2017 Mr. Olvera is seen 1 day status post a decortication and evacuation of pleural contents with limited pleurectomy. The patient has actually been stable overnight. His heart rate is up a bit, but his blood pressure has been stable. She is on 2 liters of O2 with 98% saturations. He has no air leak and his x-ray looks better. We drained very little fluid. At this point, I would transfuse him as his hemoglobin is 7.9. His blood pressure could also be a bit better, although he is not acidotic with carbon dioxide of 33. His BUN is 14 with a creatinine of 0.63. I am going to keep him in the unit for another day or two. He is a frail man, and I am hopeful that this helps him. He is awake and alert today.
[2017-03-11] MEDS: DRONABINOL 2.5 MG CAP PO SCH ×2 (08:07→20:21)
[2017-03-11] MEDS: MULTIVITAMIN TAB PO SCH (08:07)
[2017-03-11] MEDS: FERROUS GLUCONATE 324 MG TAB PO SCH (08:08)
[2017-03-11] MEDS: METOPROLOL TARTRATE 100 MG TAB PO SCH ×2 (08:08→20:22)
[2017-03-11] MEDS: FUROSEMIDE 40 MG TAB PO SCH (08:08)
[2017-03-11] MEDS: PIPERACILL/TAZOBAC IV 3.375 GM in DEXTROSE 5% 100ML IV SCH ×3 (08:09→23:16)
--- NOTE | 2017-03-11 08:10 | OPERATIVE REPORT ---
DATE OF OPERATION: 03/10/2017 PREOPERATIVE DIAGNOSIS: 1. Complicated right pleural effusion. 2. Status post aortic valve replacement, coronary bypass grafting 6 months ago. POSTOPERATIVE DIAGNOSIS: Same. PROCEDURE: 1. Right thoracoscopy with evacuation of pleural contents. 2. Limited decortication. 3. Limited pleurectomy. SURGEON: Dr. Patel. LICENSED REACTOR OPERATOR: Nicolas Gambino PA-C. ANESTHESIA: General anesthesia endotracheal intubation using double lumen tube. SPECIFICS OF PROCEDURE: Mr. Olvera arrived at the operating room on 03/10/2017. General anesthesia was induced and a double lumen endotracheal tube inserted without difficulty. Monitoring lines and José catheter were placed. The patient was then placed in left lateral decubitus position, his right chest was prepped and draped in the usual sterile fashion. The tip of the scapula I attempted to enter the pleural cavity but I had difficulty getting my Veress needle in and we really could not insufflate CO2. I then went anterior and made about a 3 cm incision and then got down bluntly where I could put my finger between the rib spaces without difficulty and I pushed away the lung and then placed a 5 mm scope. Using a Kitner and then cotton applicators we were able to bluntly push this away until I was able to get to the scapular tip again and put a 10 mm port. I then put the 10 mm 30-degree scope and then was able to put another port more anteriorly and much more inferiorly and then put a 10 mm port in above the diaphragm. With these ports in place we were then able to remove the pleural contents with suction and with forceps. I then did a pleurectomy, removed a large portion of the pleura. Bleeding was controlled with the Aquamantys. I then got all the way down the diaphragmatic sulcus and freed up the lung from the diaphragm. The middle lobe and the upper lobe looked quite good actually, however the lower lobe was completely encased in a very thick pleural peel. I attempted to remove this several times and only succeeded in ripping the lung. The lung did seem to expand after we removed all of the other fluid and freed up the lung anteriorly. It should be noted that there was no peel on the inferior aspect of the lower lobe and posteriorly under the vertebra bodies it was not really a peel but it was very thick laterally and anteriorly, however it appeared to me that this would fill the pleural cavity. Exparel 266 mg mixed with 60 mL of normal saline injected from the 2nd to 11th rib in an intercostal block. I then placed a 28 Taiwanese chest tube which was right angle tube was placed it towards the diaphragmatic sulcus. It was sutured in place with heavy silk suture. The inferior thoracostomy port was then used to place 24 Taiwanese chest tube towards the apex and sutured in place with heavy silk suture. There was an air leak, but it really was not an area which could be repaired. In addition, the patient was a bit labile and I wanted to get him off the table. We then closed the thoracoscopy incisions with 0 Vicryl for the muscle and 4-0 Monocryl to close the skin. He was able to be extubated and was transported back to the post-anesthesia care in stable condition. I attest to the content of the Intraoperative Record and any orders documented therein. Any exception s are noted below.
--- NOTE | 2017-03-11 08:26 | Anesthesiology Progress Note ---
Anesthesia Post Op Note Date & Time Mar 11, 2017 at 08:25 Vital Signs Pain Intensity: 6.0 Vital Signs Past 12 Hours Date Time Temp Pulse Resp B/P (MAP) Pulse Ox O2 Delivery O2 Flow Rate FiO2 03/11/17 06:00 110 16 111/54 (73) 99 Nasal Cannula 2.0 03/11/17 04:00 98 Nasal Cannula 2.0 03/11/17 04:00 36.4 105 16 102/57 (72) 98 Nasal Cannula 2.0 03/11/17 02:00 105 18 95/55 (68) 98 Nasal Cannula 2.0 03/11/17 00:00 36.3 101 16 92/56 (68) 100 Nasal Cannula 2.0 03/10/17 23:59 100 Nasal Cannula 2.0 03/10/17 22:00 91 105/61 (76) 99 Nasal Cannula 2.0 03/10/17 21:00 87 92/54 (67) 100 Nasal Cannula 2.0 Notes Mental Status: alert / awake / arousable, participated in evaluation Pt Amnestic to Procedure: Yes Nausea / Vomiting: adequately controlled Pain: adequately controlled Airway Patency, RR, SpO2: stable & adequate BP & HR: stable & adequate Hydration State: stable & adequate Anesthetic Complications: no major complications apparent
--- NOTE | 2017-03-11 10:45 | Pharmacy Progress Note ---
Pharmacy Abx Dose Short Note Date of Service Mar 11, 2017. Assessment & Plan Assessment 81 year old male receiving Vancomycin/Zosyn IV for treatment of empyema. Day # 4 of antimicrobial therapy. Of note, deescalation was discussed with packing machine operator on 03/09/17 and he did not want to deescalate based on clinical picture. Plan Vancomycin * Trough level of 9.4 mcg/mL is subtherapeutic * Trough level has been less than 15 mcg/mL since initiation of Vancomycin which is not an appropriate treatment level given indication * I am going to give an 18 mg/kg dose X 1 now, and increase ongoing regimen to 750 mg IV every 12 hours * If speaking in terms of "Days of therapy" - 03/11/17 should be considered Day 1 for Vancomycin/MRSA coverage as dosing has not been aggressive enough up to this point * Goal trough level for empyema: 15 to 20 mcg/mL * Trough level ordered for: 03/13/17 @0730 Zosyn * 3.375 g IV every 8 hours Pharmacy will continue to follow and will adjust dose/frequency as necessary. Thank you.
[2017-03-11] MEDS ORDERED: DEXTROSE 50% 50 ML SYR IV PRN (14:15)
[2017-03-11] MEDS ORDERED: GLUCAGON FOR INJ 1 MG VIAL SQ PRN (14:15)
[2017-03-11] MEDS ORDERED: GLUCOSE 10 TABS/TUBE PO PRN (14:15)
[2017-03-11] MEDS ORDERED: GLUCOSE 40% GEL 15 GM TUBE PO PRN (14:15)
[2017-03-11] MEDS: INSULIN ASPART 100 UNITS/ML 3 ML PEN SC SCH ×2 (16:00→20:25)
--- NOTE | 2017-03-11 16:54 | Progress Note ---
Subjective Date of Service: Mar 11, 2017. Subjective Pt evaluation today including: conversation w/ patient, physical exam, chart review, lab review, review of studies, review of inpatient medication list Problem List Medical Problems: (1) Dyspnea on exertion Status: Acute (2) Early satiety Status: Acute (3) Generalized weakness Status: Acute (4) Pleural effusion Status: Acute Review of Systems Constitutional: No see HPI, No fever, No chills, No sweats, No weight loss, No weakness, No fatigue, No problem reported Eyes: No see HPI, No worsening of vision, No eye pain, No redness, No discharge , No diplopia, No problem reported ENT: No see HPI, No hearing loss, No unusual epistaxis, No nasal symptoms, No sore throat, No tinnitus, No dental problems, No trouble swallowing, No problem reported Respiratory: + cough, No see HPI, No sputum, No wheezing, No shortness of breath, No dyspnea on exertion, No dyspnea at rest, No hemoptysis, No problem reported Cardiac: No see HPI, No chest pain, No orthopnea, No PND, No edema, No claudication, No palpitations, No problem reported Abdomen: No see HPI, No pain, No nausea, No vomiting, No diarrhea, No constipation, No GI bleeding, No problem reported Musculoskeletal: No see HPI, No joint pain, No muscle pain, No swelling, No calf pain, No problem reported Male : No see HPI, No dysuria, No urinary frequency, No incontinence, No nocturia more than once/night, No slowing stream, No hematuria, No sexual dysfunction, No problem reported Neurologic: No see HPI, No memory loss, No paralysis, No weakness, No numbness/ tingling, No vertigo, No balance problems, No problem reported Psychiatric: No see HPI, No depression symptoms, No anhedonism, No anxiety, No insomnia, No substance abuse, No problem reported Heme: No see HPI, No abnormal bleeding/bruising, No clotting problems, No swollen lymph nodes, No night sweats, No problem reported Endo: No see HPI, No fatigue, No excessive thirst, No excessive urination, No problem reported Skin: No see HPI, No rash, No itch, No new/changing skin lesions, No color change, No bleeding, No problem reported Objective Vital Signs Date Time Temp Pulse Resp B/P (MAP) Pulse Ox O2 Delivery O2 Flow Rate FiO2 03/11/17 16:00 36.3 88 101/51 (68) 99 Nasal Cannula 2.0 95/53 (67) 03/11/17 16:00 99 Nasal Cannula 2.0 03/11/17 14:00 86 16 111/57 (75) 100 Nasal Cannula 2.0 109/64 (79) 03/11/17 13:45 85 16 108/56 100 2.0 03/11/17 12:45 88 16 108/57 100 2.0 03/11/17 12:00 Nasal Cannula 2.0 03/11/17 12:00 36.8 104 16 113/56 (75) 100 Nasal Cannula 2.0 103 03/11/17 11:45 109 18 117/53 100 2.0 03/11/17 10:45 98 16 85/41 100 2.0 03/11/17 10:30 36.6 98 46 106/46 100 2.0 03/11/17 10:14 36.8 96 18 105/44 100 2.0 03/11/17 10:00 105 16 112/57 (75) 100 Nasal Cannula 2.0 03/11/17 08:00 Nasal Cannula 2.0 03/11/17 08:00 36.5 130 16 128/54 (78) 95 Nasal Cannula 2.0 116/59 (78) 03/11/17 06:00 110 16 111/54 (73) 99 Nasal Cannula 2.0 03/11/17 04:00 98 Nasal Cannula 2.0 03/11/17 04:00 36.4 105 16 102/57 (72) 98 Nasal Cannula 2.0 03/11/17 02:00 105 18 95/55 (68) 98 Nasal Cannula 2.0 03/11/17 00:00 36.3 101 16 92/56 (68) 100 Nasal Cannula 2.0 03/10/17 23:59 100 Nasal Cannula 2.0 03/10/17 22:00 91 105/61 (76) 99 Nasal Cannula 2.0 03/10/17 21:00 87 92/54 (67) 100 Nasal Cannula 2.0 03/10/17 20:00 36.9 79 77/51 (60) 100 Nasal Cannula 2.0 03/10/17 20:00 Nasal Cannula 2.0 10/19/17 18:15 91 83/54 (64) 99 Nasal Cannula 2.0 03/10/17 18:01 83 91/45 (60) 100 03/10/17 18:00 82 22/17 (19) 100 03/10/17 17:45 90 103/51 (68) 03/10/17 17:30 88 90/44 (59) 98 03/10/17 17:15 83 100 03/10/17 17:01 97 101/51 (68) 99 03/10/17 17:00 83 35/30 (32) 99 03/10/17 16:45 90 97/51 (66) 98 Nasal Cannula 4.0 Physical Exam General Appearance: WD/WN, no apparent distress Eyes: normal inspection, EOMI ENT: normal ENT inspection, hearing grossly normal Neck: supple Respiratory/Chest: + decreased breath sounds, + crackles, + rhonchi Cardiovascular: regular rate, rhythm, no edema, no gallop, no JVD, no murmur Abdomen: non tender, soft, no organomegaly Extremities: normal range of motion, non-tender, normal inspection, no pedal edema Neurologic/Psychiatric: cashier tube room II-XII nml as tested, no motor/sensory deficits, alert, normal mood/affect, oriented x 3 Skin: normal color, warm/dry, no rash Laboratory Results Last 24 Hours Test 03/10/17 17:16 03/10/17 22:07 03/10/17 23:47 03/11/17 05:28 Vancomycin Level Trough 9.4 mcg/ml Bedside Glucose 178 mg/dl 182 mg/dl White Blood Count 13.57 K/uL Red Blood Count 2.61 M/uL Hemoglobin 7.9 g/dL Hematocrit 24.1 % Mean Corpuscular Volume 92.3 fL Mean Corpuscular Hemoglobin 30.3 pg Mean Corpuscular Hemoglobin Concent 32.8 g/dl Platelet Count 146 K/uL Mean Platelet Volume 8.3 fL Neutrophils (%) (Auto) 76.5 % Lymphocytes (%) (Auto) 12.7 % Monocytes (%) (Auto) 10.2 % Eosinophils (%) (Auto) 0.1 % Basophils (%) (Auto) 0.1 % Neutrophils # (Auto) 10.39 K/uL Lymphocytes # (Auto) 1.73 K/uL Monocytes # (Auto) 1.38 K/uL Eosinophils # (Auto) 0.01 K/uL Basophils # (Auto) 0.01 K/uL RDW Standard Deviation 49.1 fL RDW Coefficient of Variation 14.5 % Immature Granulocyte % (Auto) 0.4 % Immature Granulocyte # (Auto) 0.05 K/uL Red Blood Cell Morphology Unremarkable Prothrombin Time 11.8 SECONDS Prothromb Time International Ratio 1.1 Sodium Level 137 mmol/L Potassium Level 4.3 mmol/L Chloride Level 103 mmol/L Carbon Dioxide Level 33 mmol/L Anion Gap 1.0 mmol/L Blood Urea Nitrogen 14 mg/dl Creatinine 0.63 mg/dl Est Creatinine Clear Calc Drug Dose 66.1 ml/min Estimated GFR () 105.6 Estimated GFR (Non- 91.1 BUN/Creatinine Ratio 21.7 Random Glucose 105 mg/dl Calcium Level 8.3 mg/dl Phosphorus Level 2.8 mg/dl Magnesium Level 1.9 mg/dl Total Bilirubin 0.4 mg/dl Aspartate Amino Transf (AST/SGOT) 29 U/L Alanine Aminotransferase (ALT/SGPT) 20 U/L Alkaline Phosphatase 69 U/L Total Protein 6.5 gm/dl Albumin 2.2 gm/dl Globulin 4.3 gm/dl Albumin/Globulin Ratio 0.5 Test 03/11/17 05:33 03/11/17 11:46 Bedside Glucose 114 mg/dl 207 mg/dl Assessment and Plan Shortness of breath with bilateral pleural effusion concerning for empyema Pulmonary consolidation on CT scan most likely atelectasis but cannot rule out pneumonia Generalized weakness and failure to thrive Atrial fibrillation with RVR COPD without exacerbation Acute blood loss anemia CAD status post CABG in June 2016 Cardiomyopathy with ejection fraction 30-40% on echo Hyperthyroidism on methimazole Plan Cardiothoracic surgery consult appreciated S/P decortication and evacuation of pleural contents with limited pleurectomy. Continue supportive care, cardiothoracic recommended blood transfusion Continue holding Coumadin and aspirin until allowed by cardiothoracic surgeon, only on Lovenox for DVT prophylaxis Nutritional support Continue Vanco and Zosyn add Lactinex for clostridia difficile prophylaxis Continue bronchodilators, Lipitor, methimazole, and home meds Continued [facility] stay due to: multiple IV medications needed [facility]
[2017-03-11] MEDS ORDERED: VANCOMYCIN TROUGH ONE (17:30)
--- NOTE | 2017-03-11 19:07 | Critical Care Progress Note ---
Critical Care Progress Note Date of Service Mar 11, 2017. Attending Dr. Hayden Worrell I personally examined this patient, reviewed his clinical and laboratory data, interpreted his chest x-ray and formulated further plan of care. In summary, the patient is a 81-year-old gentleman with complex medical history including coronary artery disease, recent CABG and bioprosthetic aortic valve replacement, moderate left ventricular dysfunction, chronic atrial fibrillation, bilateral pleural effusions, abdominal aortic aneurysm status post repair, COPD, hypertension. Patient presented to [facility] on 03/05/2017 complaining of weakness and shortness of breath. He stated that since his 3 vessel CABG and by prostatic aortic valve replacement 6 months ago he lost around 40 pounds of weight, complaining of shortness of breath and failure to thrive. Thoracic surgical consultation was obtained after CT scan revealed bilateral pleural effusions. Patient was taken to operating room for VATS procedure and partial decortication. Estimated blood loss 150 mL. Patient was transfused with 1 unit of packed RBCs in the setting of hypotension requiring John- Synephrine administration. Preoperatively patient required 2 L of oxygen per nasal cannula. Patient was extubated the postoperatively to 2 L of nasal cannula. Patient was transferred critically ill to the surgical intensive care unit because of frailty, multiple medical problems and high risk for further respiratory deterioration. Patient remained marginal hypotensive overnight, required fluid bolus administration. Right-sided incisional chest pain, adequate control. No chest tightness. Mild to moderate shortness of breath. Weak cough. Objective General: Frail elderly gentleman who is semisitting in the bed. He appears to be relatively comfortable Head was atraumatic, normocephalic, pupils were equal, round, reactive to light. Neck: No JVD, no carotid bruit, no lymphadenopathy. Cardiac: Irregularly irregular. Normal S1 and S2. No audible murmurs, rubs or gallops. Chest: Slightly decreased breath sounds at the bases, few crackles at the bases. No wheezing. There are 2 chest tubes, Pleurx catheter, minimal serosanguineous drainage since yesterday. No cough leak with cough. Abdomen: Soft, nontender, nondistended. Bowel sounds are present. Extremities: No cyanosis or edema. Left radial arterial line in place. No calf tenderness. Neurology: Alert and oriented 3. Generally weak, equal muscle strength in all 4 extremities. Psychiatric: Appropriate affect. Assessment & Plan 1. POD # 1 sp right VATS and lung partial decortication for pleural effusion. Chest tubes 2 in situ, Peridex catheter, minimal drainage. No ear leak with cough. 2. Postoperative pain, we'll continue with Tylenol, morphine on as needed basis. 3. Respiratory insufficiency. Oxygen requirement is 2 L. 4. History of pulmonary fibrosis. 5. Coronary artery disease, status post recent CABG 3 vessels, status post bioprosthetic aortic valve replacement. 6. Marginal hypotension has been improving. Patient required fluid bolus over the night. We'll treat anemia with 1 unit of packed RBCs in the setting of marginal hemodynamic stability. 7. Atrial fibrillation, controlled heart rate. We'll continue with metoprolol as long as hemodynamics allow 8. Neurologically, patient is intact. 9. Renal function is adequate. We'll monitor urinary output, replace electrolytes accordingly. 10. ID: Suspected empyema on vancomycin and Zosyn. Vanco day #1 (previous levels were subtherapeutic). 11. GI: Poor appetite. Patient was started on Marinol. Postprandial nausea, abdomen was soft and nontender. 12. Hyperthyroidism on methimazole. Will check TSH. 13. SCDs and Lovenox subcutaneous for DVT prophylaxis. I spent totally 32 minutes of critical care time. PENOBSCOT II Score Date Score Was Generated: Mar 12, 2017 Consults & Procedures Consultants: Pulmonary: Thoracic surgery, critical care medicine. Procedures: Right-sided VAT's, partial pleurectomy, chest tube 2, Pleurx catheter on 2016. Arterial line placement intraoperatively. Data Medications: Current Inpatient Medications Medications (Trade) Dose Ordered Sig/Jarett Route Start Time Stop Time Status Last Admin Dose Admin Acetaminophen (Tylenol Tab) 650 mg Q4H PRN PO 03/05/17 18:45 04/04/17 18:44 Future Hold 03/10/17 00:06 650 MG Nitroglycerin (Nitrostat Tab) 0.4 mg UD PRN SL 03/05/17 18:45 04/04/17 18:44 Atorvastatin Calcium (Lipitor Tab) 40 mg HS PO 03/05/17 21:00 04/04/17 20:59 03/10/17 23:22 40 MG Ferrous Gluconate (Ferrous Gluconate Tab) 324 mg DAILY PO 03/06/17 09:00 04/05/17 08:59 03/11/17 08:08 324 MG Methimazole (Methimazole Tab) 5 mg Q2D@0900 PO 03/06/17 09:00 04/05/17 08:59 03/08/17 08:15 5 MG Multivitamins (Multivitamin Tab) 1 tab DAILY PO 03/06/17 09:00 04/05/17 08:59 03/11/17 08:07 1 TAB Potassium Chloride (Klor-Con Tab) 20 meq TID PO 03/05/17 21:00 04/04/17 20:59 03/11/17 13:18 20 MEQ Albuterol (Ventolin Hfa Inhaler) 2 puffs Q4H PRN INH 03/05/17 18:45 04/04/17 18:44 Mirtazapine (Remeron Tab) 30 mg HS PO 03/05/17 21:00 04/04/17 20:59 03/10/17 23:22 30 MG Pantoprazole Sodium (Protonix Tab) 40 mg BID PO 03/05/17 21:00 04/04/17 20:59 03/11/17 07:46 40 MG Tamsulosin HCl (Flomax Cap) 0.4 mg HS PO 03/05/17 21:00 04/05/17 08:59 03/10/17 23:22 0.4 MG Metoprolol Tartrate (Lopressor Tab) 100 mg BID PO 03/07/17 09:00 04/06/17 08:59 03/11/17 08:08 100 MG Al Hydrox/Mg Hydrox/Simethicone (Maalox Max Susp) 15 ml Q4H PRN PO 03/07/17 03:00 04/06/17 02:59 Furosemide (Lasix Tab) 40 mg QAM PO 03/07/17 09:00 04/06/17 08:59 Future hold 03/11/17 08:08 40 MG Vancomycin HCl (Consult) 1 ea UD PRN N/A 03/07/17 17:45 04/06/17 17:44 Piperacillin Sod/ Tazobactam Sod (Consult) 1 ea UD PRN N/A 03/07/17 18:00 04/06/17 17:59 Piperacillin Sod/ Tazobactam Sod 3.375 gm/Dextrose 115 ml @ 28.75 mls/ hr Q8H IV 03/08/17 00:00 03/15/17 00:00 03/11/17 15:34 28.75 MLS/HR Enteral Nutritional Formula (Boost) 1 can BID PO 03/08/17 21:00 04/07/17 20:59 03/11/17 07:47 1 CAN Dronabinol (Marinol Cap) 10 mg BID PO 03/09/17 21:00 04/08/17 20:59 03/11/17 08:07 10 MG Acetaminophen 1000 mg/Empty Bag 100 ml @ 400 mls/hr Q8H IV 03/10/17 16:00 04/09/17 15:59 03/11/17 15:34 400 MLS/HR Oxycodone HCl (Roxicodone Immediate Rel Tab) 5 mg Q6H PRN PO 03/10/17 14:45 03/24/17 14:44 03/11/17 01:20 5 MG Enoxaparin Sodium (Lovenox Inj) 40 mg DAILY SQ 03/11/17 09:00 04/10/17 08:59 03/11/17 07:46 40 MG Ondansetron HCl (Zofran Inj) 4 mg Q4H PRN IV 03/10/17 14:45 04/09/17 14:44 Docusate Sodium (coLACE CAP) 100 mg BID PO 03/10/17 21:00 04/09/17 20:59 03/11/17 07:46 100 MG Metoclopramide HCl (Reglan Inj) 10 mg Q8 IV. 03/10/17 22:00 03/11/17 21:59 03/11/17 13:18 10 MG Morphine Sulfate (MoRPHine SULFATE INJ) Q1H PRN IV 03/10/17 14:45 03/24/17 14:44 03/11/17 18:26 2 MG Sodium Chloride 1,000 ml @ 75 mls/hr [id number] IV 03/10/17 03:15 04/09/17 03:14 03/11/17 06:08 75 MLS/HR Vancomycin HCl 750 mg/Sodium Chloride 265 ml @ 125 mls/hr Q12H IV 03/11/17 20:00 03/13/17 23:59 Glucose (Glucose 40% Gel) 15-30 GRAMS 15 GRAMS... UD PRN PO 03/11/17 14:15 04/10/17 14:14 Glucose (Glucose Chew Tab) 4-8 Tablets 4 Tabl... UD PRN PO 03/11/17 14:15 04/10/17 14:14 Dextrose (Dextrose 50% 50ML Syringe) 25-50ML OF 50% DW IV FOR... UD PRN IV 03/11/17 14:15 04/10/17 14:14 Glucagon (Glucagon Inj) 1 mg UD PRN SQ 03/11/17 14:15 04/10/17 14:14 Insulin Aspart (novoLOG ASPART) SLIDING SCALE ACHS SC 03/11/17 16:00 04/10/17 15:59 Lactobacillus Acidophilus (Lactinex Granules Pack) 2 gm TIDM PO 03/12/17 07:15 04/11/17 07:14 I & O: 24-Hour Column 03/12/17 08:00 Intake Total 2137 ml Output Total 620 ml Balance 1517 ml Vital Signs: Date Time Temp Pulse Resp B/P (MAP) Pulse Ox O2 Delivery O2 Flow Rate FiO2 03/11/17 18:22 98 103/54 (70) 98 Nasal Cannula 2.0 133/75 (94) 03/11/17 16:00 36.3 88 101/51 (68) 99 Nasal Cannula 2.0 95/53 (67) 03/11/17 16:00 99 Nasal Cannula 2.0 03/11/17 14:00 86 16 111/57 (75) 100 Nasal Cannula 2.0 109/64 (79) 03/11/17 13:45 85 16 108/56 100 2.0 03/11/17 12:45 88 16 108/57 100 2.0 03/11/17 12:00 Nasal Cannula 2.0 03/11/17 12:00 36.8 104 16 113/56 (75) 100 Nasal Cannula 2.0 103 03/11/17 11:45 109 18 117/53 100 2.0 03/11/17 10:45 98 16 85/41 100 2.0 03/11/17 10:30 36.6 98 46 106/46 100 2.0 03/11/17 10:14 36.8 96 18 105/44 100 2.0 03/11/17 10:00 105 16 112/57 (75) 100 Nasal Cannula 2.0 03/11/17 08:00 Nasal Cannula 2.0 03/11/17 08:00 36.5 130 16 128/54 (78) 95 Nasal Cannula 2.0 116/59 (78) 03/11/17 06:00 110 16 111/54 (73) 99 Nasal Cannula 2.0 03/11/17 04:00 98 Nasal Cannula 2.0 03/11/17 04:00 36.4 105 16 102/57 (72) 98 Nasal Cannula 2.0 03/11/17 02:00 105 18 95/55 (68) 98 Nasal Cannula 2.0 03/11/17 00:00 36.3 101 16 92/56 (68) 100 Nasal Cannula 2.0 03/10/17 23:59 100 Nasal Cannula 2.0 03/10/17 22:00 91 105/61 (76) 99 Nasal Cannula 2.0 03/10/17 21:00 87 92/54 (67) 100 Nasal Cannula 2.0 03/10/17 20:00 36.9 79 77/51 (60) 100 Nasal Cannula 2.0 03/10/17 20:00 Nasal Cannula 2.0 Laboratory Results: Last 24 Hours Test 03/10/17 22:07 03/10/17 23:47 03/11/17 05:28 03/11/17 05:33 Bedside Glucose 178 mg/dl 182 mg/dl 114 mg/dl White Blood Count 13.57 K/uL Red Blood Count 2.61 M/uL Hemoglobin 7.9 g/dL Hematocrit 24.1 % Mean Corpuscular Volume 92.3 fL Mean Corpuscular Hemoglobin 30.3 pg Mean Corpuscular Hemoglobin Concent 32.8 g/dl Platelet Count 146 K/uL Mean Platelet Volume 8.3 fL Neutrophils (%) (Auto) 76.5 % Lymphocytes (%) (Auto) 12.7 % Monocytes (%) (Auto) 10.2 % Eosinophils (%) (Auto) 0.1 % Basophils (%) (Auto) 0.1 % Neutrophils # (Auto) 10.39 K/uL Lymphocytes # (Auto) 1.73 K/uL Monocytes # (Auto) 1.38 K/uL Eosinophils # (Auto) 0.01 K/uL Basophils # (Auto) 0.01 K/uL RDW Standard Deviation 49.1 fL RDW Coefficient of Variation 14.5 % Immature Granulocyte % (Auto) 0.4 % Immature Granulocyte # (Auto) 0.05 K/uL Red Blood Cell Morphology Unremarkable Prothrombin Time 11.8 SECONDS Prothromb Time International Ratio 1.1 Sodium Level 137 mmol/L Potassium Level 4.3 mmol/L Chloride Level 103 mmol/L Carbon Dioxide Level 33 mmol/L Anion Gap 1.0 mmol/L Blood Urea Nitrogen 14 mg/dl Creatinine 0.63 mg/dl Est Creatinine Clear Calc Drug Dose 66.1 ml/min Estimated GFR () 105.6 Estimated GFR (Non- 91.1 BUN/Creatinine Ratio 21.7 Random Glucose 105 mg/dl Calcium Level 8.3 mg/dl Phosphorus Level 2.8 mg/dl Magnesium Level 1.9 mg/dl Total Bilirubin 0.4 mg/dl Aspartate Amino Transf (AST/SGOT) 29 U/L Alanine Aminotransferase (ALT/SGPT) 20 U/L Alkaline Phosphatase 69 U/L Total Protein 6.5 gm/dl Albumin 2.2 gm/dl Globulin 4.3 gm/dl Albumin/Globulin Ratio 0.5 Test 03/11/17 11:46 03/11/17 15:58 Bedside Glucose 207 mg/dl 145 mg/dl
[2017-03-11] MEDS: VANCOMYCIN INJ 750 MG in SODIUM CHLORIDE 0.9% 250ML 250 ML IV SCH (19:47)
[2017-03-11] MEDS: MIRTAZAPINE TAB 15 MG TAB PO SCH (20:21)
[2017-03-11] MEDS: ATORVASTATIN 40 MG TAB PO SCH (20:22)
[2017-03-11] MEDS: TAMSULOSIN HCL 0.4 MG CAP PO SCH (20:23)
[2017-03-12] VITALS (29 sets, daily range): BP systolic 71–144; BP diastolic 39–82; PULSE 79–134; TEMP 36.4–36.6; O2SAT 79–98
[2017-03-12] MEDS: OXYCODONE HCL IR 5 MG TAB (IMMEDIATE RELEASE) PO PRN ×2 (02:00→09:40)
[2017-03-12 03:29] LABS: REFERENCE QUEST TEST REPORT
[2017-03-12] MEDS: MoRPHine SULFATE 2 MG/ML CARP IV PRN ×2 (04:09→10:38)
[2017-03-12 06:34] LABS: BASO % 0.2 %; BASO ABS # 0.03 K/uL (0-0.2); EOS % 1.4 %; HEMATOCRIT 28.2 % (42-52); IG% 0.5 %; LYMPH % 20.2 %; LYMPH ABS # 2.68 K/uL (1.2-3.4); MEAN CELL VOLUME 92.8 fL (80-100); MEAN CORPUSCULAR HEMOGLOBIN 29.3 pg (25-34); MEAN CORPUSCULAR HGB CONC 31.6 g/dl (32-36); MEAN PLATELET VOLUME 8.2 fL (7.4-10.4); MONO % 11.8 %; NEUT % 65.9 %; PLATELET COUNT 175 K/uL (130-400); RED BLOOD COUNT 3.04 M/uL (4.7-6.1); WHITE BLOOD COUNT 13.27 K/uL (4.8-10.8)
--- NOTE | 2017-03-12 07:03 | SURGERY PROGRESS NOTE ---
DATE: 03/12/2017 Mr. Olvera looks quite good today. He is sitting up in the chair. He states his pain has been better controlled and he has a better cough. He is actually moving air very well. I do have a concern that his saturations dropped a bit. We have had to up on his oxygen but he looks better than I have seen him. His x-ray shows full expansion of his lung with very little in the way of pleural fluid. ASSESSMENT AND PLAN: I would continue with our current therapy as I think we would probably be going to be removing his chest tube in the next day or two. AMANDA
[2017-03-12 07:12] LABS: COMPLETE YES
[2017-03-12 07:38] LABS: ALB/GLOB RATIO 0.4 (0.9-2); BUN/CREATININE RATIO 17.3 (10-20); CALCIUM 8.2 mg/dl (8.5-10.1); CREATININE 0.57 mg/dl (0.60-1.40); MAGNESIUM 1.7 mg/dl (1.8-2.4); PHOSPHORUS 1.6 mg/dl (2.5-4.9); POTASSIUM 3.6 mmol/L (3.5-5.1)
[2017-03-12] MEDS: INSULIN ASPART 100 UNITS/ML 3 ML PEN SC SCH ×4 (07:39→20:57)
[2017-03-12] MEDS: LACTOBACILLUS ACIDOPHILUS 1 GM PACK PO SCH ×3 (07:43→16:27)
[2017-03-12] MEDS: ACETAMINOPHEN IV 1,000 MG in EMPTY BAG 0 ML IV SCH ×3 (07:45→23:17)
[2017-03-12] MEDS: VANCOMYCIN INJ 750 MG in SODIUM CHLORIDE 0.9% 250ML 250 ML IV SCH ×2 (07:45→19:18)
[2017-03-12] MEDS: PIPERACILL/TAZOBAC IV 3.375 GM in DEXTROSE 5% 100ML IV SCH ×3 (07:46→23:17)
[2017-03-12] MEDS: METHIMAZOLE 5 MG TAB PO SCH (07:47)
[2017-03-12] MEDS: FERROUS GLUCONATE 324 MG TAB PO SCH (07:47)
[2017-03-12] MEDS: DOCUSATE SODIUM 100 MG CAP PO SCH ×2 (07:47→20:52)
[2017-03-12] MEDS: BOOST VANILLA PO SCH ×4 (07:47→20:52)
[2017-03-12] MEDS: MULTIVITAMIN TAB PO SCH (07:47)
[2017-03-12] MEDS: METOPROLOL TARTRATE 100 MG TAB PO SCH ×2 (07:48→07:51)
[2017-03-12] MEDS: POTASSIUM CHLORIDE 20 MEQ TABCR PO SCH ×3 (07:48→20:53)
[2017-03-12] MEDS: FUROSEMIDE 40 MG TAB PO SCH (07:48)
[2017-03-12] MEDS: PANTOprazole SOD 40 MG TAB PO SCH ×2 (07:48→20:53)
[2017-03-12] MEDS: ENOXAPARIN 40 MG/0.4 ML SYR SQ SCH (07:49)
--- NOTE | 2017-03-12 08:16 | DIAGNOSTIC IMAGING REPORT ---
SINGLE VIEW CHEST CLINICAL HISTORY: Dyspnea. FINDINGS: An AP, portable, upright chest radiograph is compared to study dated 03/11/2017 and correlated with chest CT dated 03/07/2017. The examination is degraded by portable technique and patient rotation. The patient is status post midline sternotomy. The heart is enlarged and there is atherosclerotic calcification of the thoracic aorta. There is pulmonary vascular congestion. Emphysema and chronic interstitial thickening are similar to previous. 2 right-sided chest tubes are unchanged in position. No definite pneumothorax is seen. Airspace consolidation is again seen throughout the right lung and in the left lower lung. Small layering pleural effusions persist. The skeletal structures are osteopenic. The bony thorax is grossly intact. Calcific tendinopathy is noted in the left shoulder. IMPRESSION: 1. Two right-sided chest tubes are unchanged in position. No pneumothorax is clearly seen. 2. Cardiomegaly and emphysema with mild pulmonary vascular congestion. 3. Small layering pleural effusions persist. 4. Patchy airspace consolidation is seen throughout the right lung and in the left lower lung. Correlate clinically for evidence of pneumonia. Electronically signed by: Quang Resendez M.D. 03/12/2017 8:15 AM Dictated Date/Time: 03/12/2017 8:11 AM
[2017-03-12] MEDS: SODIUM CHLORIDE 0.9% 1000ML 1,000 ML IV SCH (08:35)
[2017-03-12] MEDS: DRONABINOL 2.5 MG CAP PO SCH ×2 (08:59→20:52)
[2017-03-12] MEDS ORDERED: SODIUM PHOSPHATE 3 MMOL/1 ML INFUSION IV STA (11:21)
[2017-03-12] MEDS ORDERED: KETOROLAC TROMETHAMINE 15 MG/ML VIAL IV STA (11:40)
--- NOTE | 2017-03-12 11:40 | Critical Care Progress Note ---
Critical Care Progress Note Date of Service Mar 12, 2017. Attending Dr. Hayden Worrell I personally examined this patient, reviewed his clinical and laboratory data, interpreted his chest x-ray and formulated further plan of care. In summary, the patient is a 81-year-old gentleman with complex medical history including coronary artery disease, recent CABG and bioprosthetic aortic valve replacement, moderate left ventricular dysfunction, chronic atrial fibrillation, bilateral pleural effusions, abdominal aortic aneurysm status post repair, COPD, hypertension. Patient presented to [facility] on 03/05/2017 complaining of weakness and shortness of breath. He stated that since his 3 vessel CABG and by prostatic aortic valve replacement 6 months ago he lost around 40 pounds of weight, complaining of shortness of breath and failure to thrive. Thoracic surgical consultation was obtained after CT scan revealed bilateral pleural effusions. Patient was taken to operating room for VATS procedure and partial decortication. Estimated blood loss 150 mL. Patient was transfused with 1 unit of packed RBCs in the setting of hypotension requiring John- Synephrine administration. Preoperatively patient required 2 L of oxygen per nasal cannula. Patient was extubated the postoperatively to 2 L of nasal cannula. Patient was transferred critically ill to the surgical intensive care unit because of frailty, multiple medical problems and high risk for further respiratory deterioration. 03/11- Patient remained marginal hypotensive overnight, required fluid bolus administration. Right-sided incisional chest pain, adequate control. No chest tightness. Mild to moderate shortness of breath. Weak cough. 03/12- normal saline 250 mL bolus overnight for hypotension. Poor appetite, postprandial nausea. Incisional chest pain requiring addition of ketorolac. Weak cough. No chest tightness. No fever, no chills. Objective General: Frail elderly gentleman who is sitting in the bed and eating breakfast. He appears to be relatively comfortable. Patient spent some time sitting in the chair. Head was atraumatic, normocephalic, pupils were equal, round, reactive to light. Neck: No JVD, no carotid bruit, no lymphadenopathy. Cardiac: Irregularly irregular. Normal S1 and S2. No audible murmurs, rubs or gallops. Chest: Slightly decreased breath sounds at the bases, few crackles at the bases. No wheezing. There are 2 chest tubes, Pleurx catheter, minimal serosanguineous drainage since yesterday. No cough leak with cough. Abdomen: Soft, nontender, nondistended. Bowel sounds are present. Extremities: No cyanosis or edema. Left radial arterial line in place. No calf tenderness. Neurology: Alert and oriented 3. Generally weak, equal muscle strength in all 4 extremities. Psychiatric: Appropriate affect. Assessment & Plan 1. POD # 2 sp right VATS and lung partial decortication for pleural effusion. Chest tubes 2 in situ, Peridex catheter, minimal drainage. No ear leak with cough. 2. Postoperative pain, we'll continue with Tylenol, oxycodone. 1 dose of ketorolac. 3. Respiratory insufficiency. Oxygen requirement is 2 L. 4. History of pulmonary fibrosis. 5. Coronary artery disease, status post recent CABG 3 vessels, status post bioprosthetic aortic valve replacement. 6. Marginal hypotension has been improving. Over the night normal saline 250 mL bolus for hypotension. 7. Atrial fibrillation, controlled heart rate. We'll continue with metoprolol as long as hemodynamics allow. 8. Anemia, status post 1 unit of packed RBCs yesterday with appropriate hemoglobin elevation. 9. Renal function is adequate. We'll replace hypokalemia, hypomagnesemia and hypophosphatemia appropriately. 10. ID: Suspected empyema on vancomycin and Zosyn. Vanco day #2 (previous levels were subtherapeutic). We'll await for cultures. 11. GI: Poor appetite, started on Marinol. Postprandial nausea, abdomen was soft and nontender. 12. Hyperthyroidism on methimazole. TSH is pending. 13. SCDs and Lovenox subcutaneous for DVT prophylaxis. I spent totally 32 minutes of critical care time. [facility] II Score Date Score Was Generated: Mar 12, 2017 Consults & Procedures Consultants: Pulmonary: Thoracic surgery, critical care medicine. Procedures: Right-sided VAT's, partial pleurectomy, chest tube 2, Pleurx catheter on 2016. Arterial line placement intraoperatively. Data Medications: Current Inpatient Medications Medications (Trade) Dose Ordered Sig/Jarett Route Start Time Stop Time Status Last Admin Dose Admin Acetaminophen (Tylenol Tab) 650 mg Q4H PRN PO 03/05/17 18:45 04/04/17 18:44 Future Hold 03/10/17 00:06 650 MG Nitroglycerin (Nitrostat Tab) 0.4 mg UD PRN SL 03/05/17 18:45 04/04/17 18:44 Atorvastatin Calcium (Lipitor Tab) 40 mg HS PO 03/05/17 21:00 04/04/17 20:59 03/11/17 20:22 40 MG Ferrous Gluconate (Ferrous Gluconate Tab) 324 mg DAILY PO 03/06/17 09:00 04/05/17 08:59 03/12/17 07:47 324 MG Methimazole (Methimazole Tab) 5 mg Q2D@0900 PO 03/06/17 09:00 04/05/17 08:59 03/12/17 07:47 5 MG Multivitamins (Multivitamin Tab) 1 tab DAILY PO 03/06/17 09:00 04/05/17 08:59 03/12/17 07:47 1 TAB Potassium Chloride (Klor-Con Tab) 20 meq TID PO 03/05/17 21:00 04/04/17 20:59 03/12/17 07:48 20 MEQ Albuterol (Ventolin Hfa Inhaler) 2 puffs Q4H PRN INH 03/05/17 18:45 04/04/17 18:44 Mirtazapine (Remeron Tab) 30 mg HS PO 03/05/17 21:00 04/04/17 20:59 03/11/17 20:21 30 MG Pantoprazole Sodium (Protonix Tab) 40 mg BID PO 03/05/17 21:00 04/04/17 20:59 03/12/17 07:48 40 MG Tamsulosin HCl (Flomax Cap) 0.4 mg HS PO 03/05/17 21:00 04/05/17 08:59 03/11/17 20:23 0.4 MG Metoprolol Tartrate (Lopressor Tab) 100 mg BID PO 03/07/17 09:00 04/06/17 08:59 03/11/17 20:22 100 MG Al Hydrox/Mg Hydrox/Simethicone (Maalox Max Susp) 15 ml Q4H PRN PO 03/07/17 03:00 04/06/17 02:59 Furosemide (Lasix Tab) 40 mg QAM PO 03/07/17 09:00 04/06/17 08:59 Future hold 03/12/17 07:48 40 MG Vancomycin HCl (Consult) 1 ea UD PRN N/A 03/07/17 17:45 04/06/17 17:44 Piperacillin Sod/ Tazobactam Sod (Consult) 1 ea UD PRN N/A 03/07/17 18:00 04/06/17 17:59 Piperacillin Sod/ Tazobactam Sod 3.375 gm/Dextrose 115 ml @ 28.75 mls/ hr Q8H IV 03/08/17 00:00 03/15/17 00:00 03/12/17 07:46 28.75 MLS/HR Enteral Nutritional Formula (Boost) 1 can BID PO 03/08/17 21:00 04/07/17 20:59 03/12/17 07:47 1 CAN Dronabinol (Marinol Cap) 10 mg BID PO 03/09/17 21:00 04/08/17 20:59 03/12/17 08:59 10 MG Acetaminophen 1000 mg/Empty Bag 100 ml @ 400 mls/hr Q8H IV 03/10/17 16:00 04/09/17 15:59 03/12/17 07:45 400 MLS/HR Oxycodone HCl (Roxicodone Immediate Rel Tab) 5 mg Q6H PRN PO 03/10/17 14:45 03/24/17 14:44 03/12/17 09:40 5 MG Enoxaparin Sodium (Lovenox Inj) 40 mg DAILY SQ 03/11/17 09:00 04/10/17 08:59 03/12/17 07:49 40 MG Ondansetron HCl (Zofran Inj) 4 mg Q4H PRN IV 03/10/17 14:45 04/09/17 14:44 03/12/17 07:41 4 MG Docusate Sodium (coLACE CAP) 100 mg BID PO 03/10/17 21:00 04/09/17 20:59 03/12/17 07:47 100 MG Morphine Sulfate (MoRPHine SULFATE INJ) Q1H PRN IV 03/10/17 14:45 03/24/17 14:44 03/12/17 10:38 2 MG Sodium Chloride 1,000 ml @ 75 mls/hr [id number] IV 03/10/17 03:15 04/09/17 03:14 03/11/17 19:47 75 MLS/HR Vancomycin HCl 750 mg/Sodium Chloride 265 ml @ 125 mls/hr Q12H IV 03/11/17 20:00 03/13/17 23:59 03/12/17 07:45 125 MLS/HR Glucose (Glucose 40% Gel) 15-30 GRAMS 15 GRAMS... UD PRN PO 03/11/17 14:15 04/10/17 14:14 Glucose (Glucose Chew Tab) 4-8 Tablets 4 Tabl... UD PRN PO 03/11/17 14:15 04/10/17 14:14 Dextrose (Dextrose 50% 50ML Syringe) 25-50ML OF 50% DW IV FOR... UD PRN IV 03/11/17 14:15 04/10/17 14:14 Glucagon (Glucagon Inj) 1 mg UD PRN SQ 03/11/17 14:15 04/10/17 14:14 Insulin Aspart (novoLOG ASPART) SLIDING SCALE ACHS SC 03/11/17 16:00 04/10/17 15:59 03/11/17 20:25 1 UNITS Lactobacillus Acidophilus (Lactinex Granules Pack) 2 gm TIDM PO 03/12/17 07:15 04/11/17 07:14 03/12/17 07:43 2 GM Vital Signs: Date Time Temp Pulse Resp B/P (MAP) Pulse Ox O2 Delivery O2 Flow Rate FiO2 03/12/17 10:00 100 103/47 (65) 94 Nasal Cannula 3.0 112/58 (76) 03/12/17 08:00 36.4 99 98/42 (60) 96 Nasal Cannula 4.0 105/61 (76) 03/12/17 06:15 114 97/40 (59) 94 03/12/17 06:05 104 105/45 (65) 90 Nasal Cannula 4.0 127/69 (88) 03/12/17 05:45 101 107/43 (64) 96 Nasal Cannula 2.0 03/12/17 05:30 92 100/44 (62) 98 Nasal Cannula 2.0 03/12/17 05:00 92 99/42 (61) 95 Nasal Cannula 2.0 03/12/17 04:00 Nasal Cannula 2.0 03/12/17 04:00 36.5 101 127/64 (85) 95 Nasal Cannula 2.0 91/41 (58) 03/12/17 03:00 82 88/39 (55) 96 2.0 03/12/17 02:01 95 104/46 (65) 96 2.0 114/61 (78) 03/12/17 02:00 91 98/51 (67) 96 2.0 03/12/17 01:01 85 85/41 (56) 96 2.0 03/12/17 00:40 83 84/40 (55) 98 2.0 94/50 (65) 03/12/17 00:04 79 73/39 (50) 96 2.0 03/12/17 00:01 36.6 85 75/39 (51) 97 2.0 03/12/17 00:00 80 76/40 (52) 97 2.0 71/58 (62) 03/11/17 23:59 Nasal Cannula 2.0 03/11/17 23:00 89 122/65 (84) 98 2.0 03/11/17 22:00 94 101/51 (68) 99 Nasal Cannula 2.0 112/65 (81) 03/11/17 20:00 99 Nasal Cannula 2.0 03/11/17 20:00 36.4 94 103/51 (68) 99 Nasal Cannula 2.0 113/63 (80) 03/11/17 18:22 98 103/54 (70) 98 Nasal Cannula 2.0 133/75 (94) 03/11/17 16:00 36.3 88 101/51 (68) 99 Nasal Cannula 2.0 95/53 (67) 03/11/17 16:00 99 Nasal Cannula 2.0 03/11/17 14:00 86 16 111/57 (75) 100 Nasal Cannula 2.0 109/64 (79) 03/11/17 13:45 85 16 108/56 100 2.0 03/11/17 12:45 88 16 108/57 100 2.0 03/11/17 12:00 Nasal Cannula 2.0 03/11/17 12:00 36.8 104 16 113/56 (75) 100 Nasal Cannula 2.0 103 03/11/17 11:45 109 18 117/53 100 2.0 Laboratory Results: Last 24 Hours Test 03/11/17 11:46 03/11/17 15:58 03/11/17 20:19 03/12/17 06:11 Bedside Glucose 207 mg/dl 145 mg/dl 166 mg/dl White Blood Count 13.27 K/uL Red Blood Count 3.04 M/uL Hemoglobin 8.9 g/dL Hematocrit 28.2 % Mean Corpuscular Volume 92.8 fL Mean Corpuscular Hemoglobin 29.3 pg Mean Corpuscular Hemoglobin Concent 31.6 g/dl Platelet Count 175 K/uL Mean Platelet Volume 8.2 fL Neutrophils (%) (Auto) 65.9 % Lymphocytes (%) (Auto) 20.2 % Monocytes (%) (Auto) 11.8 % Eosinophils (%) (Auto) 1.4 % Basophils (%) (Auto) 0.2 % Neutrophils # (Auto) 8.75 K/uL Lymphocytes # (Auto) 2.68 K/uL Monocytes # (Auto) 1.57 K/uL Eosinophils # (Auto) 0.18 K/uL Basophils # (Auto) 0.03 K/uL RDW Standard Deviation 51.3 fL RDW Coefficient of Variation 15.1 % Immature Granulocyte % (Auto) 0.5 % Immature Granulocyte # (Auto) 0.06 K/uL Red Blood Cell Morphology Unremarkable Sodium Level 139 mmol/L Potassium Level 3.6 mmol/L Chloride Level 103 mmol/L Carbon Dioxide Level 32 mmol/L Anion Gap 4.0 mmol/L Blood Urea Nitrogen 10 mg/dl Creatinine 0.57 mg/dl Est Creatinine Clear Calc Drug Dose 73.1 ml/min Estimated GFR () 110.1 Estimated GFR (Non- 95.0 BUN/Creatinine Ratio 17.3 Random Glucose 85 mg/dl Calcium Level 8.2 mg/dl Phosphorus Level 1.6 mg/dl Magnesium Level 1.7 mg/dl Total Bilirubin 0.5 mg/dl Aspartate Amino Transf (AST/SGOT) 27 U/L Alanine Aminotransferase (ALT/SGPT) 22 U/L Alkaline Phosphatase 75 U/L Total Protein 6.9 gm/dl Albumin 2.1 gm/dl Globulin 4.8 gm/dl Albumin/Globulin Ratio 0.4
[2017-03-12] MEDS: MAGNESIUM SULFATE 1GM / D5W 1 GM in PREMIXED IN D5W 100 ML IV SCH ×2 (11:56→14:23)
--- NOTE | 2017-03-12 13:34 | Progress Note ---
Subjective Date of Service: Mar 12, 2017. Subjective Pt evaluation today including: conversation w/ patient, physical exam, chart review, lab review, review of inpatient medication list Problem List Medical Problems: (1) Dyspnea on exertion Status: Acute (2) Early satiety Status: Acute (3) Generalized weakness Status: Acute (4) Pleural effusion Status: Acute Review of Systems Constitutional: No see HPI, No fever, No chills, No sweats, No weight loss, No weakness, No fatigue, No problem reported Eyes: No see HPI, No worsening of vision, No eye pain, No redness, No discharge , No diplopia, No problem reported ENT: No see HPI, No hearing loss, No unusual epistaxis, No nasal symptoms, No sore throat, No tinnitus, No dental problems, No trouble swallowing, No problem reported Respiratory: + cough, No see HPI, No sputum, No wheezing, No shortness of breath, No dyspnea on exertion, No dyspnea at rest, No hemoptysis, No problem reported Cardiac: + chest pain (musculoskeletal), No see HPI, No orthopnea, No PND, No edema, No claudication, No palpitations, No problem reported Abdomen: No see HPI, No pain, No nausea, No vomiting, No diarrhea, No constipation, No GI bleeding, No problem reported Musculoskeletal: No see HPI, No joint pain, No muscle pain, No swelling, No calf pain, No problem reported Male : No see HPI, No dysuria, No urinary frequency, No incontinence, No nocturia more than once/night, No slowing stream, No hematuria, No sexual dysfunction, No problem reported Neurologic: No see HPI, No memory loss, No paralysis, No weakness, No numbness/ tingling, No vertigo, No balance problems, No problem reported Psychiatric: No see HPI, No depression symptoms, No anhedonism, No anxiety, No insomnia, No substance abuse, No problem reported Heme: No see HPI, No abnormal bleeding/bruising, No clotting problems, No swollen lymph nodes, No night sweats, No problem reported Skin: No see HPI, No rash, No itch, No new/changing skin lesions, No color change, No bleeding, No problem reported Medications Current Inpatient Medications Medications (Trade) Dose Ordered Sig/Jarett Route Start Time Stop Time Status Last Admin Dose Admin Acetaminophen (Tylenol Tab) 650 mg Q4H PRN PO 03/05/17 18:45 11/13/17 18:44 Future Hold 03/10/17 00:06 650 MG Nitroglycerin (Nitrostat Tab) 0.4 mg UD PRN SL 03/05/17 18:45 04/04/17 18:44 Atorvastatin Calcium (Lipitor Tab) 40 mg HS PO 03/05/17 21:00 04/04/17 20:59 03/11/17 20:22 40 MG Ferrous Gluconate (Ferrous Gluconate Tab) 324 mg DAILY PO 03/06/17 09:00 04/05/17 08:59 03/12/17 07:47 324 MG Methimazole (Methimazole Tab) 5 mg Q2D@0900 PO 03/06/17 09:00 04/05/17 08:59 03/12/17 07:47 5 MG Multivitamins (Multivitamin Tab) 1 tab DAILY PO 03/06/17 09:00 04/05/17 08:59 03/12/17 07:47 1 TAB Potassium Chloride (Klor-Con Tab) 20 meq TID PO 03/05/17 21:00 04/04/17 20:59 03/12/17 07:48 20 MEQ Albuterol (Ventolin Hfa Inhaler) 2 puffs Q4H PRN INH 03/05/17 18:45 04/04/17 18:44 Mirtazapine (Remeron Tab) 30 mg HS PO 03/05/17 21:00 04/04/17 20:59 03/11/17 20:21 30 MG Pantoprazole Sodium (Protonix Tab) 40 mg BID PO 03/05/17 21:00 04/04/17 20:59 03/12/17 07:48 40 MG Tamsulosin HCl (Flomax Cap) 0.4 mg HS PO 03/05/17 21:00 04/05/17 08:59 03/11/17 20:23 0.4 MG Metoprolol Tartrate (Lopressor Tab) 100 mg BID PO 03/07/17 09:00 04/06/17 08:59 03/11/17 20:22 100 MG Al Hydrox/Mg Hydrox/Simethicone (Maalox Max Susp) 15 ml Q4H PRN PO 03/07/17 03:00 04/06/17 02:59 Furosemide (Lasix Tab) 40 mg QAM PO 03/07/17 09:00 04/06/17 08:59 Future hold 03/12/17 07:48 40 MG Vancomycin HCl (Consult) 1 ea UD PRN N/A 03/07/17 17:45 04/06/17 17:44 Piperacillin Sod/ Tazobactam Sod (Consult) 1 ea UD PRN N/A 03/07/17 18:00 04/06/17 17:59 Piperacillin Sod/ Tazobactam Sod 3.375 gm/Dextrose 115 ml @ 28.75 mls/ hr Q8H IV 03/08/17 00:00 03/15/17 00:00 03/12/17 07:46 28.75 MLS/HR Enteral Nutritional Formula (Boost) 1 can BID PO 03/08/17 21:00 04/07/17 20:59 03/12/17 07:47 1 CAN Dronabinol (Marinol Cap) 10 mg BID PO 03/09/17 21:00 04/08/17 20:59 03/12/17 08:59 10 MG Acetaminophen 1000 mg/Empty Bag 100 ml @ 400 mls/hr Q8H IV 03/10/17 16:00 04/09/17 15:59 03/12/17 07:45 400 MLS/HR Oxycodone HCl (Roxicodone Immediate Rel Tab) 5 mg Q6H PRN PO 03/10/17 14:45 03/24/17 14:44 03/12/17 09:40 5 MG Enoxaparin Sodium (Lovenox Inj) 40 mg DAILY SQ 03/11/17 09:00 04/10/17 08:59 03/12/17 07:49 40 MG Ondansetron HCl (Zofran Inj) 4 mg Q4H PRN IV 03/10/17 14:45 04/09/17 14:44 03/12/17 07:41 4 MG Docusate Sodium (coLACE CAP) 100 mg BID PO 03/10/17 21:00 04/09/17 20:59 03/12/17 07:47 100 MG Morphine Sulfate (MoRPHine SULFATE INJ) Q1H PRN IV 03/10/17 14:45 03/24/17 14:44 03/12/17 10:38 2 MG Sodium Chloride 1,000 ml @ 75 mls/hr [id number] IV 03/10/17 03:15 04/09/17 03:14 03/11/17 19:47 75 MLS/HR Vancomycin HCl 750 mg/Sodium Chloride 265 ml @ 125 mls/hr Q12H IV 03/11/17 20:00 03/13/17 23:59 03/12/17 07:45 125 MLS/HR Glucose (Glucose 40% Gel) 15-30 GRAMS 15 GRAMS... UD PRN PO 03/11/17 14:15 04/10/17 14:14 Glucose (Glucose Chew Tab) 4-8 Tablets 4 Tabl... UD PRN PO 03/11/17 14:15 04/10/17 14:14 Dextrose (Dextrose 50% 50ML Syringe) 25-50ML OF 50% DW IV FOR... UD PRN IV 03/11/17 14:15 04/10/17 14:14 Glucagon (Glucagon Inj) 1 mg UD PRN SQ 03/11/17 14:15 04/10/17 14:14 Insulin Aspart (novoLOG ASPART) SLIDING SCALE ACHS SC 03/11/17 16:00 04/10/17 15:59 03/11/17 20:25 1 UNITS Lactobacillus Acidophilus (Lactinex Granules Pack) 2 gm TIDM PO 03/12/17 07:15 04/11/17 07:14 03/12/17 11:58 2 GM Magnesium Sulfate 1 gm/Prmx 100 ml @ 100 mls/hr Q1H IV 03/12/17 12:00 03/12/17 13:59 03/12/17 11:56 100 MLS/HR Sodium Phosphate 30 mmol/Sodium Chloride 510 ml @ 88 mls/hr ONE ONCE IV 03/12/17 14:00 03/12/17 19:47 Objective Vital Signs Date Time Temp Pulse Resp B/P (MAP) Pulse Ox O2 Delivery O2 Flow Rate FiO2 03/12/17 10:00 100 103/47 (65) 94 Nasal Cannula 3.0 112/58 (76) 03/12/17 08:00 Nasal Cannula 4.0 03/12/17 08:00 36.4 99 98/42 (60) 96 Nasal Cannula 4.0 105/61 (76) 03/12/17 06:15 114 97/40 (59) 94 03/12/17 06:05 104 105/45 (65) 90 Nasal Cannula 4.0 127/69 (88) 03/12/17 05:45 101 107/43 (64) 96 Nasal Cannula 2.0 03/12/17 05:30 92 100/44 (62) 98 Nasal Cannula 2.0 03/12/17 05:00 92 99/42 (61) 95 Nasal Cannula 2.0 03/12/17 04:00 Nasal Cannula 2.0 03/12/17 04:00 36.5 101 127/64 (85) 95 Nasal Cannula 2.0 91/41 (58) 03/12/17 03:00 82 88/39 (55) 96 2.0 03/12/17 02:01 95 104/46 (65) 96 2.0 114/61 (78) 03/12/17 02:00 91 98/51 (67) 96 2.0 03/12/17 01:01 85 85/41 (56) 96 2.0 03/12/17 00:40 83 84/40 (55) 98 2.0 94/50 (65) 03/12/17 00:04 79 73/39 (50) 96 2.0 03/12/17 00:01 36.6 85 75/39 (51) 97 2.0 03/12/17 00:00 80 76/40 (52) 97 2.0 71/58 (62) 03/11/17 23:59 Nasal Cannula 2.0 03/11/17 23:00 89 122/65 (84) 98 2.0 03/11/17 22:00 94 101/51 (68) 99 Nasal Cannula 2.0 112/65 (81) 03/11/17 20:00 99 Nasal Cannula 2.0 03/11/17 20:00 36.4 94 103/51 (68) 99 Nasal Cannula 2.0 113/63 (80) 03/11/17 18:22 98 103/54 (70) 98 Nasal Cannula 2.0 133/75 (94) 03/11/17 16:00 36.3 88 101/51 (68) 99 Nasal Cannula 2.0 95/53 (67) 03/11/17 16:00 99 Nasal Cannula 2.0 03/11/17 14:00 86 16 111/57 (75) 100 Nasal Cannula 2.0 109/64 (79) 03/11/17 13:45 85 16 108/56 100 2.0 Physical Exam General Appearance: WD/WN, no apparent distress Eyes: normal inspection, EOMI ENT: normal ENT inspection, hearing grossly normal Neck: supple Respiratory/Chest: normal breath sounds, no respiratory distress, no accessory muscle use, + pertinent finding (2 chest tubes appears to be in place) Cardiovascular: regular rate, rhythm, no edema, no gallop, + systolic murmur Abdomen: non tender, soft, no organomegaly, no pulsatile mass Extremities: normal range of motion, non-tender, normal inspection, no pedal edema, no calf tenderness Neurologic/Psychiatric: mold carrier II-XII nml as tested, no motor/sensory deficits, alert, normal mood/affect, oriented x 3 Skin: normal color, warm/dry, no rash Laboratory Results Last 24 Hours Test 03/11/17 15:58 03/11/17 20:19 03/12/17 06:11 03/12/17 11:27 Bedside Glucose 145 mg/dl 166 mg/dl 140 mg/dl White Blood Count 13.27 K/uL Red Blood Count 3.04 M/uL Hemoglobin 8.9 g/dL Hematocrit 28.2 % Mean Corpuscular Volume 92.8 fL Mean Corpuscular Hemoglobin 29.3 pg Mean Corpuscular Hemoglobin Concent 31.6 g/dl Platelet Count 175 K/uL Mean Platelet Volume 8.2 fL Neutrophils (%) (Auto) 65.9 % Lymphocytes (%) (Auto) 20.2 % Monocytes (%) (Auto) 11.8 % Eosinophils (%) (Auto) 1.4 % Basophils (%) (Auto) 0.2 % Neutrophils # (Auto) 8.75 K/uL Lymphocytes # (Auto) 2.68 K/uL Monocytes # (Auto) 1.57 K/uL Eosinophils # (Auto) 0.18 K/uL Basophils # (Auto) 0.03 K/uL RDW Standard Deviation 51.3 fL RDW Coefficient of Variation 15.1 % Immature Granulocyte % (Auto) 0.5 % Immature Granulocyte # (Auto) 0.06 K/uL Red Blood Cell Morphology Unremarkable Sodium Level 139 mmol/L Potassium Level 3.6 mmol/L Chloride Level 103 mmol/L Carbon Dioxide Level 32 mmol/L Anion Gap 4.0 mmol/L Blood Urea Nitrogen 10 mg/dl Creatinine 0.57 mg/dl Est Creatinine Clear Calc Drug Dose 73.1 ml/min Estimated GFR () 110.1 Estimated GFR (Non- 95.0 BUN/Creatinine Ratio 17.3 Random Glucose 85 mg/dl Calcium Level 8.2 mg/dl Phosphorus Level 1.6 mg/dl Magnesium Level 1.7 mg/dl Total Bilirubin 0.5 mg/dl Aspartate Amino Transf (AST/SGOT) 27 U/L Alanine Aminotransferase (ALT/SGPT) 22 U/L Alkaline Phosphatase 75 U/L Total Protein 6.9 gm/dl Albumin 2.1 gm/dl Globulin 4.8 gm/dl Albumin/Globulin Ratio 0.4 Assessment and Plan Shortness of breath secondary to bilateral pleural effusion concerning for empyema Pulmonary consolidation on CT scan most likely atelectasis but cannot rule out pneumonia Generalized weakness and failure to thrive Atrial fibrillation with RVR COPD without exacerbation Acute blood loss anemia CAD status post CABG in June 2016 Cardiomyopathy with ejection fraction 30-40% on echo Hyperthyroidism on methimazole Plan Cardiothoracic surgery consult appreciated S/P decortication and evacuation of pleural contents with limited pleurectomy POD#2 Continue supportive care, chest tube in place Continue holding Coumadin and aspirin until allowed by cardiothoracic surgeon, only on Lovenox for DVT prophylaxis Nutritional support / hasn't allowed, will add nutritional boost Continue Vanco and Zosyn for possible edema Continue Lactinex for clostridia difficile prophylaxis Continue bronchodilators, Lipitor, methimazole, and home meds continue supportive care Continued [facility] stay due to: multiple IV medications needed Discharge planning: alf facility
[2017-03-12] MEDS ORDERED: SODIUM PHOSPHATE INJ 30 MMOL in SODIUM CHLORIDE 0.9% 500ML 500 ML IV ONE (14:00)
[2017-03-12] MEDS ORDERED: NURSING VERBAL MED ORDER ONE ×4 (16:00→21:45)
[2017-03-12] MEDS ORDERED: SODIUM CHLORIDE 0.65% NA SOLN 45 ML (OCEAN) PRN (16:15)
[2017-03-12] MEDS ORDERED: FUROSEMIDE 40 MG/4 ML VIAL ONE (16:46)
[2017-03-12] MEDS: ATORVASTATIN 40 MG TAB PO SCH (20:52)
[2017-03-12] MEDS: BOOST BREEZE NUTRITION DRINK 1 BOX PO SCH (20:52)
[2017-03-12] MEDS: MIRTAZAPINE TAB 15 MG TAB PO SCH (20:53)
[2017-03-12] MEDS: TAMSULOSIN HCL 0.4 MG CAP PO SCH (20:54)
[2017-03-12] MEDS ORDERED: METOPROLOL TARTRATE 1 MG/ML VIAL IV STA (21:29)
[2017-03-12] MEDS ORDERED: FUROSEMIDE 40 MG/4 ML VIAL IV STA (21:29)
[2017-03-12] MEDS ORDERED: ALBUMIN 25% 50 ML with FUROSEMIDE INJ 40 MG IV SCH ×2 (21:45)
[2017-03-13] VITALS (24 sets, daily range): BP systolic 93–138; BP diastolic 37–78; PULSE 95–129; TEMP 36.5–37.2; O2SAT 3–100
[2017-03-13] MEDS ORDERED: NURSING VERBAL MED ORDER ONE ×3 (04:15→22:30)
[2017-03-13] MEDS: METOPROLOL TARTRATE 1 MG/ML VIAL IV PRN ×2 (04:29→07:54)
--- NOTE | 2017-03-13 07:21 | DIAGNOSTIC IMAGING REPORT ---
CHEST ONE VIEW PORTABLE CLINICAL HISTORY: Postop VATS procedure COMPARISON STUDY: 03/12/2017 FINDINGS: The heart is enlarged. There are postsurgical changes of a midline sternotomy. 2 right-sided chest tubes are visualized. There is no pneumothorax. There is diffuse interstitial thickening with diffuse right lung airspace opacities, similar to the preceding study. There is right apical pleural thickening.[ IMPRESSION: 1. Stable findings 2. No change in the position of the 2 right-sided chest tubes. No pneumothorax 3. Emphysema with suspected underlying pulmonary vascular congestion 4. Diffuse right lung airspace opacities, and stable left mid to lower lung zone airspace opacities Electronically signed by: Tristian Villafuerte M.D. 03/13/2017 7:20 AM Dictated Date/Time: 03/13/2017 7:17 AM
[2017-03-13] MEDS ORDERED: VANCOMYCIN TROUGH SCH (07:30)
[2017-03-13] MEDS: DOCUSATE SODIUM 100 MG CAP PO SCH ×2 (07:45→21:27)
[2017-03-13] MEDS: PANTOprazole SOD 40 MG TAB PO SCH ×2 (07:45→21:27)
[2017-03-13] MEDS: MULTIVITAMIN TAB PO SCH (07:45)
[2017-03-13] MEDS: METOPROLOL TARTRATE 100 MG TAB PO SCH ×2 (07:45→21:26)
[2017-03-13] MEDS: FUROSEMIDE 40 MG TAB PO SCH (07:46)
[2017-03-13] MEDS: LACTOBACILLUS ACIDOPHILUS 1 GM PACK PO SCH ×3 (07:46→16:01)
[2017-03-13] MEDS: ENOXAPARIN 40 MG/0.4 ML SYR SQ SCH (07:46)
[2017-03-13] MEDS: POTASSIUM CHLORIDE 20 MEQ TABCR PO SCH ×3 (07:46→21:26)
[2017-03-13] MEDS: FERROUS GLUCONATE 324 MG TAB PO SCH (07:46)
[2017-03-13] MEDS: VANCOMYCIN INJ 750 MG in SODIUM CHLORIDE 0.9% 250ML 250 ML IV SCH (08:00)
[2017-03-13 08:05] LABS: BASO % 0.2 %; BASO ABS # 0.02 K/uL (0-0.2); EOS % 0.3 %; HEMATOCRIT 25.8 % (42-52); IG% 0.4 %; LYMPH % 8.7 %; LYMPH ABS # 0.99 K/uL (1.2-3.4); MEAN CELL VOLUME 94.2 fL (80-100); MEAN CORPUSCULAR HEMOGLOBIN 29.9 pg (25-34); MEAN CORPUSCULAR HGB CONC 31.8 g/dl (32-36); MEAN PLATELET VOLUME 8.5 fL (7.4-10.4); MONO % 9.5 %; NEUT % 80.9 %; PLATELET COUNT 141 K/uL (130-400); RED BLOOD COUNT 2.74 M/uL (4.7-6.1); WHITE BLOOD COUNT 11.32 K/uL (4.8-10.8)
--- NOTE | 2017-03-13 08:27 | SURGERY PROGRESS NOTE ---
DATE: 03/13/2017 SUBJECTIVE: Mr. Olvera was seen today on 03/13/2017. He had a rough night. I believe he was probably fluid overloaded. He has received blood. He did respond to diuresis and has put out 4000 mL in the last 24 hours or so. His chest tube has drained very little. He does not have an air leak. He is not moving much air. He apparently did have some epistaxis and is coughing up a small amount of bloody sputum. He looks a bit more washed out than he did yesterday. His heart rate is also up to 100s-120s. We will continue to gently diurese him. His pleural fluid has been negative for any growth. This does not appear to be an infection. We will see how he looks as the time goes on; however, I do not think I would be very aggressive with antibiotics, although I think some coverage is appropriate.
[2017-03-13 08:35] LABS: COMPLETE YES
[2017-03-13 08:42] LABS: BUN/CREATININE RATIO 13.4 (10-20); C-REACTIVE PROTEIN 15.3 mg/dl (0-0.29); CREATININE 0.58 mg/dl (0.60-1.40); POTASSIUM 3.4 mmol/L (3.5-5.1)
[2017-03-13] MEDS: BOOST BREEZE NUTRITION DRINK 1 BOX PO SCH (09:00)
[2017-03-13 09:05] LABS: PHOSPHORUS 2.2 mg/dl (2.5-4.9); THYROID STIMULATING HORMONE 0.222 uIu/ml (0.300-4.500)
[2017-03-13] MEDS ORDERED: FUROSEMIDE INJ 20 MG in SYRINGE 0 ML IV ONE (09:45)
[2017-03-13] MEDS: INSULIN ASPART 100 UNITS/ML 3 ML PEN SC SCH ×4 (09:47→21:32)
[2017-03-13] MEDS: PIPERACILL/TAZOBAC IV 3.375 GM in DEXTROSE 5% 100ML IV SCH (09:50)
[2017-03-13] MEDS: BOOST VANILLA PO SCH ×2 (09:57)
[2017-03-13] MEDS: ACETAMINOPHEN IV 1,000 MG in EMPTY BAG 0 ML IV SCH ×2 (10:05→16:00)
--- NOTE | 2017-03-13 10:05 | Critical Care Progress Note ---
Critical Care Progress Note Date of Service Mar 13, 2017. Attending Dr. Hayden Worrell I personally examined this patient, reviewed his clinical and laboratory data, interpreted his chest x-ray and formulated further plan of care. In summary, the patient is a 81-year-old gentleman with complex medical history including coronary artery disease, recent CABG and bioprosthetic aortic valve replacement, moderate left ventricular dysfunction, chronic atrial fibrillation, bilateral pleural effusions, abdominal aortic aneurysm status post repair, COPD, hypertension. Patient presented to [facility] on 03/05/2017 complaining of weakness and shortness of breath. He stated that since his 3 vessel CABG and by prostatic aortic valve replacement 6 months ago he lost around 40 pounds of weight, complaining of shortness of breath and failure to thrive. Thoracic surgical consultation was obtained after CT scan revealed bilateral pleural effusions. Patient was taken to operating room for VATS procedure and partial decortication. Estimated blood loss 150 mL. Patient was transfused with 1 unit of packed RBCs in the setting of hypotension requiring John- Synephrine administration. Preoperatively patient required 2 L of oxygen per nasal cannula. Patient was extubated the postoperatively to 2 L of nasal cannula. Patient was transferred critically ill to the surgical intensive care unit because of frailty, multiple medical problems and high risk for further respiratory deterioration. 03/11- Patient remained marginal hypotensive overnight, required fluid bolus administration. Right-sided incisional chest pain, adequate control. No chest tightness. Mild to moderate shortness of breath. Weak cough. 03/12- normal saline 250 mL bolus overnight for hypotension. Poor appetite, postprandial nausea. Incisional chest pain requiring addition of ketorolac. Weak cough. No chest tightness. No fever, no chills. 03/13- shortness of breath in the middle of the night. Lasix was given, BiPAP initiated. Atrial fibrillation with rapid ventricular response, metoprolol was given. Patient complains of shortness of breath without BiPAP. No purulence, no cough, no chest tightness. Objective General: Frail elderly gentleman who is laying in the bed on BiPAP. Weak voice. Head was atraumatic, normocephalic, pupils were equal, round, reactive to light. Neck: No JVD, no carotid bruit, no lymphadenopathy. Cardiac: Irregularly irregular. Normal S1 and S2. No audible murmurs, rubs or gallops. Chest: Crackles up to half of his lungs bilaterally. Minimal output from the chest tube, no air leak. Abdomen: Soft, nontender, nondistended. Bowel sounds are present. Extremities: No cyanosis or edema. Left radial arterial line in place. No calf tenderness. Neurology: Alert and oriented 3. Generally weak, equal muscle strength in all 4 extremities. Psychiatric: Appropriate affect. Assessment & Plan 1. Worsening respiratory distress likely secondary to fluid overload following administration of antibiotics and electrolyte replacement. Auscultation revealed crackles up to half of his lungs. Patient received Lasix and was placed on BiPAP overnight. We will continue with diuresis trying to keep his fluid balance negative for 1 L as long as his hemodynamics allow it. We will keep BiPAP on an as needed basis. 2. POD # 3 sp right VATS and lung partial decortication for pleural effusion. Chest tubes 2 in situ, minimal drainage. No ear leak with cough. 3. Coronary artery disease, status post recent CABG 3 vessels, status post bioprosthetic aortic valve replacement. Hypotension has improved. Chronic atrial fibrillation, rapid ventricular response likely related to respiratory distress. Patient is already on metoprolol 100 mg twice a day with intermittent doses of IV metoprolol. Expect better rate control with improvement of his respiratory status. We will discuss timing of restarting Coumadin with Dr. Patel. Meanwhile, patient is on Lovenox 40 mg subcutaneous prophylactically which is relatively significant dose as patient's weight is only 52 kg. 4. ID: Patient has been treated with vancomycin and Zosyn (initiated on 2016) for suspected empyema/bibasilar lower lobe infiltrates. Cultures were negative. Intraoperatively, it did not look like empyema. Procalcitonin is negative which would also speak against the infection. It would be reasonable to stop antibiotics after completion 7 days empiric course. We'll watch patient closely for any signs of infection. 5. Malnutrition. Patient complains of poor appetite and postprandial nausea. We will place a feeding tube and start enteral nutrition. We'll continue with Marinol, allow by mouth intake for pleasure. 6. Anemia, recent transfusion 1 unit packed RBCs. 7. Renal function is adequate. We'll replace hypokalemia. 8. Hyperthyroidism on methimazole. 9. SCDs and Lovenox subcutaneous for DVT prophylaxis. 10. Frailty. Long-term prognosis is not favorable. Patient still wants to be full code. It would be reasonable to involve palliative care team more for discussion of goals of care. I spent totally 32 minutes of critical care time evaluating and managing this patient. [place] II Score Date Score Was Generated: Mar 12, 2017 Consults & Procedures Consultants: Pulmonary: Thoracic surgery, critical care medicine. Procedures: Right-sided VAT's, partial pleurectomy, chest tube 2, Pleurx catheter on 2016. Arterial line placement intraoperatively. Data Medications: Current Inpatient Medications Medications (Trade) Dose Ordered Sig/Jarett Route Start Time Stop Time Status Last Admin Dose Admin Acetaminophen (Tylenol Tab) 650 mg Q4H PRN PO 03/05/17 18:45 04/04/17 18:44 Future Hold 03/10/17 00:06 650 MG Nitroglycerin (Nitrostat Tab) 0.4 mg UD PRN SL 03/05/17 18:45 04/04/17 18:44 Atorvastatin Calcium (Lipitor Tab) 40 mg HS PO 03/05/17 21:00 04/04/17 20:59 03/12/17 20:52 40 MG Ferrous Gluconate (Ferrous Gluconate Tab) 324 mg DAILY PO 03/06/17 09:00 04/05/17 08:59 03/13/17 07:46 324 MG Methimazole (Methimazole Tab) 5 mg Q2D@0900 PO 03/06/17 09:00 04/05/17 08:59 03/12/17 07:47 5 MG Multivitamins (Multivitamin Tab) 1 tab DAILY PO 03/06/17 09:00 04/05/17 08:59 03/13/17 07:45 1 TAB Potassium Chloride (Klor-Con Tab) 20 meq TID PO 03/05/17 21:00 04/04/17 20:59 03/13/17 07:46 20 MEQ Albuterol (Ventolin Hfa Inhaler) 2 puffs Q4H PRN INH 03/05/17 18:45 04/04/17 18:44 Mirtazapine (Remeron Tab) 30 mg HS PO 03/05/17 21:00 04/04/17 20:59 03/12/17 20:53 30 MG Pantoprazole Sodium (Protonix Tab) 40 mg BID PO 03/05/17 21:00 04/04/17 20:59 03/13/17 07:45 40 MG Tamsulosin HCl (Flomax Cap) 0.4 mg HS PO 03/05/17 21:00 04/05/17 08:59 03/12/17 20:54 0.4 MG Metoprolol Tartrate (Lopressor Tab) 100 mg BID PO 03/07/17 09:00 04/06/17 08:59 03/13/17 07:45 100 MG Al Hydrox/Mg Hydrox/Simethicone (Maalox Max Susp) 15 ml Q4H PRN PO 03/07/17 03:00 04/06/17 02:59 Furosemide (Lasix Tab) 40 mg QAM PO 03/07/17 09:00 04/06/17 08:59 Future hold 03/13/17 07:46 40 MG Vancomycin HCl (Consult) 1 ea UD PRN N/A 03/07/17 17:45 04/06/17 17:44 Piperacillin Sod/ Tazobactam Sod (Consult) 1 ea UD PRN N/A 03/07/17 18:00 04/06/17 17:59 Piperacillin Sod/ Tazobactam Sod 3.375 gm/Dextrose 115 ml @ 28.75 mls/ hr Q8H IV 03/08/17 00:00 03/15/17 00:00 03/12/17 23:17 28.75 MLS/HR Enteral Nutritional Formula (Boost) 1 can BID PO 03/08/17 21:00 04/07/17 20:59 03/12/17 20:52 1 CAN Dronabinol (Marinol Cap) 10 mg BID PO 03/09/17 21:00 04/08/17 20:59 03/12/17 20:52 10 MG Acetaminophen 1000 mg/Empty Bag 100 ml @ 400 mls/hr Q8H IV 03/10/17 16:00 04/09/17 15:59 03/12/17 23:17 400 MLS/HR Oxycodone HCl (Roxicodone Immediate Rel Tab) 5 mg Q6H PRN PO 03/10/17 14:45 03/24/17 14:44 03/12/17 09:40 5 MG Enoxaparin Sodium (Lovenox Inj) 40 mg DAILY SQ 03/11/17 09:00 04/10/17 08:59 03/13/17 07:46 40 MG Ondansetron HCl (Zofran Inj) 4 mg Q4H PRN IV 03/10/17 14:45 04/09/17 14:44 03/12/17 07:41 4 MG Docusate Sodium (coLACE CAP) 100 mg BID PO 03/10/17 21:00 04/09/17 20:59 03/13/17 07:45 100 MG Morphine Sulfate (MoRPHine SULFATE INJ) Q1H PRN IV 03/10/17 14:45 03/24/17 14:44 03/12/17 10:38 2 MG Sodium Chloride 1,000 ml @ 75 mls/hr [id number] IV 03/10/17 03:15 04/09/17 03:14 03/11/17 19:47 75 MLS/HR Vancomycin HCl 750 mg/Sodium Chloride 265 ml @ 125 mls/hr Q12H IV 03/11/17 20:00 03/13/17 23:59 03/12/17 19:18 125 MLS/HR Glucose (Glucose 40% Gel) 15-30 GRAMS 15 GRAMS... UD PRN PO 03/11/17 14:15 04/10/17 14:14 Glucose (Glucose Chew Tab) 4-8 Tablets 4 Tabl... UD PRN PO 03/11/17 14:15 04/10/17 14:14 Dextrose (Dextrose 50% 50ML Syringe) 25-50ML OF 50% DW IV FOR... UD PRN IV 03/11/17 14:15 04/10/17 14:14 Glucagon (Glucagon Inj) 1 mg UD PRN SQ 03/11/17 14:15 04/10/17 14:14 Insulin Aspart (novoLOG ASPART) SLIDING SCALE ACHS SC 03/11/17 16:00 04/10/17 15:59 03/12/17 20:57 2 UNITS Lactobacillus Acidophilus (Lactinex Granules Pack) 2 gm TIDM PO 03/12/17 07:15 04/11/17 07:14 03/13/17 07:46 2 GM Enteral Nutritional Formula (Boost Breeze Nutritional Drink) 1 box BID PO 03/12/17 21:00 04/11/17 20:59 03/12/17 20:52 1 BOX Sodium Chloride (Farnam Nasal [place]) 1 sprays PRN PRN NA 03/12/17 16:15 04/11/17 16:14 Metoprolol Tartrate (Lopressor Iv) 5 mg Q4H PRN IV 03/13/17 04:30 04/12/17 04:29 03/13/17 07:54 5 MG Vital Signs: Date Time Temp Pulse Resp B/P (MAP) Pulse Ox O2 Delivery O2 Flow Rate FiO2 03/13/17 07:54 132 03/13/17 06:00 128 137/65 (89) 93 Oxymask 6.0 03/13/17 05:30 109 109/45 (66) 96 03/13/17 05:15 104 97/41 (59) 99 03/13/17 05:01 108 96/43 (60) 96 BiPAP 50 03/13/17 04:29 131 113/52 03/13/17 04:01 37.0 126 129/54 (79) 93 BiPAP 50 130/57 (81) 03/13/17 04:00 128 128/54 (78) 95 03/13/17 04:00 98 Oxymask 50 BiPAP 03/13/17 03:58 125 93 50 03/13/17 03:00 129 111/60 (77) 94 03/13/17 02:00 118 108/43 (64) 95 Oxymask 6.0 03/13/17 01:01 116 102/45 (64) 97 03/13/17 01:00 128 107/44 (65) 96 03/13/17 00:00 37.2 113 133/66 (88) 98 Oxymask 6.0 96/37 (56) 03/12/17 23:59 94 BiPAP 40 03/12/17 23:01 108 125/52 (76) 94 BiPAP 03/12/17 22:01 98 105/50 (68) 91 130/64 (86) 03/12/17 21:51 122 118/48 03/12/17 21:19 124 96 40 03/12/17 21:15 120 121/71 (88) 91 BiPAP 03/12/17 21:01 134 137/60 (85) 79 Oxymask 03/12/17 21:00 133 144/67 (92) 80 Oxymask 03/12/17 20:01 36.6 125 117/46 (69) 95 Oxymask 5.0 116/73 (87) 03/12/17 20:00 Oxymask 5.0 03/12/17 19:01 121 108/48 (68) 97 5.0 03/12/17 18:00 115 105/49 (67) 97 Mask 5.0 141/82 (101) 03/12/17 16:00 36.6 128 123/72 (89) 88 Nasal Cannula 6.0 03/12/17 16:00 Nasal Cannula 6.0 03/12/17 14:00 109 102/43 (62) 93 Nasal Cannula 3.0 122/61 (81) 03/12/17 12:00 36.4 110 22 125/60 (81) 95 Nasal Cannula 3.0 111/56 (74) 03/12/17 12:00 Nasal Cannula 3.0 Laboratory Results: Last 24 Hours Test 03/12/17 11:27 03/12/17 16:24 03/12/17 20:33 03/13/17 06:04 Bedside Glucose 140 mg/dl 124 mg/dl 202 mg/dl 130 mg/dl Test 03/13/17 07:34 White Blood Count 11.32 K/uL Red Blood Count 2.74 M/uL Hemoglobin 8.2 g/dL Hematocrit 25.8 % Mean Corpuscular Volume 94.2 fL Mean Corpuscular Hemoglobin 29.9 pg Mean Corpuscular Hemoglobin Concent 31.8 g/dl Platelet Count 141 K/uL Mean Platelet Volume 8.5 fL Neutrophils (%) (Auto) 80.9 % Lymphocytes (%) (Auto) 8.7 % Monocytes (%) (Auto) 9.5 % Eosinophils (%) (Auto) 0.3 % Basophils (%) (Auto) 0.2 % Neutrophils # (Auto) 9.16 K/uL Lymphocytes # (Auto) 0.99 K/uL Monocytes # (Auto) 1.07 K/uL Eosinophils # (Auto) 0.03 K/uL Basophils # (Auto) 0.02 K/uL RDW Standard Deviation 51.5 fL RDW Coefficient of Variation 15.1 % Immature Granulocyte % (Auto) 0.4 % Immature Granulocyte # (Auto) 0.05 K/uL Red Blood Cell Morphology Unremarkable Sodium Level 137 mmol/L Potassium Level 3.4 mmol/L Chloride Level 97 mmol/L Carbon Dioxide Level 36 mmol/L Anion Gap 4.0 mmol/L Blood Urea Nitrogen 8 mg/dl Creatinine 0.58 mg/dl Est Creatinine Clear Calc Drug Dose 71.8 ml/min Estimated GFR () 109.3 Estimated GFR (Non- 94.3 BUN/Creatinine Ratio 13.4 Random Glucose 118 mg/dl Calcium Level 8.0 mg/dl Phosphorus Level 2.2 mg/dl Magnesium Level 2.0 mg/dl C-Reactive Protein 15.30 mg/dl Procalcitonin 0.08 ng/ml Thyroid Stimulating Hormone (TSH) 0.222 uIu/ml Vancomycin Level Trough 14.2 mcg/ml
[2017-03-13] MEDS: SODIUM CHLORIDE 0.9% 1000ML 1,000 ML IV SCH (11:08)
[2017-03-13] MEDS: DRONABINOL 2.5 MG CAP PO SCH ×2 (11:08→21:25)
--- NOTE | 2017-03-13 12:02 | DIAGNOSTIC IMAGING REPORT ---
KUB CLINICAL HISTORY: FEEDING TUBE PLACEMENT COMPARISON STUDY: No previous studies for comparison. FINDINGS: There is a feeding tube with its tip projected over the stomach. There are postsurgical changes of an aortobiiliac stent graft. There is blunting of both lateral costophrenic angles, and there are bibasal airspace opacities. There is a surgical anastomotic suture line within the left mid abdomen. 3 right upper catheters are visualized, likely representing chest tubes. IMPRESSION: The feeding tube is positioned with the stomach. Electronically signed by: Tristian Villafuerte M.D. 03/13/2017 12:01 PM Dictated Date/Time: 03/13/2017 11:59 AM
--- NOTE | 2017-03-13 12:13 | Progress Note ---
Subjective Date of Service: Mar 13, 2017. Subjective Pt evaluation today including: conversation w/ patient, physical exam, chart review, lab review, review of studies, conversation w/ campaign consultant, review of inpatient medication list Problem List Medical Problems: (1) Dyspnea on exertion Status: Acute (2) Early satiety Status: Acute (3) Generalized weakness Status: Acute (4) Pleural effusion Status: Acute Review of Systems Constitutional: + weakness, + fatigue, No see HPI, No fever, No chills, No sweats, No weight loss, No problem reported ENT: No see HPI, No hearing loss, No unusual epistaxis, No nasal symptoms, No sore throat, No tinnitus, No dental problems, No trouble swallowing, No problem reported Respiratory: + shortness of breath, + dyspnea on exertion, + dyspnea at rest, No see HPI, No cough, No sputum, No wheezing, No hemoptysis, No problem reported Cardiac: No see HPI, No chest pain, No orthopnea, No PND, No edema, No claudication, No palpitations, No problem reported Abdomen: No see HPI, No pain, No nausea, No vomiting, No diarrhea, No constipation, No GI bleeding, No problem reported Musculoskeletal: No see HPI, No joint pain, No muscle pain, No swelling, No calf pain, No problem reported Male : No see HPI, No dysuria, No urinary frequency, No incontinence, No nocturia more than once/night, No slowing stream, No hematuria, No sexual dysfunction, No problem reported Neurologic: No see HPI, No memory loss, No paralysis, No weakness, No numbness/ tingling, No vertigo, No balance problems, No problem reported Psychiatric: No see HPI, No depression symptoms, No anhedonism, No anxiety, No insomnia, No substance abuse, No problem reported Heme: No see HPI, No abnormal bleeding/bruising, No clotting problems, No swollen lymph nodes, No night sweats, No problem reported Endo: No see HPI, No fatigue, No excessive thirst, No excessive urination, No problem reported Skin: No see HPI, No rash, No itch, No new/changing skin lesions, No color change, No bleeding, No problem reported Medications Current Inpatient Medications Medications (Trade) Dose Ordered Sig/Jarett Route Start Time Stop Time Status Last Admin Dose Admin Acetaminophen (Tylenol Tab) 650 mg Q4H PRN PO 03/05/17 18:45 04/04/17 18:44 Future Hold 03/10/17 00:06 650 MG Nitroglycerin (Nitrostat Tab) 0.4 mg UD PRN SL 03/05/17 18:45 04/04/17 18:44 Atorvastatin Calcium (Lipitor Tab) 40 mg HS PO 03/05/17 21:00 04/04/17 20:59 03/12/17 20:52 40 MG Ferrous Gluconate (Ferrous Gluconate Tab) 324 mg DAILY PO 03/06/17 09:00 04/05/17 08:59 03/13/17 07:46 324 MG Methimazole (Methimazole Tab) 5 mg Q2D@0900 PO 03/06/17 09:00 04/05/17 08:59 03/12/17 07:47 5 MG Multivitamins (Multivitamin Tab) 1 tab DAILY PO 03/06/17 09:00 04/05/17 08:59 03/13/17 07:45 1 TAB Potassium Chloride (Klor-Con Tab) 20 meq TID PO 03/05/17 21:00 04/04/17 20:59 03/13/17 07:46 20 MEQ Albuterol (Ventolin Hfa Inhaler) 2 puffs Q4H PRN INH 03/05/17 18:45 04/04/17 18:44 Mirtazapine (Remeron Tab) 30 mg HS PO 03/05/17 21:00 04/04/17 20:59 03/12/17 20:53 30 MG Pantoprazole Sodium (Protonix Tab) 40 mg BID PO 03/05/17 21:00 04/04/17 20:59 03/13/17 07:45 40 MG Tamsulosin HCl (Flomax Cap) 0.4 mg HS PO 03/05/17 21:00 04/05/17 08:59 03/12/17 20:54 0.4 MG Metoprolol Tartrate (Lopressor Tab) 100 mg BID PO 03/07/17 09:00 04/06/17 08:59 03/13/17 07:45 100 MG Al Hydrox/Mg Hydrox/Simethicone (Maalox Max Susp) 15 ml Q4H PRN PO 03/07/17 03:00 04/06/17 02:59 Furosemide (Lasix Tab) 40 mg QAM PO 03/07/17 09:00 04/06/17 08:59 Future hold 03/13/17 07:46 40 MG Enteral Nutritional Formula (Boost) 1 can BID PO 03/08/17 21:00 04/07/17 20:59 03/13/17 09:57 1 CAN Dronabinol (Marinol Cap) 10 mg BID PO 03/09/17 21:00 04/08/17 20:59 03/13/17 11:08 10 MG Acetaminophen 1000 mg/Empty Bag 100 ml @ 400 mls/hr Q8H IV 03/10/17 16:00 04/09/17 15:59 03/13/17 10:05 400 MLS/HR Oxycodone HCl (Roxicodone Immediate Rel Tab) 5 mg Q6H PRN PO 03/10/17 14:45 03/24/17 14:44 03/12/17 09:40 5 MG Enoxaparin Sodium (Lovenox Inj) 40 mg DAILY SQ 03/11/17 09:00 04/10/17 08:59 03/13/17 07:46 40 MG Ondansetron HCl (Zofran Inj) 4 mg Q4H PRN IV 03/10/17 14:45 04/09/17 14:44 03/12/17 07:41 4 MG Docusate Sodium (coLACE CAP) 100 mg BID PO 03/10/17 21:00 04/09/17 20:59 03/13/17 07:45 100 MG Morphine Sulfate (MoRPHine SULFATE INJ) Q1H PRN IV 03/10/17 14:45 03/24/17 14:44 03/12/17 10:38 2 MG Glucose (Glucose 40% Gel) 15-30 GRAMS 15 GRAMS... UD PRN PO 03/11/17 14:15 04/10/17 14:14 Glucose (Glucose Chew Tab) 4-8 Tablets 4 Tabl... UD PRN PO 03/11/17 14:15 04/10/17 14:14 Dextrose (Dextrose 50% 50ML Syringe) 25-50ML OF 50% DW IV FOR... UD PRN IV 03/11/17 14:15 04/10/17 14:14 Glucagon (Glucagon Inj) 1 mg UD PRN SQ 03/11/17 14:15 04/10/17 14:14 Insulin Aspart (novoLOG ASPART) SLIDING SCALE ACHS SC 03/11/17 16:00 04/10/17 15:59 03/12/17 20:57 2 UNITS Lactobacillus Acidophilus (Lactinex Granules Pack) 2 gm TIDM PO 03/12/17 07:15 04/11/17 07:14 03/13/17 11:09 2 GM Enteral Nutritional Formula (Boost Breeze Nutritional Drink) 1 box BID PO 03/12/17 21:00 04/11/17 20:59 03/12/17 20:52 1 BOX Sodium Chloride ([place] Nasal Yeso) 1 sprays PRN PRN NA 03/12/17 16:15 04/11/17 16:14 Metoprolol Tartrate (Lopressor Iv) 5 mg Q4H PRN IV 03/13/17 04:30 04/12/17 04:29 03/13/17 07:54 5 MG Objective Vital Signs Date Time Temp Pulse Resp B/P (MAP) Pulse Ox O2 Delivery O2 Flow Rate FiO2 03/13/17 07:54 132 03/13/17 06:00 128 137/65 (89) 93 Oxymask 6.0 03/13/17 05:30 109 109/45 (66) 96 03/13/17 05:15 104 97/41 (59) 99 03/13/17 05:01 108 96/43 (60) 96 BiPAP 50 03/13/17 04:29 131 113/52 03/13/17 04:01 37.0 126 129/54 (79) 93 BiPAP 50 130/57 (81) 03/13/17 04:00 128 128/54 (78) 95 03/13/17 04:00 98 Oxymask 50 BiPAP 03/13/17 03:58 125 93 50 03/13/17 03:00 129 111/60 (77) 94 03/13/17 02:00 118 108/43 (64) 95 Oxymask 6.0 03/13/17 01:01 116 102/45 (64) 97 03/13/17 01:00 128 107/44 (65) 96 03/13/17 00:00 37.2 113 133/66 (88) 98 Oxymask 6.0 96/37 (56) 03/12/17 23:59 94 BiPAP 40 03/12/17 23:01 108 125/52 (76) 94 BiPAP 03/12/17 22:01 98 105/50 (68) 91 130/64 (86) 03/12/17 21:51 122 118/48 03/12/17 21:19 124 96 40 03/12/17 21:15 120 121/71 (88) 91 BiPAP 03/12/17 21:01 134 137/60 (85) 79 Oxymask 03/12/17 21:00 133 144/67 (92) 80 Oxymask 03/12/17 20:01 36.6 125 117/46 (69) 95 Oxymask 5.0 116/73 (87) 03/12/17 20:00 Oxymask 5.0 03/12/17 19:01 121 108/48 (68) 97 5.0 03/12/17 18:00 115 105/49 (67) 97 Mask 5.0 141/82 (101) 03/12/17 16:00 36.6 128 123/72 (89) 88 Nasal Cannula 6.0 03/12/17 16:00 Nasal Cannula 6.0 03/12/17 14:00 109 102/43 (62) 93 Nasal Cannula 3.0 122/61 (81) Physical Exam General Appearance: + mild distress, + thin Eyes: normal inspection, EOMI ENT: normal ENT inspection, hearing grossly normal Neck: supple Respiratory/Chest: no respiratory distress, + respiratory distress, + crackles , + rales Cardiovascular: + systolic murmur, + irregularly irregular, + pertinent finding (atrial fibrillation with RVR, heart rate ranging between 120 and 150) Abdomen: non tender, soft, no organomegaly, no pulsatile mass Extremities: normal range of motion, non-tender, normal inspection, no pedal edema Neurologic/Psychiatric: place change roof bolter II-XII nml as tested, no motor/sensory deficits, alert, normal mood/affect, oriented x 3 Skin: normal color, warm/dry, no rash Laboratory Results Last 24 Hours Test 03/12/17 16:24 03/12/17 20:33 03/13/17 06:04 03/13/17 07:34 Bedside Glucose 124 mg/dl 202 mg/dl 130 mg/dl White Blood Count 11.32 K/uL Red Blood Count 2.74 M/uL Hemoglobin 8.2 g/dL Hematocrit 25.8 % Mean Corpuscular Volume 94.2 fL Mean Corpuscular Hemoglobin 29.9 pg Mean Corpuscular Hemoglobin Concent 31.8 g/dl Platelet Count 141 K/uL Mean Platelet Volume 8.5 fL Neutrophils (%) (Auto) 80.9 % Lymphocytes (%) (Auto) 8.7 % Monocytes (%) (Auto) 9.5 % Eosinophils (%) (Auto) 0.3 % Basophils (%) (Auto) 0.2 % Neutrophils # (Auto) 9.16 K/uL Lymphocytes # (Auto) 0.99 K/uL Monocytes # (Auto) 1.07 K/uL Eosinophils # (Auto) 0.03 K/uL Basophils # (Auto) 0.02 K/uL RDW Standard Deviation 51.5 fL RDW Coefficient of Variation 15.1 % Immature Granulocyte % (Auto) 0.4 % Immature Granulocyte # (Auto) 0.05 K/uL Red Blood Cell Morphology Unremarkable Sodium Level 137 mmol/L Potassium Level 3.4 mmol/L Chloride Level 97 mmol/L Carbon Dioxide Level 36 mmol/L Anion Gap 4.0 mmol/L Blood Urea Nitrogen 8 mg/dl Creatinine 0.58 mg/dl Est Creatinine Clear Calc Drug Dose 71.8 ml/min Estimated GFR () 109.3 Estimated GFR (Non- 94.3 BUN/Creatinine Ratio 13.4 Random Glucose 118 mg/dl Calcium Level 8.0 mg/dl Phosphorus Level 2.2 mg/dl Magnesium Level 2.0 mg/dl C-Reactive Protein 15.30 mg/dl Procalcitonin 0.08 ng/ml Thyroid Stimulating Hormone (TSH) 0.222 uIu/ml Vancomycin Level Trough 14.2 mcg/ml Assessment and Plan Mr. Olvera is a 81-year-old male with past medical history of paroxysmal atrial fibrillation and Coumadin, COPD, coronary artery disease and AAA status post leaking emergent endovascular repair at [facility] He also has hyperlipidemia, hypertension, colon cancer status post hemicolectomy, prostate cancer status post brachytherapy, hypothyroidism and GERD He has history of prostate cancer and recently was noted to have a possible lump on his prostate by his primary care physician as well On 03/06/2017 he presented to emergency department with decreased appetite, generalized weakness, shortness of breath and weight loss. Recently seen by his coremaking machine setter and his primary care physician; Dr. Hughes and Dr. Mays and he was advised to go to ED for further evaluation. had an echocardiogram done in January which showed ejection fraction of 35-40% , Subjective: Patient developed some shortness of breath and A. fib with RVR, improved on when necessary Lopressor IV Assessment Shortness of breath secondary to bilateral pleural effusion, empyema was pulled out, pH was 7.2 on pleural fluid Pulmonary consolidation on CT scan most likely atelectasis but cannot rule out pneumonia status post 7 days course of vancomycin/Zosyn Generalized weakness and failure to thrive Atrial fibrillation with RVR COPD without exacerbation Acute blood loss anemia CAD status post CABG in June 2016 Cardiomyopathy with ejection fraction 30-40% on echo Hyperthyroidism on methimazole Plan Cardiothoracic surgery consult appreciated S/P decortication and evacuation of pleural contents with limited pleurectomy POD#3 Agree with stopping antibiotics since he already received 7 days course of treatment and all cultures currently are negative Continue supportive care, chest tube in place Continue holding Coumadin and aspirin until allowed by cardiothoracic surgeon, only on Lovenox for DVT prophylaxis Nutritional support / hasn't allowed, will add nutritional boost Continue when necessary Lopressor IV Continue Lactinex for clostridia difficile prophylaxis Continue bronchodilators, Lipitor, methimazole, and home meds continue supportive care Continued [facility] stay due to: multiple IV medications needed Discharge planning: senior living facility
[2017-03-13] MEDS ORDERED: FIBERSOURCE HN 1000ML BAG NG SCH ×2 (14:00)
[2017-03-13] MEDS: MoRPHine SULFATE 2 MG/ML CARP IV PRN (17:34)
[2017-03-13] MEDS: BOOST PLUS VANILLA PO SCH ×2 (19:00)
[2017-03-13] MEDS: ATORVASTATIN 40 MG TAB PO SCH (21:26)
[2017-03-13] MEDS: MIRTAZAPINE TAB 15 MG TAB PO SCH (21:27)
[2017-03-13] MEDS: TAMSULOSIN HCL 0.4 MG CAP PO SCH (21:28)
[2017-03-13] MEDS ORDERED: FUROSEMIDE 40 MG/4 ML VIAL ONE (22:19)
[2017-03-13] MEDS ORDERED: FUROSEMIDE 40 MG/4 ML VIAL IV STA (22:22)
--- NOTE | 2017-03-13 22:46 | DIAGNOSTIC IMAGING REPORT ---
CHEST ONE VIEW PORTABLE CLINICAL HISTORY: Worsening respiratory status COMPARISON STUDY: 03/11/2017 FINDINGS: The heart remains enlarged. There are postsurgical changes of a midline sternotomy. A feeding tube is visualized within the stomach. There are multiple right-sided chest tubes. There is a trace apical pneumothorax. There are persistent bilateral pulmonary airspace opacities.[ IMPRESSION: 1. Persistent extensive bilateral pulmonary airspace opacities 2. Cardiomegaly 3. No change in the position right-sided chest tubes 4. Trace right apical pneumothorax 5. Feeding tube within the stomach Electronically signed by: Tristian Villafuerte M.D. 03/13/2017 10:44 PM Dictated Date/Time: 03/13/2017 10:42 PM
[2017-03-14] VITALS (19 sets, daily range): BP systolic 104–143; BP diastolic 48–76; PULSE 83–133; TEMP 36.5–37.3; O2SAT 91–100
[2017-03-14] MEDS: ACETAMINOPHEN IV 1,000 MG in EMPTY BAG 0 ML IV SCH ×2 (00:15→09:03)
[2017-03-14 05:25] LABS: BASO % 0.1 %; BASO ABS # 0.01 K/uL (0-0.2); EOS % 0.1 %; HEMATOCRIT 25.3 % (42-52); IG% 0.6 %; LYMPH % 10.5 %; LYMPH ABS # 1.01 K/uL (1.2-3.4); MEAN CELL VOLUME 97.7 fL (80-100); MEAN CORPUSCULAR HEMOGLOBIN 30.5 pg (25-34); MEAN CORPUSCULAR HGB CONC 31.2 g/dl (32-36); MEAN PLATELET VOLUME 8.6 fL (7.4-10.4); MONO % 6.3 %; NEUT % 82.4 %; PLATELET COUNT 168 K/uL (130-400); RED BLOOD COUNT 2.59 M/uL (4.7-6.1); WHITE BLOOD COUNT 9.64 K/uL (4.8-10.8)
[2017-03-14 05:45] LABS: ANISOCYTOSIS PRESENT; COMPLETE YES
[2017-03-14 05:49] LABS: ALB/GLOB RATIO 0.5 (0.9-2); BUN/CREATININE RATIO 17.3 (10-20); CALCIUM 8.3 mg/dl (8.5-10.1); CREATININE 0.6 mg/dl (0.60-1.40); MAGNESIUM 2.1 mg/dl (1.8-2.4); POTASSIUM 3.5 mmol/L (3.5-5.1)
[2017-03-14] MEDS: INSULIN ASPART 100 UNITS/ML 3 ML PEN SC SCH ×4 (06:45→19:42)
--- NOTE | 2017-03-14 07:20 | DIAGNOSTIC IMAGING REPORT ---
CHEST ONE VIEW PORTABLE CLINICAL HISTORY: VATS postoperative evaluation COMPARISON STUDY: 03/13/2017 FINDINGS: Postoperative changes right hemithorax considered stable. Moderate stable cardiomegaly. Feeding tube within the mid stomach. Unchanging components of bilateral parenchymal infiltrates versus mild pulmonary edema. IMPRESSION: No significant change radiographically from the prior study. Tubes and lines in appropriate position. No significant postprocedural pneumothorax. The above report was generated using voice recognition software. It may contain grammatical, syntax or spelling errors. Electronically signed by: Max Malone M.D. 03/14/2017 7:18 AM Dictated Date/Time: 03/14/2017 7:17 AM
--- NOTE | 2017-03-14 08:27 | SURGERY PROGRESS NOTE ---
DATE: 03/14/2017 Mr. Olvera had some issues overnight with confusion. His heart rate has been elevated from the 110s to the 120s and on 6 liters of O2, his saturations has been anywhere from 91 to 90%. His chest tubes are not really draining. His chest x-ray does not look much different. We went ahead and pulled this 2 chest tubes and left his PleurX catheter in place. I discussed this with the ICU staff. He does not really have evidence of pneumo or significant effusion, but I believe the patient does have probably some fluid overload. He is getting tube feeds now and he appears to be tolerating them. He did appear better after his chest tube was out. I recommend moving him more and I have discussed this with Dr. Rice. AMANDA
--- NOTE | 2017-03-14 08:38 | DIAGNOSTIC IMAGING REPORT ---
CHEST ONE VIEW PORTABLE CLINICAL HISTORY: chest tube removal tube position COMPARISON STUDY: 03/14/2017 FINDINGS: Stable cardiomegaly. Interval removal of the right sided chest tube. Small residual tube lateral aspect right hemithorax. No significant postprocedural pneumothorax. Feeding tube within the mid stomach. IMPRESSION: No significant pneumothorax status post right chest tube removal. The above report was generated using voice recognition software. It may contain grammatical, syntax or spelling errors. Electronically signed by: Max Malone M.D. 03/14/2017 8:36 AM Dictated Date/Time: 03/14/2017 8:35 AM
[2017-03-14] MEDS: PANTOprazole SOD 40 MG TAB PO SCH ×2 (08:54→20:53)
[2017-03-14] MEDS: FERROUS GLUCONATE 324 MG TAB PO SCH (08:54)
[2017-03-14] MEDS: METHIMAZOLE 5 MG TAB PO SCH (08:54)
[2017-03-14] MEDS: AcetaZOLAMIDE 250 MG TAB PO SCH ×3 (08:54→20:51)
[2017-03-14] MEDS: POTASSIUM CHLORIDE 20 MEQ TABCR PO SCH ×3 (08:55→20:52)
[2017-03-14] MEDS: FUROSEMIDE 40 MG TAB PO SCH (08:55)
[2017-03-14] MEDS: METOPROLOL TARTRATE 100 MG TAB PO SCH ×2 (08:55→20:52)
[2017-03-14] MEDS: MULTIVITAMIN TAB PO SCH (08:55)
[2017-03-14] MEDS: LACTOBACILLUS ACIDOPHILUS 1 GM PACK PO SCH ×2 (08:56→11:30)
[2017-03-14] MEDS: ENOXAPARIN 40 MG/0.4 ML SYR SQ SCH (08:56)
[2017-03-14] MEDS ORDERED: DIGOXIN IV 250 MCG in SYRINGE 9 ML IV ONE (09:00)
[2017-03-14] MEDS: DOCUSATE SODIUM 100 MG CAP PO SCH ×2 (09:00→20:51)
[2017-03-14] MEDS ORDERED: FIBERSOURCE HN 1000ML BAG NG PRN ×2 (09:00)
[2017-03-14] MEDS ORDERED: ASPIRIN 81 MG CHEW ONE (09:07)
[2017-03-14] MEDS: ASPIRIN 81 MG ECTAB PO SCH (09:07)
--- NOTE | 2017-03-14 09:18 | CARDIOLOGY PROGRESS NOTE ---
DATE: 03/14/2017 TIME: 08:43 a.m. SUBJECTIVE: Mr. Olvera has been tachycardic since 03/12/2017. He has also been more short of breath and more tachypneic. He admits that he is more short of breath. He denies chest pain. He denies bleeding. Beginning on 03/11/2017, he had positive fluid balance of approximately 2.5 liters followed by approximately 2.1 liters on 03/13/2017. He was diuresed yesterday with negative 2.8 liters. OBJECTIVE: VITAL SIGNS: Temperature 37.3 degrees, heart rate 117 beats per minute up into the 120s, respiratory rate 37, blood pressure 127/48 mmHg, and oxygen saturation 98% on mask with 6 liters. I's and O's negative 2.8 liters yesterday, but 3 days prior, he was positive approximately 5 liters. Weight 58.4 kg. GENERAL: No acute distress, but mildly tachypneic. He is alert and oriented x3. NECK: Elevated JVD to the mandible. CARDIAC EXAM: No ventricular heave. Irregularly irregular. No audible murmurs, rubs or gallops. LUNGS: Crackles at base to mid lung weir bilaterally. ABDOMEN: Soft, nontender, and nondistended. EXTREMITIES: Trace bilateral lower extremity edema. No cyanosis. MEDICATIONS: Include atorvastatin 40 mg at bedtime, Lovenox 40 mg daily, and Lasix 40 mg p.o. daily. He also received 40 mg IV x2 yesterday. Methimazole 5 mg every other day, metoprolol 100 mg p.o. b.i.d., metoprolol tartrate 5 mg IV q. 4 hours p.r.n. last dose given yesterday morning, Remeron 30 mg at bedtime, Protonix 40 mg p.o. b.i.d. Zosyn has been discontinued. Potassium chloride 20 mEq p.o. t.i.d. Vancomycin has been discontinued. TELEMETRY: Personally reviewed. Atrial fibrillation with rapid ventricular response. LABORATORY DATA: White blood cell count 9.64, hemoglobin 7.9 down from 8.2, and platelets 168. Sodium 140, potassium 3.5, bicarbonate level 44, BUN 10, and creatinine 0.6. Albumin 2.2. INR 1.1. Chest x-ray personally reviewed. Chest x-ray from this morning at 06:00 a.m., possible infiltrates versus evidence of CHF. Radiology has interpreted this as stable bilateral parenchymal infiltrates versus mild pulmonary edema. Right hemithorax considered as stable. Chart reviewed. ASSESSMENT AND PLAN: 1. Atrial fibrillation: Heart rate is elevated; however, he is more tachypneic and more short of breath, requiring higher oxygen supplementation. We will order digoxin for now. Hopefully, his heart rate improves while on his beta vince dose when his breathing improves. Consider resuming anticoagulation if no bleeding. Anticoagulation for stroke risk reduction is recommended when safe. 2. Acute on chronic systolic congestive heart failure: He did not present to the hospital in heart failure; however, he is hypervolemic now, which appears to be iatrogenic as he was hypotensive and did receive IV fluids in the form of antibiotics and his other medications per records. Would recommend continued diuresis. This will be managed by the critical care team as we have discussed this and they plan on using acetazolamide given his elevated bicarbonate level. Monitor I's and O's and daily weights. 3. Cardiomyopathy: Biventricular systolic dysfunction. He has declined further ischemic evaluation. This occurred following bypass surgery. Recommend metoprolol succinate upon discharge him in place of metoprolol tartrate. He did not tolerate lisinopril due to symptomatic hypotension. 4. Coronary artery disease, status post coronary artery bypass graft and percutaneous coronary intervention: We will restart aspirin 81 mg daily. Recommend high intensity statin therapy. Continue beta vince. 5. Shortness of breath: His worsening shortness of breath is likely multifactorial. He was short of breath upon presentation and was not hypervolemic, but now is more short of breath and is hypervolemic. Hopefully, he will improve with further diuresis. 6. Disposition: Agree that his long-term prognosis is poor. We began to discuss code status and palliative care; however, he needed to quickly have a bowel movement. Agree with palliative care consultation. This was also discussed with the critical care team and palliative care. Highly complex medical issues. Cardiology will continue to follow up.
[2017-03-14] MEDS: DRONABINOL 2.5 MG CAP PO SCH ×2 (09:19→20:52)
[2017-03-14] MEDS ORDERED: DOCUSATE SODIUM/SENNA 50/8.6MG TAB PO PRN (10:15)
[2017-03-14] MEDS ORDERED: POTASSIUM CHLORIDE PWD 20 MEQ PACK NG ONE (11:00)
[2017-03-14] MEDS ORDERED: ASCORBIC ACID 500 MG TAB PO ONE (11:00)
[2017-03-14] MEDS: BOOST PLUS VANILLA PO SCH ×4 (11:59→19:10)
[2017-03-14] MEDS: CHLOROTHIAZIDE INJ 500 MG in DEXTROSE 5% 50ML 50 ML IV SCH ×2 (11:59→19:11)
--- NOTE | 2017-03-14 11:59 | Critical Care Progress Note ---
Critical Care Progress Note Date of Service Mar 14, 2017. ICU Day ICU Day Number: [address] Rice Subjective 81 year old male with PMH of CABG, bioprosthetic aortic valve, left ventricular dysfunction, afib, AAA, COPD and HTN who was found to have volume overloaded CHF. He presented to [facility] with weight loss and SOB. Found to have bilateral pleural effusions. Had VATS procedure and required richie-synephrine therefore he was brought to the ICU Patient had an episode of hypoxia yesterday at 10 pm where his saturation went down to 60% and his resp rate increased to 50. He recovered with the use of BiPAP and his saturations improved as did his resp rate. Patient had his chest tubes removed this morning and is on 6 L of oxymask. He continues to be clinically fluid overloaded and will be given digoxin, diurel and diamox today in order to diurese him. Patient denies any chest pain, palpitations, cough, headaches, nausea, vomiting , abdominal pain, dysuria, constipation, diarrhea, fevers, night sweats, chills Patient does feel short of breath at rest Objective General: Frail elderly gentleman who is laying in the bed on BiPAP. Head was atraumatic, normocephalic Neck: Elevated JVD to angle of mandible Cardiac: Irregularly irregular. Normal S1 and S2. No audible murmurs, rubs or gallops. Hyperdynamic Chest: Bilateral crackles to auscultation. No output from chest tube. Bandage over right side of thorax Abdomen: Soft, nontender, nondistended. Bowel sounds are present. Extremities: No cyanosis or edema. Trace pitting edema bilaterally. Left radial arterial line in place. No calf tenderness. Neurology: Alert and oriented 3. Current SOFA Score SOFA Score Response (Comments) Value Platelets (x10) > 150 0 Bilirubin (mg/dL) < 1.2 0 [place] Coma Score 15 0 Level of Hypotension No Hypotension 0 Creatinine (mg/dL) < 1.2 0 Total 0 Assessment & Plan NEURO cam negative stop acetaminophen IV patient denies any pain RESP received 40 mg lasix yesterday resp rate elevated and on 6 L oxymask pod #4 for VATs and lung decortication chest tubes removed with pleurx in place CXR with extensive bilateral airspace opacities, cardiomegaly diamox 500 tid and diurel IV CARDIAC 100 mg metoprolol bid for afib, 5mg IV lopressor, coumadin held for now continue atorvastatin echo EF of 35-40% dig 125mcg q6 for rate control diurel and diamox for diuresis monitor I/O's ID vanc and zosyn stopped after 7 day course afebrile overnight with wcc of 9.64 pleural fluid cx negative and urine cx negative procalcitonin negative GI feeding tube and enteral nutrition at nightime PO during the day lactobacillus po protonix po marinol po and senokot for bm I/O's [id number] tamsulosin .4mg 60kcl orally sodium 140, potassium 3.5 and cl 94, co2 44 ENDO glucose well controlled currently TSH .222 check T4/t3 and consider increased methimazole dose 5mg methimazole currently HAEM received 1 unit PRBC hgb stable at 7.9, continue to monitor receiving 324 ferrous sulfate, supplement with vit C qam PSYCH mirtazapine DVT prophylaxis- 40mg lovenox FULL CODE PT/OT Resident Physician Supervision Note: Dr. Lombardo was resident physician during care of patient. I separately evaluated patient and did history and exam. I discussed the case with the resident and generally agree with the findings and plan. Had extensive discussion with and children and patient regarding goals of care. The patient does not want to undergo heroic measures in event of cardiac arrest. Will continue current treatment plan, however, now DNR in event of cardiac arrest. Patient critically ill due to volume overload and tachycardia requiring IV medications for control. I have personally spent 50 minutes of critical care time in the direct management of this patient. This is a life/limb threatening event. This includes time spent evaluating patient, direct bedside care, chart review, placing orders, interpretation of diagnostic studies, discussion with consultants, patient, and family members, as well as other required patient management activities. This time is exclusive of all separately billable procedures, and teaching time and separate from and in addition to any other critical care service time. Documented By: Darrell Rice DO LOWER [place] II Score Date Score Was Generated: Mar 12, 2017 Consults & Procedures Consultants: Pulmonary: Thoracic surgery, critical care medicine. Procedures: Right-sided VAT's, partial pleurectomy, chest tube 2, Pleurx catheter on 2016. Arterial line placement intraoperatively. Data Medications: Current Inpatient Medications Medications (Trade) Dose Ordered Sig/Jarett Route Start Time Stop Time Status Last Admin Dose Admin Acetaminophen (Tylenol Tab) 650 mg Q4H PRN PO 03/05/17 18:45 04/04/17 18:44 Future hold 03/10/17 00:06 650 MG Nitroglycerin (Nitrostat Tab) 0.4 mg UD PRN SL 03/05/17 18:45 04/04/17 18:44 Atorvastatin Calcium (Lipitor Tab) 40 mg HS PO 03/05/17 21:00 04/04/17 20:59 03/13/17 21:26 40 MG Ferrous Gluconate (Ferrous Gluconate Tab) 324 mg DAILY PO 03/06/17 09:00 04/05/17 08:59 03/14/17 08:54 324 MG Methimazole (Methimazole Tab) 5 mg Q2D@0900 PO 03/06/17 09:00 04/05/17 08:59 03/14/17 08:54 5 MG Multivitamins (Multivitamin Tab) 1 tab DAILY PO 03/06/17 09:00 04/05/17 08:59 03/14/17 08:55 1 TAB Potassium Chloride (Klor-Con Tab) 20 meq TID PO 03/05/17 21:00 04/04/17 20:59 03/14/17 08:55 20 MEQ Albuterol (Ventolin Hfa Inhaler) 2 puffs Q4H PRN INH 03/05/17 18:45 04/04/17 18:44 Mirtazapine (Remeron Tab) 30 mg HS PO 03/05/17 21:00 04/04/17 20:59 03/13/17 21:27 30 MG Pantoprazole Sodium (Protonix Tab) 40 mg BID PO 03/05/17 21:00 04/04/17 20:59 03/14/17 08:54 40 MG Tamsulosin HCl (Flomax Cap) 0.4 mg HS PO 03/05/17 21:00 04/05/17 08:59 03/13/17 21:28 0.4 MG Metoprolol Tartrate (Lopressor Tab) 100 mg BID PO 03/07/17 09:00 04/06/17 08:59 03/14/17 08:55 100 MG Al Hydrox/Mg Hydrox/Simethicone (Maalox Max Susp) 15 ml Q4H PRN PO 03/07/17 03:00 04/06/17 02:59 Furosemide (Lasix Tab) 40 mg QAM PO 03/07/17 09:00 04/06/17 08:59 Future hold 03/14/17 08:55 40 MG Dronabinol (Marinol Cap) 10 mg BID PO 03/09/17 21:00 04/08/17 20:59 03/14/17 09:19 10 MG Oxycodone HCl (Roxicodone Immediate Rel Tab) 5 mg Q6H PRN PO 03/10/17 14:45 03/24/17 14:44 03/12/17 09:40 5 MG Enoxaparin Sodium (Lovenox Inj) 40 mg DAILY SQ 03/11/17 09:00 04/10/17 08:59 03/14/17 08:56 40 MG Ondansetron HCl (Zofran Inj) 4 mg Q4H PRN IV 03/10/17 14:45 04/09/17 14:44 03/12/17 07:41 4 MG Docusate Sodium (coLACE CAP) 100 mg BID PO 03/10/17 21:00 04/09/17 20:59 03/13/17 21:27 100 MG Morphine Sulfate (MoRPHine SULFATE INJ) Q1H PRN IV 03/10/17 14:45 03/24/17 14:44 03/13/17 17:34 2 MG Glucose (Glucose 40% Gel) 15-30 GRAMS 15 GRAMS... UD PRN PO 03/11/17 14:15 04/10/17 14:14 Glucose (Glucose Chew Tab) 4-8 Tablets 4 Tabl... UD PRN PO 03/11/17 14:15 04/10/17 14:14 Dextrose (Dextrose 50% 50ML Syringe) 25-50ML OF 50% DW IV FOR... UD PRN IV 03/11/17 14:15 04/10/17 14:14 Glucagon (Glucagon Inj) 1 mg UD PRN SQ 03/11/17 14:15 04/10/17 14:14 Insulin Aspart (novoLOG ASPART) SLIDING SCALE ACHS SC 03/11/17 16:00 04/10/17 15:59 03/13/17 21:32 1 UNITS Lactobacillus Acidophilus (Lactinex Granules Pack) 2 gm TIDM PO 03/12/17 07:15 04/11/17 07:14 03/14/17 08:56 2 GM Sodium Chloride ([place] Nasal [place]) 1 sprays PRN PRN NA 03/12/17 16:15 04/11/17 16:14 Metoprolol Tartrate (Lopressor Iv) 5 mg Q4H PRN IV 03/13/17 04:30 04/12/17 04:29 03/13/17 07:54 5 MG Enteral Nutritional Formula (Boost Plus Vanilla) 1 can BID@1000,1900 PO 03/13/17 19:00 04/12/17 18:59 Acetazolamide (Diamox Tab) 500 mg TID PO 03/14/17 09:00 03/14/17 23:59 03/14/17 08:54 500 MG Digoxin 125 mcg/ Syringe 10 ml @ 2 mls/min Q6H IV 03/14/17 15:00 03/14/17 21:04 Aspirin (Ecotrin Tab) 81 mg QAM PO 03/14/17 09:00 04/13/17 08:59 03/14/17 09:07 81 MG Enteral Nutritional Formula (Fibersource Hn) 1,000 ml UD PRN NG 03/14/17 09:00 04/13/17 08:59 Chlorothiazide Sodium 500 mg/ Dextrose 68 ml @ 200 mls/hr Q8H IV 03/14/17 11:00 03/15/17 03:21 Senna/Docusate Sodium (Senokot S Tab) 1 tab QAM PRN PO 03/14/17 10:15 04/13/17 10:14 Ascorbic Acid (Vitamin C Tab) 500 mg QAM PO 03/15/17 09:00 04/14/17 08:59 Vital Signs: Date Time Temp Pulse Resp B/P (MAP) Pulse Ox O2 Delivery O2 Flow Rate FiO2 03/14/17 10:00 94 22 104/64 (77) 97 Oxymask 6.0 03/14/17 09:03 114 03/14/17 08:00 Oxymask 03/14/17 08:00 Nasal Cannula 6.0 03/14/17 08:00 37.0 110 46 119/59 (79) 94 Oxymask 6.0 03/14/17 06:01 37.3 117 37 127/48 (74) 98 Oxymask 6.0 03/14/17 05:01 129 34 119/75 (90) 91 Oxymask 6.0 03/14/17 04:43 97 BiPAP 50 03/14/17 04:01 123 42 111/61 (78) 98 BiPAP 50.0 03/14/17 03:01 121 44 119/67 (84) 100 BiPAP 50.0 03/14/17 02:01 37.0 111 43 143/66 (91) 99 BiPAP 50.0 03/14/17 01:38 102 99 50 03/14/17 01:01 106 42 125/75 (92) 100 BiPAP 50.0 03/14/17 00:16 97 BiPAP 50 03/14/17 00:00 133 36 135/76 (95) 100 BiPAP 50.0 03/13/17 23:01 118 30 117/65 (82) 100 BiPAP 50.0 03/13/17 22:13 106 94 50 03/13/17 22:01 126 33 138/78 (98) 90 BiPAP 50.0 03/13/17 21:01 111 55 120/61 (80) 60 BiPAP 50.0 03/13/17 20:07 97 Oxymask 6.0 03/13/17 20:01 36.8 115 121/66 (84) 90 Oxymask 6.0 03/13/17 19:01 114 93/57 (69) 89 Oxymask 6.0 03/13/17 18:00 101 99/59 (72) 100 BiPAP 50 03/13/17 16:00 36.5 102 118/64 (82) 94 BiPAP 50 03/13/17 16:00 3 Oxymask 5.0 03/13/17 14:00 95 109/49 (69) 91 Oxymask 6.0 03/13/17 12:00 36.5 95 101/55 (70) 98 BiPAP 50 03/13/17 12:00 98 BiPAP 50 Laboratory Results: Last 24 Hours Test 03/13/17 12:03 03/13/17 16:09 03/13/17 21:30 03/14/17 04:52 Bedside Glucose 164 mg/dl 114 mg/dl 180 mg/dl White Blood Count 9.64 K/uL Red Blood Count 2.59 M/uL Hemoglobin 7.9 g/dL Hematocrit 25.3 % Mean Corpuscular Volume 97.7 fL Mean Corpuscular Hemoglobin 30.5 pg Mean Corpuscular Hemoglobin Concent 31.2 g/dl Platelet Count 168 K/uL Mean Platelet Volume 8.6 fL Neutrophils (%) (Auto) 82.4 % Lymphocytes (%) (Auto) 10.5 % Monocytes (%) (Auto) 6.3 % Eosinophils (%) (Auto) 0.1 % Basophils (%) (Auto) 0.1 % Neutrophils # (Auto) 7.94 K/uL Lymphocytes # (Auto) 1.01 K/uL Monocytes # (Auto) 0.61 K/uL Eosinophils # (Auto) 0.01 K/uL Basophils # (Auto) 0.01 K/uL RDW Standard Deviation 52.7 fL RDW Coefficient of Variation 14.9 % Immature Granulocyte % (Auto) 0.6 % Immature Granulocyte # (Auto) 0.06 K/uL Basophilic Stippling 1+ Anisocytosis PRESENT Sodium Level 140 mmol/L Potassium Level 3.5 mmol/L Chloride Level 94 mmol/L Carbon Dioxide Level 44 mmol/L Anion Gap 1.0 mmol/L Blood Urea Nitrogen 10 mg/dl Creatinine 0.60 mg/dl Est Creatinine Clear Calc Drug Dose 69.4 ml/min Estimated GFR () 107.8 Estimated GFR (Non- 93.0 BUN/Creatinine Ratio 17.3 Random Glucose 158 mg/dl Lactic Acid Level 0.7 mmol/L Calcium Level 8.3 mg/dl Magnesium Level 2.1 mg/dl Total Bilirubin 0.4 mg/dl Aspartate Amino Transf (AST/SGOT) 17 U/L Alanine Aminotransferase (ALT/SGPT) 19 U/L Alkaline Phosphatase 81 U/L Total Protein 7.0 gm/dl Albumin 2.2 gm/dl Globulin 4.8 gm/dl Albumin/Globulin Ratio 0.5 Test 03/14/17 10:40 Free Thyroxine 1.13 ng/dl
[2017-03-14] MEDS ORDERED: INSULIN GLARGINE SOLOSTAR 100 UNITS/ML 3 ML PEN SC ONE (14:15)
--- NOTE | 2017-03-14 15:26 | Progress Note ---
Subjective Date of Service: Mar 14, 2017. Subjective Pt evaluation today including: conversation w/ patient, physical exam, chart review, lab review, review of studies 81 year old male is resting comfortably in bed. He speaks in short sentences and states that he is breathing better than before. He still has some SOB. Patient denies fever, chills, nausea, vomiting. Problem List Medical Problems: (1) Dyspnea on exertion Status: Acute (2) Early satiety Status: Acute (3) Generalized weakness Status: Acute (4) Pleural effusion Status: Acute Review of Systems Constitutional: No fever, No chills Respiratory: No cough, No sputum Cardiac: No chest pain, No orthopnea Abdomen: No pain, No nausea Neurologic: No memory loss, No paralysis Psychiatric: No depression symptoms, No anhedonism Endo: + fatigue Skin: No rash, No itch All Other Systems: Reviewed and Negative Medications Current Inpatient Medications Medications (Trade) Dose Ordered Sig/Jarett Route Start Time Stop Time Status Last Admin Dose Admin Acetaminophen (Tylenol Tab) 650 mg Q4H PRN PO 03/05/17 18:45 04/04/17 18:44 Future hold 03/10/17 00:06 650 MG Nitroglycerin (Nitrostat Tab) 0.4 mg UD PRN SL 03/05/17 18:45 04/04/17 18:44 Atorvastatin Calcium (Lipitor Tab) 40 mg HS PO 03/05/17 21:00 04/04/17 20:59 03/14/17 20:52 40 MG Ferrous Gluconate (Ferrous Gluconate Tab) 324 mg DAILY PO 03/06/17 09:00 04/05/17 08:59 03/14/17 08:54 324 MG Methimazole (Methimazole Tab) 5 mg Q2D@0900 PO 03/06/17 09:00 04/05/17 08:59 03/14/17 08:54 5 MG Multivitamins (Multivitamin Tab) 1 tab DAILY PO 03/06/17 09:00 04/05/17 08:59 03/14/17 08:55 1 TAB Potassium Chloride (Klor-Con Tab) 20 meq TID PO 03/05/17 21:00 04/04/17 20:59 03/14/17 20:52 20 MEQ Albuterol (Ventolin Hfa Inhaler) 2 puffs Q4H PRN INH 03/05/17 18:45 04/04/17 18:44 03/14/17 16:26 2 PUFFS Mirtazapine (Remeron Tab) 30 mg HS PO 03/05/17 21:00 04/04/17 20:59 03/14/17 20:53 30 MG Pantoprazole Sodium (Protonix Tab) 40 mg BID PO 03/05/17 21:00 04/04/17 20:59 03/14/17 20:53 40 MG Tamsulosin HCl (Flomax Cap) 0.4 mg HS PO 03/05/17 21:00 04/05/17 08:59 03/14/17 20:51 0.4 MG Metoprolol Tartrate (Lopressor Tab) 100 mg BID PO 03/07/17 09:00 04/06/17 08:59 03/14/17 20:52 100 MG Al Hydrox/Mg Hydrox/Simethicone (Maalox Max Susp) 15 ml Q4H PRN PO 03/07/17 03:00 04/06/17 02:59 Furosemide (Lasix Tab) 40 mg QAM PO 03/07/17 09:00 04/06/17 08:59 Future Hold 03/14/17 08:55 40 MG Dronabinol (Marinol Cap) 10 mg BID PO 03/09/17 21:00 04/08/17 20:59 03/14/17 20:52 10 MG Oxycodone HCl (Roxicodone Immediate Rel Tab) 5 mg Q6H PRN PO 03/10/17 14:45 03/24/17 14:44 03/12/17 09:40 5 MG Enoxaparin Sodium (Lovenox Inj) 40 mg DAILY SQ 03/11/17 09:00 04/10/17 08:59 03/14/17 08:56 40 MG Ondansetron HCl (Zofran Inj) 4 mg Q4H PRN IV 03/10/17 14:45 04/09/17 14:44 03/12/17 07:41 4 MG Docusate Sodium (coLACE CAP) 100 mg BID PO 03/10/17 21:00 04/09/17 20:59 03/14/17 20:51 100 MG Morphine Sulfate (MoRPHine SULFATE INJ) Q1H PRN IV 03/10/17 14:45 03/24/17 14:44 03/13/17 17:34 2 MG Glucose (Glucose 40% Gel) 15-30 GRAMS 15 GRAMS... UD PRN PO 03/11/17 14:15 04/10/17 14:14 Glucose (Glucose Chew Tab) 4-8 Tablets 4 Tabl... UD PRN PO 03/11/17 14:15 04/10/17 14:14 Dextrose (Dextrose 50% 50ML Syringe) 25-50ML OF 50% DW IV FOR... UD PRN IV 03/11/17 14:15 04/10/17 14:14 Glucagon (Glucagon Inj) 1 mg UD PRN SQ 03/11/17 14:15 04/10/17 14:14 Sodium Chloride ([place] Nasal [place]) 1 sprays PRN PRN NA 03/12/17 16:15 04/11/17 16:14 Enteral Nutritional Formula (Boost Plus Vanilla) 1 can BID@1000,1900 PO 03/13/17 19:00 04/12/17 18:59 03/14/17 19:10 1 CAN Aspirin (Ecotrin Tab) 81 mg QAM PO 03/14/17 09:00 04/13/17 08:59 03/14/17 09:07 81 MG Enteral Nutritional Formula (Fibersource Hn) 1,000 ml UD PRN NG 03/14/17 09:00 04/13/17 08:59 03/14/17 20:37 1,000 ML Senna/Docusate Sodium (Senokot S Tab) 1 tab QAM PRN PO 03/14/17 10:15 04/13/17 10:14 Ascorbic Acid (Vitamin C Tab) 500 mg QAM PO 03/15/17 09:00 04/14/17 08:59 Lactobacillus Acidophilus (Floranex Tab) 4 tab QIDM PO 03/14/17 16:30 04/13/17 16:29 03/14/17 19:43 4 TAB Insulin Aspart (novoLOG ASPART) SLIDING SCALE Q4 SC 03/14/17 16:00 04/13/17 15:59 03/15/17 04:01 2 UNITS Acetazolamide Sodium 500 mg/ Syringe 5 ml @ 5 mls/min TID IV 03/15/17 09:00 03/15/17 21:00 Spironolactone (Aldactone Tab) 50 mg BID17 PO 03/15/17 09:00 03/15/17 17:01 Furosemide (Lasix Oral Soln) 40 mg NOW ONCE PO 03/15/17 09:00 03/15/17 09:01 Potassium/ Phosphorus/Sodium (Phospha 250 Neutral 155-852-130 Mg) 1 tab QID PO 03/15/17 09:00 03/15/17 17:01 Objective Vital Signs Date Time Temp Pulse Resp B/P (MAP) Pulse Ox O2 Delivery O2 Flow Rate FiO2 03/14/17 12:00 Nasal Cannula 6.0 03/14/17 12:00 36.8 98 21 105/56 (72) 95 Oxymask 6.0 03/14/17 10:00 94 22 104/64 (77) 97 Oxymask 6.0 03/14/17 09:03 114 03/14/17 08:00 Oxymask 03/14/17 08:00 Nasal Cannula 6.0 03/14/17 08:00 37.0 110 46 119/59 (79) 94 Oxymask 6.0 03/14/17 06:01 37.3 117 37 127/48 (74) 98 Oxymask 6.0 03/14/17 05:01 129 34 119/75 (90) 91 Oxymask 6.0 03/14/17 04:43 97 BiPAP 50 03/14/17 04:01 123 42 111/61 (78) 98 BiPAP 50.0 03/14/17 03:01 121 44 119/67 (84) 100 BiPAP 50.0 03/14/17 02:01 37.0 111 43 143/66 (91) 99 BiPAP 50.0 03/14/17 01:38 102 99 50 03/14/17 01:01 106 42 125/75 (92) 100 BiPAP 50.0 03/14/17 00:16 97 BiPAP 50 03/14/17 00:00 133 36 135/76 (95) 100 BiPAP 50.0 03/13/17 23:01 118 30 117/65 (82) 100 BiPAP 50.0 03/13/17 22:13 106 94 50 03/13/17 22:01 126 33 138/78 (98) 90 BiPAP 50.0 03/13/17 21:01 111 55 120/61 (80) 60 BiPAP 50.0 03/13/17 20:07 97 Oxymask 6.0 03/13/17 20:01 36.8 115 121/66 (84) 90 Oxymask 6.0 03/13/17 19:01 114 93/57 (69) 89 Oxymask 6.0 03/13/17 18:00 101 99/59 (72) 100 BiPAP 50 03/13/17 16:00 36.5 102 118/64 (82) 94 BiPAP 50 03/13/17 16:00 3 Oxymask 5.0 Physical Exam Comments: General Appearance: + mild distress, + thin Eyes: normal inspection, EOMI ENT: normal ENT inspection, hearing grossly normal Neck: supple Respiratory/Chest: no respiratory distress, decreased rales Cardiovascular: + systolic murmur,tachycardic ) Abdomen: non tender, soft, no organomegaly, no pulsatile mass Extremities: normal range of motion, non-tender, normal inspection, no pedal edema Neurologic/Psychiatric: [employer]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 tested, no motor/sensory deficits, alert, normal mood/affect, oriented x 3 Skin: normal color, warm/dry, no rash Laboratory Results Last 24 Hours Test 03/13/17 16:09 03/13/17 21:30 03/14/17 04:52 03/14/17 10:40 Bedside Glucose 114 mg/dl 180 mg/dl White Blood Count 9.64 K/uL Red Blood Count 2.59 M/uL Hemoglobin 7.9 g/dL Hematocrit 25.3 % Mean Corpuscular Volume 97.7 fL Mean Corpuscular Hemoglobin 30.5 pg Mean Corpuscular Hemoglobin Concent 31.2 g/dl Platelet Count 168 K/uL Mean Platelet Volume 8.6 fL Neutrophils (%) (Auto) 82.4 % Lymphocytes (%) (Auto) 10.5 % Monocytes (%) (Auto) 6.3 % Eosinophils (%) (Auto) 0.1 % Basophils (%) (Auto) 0.1 % Neutrophils # (Auto) 7.94 K/uL Lymphocytes # (Auto) 1.01 K/uL Monocytes # (Auto) 0.61 K/uL Eosinophils # (Auto) 0.01 K/uL Basophils # (Auto) 0.01 K/uL RDW Standard Deviation 52.7 fL RDW Coefficient of Variation 14.9 % Immature Granulocyte % (Auto) 0.6 % Immature Granulocyte # (Auto) 0.06 K/uL Basophilic Stippling 1+ Anisocytosis PRESENT Sodium Level 140 mmol/L Potassium Level 3.5 mmol/L Chloride Level 94 mmol/L Carbon Dioxide Level 44 mmol/L Anion Gap 1.0 mmol/L Blood Urea Nitrogen 10 mg/dl Creatinine 0.60 mg/dl Est Creatinine Clear Calc Drug Dose 69.4 ml/min Estimated GFR () 107.8 Estimated GFR (Non- 93.0 BUN/Creatinine Ratio 17.3 Random Glucose 158 mg/dl Lactic Acid Level 0.7 mmol/L Calcium Level 8.3 mg/dl Magnesium Level 2.1 mg/dl Total Bilirubin 0.4 mg/dl Aspartate Amino Transf (AST/SGOT) 17 U/L Alanine Aminotransferase (ALT/SGPT) 19 U/L Alkaline Phosphatase 81 U/L Total Protein 7.0 gm/dl Albumin 2.2 gm/dl Globulin 4.8 gm/dl Albumin/Globulin Ratio 0.5 Free Thyroxine 1.13 ng/dl Free Triiodothyronine 1.89 pg/ml Test 03/14/17 11:50 Bedside Glucose 162 mg/dl Assessment and Plan Mr. Olvera is a 81-year-old male with past medical history of paroxysmal atrial fibrillation and Coumadin, COPD, coronary artery disease and AAA status post leaking emergent endovascular repair at [facility] He also has hyperlipidemia, hypertension, colon cancer status post hemicolectomy, prostate cancer status post brachytherapy, hypothyroidism and GERD He has history of prostate cancer and recently was noted to have a possible lump on his prostate by his primary care physician as well On 03/06/2017 he presented to emergency department with decreased appetite, generalized weakness, shortness of breath and weight loss. Recently seen by his academic intern and his primary care physician; Dr. Hughes and Dr. Mays and he was advised to go to ED for further evaluation. had an echocardiogram done in January which showed ejection fraction of 35-40% , Assessment Shortness of breath secondary to bilateral pleural effusion, empyema was pulled out, pH was 7.2 on pleural fluid Pulmonary consolidation on CT scan most likely atelectasis but cannot rule out pneumonia status post 7 days course of vancomycin/Zosyn Generalized weakness and failure to thrive Atrial fibrillation with RVR COPD without exacerbation Acute blood loss anemia CAD status post CABG in June 2016 Cardiomyopathy with ejection fraction 30-40% on echo Hyperthyroidism on methimazole Plan Patient appears to have improved in regards to breathing after aggressive diuresis. Patient is currently negative balance in past 24 hours. Heart rate has even improved. Cardiothoracic surgery consult appreciated S/P decortication and evacuation of pleural contents with limited pleurectomy POD#3 Agree with stopping antibiotics since he already received 7 days course of treatment and all cultures currently are negative Continue supportive care Continue holding Coumadin and aspirin until allowed by cardiothoracic surgeon, only on Lovenox for DVT prophylaxis Nutritional support / hasn't allowed, will add nutritional boost Continue when necessary Lopressor IV Continue Lactinex for clostridia difficile prophylaxis Continue bronchodilators, Lipitor, methimazole, and home meds continue supportive care Continued [facility] stay due to: multiple IV medications needed Discharge planning: halfway facility
[2017-03-14] MEDS: DIGOXIN IV 125 MCG in SYRINGE 9.5 ML IV SCH ×2 (15:28→20:49)
--- NOTE | 2017-03-14 15:37 | Palliative Care Consultation ---
Consultation Date of Consultation: Mar 14, 2017. Requesting Physician: Dr. Blake Attending Physician: Dr. Rice, Dr. Mayes Reason for Consultation: Goals of care History of Present Illness This 81 year old male patient presented to the hospital nine days ago with c/o weakness, SOB, 45lb unintentional weight loss, and decreased appetite/PO intake. Back in August, patient underwent CABG and aortic valve replacement. Since then, he has essentially been experiencing failure to thrive and significant decompensation. He sees Dr. Mays as his PCP, also follows closely with Dr. Hughes for cardiology. Per the family, cardiology had wanted patient to seek further ischemic evaluation for his heart a couple months ago, but patient declined. Patient was also not attending physical therapy post surgery as the daughter noted. On CT scan, patient noted to have bilateral pleural effusions. He underwent VATS and partial decortication. Had chest tubes placed in right side. He was hypotensive and hypovolemic post surgery, was fluid resuscitated but unfortunately went into fluid volume overload. He is now being diuresed. His chest tube was pulled today by cardiothoracic surgery, pleur -x catheter left in. Due to patient's poor nutritional status, a coresafe feeding tube was placed into right nare and Fibersource parenteral feedings started. Patient's prognosis remains poor given his multiple medical comorbidities, failure to thrive, frailty, poor functional status and poor nutritional status. Palliative care is seeing the patient in consultation today to discuss goals of care. I met with the patient, his Elif (Sana), son Austin, and daughter Eva in room [address]. Patient is awake, alert and oriented x4 sitting up in chair. He appears frail, significant recent deconditioning is apparent. Patient denies pain at this time but states, "I want to get back in bed." Dr. Rice was able to give the patient and family a very good and detailed description of patient's current medical problems. Patient and family state that the goal is for patient to get better and stronger. They were told by surgical team back in August that patient would be back to his normal baseline in three months after the CABG/AVR. However, since the surgery he has done nothing but declined. We discussed goals of care. Patient mostly defers everything to his family, but they urged him to make decisions on his own, especially regarding code status. Patient stated that if his heart stops or his respiratory status worsens/stops breathing, he would not want any attempt at resuscitation. If this extreme case should occur, patient would want to pass away naturally and peacefully. His family was present and able to hear patient make this decision for himself-- they are supportive and in agreement. For now, patient does want to continue his current care. Further goals of care conversations will be held throughout hospitalization. Past Medical/Surgical History Medical History: CAD CABG and AVR in August 2016 Prior stent to RCA Htn COPD Prostate CA Hyperthyroidism Colon CA s/p left bowel resection Anemia Social History Smoking Status: Former Smoker History of Alcohol Use: No Drug Use: none Marital Status: Housing Status: lives with family Occupation Status: retired Review of Systems Constitutional: + weight loss, + weakness, + fatigue ENT: + problem reported (poor appetite), No trouble swallowing Respiratory: + dyspnea on exertion, No dyspnea at rest Cardiac: No chest pain, No edema Abdomen: No pain, No nausea, No vomiting Male : No problem reported Psychiatric: No anxiety Allergies Coded Allergies: No Known Allergies (Unverified , 03/05/17) Medications Current Inpatient Medications Medications (Trade) Dose Ordered Sig/Jarett Route Start Time Stop Time Status Last Admin Dose Admin Acetaminophen (Tylenol Tab) 650 mg Q4H PRN PO 03/05/17 18:45 04/04/17 18:44 Future hold 03/10/17 00:06 650 MG Nitroglycerin (Nitrostat Tab) 0.4 mg UD PRN SL 03/05/17 18:45 04/04/17 18:44 Atorvastatin Calcium (Lipitor Tab) 40 mg HS PO 03/05/17 21:00 04/04/17 20:59 03/13/17 21:26 40 MG Ferrous Gluconate (Ferrous Gluconate Tab) 324 mg DAILY PO 03/06/17 09:00 04/05/17 08:59 03/14/17 08:54 324 MG Methimazole (Methimazole Tab) 5 mg Q2D@0900 PO 03/06/17 09:00 04/05/17 08:59 03/14/17 08:54 5 MG Multivitamins (Multivitamin Tab) 1 tab DAILY PO 03/06/17 09:00 04/05/17 08:59 03/14/17 08:55 1 TAB Potassium Chloride (Klor-Con Tab) 20 meq TID PO 03/05/17 21:00 04/04/17 20:59 03/14/17 08:55 20 MEQ Albuterol (Ventolin Hfa Inhaler) 2 puffs Q4H PRN INH 03/05/17 18:45 04/04/17 18:44 Mirtazapine (Remeron Tab) 30 mg HS PO 03/05/17 21:00 04/04/17 20:59 03/13/17 21:27 30 MG Pantoprazole Sodium (Protonix Tab) 40 mg BID PO 03/05/17 21:00 04/04/17 20:59 03/14/17 08:54 40 MG Tamsulosin HCl (Flomax Cap) 0.4 mg HS PO 03/05/17 21:00 04/05/17 08:59 03/13/17 21:28 0.4 MG Metoprolol Tartrate (Lopressor Tab) 100 mg BID PO 03/07/17 09:00 04/06/17 08:59 03/14/17 08:55 100 MG Al Hydrox/Mg Hydrox/Simethicone (Maalox Max Susp) 15 ml Q4H PRN PO 03/07/17 03:00 04/06/17 02:59 Furosemide (Lasix Tab) 40 mg QAM PO 03/07/17 09:00 04/06/17 08:59 Future hold 03/14/17 08:55 40 MG Dronabinol (Marinol Cap) 10 mg BID PO 03/09/17 21:00 04/08/17 20:59 03/14/17 09:19 10 MG Oxycodone HCl (Roxicodone Immediate Rel Tab) 5 mg Q6H PRN PO 03/10/17 14:45 03/24/17 14:44 03/12/17 09:40 5 MG Enoxaparin Sodium (Lovenox Inj) 40 mg DAILY SQ 03/11/17 09:00 04/10/17 08:59 03/14/17 08:56 40 MG Ondansetron HCl (Zofran Inj) 4 mg Q4H PRN IV 03/10/17 14:45 04/09/17 14:44 03/12/17 07:41 4 MG Docusate Sodium (coLACE CAP) 100 mg BID PO 03/10/17 21:00 04/09/17 20:59 03/13/17 21:27 100 MG Morphine Sulfate (MoRPHine SULFATE INJ) Q1H PRN IV 03/10/17 14:45 03/24/17 14:44 03/13/17 17:34 2 MG Glucose (Glucose 40% Gel) 15-30 GRAMS 15 GRAMS... UD PRN PO 03/11/17 14:15 04/10/17 14:14 Glucose (Glucose Chew Tab) 4-8 Tablets 4 Tabl... UD PRN PO 03/11/17 14:15 04/10/17 14:14 Dextrose (Dextrose 50% 50ML Syringe) 25-50ML OF 50% DW IV FOR... UD PRN IV 03/11/17 14:15 04/10/17 14:14 Glucagon (Glucagon Inj) 1 mg UD PRN SQ 03/11/17 14:15 04/10/17 14:14 Sodium Chloride ([place] Nasal [place]) 1 sprays PRN PRN NA 03/12/17 16:15 04/11/17 16:14 Metoprolol Tartrate (Lopressor Iv) 5 mg Q4H PRN IV 03/13/17 04:30 04/12/17 04:29 03/13/17 07:54 5 MG Enteral Nutritional Formula (Boost Plus Vanilla) 1 can BID@1000,1900 PO 03/13/17 19:00 04/12/17 18:59 03/14/17 11:59 1 CAN Acetazolamide (Diamox Tab) 500 mg TID PO 03/14/17 09:00 03/14/17 23:59 03/14/17 08:54 500 MG Digoxin 125 mcg/ Syringe 10 ml @ 2 mls/min Q6H IV 03/14/17 15:00 03/14/17 21:04 Aspirin (Ecotrin Tab) 81 mg QAM PO 03/14/17 09:00 04/13/17 08:59 03/14/17 09:07 81 MG Enteral Nutritional Formula (Fibersource Hn) 1,000 ml UD PRN NG 03/14/17 09:00 04/13/17 08:59 Chlorothiazide Sodium 500 mg/ Dextrose 68 ml @ 200 mls/hr Q8H IV 03/14/17 11:00 03/15/17 03:21 03/14/17 11:59 200 MLS/HR Senna/Docusate Sodium (Senokot S Tab) 1 tab QAM PRN PO 03/14/17 10:15 04/13/17 10:14 Ascorbic Acid (Vitamin C Tab) 500 mg QAM PO 03/15/17 09:00 04/14/17 08:59 Lactobacillus Acidophilus (Floranex Tab) 4 tab QIDM PO 03/14/17 16:30 04/13/17 16:29 Insulin Aspart (novoLOG ASPART) SLIDING SCALE Q4 SC 03/14/17 16:00 04/13/17 15:59 Physical Exam Date Time Temp Pulse Resp B/P (MAP) Pulse Ox O2 Delivery O2 Flow Rate FiO2 03/14/17 12:00 Nasal Cannula 6.0 03/14/17 12:00 36.8 98 21 105/56 (72) 95 Oxymask 6.0 03/14/17 10:00 94 22 104/64 (77) 97 Oxymask 6.0 03/14/17 09:03 114 03/14/17 08:00 Oxymask 03/14/17 08:00 Nasal Cannula 6.0 03/14/17 08:00 37.0 110 46 119/59 (79) 94 Oxymask 6.0 03/14/17 06:01 37.3 117 37 127/48 (74) 98 Oxymask 6.0 03/14/17 05:01 129 34 119/75 (90) 91 Oxymask 6.0 03/14/17 04:43 97 BiPAP 50 03/14/17 04:01 123 42 111/61 (78) 98 BiPAP 50.0 03/14/17 03:01 121 44 119/67 (84) 100 BiPAP 50.0 03/14/17 02:01 37.0 111 43 143/66 (91) 99 BiPAP 50.0 03/14/17 01:38 102 99 50 03/14/17 01:01 106 42 125/75 (92) 100 BiPAP 50.0 03/14/17 00:16 97 BiPAP 50 03/14/17 00:00 133 36 135/76 (95) 100 BiPAP 50.0 03/13/17 23:01 118 30 117/65 (82) 100 BiPAP 50.0 03/13/17 22:13 106 94 50 03/13/17 22:01 126 33 138/78 (98) 90 BiPAP 50.0 03/13/17 21:01 111 55 120/61 (80) 60 BiPAP 50.0 03/13/17 20:07 97 Oxymask 6.0 03/13/17 20:01 36.8 115 121/66 (84) 90 Oxymask 6.0 03/13/17 19:01 114 93/57 (69) 89 Oxymask 6.0 03/13/17 18:00 101 99/59 (72) 100 BiPAP 50 03/13/17 16:00 36.5 102 118/64 (82) 94 BiPAP 50 03/13/17 16:00 3 Oxymask 5.0 General Appearance: no apparent distress, + thin, + pertinent finding (appears frail) ENT: hearing grossly normal Neck: supple, no JVD Respiratory: no respiratory distress, no accessory muscle use, + decreased breath sounds Cardiovascular: regular rate, rhythm, no edema, + systolic murmur, + normal peripheral pulses Abdomen: normal bowel sounds, non tender, soft Neurologic/Psychiatric: alert, normal mood/affect, oriented x 3 Skin: + pallor Laboratory Results Last 24 Hours Test 03/13/17 16:09 03/13/17 21:30 03/14/17 04:52 03/14/17 10:40 Bedside Glucose 114 mg/dl 180 mg/dl White Blood Count 9.64 K/uL Red Blood Count 2.59 M/uL Hemoglobin 7.9 g/dL Hematocrit 25.3 % Mean Corpuscular Volume 97.7 fL Mean Corpuscular Hemoglobin 30.5 pg Mean Corpuscular Hemoglobin Concent 31.2 g/dl Platelet Count 168 K/uL Mean Platelet Volume 8.6 fL Neutrophils (%) (Auto) 82.4 % Lymphocytes (%) (Auto) 10.5 % Monocytes (%) (Auto) 6.3 % Eosinophils (%) (Auto) 0.1 % Basophils (%) (Auto) 0.1 % Neutrophils # (Auto) 7.94 K/uL Lymphocytes # (Auto) 1.01 K/uL Monocytes # (Auto) 0.61 K/uL Eosinophils # (Auto) 0.01 K/uL Basophils # (Auto) 0.01 K/uL RDW Standard Deviation 52.7 fL RDW Coefficient of Variation 14.9 % Immature Granulocyte % (Auto) 0.6 % Immature Granulocyte # (Auto) 0.06 K/uL Basophilic Stippling 1+ Anisocytosis PRESENT Sodium Level 140 mmol/L Potassium Level 3.5 mmol/L Chloride Level 94 mmol/L Carbon Dioxide Level 44 mmol/L Anion Gap 1.0 mmol/L Blood Urea Nitrogen 10 mg/dl Creatinine 0.60 mg/dl Est Creatinine Clear Calc Drug Dose 69.4 ml/min Estimated GFR () 107.8 Estimated GFR (Non- 93.0 BUN/Creatinine Ratio 17.3 Random Glucose 158 mg/dl Lactic Acid Level 0.7 mmol/L Calcium Level 8.3 mg/dl Magnesium Level 2.1 mg/dl Total Bilirubin 0.4 mg/dl Aspartate Amino Transf (AST/SGOT) 17 U/L Alanine Aminotransferase (ALT/SGPT) 19 U/L Alkaline Phosphatase 81 U/L Total Protein 7.0 gm/dl Albumin 2.2 gm/dl Globulin 4.8 gm/dl Albumin/Globulin Ratio 0.5 Free Thyroxine 1.13 ng/dl Free Triiodothyronine 1.89 pg/ml Test 03/14/17 11:50 Bedside Glucose 162 mg/dl Assessment & Plan Palliative Performance Scale: 40 % Problem list: SOB Weakness/fatigue Weight loss/failure to thrive Malnutrition/poor PO intake Bilateral pleural effusions s/p VATS and partial decortication Bilateral pulmonary consolidation- atelectasis vs. infectious process CAD s/p CABG and AVR six months ago Blood loss anemia- anticoagulation on hold- increased risk of cardiac event Afib with RVR Hx COPD, CHF, and Hyperthyroidism Goals of care (Z51.5) Palliative care recs: discussed with patient, , son, daughter, and Dr. Rice. -Per patient's wish, should be DNR/DNI. Family present and witnessed patient's decision. -Goal is to continue to improve, get better, get stronger. -Given patient's multiple comorbidities, failure to thrive, frailty, poor nutrition and functional status, recent major cardiac surgery, his prognosis is rather poor. Uncertain of his recovery/rehab potential. -Patient and family wish to continue all current medical treatment. -Lengthy discussion was held with the patient and family. Further goals of care discussions will be held throughout hospitalization. They denied any questions/ concerns at this time. Thank you kindly for consulting me on this nice patient and family. I will follow.
[2017-03-14 18:05] LABS: BUN/CREATININE RATIO 21.4 (10-20); CALCIUM 8.7 mg/dl (8.5-10.1); CREATININE 0.6 mg/dl (0.60-1.40); MAGNESIUM 2.2 mg/dl (1.8-2.4); POTASSIUM 4.2 mmol/L (3.5-5.1)
[2017-03-14] MEDS: LACTOBACILLUS ACIDOPHILUS (FLORANEX) TAB PO SCH ×2 (18:26→19:43)
[2017-03-14] MEDS: TAMSULOSIN HCL 0.4 MG CAP PO SCH (20:51)
[2017-03-14] MEDS: ATORVASTATIN 40 MG TAB PO SCH (20:52)
[2017-03-14] MEDS: MIRTAZAPINE TAB 15 MG TAB PO SCH (20:53)
[2017-03-15] VITALS (15 sets, daily range): BP systolic 102–118; BP diastolic 52–73; PULSE 86–120; TEMP 36.7–37.2; O2SAT 92–100
[2017-03-15] MEDS: INSULIN ASPART 100 UNITS/ML 3 ML PEN SC SCH ×6 (00:12→20:00)
[2017-03-15] MEDS: CHLOROTHIAZIDE INJ 500 MG in DEXTROSE 5% 50ML 50 ML IV SCH (03:59)
[2017-03-15 05:10] LABS: HEMATOCRIT 26.7 % (42-52); MEAN CELL VOLUME 97.1 fL (80-100); MEAN CORPUSCULAR HEMOGLOBIN 29.5 pg (25-34); MEAN CORPUSCULAR HGB CONC 30.3 g/dl (32-36); MEAN PLATELET VOLUME 8.5 fL (7.4-10.4); PLATELET COUNT 163 K/uL (130-400); RED BLOOD COUNT 2.75 M/uL (4.7-6.1); WHITE BLOOD COUNT 10.71 K/uL (4.8-10.8)
[2017-03-15 05:34] LABS: BASO % 0.2 %; BASO ABS # 0.02 K/uL (0-0.2); COMPLETE YES; EOS % 0.5 %; IG% 0.7 %; LYMPH % 15.3 %; LYMPH ABS # 1.64 K/uL (1.2-3.4); MONO % 11.6 %; NEUT % 71.7 %
[2017-03-15 05:40] LABS: BUN/CREATININE RATIO 24.2 (10-20); CALCIUM 8.5 mg/dl (8.5-10.1); CREATININE 0.62 mg/dl (0.60-1.40); MAGNESIUM 2.2 mg/dl (1.8-2.4); POTASSIUM 3.6 mmol/L (3.5-5.1)
[2017-03-15 06:04] LABS: ALB/GLOB RATIO 0.5 (0.9-2); PHOSPHORUS 1.7 mg/dl (2.5-4.9)
[2017-03-15] MEDS ORDERED: POTASSIUM CHLORIDE PWD 20 MEQ PACK PO ONE (06:15)
[2017-03-15] MEDS ORDERED: POT PHOSPHATE MONOBASIC W/ SOD TAB PO ONE (06:15)
--- NOTE | 2017-03-15 07:04 | DIAGNOSTIC IMAGING REPORT ---
CHEST ONE VIEW PORTABLE CLINICAL HISTORY: chest tube removal COMPARISON STUDY: 03/14/2017 FINDINGS: The heart remains enlarged. There is a feeding tube within the stomach. One of the patient's right-sided chest tubes has been removed. There is right apical pleural thickening and trace right apical pleural air. There are persistent bilateral pulmonary airspace opacities right greater than left.[ IMPRESSION: 1. Persistent cardiomegaly and bilateral pulmonary airspace opacities right greater than left 2. Interval removal of one of the 2 right-sided chest tubes. Persistent right apical pleural thickening with trace right apical pleural air Electronically signed by: Tristian Villafuerte M.D. 03/15/2017 7:03 AM Dictated Date/Time: 03/15/2017 7:01 AM
[2017-03-15] MEDS ORDERED: WARFARIN SOD 5 MG TAB PO ONE (07:45)
[2017-03-15] MEDS: ACETAZOLAMIDE IV PUSH 500 MG in SYRINGE 0 ML IV SCH ×3 (08:22→21:00)
[2017-03-15] MEDS: SPIRONOLACTONE 25 MG TAB PO SCH ×2 (08:22→17:00)
[2017-03-15] MEDS: ASCORBIC ACID 500 MG TAB PO SCH (08:23)
[2017-03-15] MEDS: MULTIVITAMIN TAB PO SCH (08:23)
[2017-03-15] MEDS: PANTOprazole SOD 40 MG TAB PO SCH ×2 (08:23→21:00)
[2017-03-15] MEDS: ASPIRIN 81 MG ECTAB PO SCH (08:24)
[2017-03-15] MEDS: METOPROLOL TARTRATE 100 MG TAB PO SCH ×2 (08:24→21:00)
[2017-03-15] MEDS: LACTOBACILLUS ACIDOPHILUS (FLORANEX) TAB PO SCH ×4 (08:24→20:00)
[2017-03-15] MEDS: FERROUS GLUCONATE 324 MG TAB PO SCH (08:25)
[2017-03-15] MEDS: POTASSIUM CHLORIDE 20 MEQ TABCR PO SCH ×3 (08:25→21:00)
[2017-03-15] MEDS: ENOXAPARIN 40 MG/0.4 ML SYR SQ SCH (08:25)
[2017-03-15] MEDS: DOCUSATE SODIUM 100 MG CAP PO SCH ×2 (08:29→21:00)
[2017-03-15] MEDS ORDERED: PHARMACY GLYCEMIC MGMT CONSULT PRN (08:30)
[2017-03-15] MEDS: POT PHOSPHATE MONOBASIC W/ SOD TAB PO SCH ×3 (08:35→17:00)
[2017-03-15] MEDS: DRONABINOL 2.5 MG CAP PO SCH ×2 (08:38→21:00)
[2017-03-15] MEDS ORDERED: FUROSEMIDE ORAL SOLN 40 MG/5 ML UDP PO ONE (09:00)
--- NOTE | 2017-03-15 10:33 | Pharmacy Progress Note ---
Glycemic Control Intl Consult Date of Service Mar 15, 2017. Scope Glycemic Pharmacist consulted by Dr Rice on 03/15/17 for glycemic control and to write orders per [facility] inpatient glycemic control protocol Objective Weight (Kilograms): 53.600 Accuchecks BSG (last 24hrs): Test 03/14/17 11:50 03/14/17 16:29 03/14/17 17:05 03/14/17 19:40 Bedside Glucose 162 mg/dl (70-99) 115 mg/dl (70-99) 139 mg/dl (70-99) Random Glucose 96 mg/dl (70-99) Test 03/15/17 00:00 03/15/17 03:50 03/15/17 05:03 Bedside Glucose 191 mg/dl (70-99) 204 mg/dl (70-99) Random Glucose 142 mg/dl (70-99) Laboratory Data (last 24hrs) Test 03/14/17 17:05 03/15/17 05:03 Anion Gap 1.0 mmol/L 4.0 mmol/L BUN/Creatinine Ratio 21.4 24.2 Blood Urea Nitrogen 13 mg/dl 15 mg/dl Creatinine 0.60 mg/dl 0.62 mg/dl Potassium Level 4.2 mmol/L 3.6 mmol/L Sodium Level 136 mmol/L 135 mmol/L White Blood Count 10.71 K/uL Red Blood Count 2.75 M/uL Hemoglobin 8.1 g/dL Hematocrit 26.7 % Mean Corpuscular Volume 97.1 fL Mean Corpuscular Hemoglobin 29.5 pg Mean Corpuscular Hemoglobin Concent 30.3 g/dl Platelet Count 163 K/uL Mean Platelet Volume 8.5 fL Neutrophils (%) (Auto) 71.7 % Lymphocytes (%) (Auto) 15.3 % Monocytes (%) (Auto) 11.6 % Eosinophils (%) (Auto) 0.5 % Basophils (%) (Auto) 0.2 % Neutrophils # (Auto) 7.68 K/uL Lymphocytes # (Auto) 1.64 K/uL Monocytes # (Auto) 1.24 K/uL Eosinophils # (Auto) 0.05 K/uL Basophils # (Auto) 0.02 K/uL Recent Pertinent Medications Outpatient Anti-diabetic Regimen: * N/A The patient is currently receiving: * Basal insulin: Lantus 10 units X 1 over the past 24 hours * Correctional Insulin: Novolog Correction per scale Q4 Goal Range: Low 120 mg/dL - High 160 mg/dL Correction Factor: 30 mg/dL/unit * Prandial insulin: Per carb ratio of 1 unit per 15 grams CHO consumed Risk Factors for Insulin Resistance: * Diet: PO during the day/Tube feeds overnight 2087-0922 Assessment & Plan ASSESSMENT: * 81 yo M admitted to ICU with pleural effusions/CHF/fluid overload - receiving basal bolus regimen for BSGs >140 mg/dL * Pt's appetite has remained poor this admission, so tube feeds were initiated 03/14 overnight in attempts to encourage PO intake during the day * BSGs have ranged 115-204 mg/dL over the past 24 hours * I gave a one time dose of Lantus yesterday AM to see if he tolerated it with the addition of tube feeds * With only one BSG >180 mg/dL- I want to continue a similar approach - but shift Lantus to dinner to ensure coverage of tube feeds * If patient does not tolerate Lantus (starts to have BSGs below goal range)- I will switch to NPH * I will not check an A1c this admission due to transfusions last week * Pt downgraded from ICU to telemetry today - will continue to follow and make adjustments as necessary PLAN FOR INPATIENT GLYCEMIC CONTROL: * Basal insulin with LANTUS 10 units SQ at dinner * Correctional Insulin with NOVOLOG per scale Q4hrs * Goal Range: Low 120 mg/dL - High 160 mg/dL * Correction Factor: 30 mg/dL/unit * Nutritional / Prandial insulin per carb ratio of 1 unit per 15 grams CHO consumed * Please note that the plan above was derived based on current level of insulin resistance and hospital stress. These recommendations are appropriate for inpatient admission only. Plan of care upon discharge will need to be reassessed to avoid potential outpatient hypo/hyperglycemia. Thank you.
--- NOTE | 2017-03-15 10:51 | Critical Care Progress Note ---
Critical Care Progress Note Date of Service Mar 15, 2017. ICU Day ICU Day Number: [address] Rice Subjective Patient still feeling tired and with lack of appetite Has been feeling short of breath at rest despite 3.5 L of diuresis yesterday, but says his SOB is better than it was yesterday He again says to me today that he does not want any heroic measures or invasive interventions He was seen by palliative care yesterday and his code status was changed to DNR after discussion with the family Patient was feeling nauseated this morning and said he had 3 loose bowel movements yesterday Patient denies any chest pain, palpitations, headaches, vomiting, constipation, fevers, night sweats, chills, joint pain, rashes Objective General: Frail elderly gentleman who is laying in the bed with nasal cannula ENT: head atraumatic and normocephalix Neck: Elevated JVD to angle of mandible Cardiac: Irregularly irregular. Normal S1 and S2. No audible murmurs, rubs or gallops. Hyperdynamic heart sounds Chest: Bilateral crackles to auscultation. Bandage over right side of thorax Abdomen: Soft, nontender, nondistended. Bowel sounds are present. Extremities: No cyanosis or edema. No pitting edema bilaterally. Left radial arterial line in place. No calf tenderness. Neurology: Alert and oriented 3. Current SOFA Score SOFA Score Response (Comments) Value Platelets (x10) > 150 0 Bilirubin (mg/dL) < 1.2 0 Laci Coma Score 15 0 Level of Hypotension No Hypotension 0 Creatinine (mg/dL) < 1.2 0 Total 0 Assessment & Plan 81 year old male s/p CABG and aortic valve replacement in August who presented to the hospital ten days ago with shortness of breath, weight loss, weakness and decreased appetite. Was found to have bilateral pleural effusions on CT scan and then underwent VATS and partial decortication. Had chest tubes removed yesterday. Also had feeding tube placed for which he is receiving feedings at night. He continues to be clinically fluid overloaded and is still needing oxygen via nasal cannula and still subjectively feels short of breath. After discussion with family yesterday he decided he did not want any further heroic measures and would want to be DNR should he decompensate further. He will be transferred to telemetry this afternoon with continued diuresis and physical therapy. NEURO cam negative patient denies any pain RESP resp rate improved and on 4 L via nasal cannula pod #5 for VATs and lung decortication chest tubes removed with pleurx in place CXR with extensive bilateral airspace opacities, cardiomegaly can continue with BiPaP when not on tube feeds to help with respiratory status will continue with diuresis to help with respiratory status CARDIAC 100 mg metoprolol bid for afib coumadin restarted at 10mg today, follow INR continue atorvastatin echo EF of 35-40% dig 125mcg q6 given yesterday acetazolamide tid, aldactone bid and furosemide once for diuresis monitor I/O's ID vanc and zosyn yesterday stopped after 7 day course afebrile overnight with wcc of 10.71 pleural fluid cx negative and urine cx negative procalcitonin negative GI will hold tube feeds tonight in place of bipap boost supplementation normal diet during the day lactobacillus po protonix po marinol po and senokot for bm I/O's [id number]= -[id number] tamsulosin .4mg 20 meq K= TID Na+=135 K+=3.6 Cl-= 93 Phos=1.7 Mag=2.2 Replace phos with potassium chloride 60meq once and potassium phosphate 1 tab qid Repeat BMP at 1600 ENDO glucose well controlled currently TSH .222 check T4=1.13 and T3 1.89 5mg methimazole currently HAEM received 1 unit PRBC hgb stable at 8.1, continue to monitor receiving 324 ferrous sulfate, supplement with vit C qam PSYCH mirtazapine DVT prophylaxis- 40mg lovenox DNR- palliative care on board PT/OT Transfer to telemetry Resident Physician Supervision Note: Dr. Lombardo was resident physician during care of patient. I separately evaluated patient and did history and exam. I discussed the case with the resident and generally agree with the findings and plan. Discussed with thoracic surgery, restart anticoagulation. Continue diuresis. Documented By: Darrell Rice DO SENECA II Score Date Score Was Generated: Mar 12, 2017 Consults & Procedures Consultants: Pulmonary: Thoracic surgery, critical care medicine. Procedures: Right-sided VAT's, partial pleurectomy, chest tube 2, Pleurx catheter on 2016. Arterial line placement intraoperatively. Data Medications: Current Inpatient Medications Medications (Trade) Dose Ordered Sig/Jarett Route Start Time Stop Time Status Last Admin Dose Admin Acetaminophen (Tylenol Tab) 650 mg Q4H PRN PO 03/05/17 18:45 04/04/17 18:44 Future hold 03/10/17 00:06 650 MG Nitroglycerin (Nitrostat Tab) 0.4 mg UD PRN SL 03/05/17 18:45 04/04/17 18:44 Atorvastatin Calcium (Lipitor Tab) 40 mg HS PO 03/05/17 21:00 04/04/17 20:59 03/14/17 20:52 40 MG Ferrous Gluconate (Ferrous Gluconate Tab) 324 mg DAILY PO 03/06/17 09:00 04/05/17 08:59 03/15/17 08:25 324 MG Methimazole (Methimazole Tab) 5 mg Q2D@0900 PO 03/06/17 09:00 04/05/17 08:59 03/14/17 08:54 5 MG Multivitamins (Multivitamin Tab) 1 tab DAILY PO 03/06/17 09:00 04/05/17 08:59 03/15/17 08:23 1 TAB Potassium Chloride (Klor-Con Tab) 20 meq TID PO 03/05/17 21:00 04/04/17 20:59 03/15/17 08:25 20 MEQ Albuterol (Ventolin Hfa Inhaler) 2 puffs Q4H PRN INH 03/05/17 18:45 04/04/17 18:44 03/14/17 16:26 2 PUFFS Mirtazapine (Remeron Tab) 30 mg HS PO 03/05/17 21:00 04/04/17 20:59 03/14/17 20:53 30 MG Pantoprazole Sodium (Protonix Tab) 40 mg BID PO 03/05/17 21:00 04/04/17 20:59 03/15/17 08:23 40 MG Tamsulosin HCl (Flomax Cap) 0.4 mg HS PO 03/05/17 21:00 04/05/17 08:59 03/14/17 20:51 0.4 MG Metoprolol Tartrate (Lopressor Tab) 100 mg BID PO 03/07/17 09:00 04/06/17 08:59 03/15/17 08:24 100 MG Al Hydrox/Mg Hydrox/Simethicone (Maalox Max Susp) 15 ml Q4H PRN PO 03/07/17 03:00 04/06/17 02:59 Furosemide (Lasix Tab) 40 mg QAM PO 03/07/17 09:00 04/06/17 08:59 Future Hold 03/14/17 08:55 40 MG Dronabinol (Marinol Cap) 10 mg BID PO 03/09/17 21:00 04/08/17 20:59 03/15/17 08:38 10 MG Oxycodone HCl (Roxicodone Immediate Rel Tab) 5 mg Q6H PRN PO 03/10/17 14:45 03/24/17 14:44 03/12/17 09:40 5 MG Enoxaparin Sodium (Lovenox Inj) 40 mg DAILY SQ 03/11/17 09:00 04/10/17 08:59 03/15/17 08:25 40 MG Ondansetron HCl (Zofran Inj) 4 mg Q4H PRN IV 03/10/17 14:45 04/09/17 14:44 03/12/17 07:41 4 MG Docusate Sodium (coLACE CAP) 100 mg BID PO 03/10/17 21:00 04/09/17 20:59 03/14/17 20:51 100 MG Morphine Sulfate (MoRPHine SULFATE INJ) Q1H PRN IV 03/10/17 14:45 03/24/17 14:44 03/13/17 17:34 2 MG Glucose (Glucose 40% Gel) 15-30 GRAMS 15 GRAMS... UD PRN PO 03/11/17 14:15 04/10/17 14:14 Glucose (Glucose Chew Tab) 4-8 Tablets 4 Tabl... UD PRN PO 03/11/17 14:15 04/10/17 14:14 Dextrose (Dextrose 50% 50ML Syringe) 25-50ML OF 50% DW IV FOR... UD PRN IV 03/11/17 14:15 04/10/17 14:14 Glucagon (Glucagon Inj) 1 mg UD PRN SQ 03/11/17 14:15 04/10/17 14:14 Sodium Chloride (Schlusser Nasal [place]) 1 sprays PRN PRN NA 03/12/17 16:15 04/11/17 16:14 Aspirin (Ecotrin Tab) 81 mg QAM PO 03/14/17 09:00 04/13/17 08:59 03/15/17 08:24 81 MG Enteral Nutritional Formula (Fibersource Hn) 1,000 ml UD PRN NG 03/14/17 09:00 04/13/17 08:59 03/14/17 20:37 1,000 ML Senna/Docusate Sodium (Senokot S Tab) 1 tab QAM PRN PO 03/14/17 10:15 04/13/17 10:14 Ascorbic Acid (Vitamin C Tab) 500 mg QAM PO 03/15/17 09:00 04/14/17 08:59 03/15/17 08:23 500 MG Lactobacillus Acidophilus (Floranex Tab) 4 tab QIDM PO 03/14/17 16:30 04/13/17 16:29 03/15/17 08:24 4 TAB Insulin Aspart (novoLOG ASPART) SLIDING SCALE Q4 SC 03/14/17 16:00 04/13/17 15:59 03/15/17 04:01 2 UNITS Acetazolamide Sodium 500 mg/ Syringe 5 ml @ 5 mls/min TID IV 03/15/17 09:00 03/15/17 21:00 03/15/17 08:22 5 MLS/MIN Spironolactone (Aldactone Tab) 50 mg BID17 PO 03/15/17 09:00 03/15/17 17:01 03/15/17 08:22 50 MG Potassium/ Phosphorus/Sodium (Phospha 250 Neutral 155-852-130 Mg) 1 tab QID PO 03/15/17 09:00 03/15/17 17:01 03/15/17 08:35 1 TAB Miscellaneous Information (Consult Glycemic Management Pharmacy) 1 ea UD PRN N/A 03/15/17 08:30 04/14/17 08:29 Enteral Nutritional Formula (Boost Plus Vanilla) 1 can TID PO 03/15/17 09:00 04/14/17 08:59 Vital Signs: Date Time Temp Pulse Resp B/P (MAP) Pulse Ox O2 Delivery O2 Flow Rate FiO2 03/15/17 08:00 Nasal Cannula 4.0 03/15/17 08:00 Nasal Cannula 03/15/17 08:00 109 31 102/55 (71) 92 Nasal Cannula 4.0 03/15/17 06:00 99 26 102/64 (77) 97 Oxymask 5.0 03/15/17 04:00 100 Oxymask 5.0 03/15/17 04:00 36.7 103 31 114/59 (77) 100 Oxymask 5.0 03/15/17 02:00 86 26 118/61 (80) 100 Oxymask 6.0 03/15/17 00:01 90 40 118/60 (79) 100 03/15/17 00:01 90 28 118/60 (79) 100 Oxymask 6.0 03/15/17 00:00 91 23 100 03/14/17 23:59 98 Oxymask 6.0 03/14/17 22:00 97 42 129/59 (82) 100 Oxymask 4.0 03/14/17 20:49 96 03/14/17 20:00 97 Oxymask 4.0 03/14/17 20:00 36.5 96 36 115/62 (79) 96 Oxymask 4.0 03/14/17 18:00 95 35 118/65 (82) 99 Oxymask 6.0 03/14/17 16:00 36.8 95 30 126/66 (86) 100 Oxymask 6.0 03/14/17 16:00 Oxymask 6.0 03/14/17 15:28 92 03/14/17 14:00 83 38 107/57 (74) 99 Oxymask 6.0 03/14/17 12:00 Nasal Cannula 6.0 03/14/17 12:00 36.8 98 21 105/56 (72) 95 Oxymask 6.0 Laboratory Results: Last 24 Hours Test 03/14/17 10:40 03/14/17 11:50 03/14/17 16:29 03/14/17 17:05 Free Thyroxine 1.13 ng/dl Free Triiodothyronine 1.89 pg/ml Bedside Glucose 162 mg/dl 115 mg/dl Sodium Level 136 mmol/L Potassium Level 4.2 mmol/L Chloride Level 92 mmol/L Carbon Dioxide Level 41 mmol/L Anion Gap 1.0 mmol/L Blood Urea Nitrogen 13 mg/dl Creatinine 0.60 mg/dl Est Creatinine Clear Calc Drug Dose 77.1 ml/min Estimated GFR () 107.8 Estimated GFR (Non- 93.0 BUN/Creatinine Ratio 21.4 Random Glucose 96 mg/dl Calcium Level 8.7 mg/dl Magnesium Level 2.2 mg/dl Test 03/14/17 19:40 03/15/17 00:00 03/15/17 03:50 03/15/17 05:03 Bedside Glucose 139 mg/dl 191 mg/dl 204 mg/dl White Blood Count 10.71 K/uL Red Blood Count 2.75 M/uL Hemoglobin 8.1 g/dL Hematocrit 26.7 % Mean Corpuscular Volume 97.1 fL Mean Corpuscular Hemoglobin 29.5 pg Mean Corpuscular Hemoglobin Concent 30.3 g/dl Platelet Count 163 K/uL Mean Platelet Volume 8.5 fL Neutrophils (%) (Auto) 71.7 % Lymphocytes (%) (Auto) 15.3 % Monocytes (%) (Auto) 11.6 % Eosinophils (%) (Auto) 0.5 % Basophils (%) (Auto) 0.2 % Neutrophils # (Auto) 7.68 K/uL Lymphocytes # (Auto) 1.64 K/uL Monocytes # (Auto) 1.24 K/uL Eosinophils # (Auto) 0.05 K/uL Basophils # (Auto) 0.02 K/uL RDW Standard Deviation 52.6 fL RDW Coefficient of Variation 14.9 % Immature Granulocyte % (Auto) 0.7 % Immature Granulocyte # (Auto) 0.08 K/uL Basophilic Stippling 1+ Sodium Level 135 mmol/L Potassium Level 3.6 mmol/L Chloride Level 93 mmol/L Carbon Dioxide Level 38 mmol/L Anion Gap 4.0 mmol/L Blood Urea Nitrogen 15 mg/dl Creatinine 0.62 mg/dl Est Creatinine Clear Calc Drug Dose 74.6 ml/min Estimated GFR () 106.3 Estimated GFR (Non- 91.7 BUN/Creatinine Ratio 24.2 Random Glucose 142 mg/dl Calcium Level 8.5 mg/dl Phosphorus Level 1.7 mg/dl Magnesium Level 2.2 mg/dl Total Bilirubin 0.5 mg/dl Aspartate Amino Transf (AST/SGOT) 20 U/L Alanine Aminotransferase (ALT/SGPT) 21 U/L Alkaline Phosphatase 97 U/L Total Protein 7.5 gm/dl Albumin 2.4 gm/dl Globulin 5.1 gm/dl Albumin/Globulin Ratio 0.5
--- NOTE | 2017-03-15 10:55 | DIAGNOSTIC IMAGING REPORT ---
KUB HISTORY: Status post placement of an enteric tube NG tube placement COMPARISON: Abdominal radiograph 03/13/2017 FINDINGS: Feeding tube is present with weighted distal tip projected superiorly within the lateral left upper abdomen, likely within the region of the mid gastric body. Surgical suture material is noted within the lower left abdomen. Mild gaseous distention of large bowel is noted measuring up to 7.1 cm. Bowel gas pattern is nonobstructive. No definite urolith or pneumoperitoneum. Aortobifemoral stent graft is noted. Prior median sternotomy. Cardiac silhouette is enlarged with background interstitial coarsening and persistent blunting of the costophrenic angles suspicious for pleural effusions. There is an apparent right-sided chest tube in place projecting along the lateral right hemithorax. Background bone demineralization. No fracture identified. IMPRESSION: Feeding tube projected superiorly within the lateral aspect of the left upper abdomen, likely within the region of the mid gastric body. Electronically signed by: Nelson Harris M.D. 03/15/2017 10:53 AM Dictated Date/Time: 03/15/2017 10:51 AM
[2017-03-15] MEDS ORDERED: FIBERSOURCE HN 1000ML BAG NG PRN ×2 (11:15)
[2017-03-15] MEDS: BOOST PLUS VANILLA PO SCH ×6 (11:39→21:00)
--- NOTE | 2017-03-15 11:57 | SURGERY PROGRESS NOTE ---
DATE: 03/15/2017 Mr. Olvera was seen today. He still remains very weak but he was diuresed a great deal and his A-a gradient has decreased. He has chronic atrial fibrillation with his heart rate is down in the 80s-100s. His labs were also stable with a white count of 10,710, hemoglobin stable at 8.1. His BUN and creatinine are 15 and 0.62. His chest x-ray was evaluated from this morning and has some pleural thickening but really no significant fluid on either side really. There are airspace abnormalities. I drained the PleurX for about 30 mL of serous blood fluid. He has been restarted on his Coumadin.
[2017-03-15] MEDS ORDERED: INSULIN GLARGINE SOLOSTAR 100 UNITS/ML 3 ML PEN SC SCH (17:00)
[2017-03-15 17:30] LABS: CALCIUM 8.9 mg/dl (8.5-10.1); CREATININE 0.67 mg/dl (0.60-1.40); MAGNESIUM 2.2 mg/dl (1.8-2.4); PHOSPHORUS 3.3 mg/dl (2.5-4.9); POTASSIUM 4.6 mmol/L (3.5-5.1)
--- NOTE | 2017-03-15 19:37 | Progress Note ---
Subjective Date of Service: Mar 15, 2017. Subjective Mr. Olvera is unresponsive and does not provide history. Problem List Medical Problems: (1) Dyspnea on exertion Status: Acute (2) Early satiety Status: Acute (3) Generalized weakness Status: Acute (4) Pleural effusion Status: Acute Review of Systems All Other Systems: Reviewed and Negative Objective Vital Signs Date Time Temp Pulse Resp B/P (MAP) Pulse Ox O2 Delivery O2 Flow Rate FiO2 03/15/17 19:16 117 96 50 03/15/17 18:00 36.8 96 24 105/56 (72) 93 Nasal Cannula 5.0 50 03/15/17 16:37 36.8 96 24 105/56 (72) 93 Nasal Cannula 5.0 03/15/17 16:00 Nasal Cannula 5.0 03/15/17 14:00 93 31 116/60 (78) 98 Nasal Cannula 3.0 03/15/17 12:00 36.8 92 30 110/52 (71) 97 Nasal Cannula 3.0 03/15/17 12:00 Nasal Cannula 3.0 03/15/17 10:00 92 30 110/73 (85) 92 Nasal Cannula 4.0 03/15/17 08:00 Nasal Cannula 4.0 03/15/17 08:00 Nasal Cannula 03/15/17 08:00 109 31 102/55 (71) 92 Nasal Cannula 4.0 03/15/17 06:00 99 26 102/64 (77) 97 Oxymask 5.0 03/15/17 04:00 100 Oxymask 5.0 03/15/17 04:00 36.7 103 31 114/59 (77) 100 Oxymask 5.0 03/15/17 02:00 86 26 118/61 (80) 100 Oxymask 6.0 03/15/17 00:01 90 40 118/60 (79) 100 03/15/17 00:01 90 28 118/60 (79) 100 Oxymask 6.0 03/15/17 00:00 91 23 100 03/14/17 23:59 98 Oxymask 6.0 03/14/17 22:00 97 42 129/59 (82) 100 Oxymask 4.0 03/14/17 20:49 96 03/14/17 20:00 97 Oxymask 4.0 10/23/17 20:00 36.5 96 36 115/62 (79) 96 Oxymask 4.0 Physical Exam General Appearance: WD/WN, no apparent distress, + pertinent finding ( unresponsive to verbal stimuli, ) Neck: supple, no adenopathy Respiratory/Chest: + decreased breath sounds Cardiovascular: no gallop, + tachycardia Abdomen: normal bowel sounds Extremities: non-tender, no calf tenderness Lymphatic: no adenopathy Laboratory Results Last 24 Hours Test 03/14/17 19:40 03/15/17 00:00 03/15/17 03:50 03/15/17 05:03 Bedside Glucose 139 mg/dl 191 mg/dl 204 mg/dl White Blood Count 10.71 K/uL Red Blood Count 2.75 M/uL Hemoglobin 8.1 g/dL Hematocrit 26.7 % Mean Corpuscular Volume 97.1 fL Mean Corpuscular Hemoglobin 29.5 pg Mean Corpuscular Hemoglobin Concent 30.3 g/dl Platelet Count 163 K/uL Mean Platelet Volume 8.5 fL Neutrophils (%) (Auto) 71.7 % Lymphocytes (%) (Auto) 15.3 % Monocytes (%) (Auto) 11.6 % Eosinophils (%) (Auto) 0.5 % Basophils (%) (Auto) 0.2 % Neutrophils # (Auto) 7.68 K/uL Lymphocytes # (Auto) 1.64 K/uL Monocytes # (Auto) 1.24 K/uL Eosinophils # (Auto) 0.05 K/uL Basophils # (Auto) 0.02 K/uL RDW Standard Deviation 52.6 fL RDW Coefficient of Variation 14.9 % Immature Granulocyte % (Auto) 0.7 % Immature Granulocyte # (Auto) 0.08 K/uL Basophilic Stippling 1+ Sodium Level 135 mmol/L Potassium Level 3.6 mmol/L Chloride Level 93 mmol/L Carbon Dioxide Level 38 mmol/L Anion Gap 4.0 mmol/L Blood Urea Nitrogen 15 mg/dl Creatinine 0.62 mg/dl Est Creatinine Clear Calc Drug Dose 74.6 ml/min Estimated GFR () 106.3 Estimated GFR (Non- 91.7 BUN/Creatinine Ratio 24.2 Random Glucose 142 mg/dl Calcium Level 8.5 mg/dl Phosphorus Level 1.7 mg/dl Magnesium Level 2.2 mg/dl Total Bilirubin 0.5 mg/dl Aspartate Amino Transf (AST/SGOT) 20 U/L Alanine Aminotransferase (ALT/SGPT) 21 U/L Alkaline Phosphatase 97 U/L Total Protein 7.5 gm/dl Albumin 2.4 gm/dl Globulin 5.1 gm/dl Albumin/Globulin Ratio 0.5 Test 03/15/17 11:29 03/15/17 16:18 03/15/17 16:19 Bedside Glucose 148 mg/dl 122 mg/dl Sodium Level 134 mmol/L Potassium Level 4.6 mmol/L Chloride Level 93 mmol/L Carbon Dioxide Level 37 mmol/L Anion Gap 4.0 mmol/L Blood Urea Nitrogen 16 mg/dl Creatinine 0.67 mg/dl Est Creatinine Clear Calc Drug Dose 63.3 ml/min Estimated GFR () 103.0 Estimated GFR (Non- 88.9 BUN/Creatinine Ratio 24.0 Random Glucose 112 mg/dl Calcium Level 8.9 mg/dl Phosphorus Level 3.3 mg/dl Magnesium Level 2.2 mg/dl Assessment and Plan Mr. Olvera is a 81-year-old male with past medical history of paroxysmal atrial fibrillation and Coumadin, COPD, coronary artery disease and AAA status post leaking emergent endovascular repair at [facility] He also has hyperlipidemia, hypertension, colon cancer status post hemicolectomy, prostate cancer status post brachytherapy, hypothyroidism and GERD He has history of prostate cancer and recently was noted to have a possible lump on his prostate by his primary care physician as well On 03/06/2017 he presented to emergency department with decreased appetite, generalized weakness, shortness of breath and weight loss. Recently seen by his machine adjuster helper and his primary care physician; Dr. Hughes and Dr. Mays and he was advised to go to ED for further evaluation. had an echocardiogram done in January which showed ejection fraction of 35-40% , Assessment Shortness of breath secondary to bilateral pleural effusion, empyema was pulled out, pH was 7.2 on pleural fluid Now unresponsive Pulmonary consolidation on CT scan most likely atelectasis but cannot rule out pneumonia status post 7 days course of vancomycin/Zosyn Generalized weakness and failure to thrive Atrial fibrillation with RVR COPD without exacerbation Acute blood loss anemia CAD status post CABG in June 2016 Cardiomyopathy with ejection fraction 30-40% on echo Hyperthyroidism on methimazole Plan Mr Olvera, appears to have a turn for the worse as he is unresponsive. Discussed case with as he is DNR. Will place him on BIPAP for now to see if he improves, however explained to her that this is risky as he is unable to protect his airway. Despite this, she does not want him to be intubated. will monitor his vitals Palliative care is on board. Unsure if patient will make it through the night. Continue when necessary Lopressor IV Continue Lactinex for clostridia difficile prophylaxis Continue bronchodilators, Lipitor, methimazole, and home meds continue supportive care Continued [facility] stay due to: multiple IV medications needed [facility]charge planning: [facility] facility
[2017-03-15] MEDS ORDERED: FUROSEMIDE INJ 80 MG in SYRINGE 0 ML IV ONE (20:00)
[2017-03-15] MEDS: TAMSULOSIN HCL 0.4 MG CAP PO SCH (21:00)
[2017-03-15] MEDS: ATORVASTATIN 40 MG TAB PO SCH (21:00)
[2017-03-15] MEDS: MIRTAZAPINE TAB 15 MG TAB PO SCH (21:00)
[2017-03-15 21:15] LABS: IPAP 10; ISTAT ALLEN TEST Pass; ISTAT ARTERIAL BLOOD GAS HCO3 43 meq/L (19-24); ISTAT ARTERIAL BLOOD GAS PCO2 106 mmHg (35-46); ISTAT ARTERIAL BLOOD GAS PO2 125 mmHg (80-95); ISTAT ARTERIAL BLOOD GAS pH 7.22 (7.35-7.45); ISTAT CARBON DIOXIDE > 40 mEq/l (24-31); ISTAT DELIVERY SYSTEM BIPAP; ISTAT FIO2 50 %; ISTAT RATE 39; ISTAT SITE R Radial
[2017-03-16 00:02] VITALS: BP 108/74; PULSE 125; TEMP 36.4; O2SAT 97
[2017-03-16] MEDS: INSULIN ASPART 100 UNITS/ML 3 ML PEN SC SCH ×4 (00:26→12:00)
[2017-03-16] MEDS ORDERED: NURSING VERBAL MED ORDER ONE (01:00)
[2017-03-16] MEDS: MoRPHine SULFATE 2 MG/ML CARP IV PRN ×12 (01:35→17:42)
[2017-03-16 02:12] VITALS: PULSE 119; O2SAT 99
[2017-03-16 03:32] VITALS: BP 93/58; PULSE 107; TEMP 36.7; O2SAT 100
[2017-03-16 06:36] LABS: BUN/CREATININE RATIO 31.5 (10-20); CALCIUM 8.9 mg/dl (8.5-10.1); CREATININE 0.74 mg/dl (0.60-1.40); MAGNESIUM 2.4 mg/dl (1.8-2.4); POTASSIUM 4.5 mmol/L (3.5-5.1)
[2017-03-16 06:40] LABS: PHOSPHORUS 4.1 mg/dl (2.5-4.9)
[2017-03-16] MEDS: LACTOBACILLUS ACIDOPHILUS (FLORANEX) TAB PO SCH ×3 (07:30→15:37)
[2017-03-16] MEDS: BOOST PLUS VANILLA PO SCH ×4 (07:51→12:37)
[2017-03-16 08:00] VITALS: BP 79/58; PULSE 124; TEMP 36.7; O2SAT 100
[2017-03-16] MEDS: ASPIRIN 81 MG ECTAB PO SCH (08:41)
[2017-03-16] MEDS: POTASSIUM CHLORIDE 20 MEQ TABCR PO SCH ×2 (08:41→12:37)
[2017-03-16] MEDS: DOCUSATE SODIUM 100 MG CAP PO SCH (08:41)
[2017-03-16] MEDS: FERROUS GLUCONATE 324 MG TAB PO SCH (08:41)
[2017-03-16] MEDS: MULTIVITAMIN TAB PO SCH (08:42)
[2017-03-16] MEDS: METOPROLOL TARTRATE 100 MG TAB PO SCH (08:42)
[2017-03-16] MEDS: DRONABINOL 2.5 MG CAP PO SCH (08:42)
[2017-03-16] MEDS: PANTOprazole SOD 40 MG TAB PO SCH (08:42)
[2017-03-16] MEDS: ASCORBIC ACID 500 MG TAB PO SCH (08:42)
[2017-03-16] MEDS: METHIMAZOLE 5 MG TAB PO SCH (08:42)
[2017-03-16] MEDS: ENOXAPARIN 40 MG/0.4 ML SYR SQ SCH (09:00)
--- NOTE | 2017-03-16 09:08 | CARDIOLOGY PROGRESS NOTE ---
DATE: 03/16/2017 TIME: 08:30 a.m. SUBJECTIVE: Yesterday, he became more confused according to the nursing notes and then, later became unresponsive last night. An ABG was performed at 20:58 p.m. and his CO2 was 106. He was placed on BiPAP at some point yesterday, but despite has remained unresponsive. His and daughter are present at the bedside. They state that in between the doses of morphine, he becomes agitated appearing, but has not spoken without obvious purposeful movement. REVIEW OF SYSTEMS: He is currently unresponsive and therefore, review of systems is unobtainable. OBJECTIVE: VITAL SIGNS: Temperature 36.7 degrees, heart rate 107 beats per minute, respiratory rate 36, and blood pressure 93/58 mmHg; however, most recent systolic blood pressure is in the 70s while in the room. Oxygen saturation is 100% on BiPAP, FiO2 of 0.5. I's and O's, he was negative 3.5 liters on 03/14/2017. He was negative 1.6 liters yesterday. Weight 52.2 kg. GENERAL: No acute distress. He is unresponsive to verbal stimuli. He appears comfortable. CARDIAC EXAM: No ventricular heave. Irregularly irregular and tachycardic. Normal S1 and S2. There were no audible murmurs, rubs or gallops. LUNGS: Decreased breath sounds throughout. ABDOMEN: Soft and nondistended. EXTREMITIES: No cyanosis or edema. 1+ radial pulses bilaterally. MEDICATIONS: Include, 1. Aspirin 81 mg daily. 2. Lipitor 40 mg at bedtime. 3. Lovenox 40 mg subQ daily. 4. Lasix 80 mg IV x1 on 03/15/2017 at 08:00 p.m. He also had 40 mg p.o. in the morning of Lasix. 5. Metoprolol tartrate 100 mg p.o. b.i.d., last given yesterday morning. 6. Morphine 2 mg IV q. 1 hours and q. 2 hours as needed. 7. Protonix 40 mg p.o. b.i.d. 8. Potassium chloride 20 mEq p.o. t.i.d., but this has not been given since yesterday afternoon. LABORATORY DATA: ABG on 03/15/2017 at 20:58 p.m., pH 7.22, pCO2 of 106, pO2 of 125, bicarbonate level 43, and oxygen saturation 97%. Labs today, sodium 137, potassium 4.5, BUN 23, creatinine 0.74, and magnesium 2.4. TELEMETRY: Personally reviewed. Atrial fibrillation with rapid ventricular response. ASSESSMENT AND PLAN: 1. Respiratory failure with hypercapnia: He is currently on BiPAP, but is unresponsive. The patient's confirms that he is currently comfort measures. She and her daughter agreed that he would not want to go on like this. They asked about removing the mask at some point. They were asked to further discuss this and whenever they are ready, the BIPAP mask can be discontinued. Palliative care is following. 2. Atrial fibrillation with rapid ventricular response: This is not likely causing him any discomfort. If he remains on comfort care, would not further treat his atrial fibrillation. If goals change, would initiate standing orders of digoxin. His atrial fibrillation is likely more tachycardic this morning as he did not receive last night's beta vince dose and his breathing has deteriorated. 3. Chronic systolic congestive heart failure: He was admitted with respiratory issues and was euvolemic on exam. Following his VATS procedure, he appeared hypovolemic. He did receive fluids for hypotension and antibiotics and became hypervolemic, but has since diuresed well. He no longer appears significantly hypervolemic on exam, but his breathing has not significantly improved. If he appears to be short of breath and hypervolemic, can intermittently dose IV diuretics for comfort purposes. 4. Cardiomyopathy: No further treatment at this time given comfort measures. 5. Coronary artery disease: No further treatment due to comfort measures. 6. Disposition: Poor prognosis. Palliative care is following. Comfort measures as per family. If cardiology can offer any further assistance, please do not hesitate to call. Cardiology will sign off at this time.
[2017-03-16 11:45] VITALS: PULSE 113; O2SAT 98
[2017-03-16 12:00] VITALS: BP 79/58; PULSE 134; TEMP 36.7; O2SAT 98
--- NOTE | 2017-03-16 12:56 | SURGERY PROGRESS NOTE ---
DATE: 03/16/2017 SUBJECTIVE: Mr. Olvera looks very poor today. His heart rate is in the 100s to 110s. On a 50% BiPAP, he has 98% saturation. His pCO2 went up to 106 last night. His pO2 was 105. He is on BiPAP. He is not acidotic. He has not had a chest x-ray since yesterday and not really show much in the way of any changes for his pleural fluid, however, he had airspace opacities in both lung weir and he looks much worse clinically. I discussed this case with Dr. Hughes today. It is unclear why he has done so poorly since his aortic valve replacement and his multivessel coronary artery bypass grafting. At this point, we will continue supportive care. The plan is to send him to a correction facility. I discussed this with the patient's today. AMANDA
--- NOTE | 2017-03-16 13:34 | Palliative Care Progress Note ---
Palliative Care Progress Note Date of Service Mar 16, 2017. Subjective Pt evaluation today including: conversation w/ patient (attempted), conversation w/ family (, Sana Olvera), physical exam, chart review, conversation w/ wine consultant, review of inpatient medication list Pain: unable to assess PO Intake: none Voiding: cox catheter in place -Patient apparently took a turn for the worst yesterday and last night. -He is now minimally responsive on Bipap. Spo2 84-89% on 50% FiO2. -Carbon dioxide 106 last night while on Bipap. -During my assessment around noon, patient is extremely lethargic on bipap. Responded only by moving upper extremities to noxious stimuli. He was unable to open eyes or have meaningful interaction. -I called the , Sana Olvera, at home ([phone]). She states that the goal is strictly for comfort measures only. Does not want bipap removed until family is able to be there. -See plan below. Review of Systems unable to obtain ROS due to altered mental status Objective Vital Signs Date Time Temp Pulse Resp B/P (MAP) Pulse Ox O2 Delivery O2 Flow Rate FiO2 03/16/17 11:45 113 98 50 03/16/17 08:00 36.7 124 34 79/58 (65) 100 BiPAP 03/16/17 04:00 BiPAP 50 03/16/17 03:32 36.7 107 36 93/58 (70) 100 BiPAP 50 03/16/17 02:12 119 99 50 03/16/17 00:02 36.4 125 25 108/74 (85) 97 03/16/17 00:00 BiPAP 50 03/15/17 23:24 111 99 50 03/15/17 21:25 120 95 50 03/15/17 20:00 Nasal Cannula 5.0 03/15/17 19:59 37.2 106 24 103/70 (81) 98 BiPAP 03/15/17 19:16 117 96 50 03/15/17 18:00 36.8 96 24 105/56 (72) 93 Nasal Cannula 5.0 50 03/15/17 16:37 36.8 96 24 105/56 (72) 93 Nasal Cannula 5.0 03/15/17 16:00 Nasal Cannula 5.0 03/15/17 14:00 93 31 116/60 (78) 98 Nasal Cannula 3.0 Physical Exam General Appearance: no apparent distress, + cachetic, + thin ENT: + pertinent finding (face covered with bipap mask) Neck: no JVD Respiratory/Chest: no respiratory distress, + decreased breath sounds, + accessory muscle use (slight) Cardiovascular: + tachycardia, + normal peripheral pulses Abdomen: normal bowel sounds, soft Extremities: + pertinent finding (cool feet) Neurologic/Psychiatric: + pertinent finding (almost completed obtunded. minimally responsive to noxious stimuli) Skin: + pallor, + pertinent finding (no mottling at this time) Laboratory Results Last 24 Hours Test 03/15/17 16:18 03/15/17 16:19 03/15/17 20:30 03/15/17 20:58 Sodium Level 134 mmol/L Potassium Level 4.6 mmol/L Chloride Level 93 mmol/L Carbon Dioxide Level 37 mmol/L Anion Gap 4.0 mmol/L Blood Urea Nitrogen 16 mg/dl Creatinine 0.67 mg/dl Est Creatinine Clear Calc Drug Dose 63.3 ml/min Estimated GFR () 103.0 Estimated GFR (Non- 88.9 BUN/Creatinine Ratio 24.0 Random Glucose 112 mg/dl Calcium Level 8.9 mg/dl Phosphorus Level 3.3 mg/dl Magnesium Level 2.2 mg/dl Bedside Glucose 122 mg/dl 135 mg/dl Blood Gas Sample Site R Radial Bedside Blood Gas pH (LAB) 7.22 Bedside Blood Gas pCO2 (LAB) 106 mmHg Bedside Blood Gas pO2 (LAB) 125 mmHg Bedside Blood Gas HCO3 (LAB) 43 meq/L Bedside Blood Gas Total CO2 > 40 mEq/l Bedside Blood Gas Base Excess (LAB) 15.0 meq/L Bedside Blood Gas O2 Saturation 97.0 % Jeronimo Test Pass Oxygen Delivery Device BIPAP Bedside Oxygen Rate (breaths/min) 39 Bedside FiO2 50 % Blood Gas IPAP 10 Test 03/16/17 00:16 03/16/17 04:07 03/16/17 05:31 03/16/17 06:51 Bedside Glucose 223 mg/dl 116 mg/dl 122 mg/dl Prothrombin Time 11.0 SECONDS Prothromb Time International Ratio 1.0 Sodium Level 137 mmol/L Potassium Level 4.5 mmol/L Chloride Level 95 mmol/L Carbon Dioxide Level 39 mmol/L Anion Gap 3.0 mmol/L Blood Urea Nitrogen 23 mg/dl Creatinine 0.74 mg/dl Est Creatinine Clear Calc Drug Dose 57.3 ml/min Estimated GFR () 98.9 Estimated GFR (Non- 85.3 BUN/Creatinine Ratio 31.5 Random Glucose 116 mg/dl Calcium Level 8.9 mg/dl Phosphorus Level 4.1 mg/dl Magnesium Level 2.4 mg/dl Assessment and Plan Problem list: SOB Minimally responsive Respiratory failure- hypercapnic Weakness/fatigue Weight loss/failure to thrive Malnutrition/poor PO intake Bilateral pleural effusions s/p VATS and partial decortication Bilateral pulmonary consolidation- atelectasis vs. infectious process CAD s/p CABG and AVR six months ago Blood loss anemia- anticoagulation on hold- increased risk of cardiac event Afib with RVR Hx COPD, CHF, and Hyperthyroidism Goals of care (Z51.5) Palliative care recs: discussed with patient's and Dr. Mayes. -Clarified with the , patient is comfort measures only. -I specifically discussed with Elif () about discontinuing all medications unrelated to comfort, stopping insulin and BSGs, discontinuing tube feeding order (already not running). She agrees with this plan. -Continue PRN IV morphine as currently ordered. If frequent doses are needed, can start continuous morphine infusion at 2mg/hr, titrate by 1mg/hr Q15min PRN pain or SOB. -No secretions at this time, but could order atropine 1% oph soln 4 drops SL Q1h PRN. Add scopolamine patch 1.5mg TD patch Q72h if secretions arise. -Continue Bipap until family arrives. They will let us know if/when they would like to remove Bipap. -Unsure if patient would even survive transfer to [facility] at this point. He will not be able to leave the hospital in his current state. -I did make the aware that in my opinion, patient could pass within hours and less likely days. She understands and states that she and family will be in today. Thank you again for consulting me on this nice patient and family. Palliative Performance Scale: 10 % Continued [facility] stay due to: multiple IV medications needed Discharge planning: custodial facility
[2017-03-16] MEDS ORDERED: MoRPHine SULFATE 2 MG/ML CARP IV PRN (18:00)
--- NOTE | 2017-03-28 08:10 | Death Summary ---
Summary of Admission Date Mar 05, 2017 at 17:56 Date & Time of Mar 16, 2017. Approx. 19:00 Cause of Respiratory failure secondary to failure to thrive Hospital Course This 81 year old male patient presented to the hospital nine days ago with c/o weakness, SOB, 45lb unintentional weight loss, and decreased appetite/PO intake. Back in August, patient underwent CABG and aortic valve replacement. Since then, he has essentially been experiencing failure to thrive and significant decompensation. He sees Dr. Mays as his PCP, also follows closely with Dr. Hughes for cardiology. Per the family, cardiology had wanted patient to seek further ischemic evaluation for his heart a couple months ago, but patient declined. Patient was also not attending physical therapy post surgery as the daughter noted. On CT scan, patient noted to have bilateral pleural effusions. He underwent VATS and partial decortication. Had chest tubes placed in right side. He was hypotensive and hypovolemic post surgery, was fluid resuscitated but unfortunately went into fluid volume overload. He was being diuresed. His chest tube was pulled about 2 days prior to by cardiothoracic surgery, pleur-x catheter left in. Due to patient's poor nutritional status, a coresafe feeding tube was placed into right nare and [employer] parenteral feedings started. Patient's prognosis remained poor given his multiple medical comorbidities, failure to thrive, frailty, poor functional status and poor nutritional status. Palliative care wasseeing the patient in consultation I met with the patient, his Elif (Sana), son Austin. Patient is nonresponsive on BiPap sitting up in chair. He appears frail, significant recent deconditioning is apparent. Patient was placed on BiPAP yesterday to help decrease his CO2. However, he did not improve. Family did not want any heroic interventions done and wanted BiPAP to be removed once family arrived at bedside. This occurred late afternoon on 03-16-17 and patient near 19:00. Patient had no heart beat, no reactive pupils, no gag reflex, was not reacting to pain. His EKG was flat lined. This confirmed that patient . Family was notified as they were outside the room during examination.
== END 2017-03-16 18:46 | disposition expired | DRG 163 ==
LOC: C.EDB 13:47 → C.2T 17:56 → ENRESERV 18:24 → C.MS2W 03-08 16:30 → C.MSICU 03-10 15:12 → ENRESERV 03-15 12:48 → C.2E 03-15 14:30
PROVIDERS: ADMIT Hospitalist; ATTEND Internal Medicine Sports Medicine
PROC: 0BNK4ZZ Release Right Lung, Percutaneous Endoscopic Approach (ICD-10-PCS; principal; 2017-03-11)
PROC: 0B9N3ZX Drainage of Right Pleura, Percutaneous Approach, Diagnostic (ICD-10-PCS; principal; 2017-03-11)
PROC: 0BBN4ZZ Excision of Right Pleura, Percutaneous Endoscopic Approach (ICD-10-PCS; principal; 2017-03-11)
DX: J86.9 Pyothorax without fistula (principal); E43 Unspecified severe protein-calorie malnutrition; I50.22 Chronic systolic (congestive) heart failure; J90 Pleural effusion, not elsewhere classified; I48.91 Unspecified atrial fibrillation; Z66 Do not resuscitate; J44.9 Chronic obstructive pulmonary disease, unspecified; E78.5 Hyperlipidemia, unspecified; E05.90 Thyrotoxicosis, unspecified without thyrotoxic crisis or storm; K21.9 Gastro-esophageal reflux disease without esophagitis; G47.00 Insomnia, unspecified; E61.1 Iron deficiency; Z87.891 Personal history of nicotine dependence; Z86.711 Personal history of pulmonary embolism